=== PATIENT | female | born 1940 | race Caucasian/White ===

== ENCOUNTER → 2017-09-02 09:43 | Outpatient (CLI) | payer MEDICARE, OTHER, SELFPAY ==
[2017-09-02 10:16] LABS: Hematocrit 41.4 % (36-46); Mean Corpuscular HGB Conc 33.7 % (30-36); Mean Corpuscular Hemoglobin 30.2 PG (26-34); Mean Corpuscular Volume 89.5 fL (80-100); Platelet Count 233 X10^3/uL (150-400); Red Blood Cell Count 4.63 X10^6/uL (4.0-5.2); Red Cell Distribution Width 13.3 % (11.6-14.8); White Blood Cell Count 6.9 X10^3/uL (4.5-11.0)
[2017-09-02 10:17] LABS: Add Manual Diff / Slide Review YES
[2017-09-02 10:28] LABS: Alanine Aminotransferase 25 IU/L (9-52); Albumin 4.4 g/dL (3.5-5.0); Albumin Globulin Ratio 1.4 (1.0-2.8); Alkaline Phosphatase 60 U/L (38-126); Aspartate Aminotransferase 24 IU/L (14-36); BUN Creatinine Ratio 27.1 (6-22); Bilirubin Total 0.8 mg/dL (0.2-1.3); Blood Urea Nitrogen 19 mg/dL (7-17); Calcium 9.7 mg/dL (8.4-10.2); Carbon Dioxide 28 mmol/L (22-32); Chloride 103 mmol/L (98-107); Cholesterol 220 mg/dL (140-199); Estimated Glomerular Filt Rate > 60.0 mL/min (>60); Globulin 3.1 g/dL (1.7-4.1); Glucose 98 mg/dL (80-110); HDL Cholesterol 70 mg/dL (40-60); HEMOLYSIS < 15 (0-50); LDL Cholesterol Calculated 132 mg/dL (<100); Potassium 4.7 mmol/L (3.4-5.1); Sodium 142 mmol/L (137-145); Total Protein 7.5 g/dL (6.3-8.2); Triglycerides 92 mg/dL (35-150)
[2017-09-02 10:51] LABS: Neutrophils Absolute Manual 5106 /uL (3000-5900); Total Cells Counted 100
== END ==
PROVIDERS: Family Provider Family Medicine; PCP Family Medicine; Visit Provider Family Medicine
DX: I10 Essential (primary) hypertension (principal); E78.5 Hyperlipidemia, unspecified
CPT/HCPCS: 36415; 80053; 80061; 85025

== ENCOUNTER 2017-09-18 12:43 | Emergency (ER) | payer MEDICARE, OTHER, SELFPAY ==
[2017-09-18 12:55] VITALS: BP 137/77; PULSE 88; RESP 15; TEMP 36.6; O2SAT 98; BMI 27.4
--- NOTE | 2017-09-18 14:04 | ED.ABDPAIN ---
HPI - Abdominal Pain General Chief Complaint: Abdominal Pain Stated Complaint: POSSIBLE DIVERTICUTLITIS,PAIN FOR 4 DAYS Time Seen by Provider: 09/18/17 13:33 Source: patient Mode of arrival: ambulatory Limitations: no limitations History of Present Illness HPI narrative: Patient is a 77-year-old female who presents with lower abdominal pain and cramping for the last 4 days. He says he has had loose watery stools. No nausea or vomiting. She has had chills and sweats. No bloody diarrhea. This feels like her diverticulitis. She does have frequent painful urination but she says that is normal for her. Related Data Home Medications Medication Instructions Recorded Confirmed metoprolol tartrate [Lopressor] 25 mg PO BID 09/18/17 09/18/17 pravastatin 20 mg PO QPM 09/18/17 09/18/17 Previous Rx's Medication Instructions Recorded lisinopril 10 mg tablet 10 mg PO QDAY #90 tab 08/27/17 Allergies Allergy/AdvReac Type Severity Reaction Status Date / Time levofloxacin [LEVOFLOXACIN] Allergy Severe severe Verified 09/18/17 12:55 mouth and eye swelling indomethacin [INDOMETHACIN] Allergy Mild Verified 09/18/17 12:55 meloxicam [MELOXICAM] Allergy Mild Verified 09/18/17 12:55 metronidazole [METRONIDAZOLE] Allergy Mild Verified 09/18/17 12:55 rosuvastatin [ROSUVASTATIN] Allergy Mild Verified 09/18/17 12:55 trandolapril [TRANDOLAPRIL] Allergy Mild Verified 09/18/17 12:55 ciprofloxacin [From CIPRO] Allergy Unknown Verified 09/18/17 12:55 Review of Systems Review of Systems GENERAL: Denies chills, fatigue, malaise, fever, sweats, travel HEENT: Denies sinus pain, ear pain, sore throat, difficulty swallowing, neck pain RESPIRATORY: Denies dyspnea, cough, wheezing, hemoptysis, sputum. CARDIOVASCULAR: Denies chest pain, palpitations, orthopnea, edema GASTROINTESTINAL: See HPI : Denies dysuria, frequency, incontinence, hematuria, urinary retention, flank pain. MUSCULOSKELETAL: Denies weakness, joint pain, or bony pain SKIN: No rash, no erythema, no pruritus NEUROLOGIC: Denies weakness, dizziness, headache, numbness, change in speech, confusion PSYCHIATRIC: No concerning psychosocial issues. 12 point review of systems is negative except for those stated above and HPI PFSH Medical History Diverticular disease (Chronic) PVCs (premature ventricular contractions) (Chronic) Spinal stenosis (Chronic) Surgical History Hx of decompressive lumbar laminectomy (Resolved 08/01/15) Status post hysterectomy with oophorectomy (Resolved) Social History Smoking Status: Never smoker Exam Initial Vital Signs Initial Vital Signs: Vital Signs Temperature 97.9 F 09/18/17 12:55 Pulse Rate 88 09/18/17 12:55 Respiratory Rate 15 09/18/17 12:55 Blood Pressure 137/77 H 09/18/17 12:55 Pulse Oximetry 98 09/18/17 12:55 GENERAL: Well-appearing, well-nourished and in no acute distress. HEENT: Head atraumatic,EOMI, pupils reactive, face symmetric, moist mucous membranes CARDIOVASCULAR: Regular rate and rhythm without murmurs, rubs or gallops. RESPIRATORY: Breath sounds equal bilaterally, no wheezes rales or rhonchi. ABDOMEN: Soft, nontender. Normoactive bowel sounds all 4 quadrants. No guarding or rebound. : No CVA tenderness EXTREMITIES: Normal range of motion, no clubbing or edema. Neurovascularly intact NEUROLOGICAL: Alert and oriented x4.Normal gait and speech. SKIN: Warm, dry, no laceration, no petechiae, no rashes or lesions. Course Orders Ordered: ED Orders 09/18/17 13:44 Complete Blood Count AUTO DIFF Stat Comprehensive Metabolic Panel Stat Lipase Stat Discontinued Medications Sodium Chloride (Normal Saline 0.9%) 1,000 mls @ 1,000 mls/hr IV CONT CHRISTEN Last Infusion: 09/18/17 15:15 Dose: 0 mls/hr Admin: 09/18/17 14:17 Dose: 1,000 mls/hr Vital Signs - 8 hr 09/18/17 12:55 09/18/17 14:27 09/18/17 15:40 Temperature 97.9 F Pulse Rate 88 66 74 Respiratory Rate 15 16 16 Blood Pressure 137/77 H 165/75 H Blood Pressure [Right Arm] 139/52 H Pulse Oximetry 98 100 100 MDM - Abdominal Pain Lab Data Result diagrams: 09/18/17 13:44 09/18/17 13:44 Lab Results 09/18/17 09/18/17 Range/Units 13:44 13:44 WBC 9.7 (4.5-11.0) X10^3/uL RBC 4.40 (4.0-5.2) X10^6/uL Hgb 13.4 (12.0-16.0) g/dL Hct 39.1 (36-46) % MCV 89.1 (80-100) fL MCH 30.5 (26-34) PG MCHC 34.3 (30-36) % RDW 13.0 (11.6-14.8) % Plt Count 241 (150-400) X10^3/uL Neut % (Auto) 77.6 H (50-75) % Lymph % (Auto) 14.9 L (25-40) % [place] % (Auto) 6.7 (3-14) % Eos % (Auto) 0.2 L (2-4) % Baso % (Auto) 0.6 (0-2) % Neut # (Auto) 7500 H (9818-4634) /uL Sodium 140 (137-145) mmol/L Potassium 3.9 (3.4-5.1) mmol/L Chloride 103 (98-107) mmol/L Carbon Dioxide 28 (22-32) mmol/L BUN 23 H (7-17) mg/dL Creatinine 1.10 H (0.52-1.04) mg/dL Estimated GFR 48.4 L (>60) mL/min BUN/Creatinine Ratio 20.9 (6-22) Glucose 138 H (80-110) mg/dL Calcium 9.5 (8.4-10.2) mg/dL Total Bilirubin 1.0 (0.2-1.3) mg/dL AST 29 (14-36) IU/L ALT 23 (9-52) IU/L Alkaline Phosphatase 62 (38-126) U/L Total Protein 7.5 (6.3-8.2) g/dL Albumin 4.3 (3.5-5.0) g/dL Globulin 3.2 (1.7-4.1) g/dL Albumin/Globulin Ratio 1.3 (1.0-2.8) Lipase 121 (23-300) U/L Point of care testing: Urine Dip Bedside Urine Glucose Negative Bedside Urine Bilirubin - Negative Bedside Urine Ketone - Negative Urine Specific [place] 1.015 Bedside Urine Occult Blood - Negative Bedside Urine pH 6.0 Bedside Urine Protein - Negative Bedside Urine Urobilinogen - Negative Bedside Urine Nitrite - Negative Bedside Urine Leukocytes - Negative Esterase MDM Narrative Medical decision making narrative: 3:12 p.m. abdomen is examined and remains mildly tender and lower abdomen and soft. Blood work is reassuring. Discussed no need for CT at this time she has no localization of pain. I offered x-ray though I do not think he is obstructed. She does have a history of perforation. At this time she feels okay not having an x-ray and will return if needed I discussed all findings with the patient Education has been performed regarding treatment plan, diagnosis, warning signs and symptoms and all concerns have been addressed. Verbally agree with and understood all of the above. Discharge Plan Departure Patient Disposition: Home, Self-Care Clinical Impression: Abdominal pain Discharge Date/Time: 09/18/17 15:41 Interventions: ED Discharge Assessment Last Done: 09/18/17 15:40 Instructions: Diarrhea, Acute Abdominal Pain Activity Restrictions/Additional Instructions: *You have been diagnosed with abdominal pain and diarrhea *What to do: Increase fluid intake with Gatorade or Gatorade like substance *Continue to take medications as directed *Follow up with your primary care provider in 2-3 days *Return to ER if you should have increasing abdominal pain, bloody diarrhea, vomiting, inability to tolerate fluids or any new, worsening or concerning symptoms Prescriptions: No Action lisinopril 10 mg tablet 10 mg PO QDAY Qty: 90 RF: 3 metoprolol tartrate [Lopressor] 50 mg tablet 25 mg PO BID RF: 0 pravastatin 20 mg tablet 20 mg PO QPM RF: 0 Referrals: Kiana Laguna MD [Primary Care Provider] -
[2017-09-18 14:15] LABS: Add Manual Diff / Slide Review NO; Basophils Percent Auto 0.6 % (0-2); Eosinophils Percent Auto 0.2 % (2-4); Hematocrit 39.1 % (36-46); Hemoglobin 13.4 g/dL (12.0-16.0); Lymphocytes Percent Auto 14.9 % (25-40); Mean Corpuscular HGB Conc 34.3 % (30-36); Mean Corpuscular Hemoglobin 30.5 PG (26-34); Mean Corpuscular Volume 89.1 fL (80-100); Monocytes Percent Auto 6.7 % (3-14); Neutrophils Absolute Auto 7500 /uL (3000-5900); Neutrophils Percent Auto 77.6 % (50-75); Platelet Count 241 X10^3/uL (150-400); White Blood Cell Count 9.7 X10^3/uL (4.5-11.0)
[2017-09-18 14:16] LABS: Alanine Aminotransferase 23 IU/L (9-52); Albumin 4.3 g/dL (3.5-5.0); Albumin Globulin Ratio 1.3 (1.0-2.8); Alkaline Phosphatase 62 U/L (38-126); Aspartate Aminotransferase 29 IU/L (14-36); BUN Creatinine Ratio 20.9 (6-22); Blood Urea Nitrogen 23 mg/dL (7-17); Calcium 9.5 mg/dL (8.4-10.2); Carbon Dioxide 28 mmol/L (22-32); Chloride 103 mmol/L (98-107); Estimated Glomerular Filt Rate 48.4 mL/min (>60); Globulin 3.2 g/dL (1.7-4.1); Glucose 138 mg/dL (80-110); HEMOLYSIS < 15 (0-50); Lipase 121 U/L (23-300); Potassium 3.9 mmol/L (3.4-5.1); Sodium 140 mmol/L (137-145); Total Protein 7.5 g/dL (6.3-8.2)
[2017-09-18] MEDS: SODIUM CHLORIDE 0.9% 1,000 ML 1000 ML IV (14:17)
[2017-09-18 14:27] VITALS: BP 139/52; PULSE 66; RESP 16; O2SAT 100
[2017-09-18 15:40] VITALS: BP 165/75; PULSE 74; RESP 16; O2SAT 100
== END 2017-09-18 15:41 | disposition home or self-care (01) ==
PROVIDERS: Emergency Provider Emergency Medicine; Family Provider Family Medicine; PCP Family Medicine
DX: R10.9 Unspecified abdominal pain (principal)
CPT/HCPCS: 36591; 80053; 81003; 83690; 85025; 96360; 99283; 99284

== ENCOUNTER 2017-10-28 07:11 | Outpatient (CLI) | payer MEDICARE, OTHER, SELFPAY ==
[2017-10-28] VITALS (13 sets, daily range): BP systolic 100–145; BP diastolic 47–83; PULSE 56–68; RESP 11–20; TEMP 36.3; O2SAT 97–100
--- NOTE | 2017-10-28 07:12 | DI.RAD.S_ITS ---
PROCEDURE: PAIN L/SI FACET INJ/BLK 1STL INDICATIONS: lumbosacral spondylosis FINDINGS: Fluoroscopic spot filming was performed to verify placement of spinal needles at the right L4-5 and L5-S1 level(s), as labeled on the films. Appropriate location(s) of the needle tip(s) was confirmed by injection of iodinated contrast. IMPRESSION: Right L4-5 and L5-S1 needle tip localization. Dictated by: John Markham M.D. on 10/28/2017 at 13:04 Approved by: John Markham M.D. on 10/28/2017 at 13:04
--- NOTE | 2017-10-28 08:22 | P.PCN_ITS ---
Procedures Date/Time Date of procedure: 10/28/17 Time of procedure: 08:19 General Procedure description: PREOP DIAGNOSIS 1. FACET ARTHROPATHY 2. AXIAL LBP 3. MULTILEVEL DDD POST OP DIAGNOSIS 1. FACET ARTHROPATHY 2. AXIAL LBP 3. MULTILEVEL DDD PROCEDURES 1. FLUORSCOPICALLY GUIDED CONTRAST CONTROLLED FACET JOINT INJECTIONS BILATERAL L4/5, L5/S1 PHYSICIAN: Peterson Burgess, DO INDICATIONS Kaylee is referred by Dr.Newlon Sampson for treatment of Axial LBP FINDINGS Multilevel Facet Arthropathy with Clinically significant axial LBP DESCRIPTION OF PROCEDURE Fluoroscopically guided, contrast-controlled bilateral L4/5, L5/S1 facet joint injections. Following denial of allergy and review of potential side effects and complications, including, but not necessarily limited to, infection, allergic reaction, local tissue breakdown, stroke, temporary or permanent nerve injury, paralysis, and possible , the patient indicated that the patient understood and agreed to proceed. An informed consent document was signed by the patient, witnessed by a nurse, and placed in the patient's chart. Additionally, other treatment options including medications, modalities, and physical therapy were reviewed with the patient. After review of previous anaesthesic history and IV conscious sedation the patient was deemed safe to proceed with todays procedure with IV conscious sedation as ASA class II designation. Safety time-out was performed to confirm patient ID, procedure to be performed and site of procedure. IV sedation was accomplished with a combination of 3mg was administered by the RN after DO order , titrated to patient comfort during the course of the procedure while the patient remained responsive to all verbal commands In the prone position, following sterile prep and drape of the lumbar region, the posterior aspect of the L4/5, L5/S1 facet joints were identified fluoroscopically. The skin was anesthetized via a 25-gauge 1.5-inch needle with 1% lidocaine solution into the corresponding facet joints. At this point, a 22-gauge 3.5-inch spinal needle was atraumatically introduced and advanced under fluoroscopic guidance into the corresponding facet joints. Following negative aspiration, injections of approximately 0.2-cc of Isovue 200 confirmed interarticular placement without vascular uptake. The identical procedure was then performed at the L4/5, L5/S1 facet joints on the left. Radiological data, including multiple fluoroscopic views of the lumbosacral spine, reveal a spinal needle at the L3/4, L5/S1 facet joints bilaterally. Subsequent views show flow of contrast material both superiorly and inferiorly within the joint space without vascular or intrathecal uptake. At this point, a total of 0.5 cc including a mixture of 0.25 cc Marcaine and 0.25 cc betamethasone was injected without complication into each of the corresponding facet joints. The patient tolerated the procedure well without signs or symptoms of complications prior to transfer to the recovery area continued monitoring without incident. The patient was then transferred to the recovery area where they were observed for an appropriate period of time after the injection. The patient reported a VAS score of 7 prior to the procedure and a post- procedure VAS of 0. Total Fluoroscopy Time: 20.3 seconds Total Conscious Sedation Time: 24min POST OP INSTRUCTIONS The patient was provided a Pain Log to continue to record their response to the target-specific procedure prior to follow-up visit with their referring physician. Additionally, specific post-injection care instructions and a contact number to our office were provided if concerns arise regarding possible complications associated with the procedure are suspected. Peterson Burgess, Complications: none
[2017-10-28] MEDS: IOPAMIDOL 15 ML VIAL 3 ML INJ (08:41)
[2017-10-28] MEDS: BETAMETHASONE 30 MG/5 ML MDV 12 MG INJ (08:41)
[2017-10-28] MEDS: MIDAZOLAM 5 MG/5 ML VIAL IV (08:42)
[2017-10-28] MEDS: BUPIVACAINE 0.5% (PF) VIAL 2 ML INJ (08:42)
[2017-10-28] MEDS: LIDOCAINE 1% 20 ML INJ 10 ML INJ (08:42)
== END 2017-10-28 09:55 ==
LOC: RAD 07:12
PROVIDERS: Family Provider Family Medicine; PCP Family Medicine; Visit Provider Physical Medicine & Rehabilitation
DX: M47.816 Spondylosis without myelopathy or radiculopathy, lumbar region (principal); M47.817 Spondylosis without myelopathy or radiculopathy, lumbosacral region; M51.36 Other intervertebral disc degeneration, lumbar region; M51.37 Other intervertebral disc degeneration, lumbosacral region
CPT/HCPCS: 64491; 64493; 64494; 99152; J0702; J2250

== ENCOUNTER 2017-11-02 12:25 | Observation (INO) | payer MEDICARE, OTHER, SELFPAY ==
[2017-11-02 12:44] VITALS: BP 166/83; PULSE 68; RESP 20; TEMP 36.9; O2SAT 98; BMI 27.1
--- NOTE | 2017-11-02 12:50 | DI.RAD.S_ITS ---
PROCEDURE: XR CHEST 2V INDICATIONS: palpitations TECHNIQUE: 2 views of the chest were acquired. COMPARISON: [facility], , CHEST 1 VIEW, 03/19/2016, 11:19. FINDINGS: Surgical changes and devices: None. Lungs and pleura: No pleural effusions or pneumothorax. Lungs are clear. Mediastinum: Mediastinal contours are normal. Heart size is normal. Bones and chest wall: No suspicious bony abnormalities. Soft tissues appear unremarkable. IMPRESSION: No acute cardiopulmonary disease process. Dictated by: Paola Calderon MD, PhD on 11/02/2017 at 13:10 Approved by: Paola Calderon MD, PhD on 11/02/2017 at 13:11
[2017-11-02 13:03] LABS: Add Manual Diff / Slide Review NO; Eosinophils Percent Auto 0.4 % (2-4); Hematocrit 45.5 % (36-46); Hemoglobin 15.2 g/dL (12.0-16.0); Lymphocytes Percent Auto 22.1 % (25-40); Mean Corpuscular HGB Conc 33.5 % (30-36); Mean Corpuscular Hemoglobin 29.7 PG (26-34); Mean Corpuscular Volume 88.6 fL (80-100); Monocytes Percent Auto 7.9 % (3-14); Neutrophils Absolute Auto 7300 /uL (3000-5900); Neutrophils Percent Auto 68.6 % (50-75); Platelet Count 284 X10^3/uL (150-400); Red Blood Cell Count 5.13 X10^6/uL (4.0-5.2); White Blood Cell Count 10.6 X10^3/uL (4.5-11.0)
[2017-11-02 13:10] LABS: BUN Creatinine Ratio 26.3 (6-22); Blood Urea Nitrogen 21 mg/dL (7-17); Calcium 10.1 mg/dL (8.4-10.2); Carbon Dioxide 28 mmol/L (22-32); Chloride 103 mmol/L (98-107); Estimated Glomerular Filt Rate > 60.0 mL/min (>60); Glucose 100 mg/dL (80-110); HEMOLYSIS 24 (0-50); Magnesium 2.1 mg/dL (1.6-2.3); Potassium 4.5 mmol/L (3.4-5.1); Sodium 140 mmol/L (137-145)
[2017-11-02 13:23] LABS: Troponin I < 0.012 ng/mL (0.01-0.034)
--- NOTE | 2017-11-02 14:23 | ED.SOB ---
HPI - SOB/Dyspnea General Chief Complaint: Shortness of Breath/Dyspnea Stated Complaint: EKG IRREGULAR Time Seen by Provider: 11/02/17 12:34 History of Present Illness HPI 77-year-old female presents for further evaluation of palpitations that are sudden in onset, paroxysmal, and correlated with an abrupt change from sinus rhythm to a wide-complex tachycardia of approximately 101 bpm noted on cardiac monitoring immediately prior to arrival; patient feels lightheaded and experiences a sensation of anxiety with substernal palpitations during her episodes. Episodes have been occurring intermittently but with increasing frequency over months to last 1+ years. Patient denies history of DVT or PE. Patient transfer from her [facility] who obtained 3 ECGs prior to transfer, these were forwarded with the patient. ECG (11:23 AM) SR 61 bpm, HI 121 ms, QRS 89 ms, QTc 411 ms, no ST segment elevations or depressions, no T-wave inversions. EKG (11:26 AM): wide-complex QRS without preceding Q waves with transition to sinus rhythm. EKG (11:29 AM): broad and complex rhythm with the curious of 177 ms and left bundle branch type morphology, no identifiable preceding P waves. M/S/F/SocHx notable for: urinary dysfunction, constipation, HTN, lumbar stenosis, lumbar radiculopathy, palpitations, HTN, diverticulitis; remainder reviewed with patient and in chart. ROS: Negative constitutional, eye, cardiovascular, pulmonary, GI, , MSK, skin, neurologic, psychiatric, endocrine unless noted in the HPI. Exam Gen: Pleasant, non-toxic appearing, resting comfortably. HEENT: NC, AT, PEERL, EOMI. Resp: Clear to auscultation bilaterally, normal work of breathing, no accessory muscle usage. Card: Regular rate and rhythm with no murmurs, rubs, or gallops, extremities warm and well perfused. GI: Non-tender to palpation throughout all quadrants, no focal tenderness at McBurney's point, negative Rich's sign, non-distended, no rebound or guarding. : No suprapubic tenderness to palpation. MSK: No visible deformities, strength and tone without visually appreciable deficit. Skin: Normal color with no visible lesions. Neuro: AO x 3, no facial asymmetry, vision and hearing WNL. Psych: Mood and affect appropriate. Labs / Imaging: EKG (12:28 PM) SR with sinus arrhythmia and short HI segments. No ST segment elevations or depressions. WBC 10.6, hemoglobin 15.2 sodium 140, potassium 4.5, magnesium 2.1, troponin <0.012 CXR: no acute cardiopulmonary disease process. TSH pending MDM Previous chart, nursing note, labs, imaging, and vitals reviewed. A: 77-year-old female presents for further evaluation of palpitations that are sudden in onset, paroxysmal, and correlated with an abrupt change from sinus rhythm to a wide-complex tachycardia of approximately 101 bpm noted on cardiac monitoring immediately prior to arrival; patient feels lightheaded and experiences a sensation of anxiety with substernal palpitations during her episodes. Evaluation: Serial ECGs notable for what appears to be a junctional rhythm with retrograde P waves. Patient symptomatic during episodes with features concerning for hypoperfusion, electrolytes WNL, inciting event of unclear cause of the present time. Discuss case with cardiology, jointly reviewed ECG and presentation, suspect idioventricular rhythm versus slow VTach, stress test, echocardiogram, and initiation of beta-pranay recommended. Patient admitted for further care. Impression: idioventricular rhythm. (please reference below for remainder of encounter information) Related Data Home Medications Medication Instructions Recorded Confirmed metoprolol tartrate [Lopressor] 25 mg PO BID 09/18/17 11/02/17 pravastatin 20 mg PO QPM 09/18/17 11/02/17 polyethylene glycol 3350 [Miralax] 17 gram PO PRN PRN 11/02/17 11/02/17 Previous Rx's Medication Instructions Recorded lisinopril 10 mg tablet 10 mg PO QDAY #90 tab 08/27/17 Allergies Allergy/AdvReac Type Severity Reaction Status Date / Time levofloxacin [LEVOFLOXACIN] Allergy Severe severe Verified 11/02/17 11:37 mouth and eye swelling indomethacin [INDOMETHACIN] Allergy Mild Verified 11/02/17 11:37 meloxicam [MELOXICAM] Allergy Mild Verified 11/02/17 11:37 metronidazole [METRONIDAZOLE] Allergy Mild Verified 11/02/17 11:37 rosuvastatin [ROSUVASTATIN] Allergy Mild Verified 11/02/17 11:37 trandolapril [TRANDOLAPRIL] Allergy Mild Verified 11/02/17 11:37 ciprofloxacin [From CIPRO] Allergy Unknown Verified 11/02/17 11:37 [facility] Social History Smoking Status: Never smoker Exam Initial Vital Signs Initial Vital Signs: Vital Signs Temperature 98.5 F 11/02/17 12:44 Pulse Rate 68 11/02/17 12:44 Respiratory Rate 20 11/02/17 12:44 Blood Pressure 166/83 H 11/02/17 12:44 Pulse Oximetry 98 11/02/17 12:44 Course Orders Ordered: ED Orders 11/02/17 12:40 Basic Metabolic Panel Stat Complete Blood Count AUTO DIFF Stat Magnesium Stat Thyroid Stimulating Hormone Stat Troponin I Stat 11/02/17 12:50 XR chest 2V Stat Vital Signs - 8 hr 11/02/17 12:44 11/02/17 14:29 Temperature 98.5 F Pulse Rate 68 65 Respiratory Rate 20 14 Blood Pressure 166/83 H Blood Pressure [Right Arm] 151/62 H Pulse Oximetry 98 97 MDM - SOB/Dyspnea Lab Data Result diagrams: 11/02/17 12:40 11/02/17 12:40 Lab Results 11/02/17 11/02/17 Range/Units 12:40 12:40 WBC 10.6 (4.5-11.0) X10^3/uL RBC 5.13 (4.0-5.2) X10^6/uL Hgb 15.2 (12.0-16.0) g/dL Hct 45.5 (36-46) % MCV 88.6 (80-100) fL MCH 29.7 (26-34) PG MCHC 33.5 (30-36) % RDW 13.0 (11.6-14.8) % Plt Count 284 (150-400) X10^3/uL Neut % (Auto) 68.6 (50-75) % Lymph % (Auto) 22.1 L (25-40) % [place] % (Auto) 7.9 (3-14) % Eos % (Auto) 0.4 L (2-4) % Baso % (Auto) 1.0 (0-2) % Neut # (Auto) 7300 H (5820-8441) /uL Sodium 140 (137-145) mmol/L Potassium 4.5 (3.4-5.1) mmol/L Chloride 103 (98-107) mmol/L Carbon Dioxide 28 (22-32) mmol/L BUN 21 H (7-17) mg/dL Creatinine 0.80 (0.52-1.04) mg/dL Estimated GFR > 60.0 (>60) mL/min BUN/Creatinine Ratio 26.3 H (6-22) Glucose 100 (80-110) mg/dL Calcium 10.1 (8.4-10.2) mg/dL Magnesium 2.1 (1.6-2.3) mg/dL Troponin I < 0.012 (0.01-0.034) ng/mL Discharge Plan Departure Prescriptions: No Action lisinopril 10 mg tablet 10 mg PO QDAY Qty: 90 RF: 3 metoprolol tartrate [Lopressor] 50 mg tablet 25 mg PO BID RF: 0 pravastatin 20 mg tablet 20 mg PO QPM RF: 0 polyethylene glycol 3350 [Miralax] 17 gram/dose powder 17 gram PO PRN PRN (Reason: Constipation) RF: 0
[2017-11-02 14:29] VITALS: BP 151/62; PULSE 65; RESP 14; O2SAT 97
[2017-11-02 14:51] LABS: Thyroid Stimulating Hormone 3.37 uIU/mL (0.47-4.68)
[2017-11-02 15:45] VITALS: BP 155/82; PULSE 70; RESP 18; TEMP 36.4; O2SAT 97
--- NOTE | 2017-11-02 17:54 | P.HP_ITS ---
History of Present Illness Date Patient Seen: 11/02/17 Time Patient Seen: 16:45 Chief complaint: EKG IRREGULAR Narrative: Patient is a 77-year-old woman with a history of hypertension, hyperlipidemia, and chronic back pain who presented with palpitations. Patient reports that for the past year she has been having intermittent palpitations. It usually starts as a substernal pressure that rapidly changes to a ?empty ? feeling in her chest. She states that her chest feels ?hollow. ? She then has a feeling of lightheadedness. There is associated shortness of breath. The patient then usually starts to feel slightly dizzy. She can get associated low back pain. She denies distinct diaphoresis, radiation of the pressure type pain , nausea. It usually lasts for 1-2 minutes and then self resolves. She has not been able to identify any specific triggers. She did have a workup for palpitations last year include labs, echocardiogram, and Holter monitor. Labs did not show any abnormalities, echo showed moderate atrial enlargement, and Holter monitor showed PACs. The patient was started on metoprolol help control her symptoms at that time. The patient states that her palpitations never completely resolved. Over the past week they have increased in frequency from a few times a month to want to 1-2/day. Yesterday and today however they have been occurring much more frequently, sometimes multiple an hour. This became very concerned her and so she was evaluated in clinic today. In clinic EKG was completed that showed what appeared to be a widened QRS with ventricular rate. The patient was then transferred to the emergency room. In the ER, she remained asymptomatic. On telemetry there are no concerning findings. Cardiology was contacted and reviewed the EKGs as well. Discussed idioventricular rhythm versus slow V-tach. Recommended admission for echocardiogram and stress test, and increase of the patient's beta-pranay. Patient History Medical History Diverticular disease (Chronic) PVCs (premature ventricular contractions) (Chronic) Spinal stenosis (Chronic) Surgical History Hx of decompressive lumbar laminectomy (Resolved 08/01/15) Status post hysterectomy with oophorectomy (Resolved) Family & Social History Family History: Reviewed 11/02/17 by Meli Fraser MD Safety & Behavioral: Feels Safe in Current Yes Environment Been Physically Hurt or No Threatened By a Person Tobacco & Substance use: Smoking Status Never smoker alcohol intake frequency 0-2 drinks per day Substance Use Type does not use Meds Home Medications Medication Instructions Recorded Confirmed Type lisinopril 10 mg tablet 10 mg PO QDAY #90 tab 08/27/17 11/02/17 Rx metoprolol tartrate [Lopressor] 25 mg PO BID 09/18/17 11/02/17 History pravastatin 20 mg PO QPM 09/18/17 11/02/17 History estradiol 1 mg tablet 1 mg PO DAILY #30 tab 11/02/17 Rx polyethylene glycol 3350 [Miralax] 17 gram PO PRN PRN 11/02/17 11/02/17 History Allergies Allergy/AdvReac Type Severity Reaction Status Date / Time levofloxacin [LEVOFLOXACIN] Allergy Severe severe Verified 11/02/17 11:37 mouth and eye swelling indomethacin [INDOMETHACIN] Allergy Mild Verified 11/02/17 11:37 meloxicam [MELOXICAM] Allergy Mild Verified 11/02/17 11:37 metronidazole [METRONIDAZOLE] Allergy Mild Verified 11/02/17 11:37 rosuvastatin [ROSUVASTATIN] Allergy Mild Verified 11/02/17 11:37 trandolapril [TRANDOLAPRIL] Allergy Mild Verified 11/02/17 11:37 ciprofloxacin [From CIPRO] Allergy Unknown Verified 11/02/17 11:37 Review of Systems Constitutional Constitutional: Denies fever(s), Denies headache(s), Denies lack of energy and Denies snoring ENT Ears, Nose, Mouth, and Throat: No headache(s) Cardiovascular Cardiovascular: Reports chest pain, Denies fainting, Denies fast heart rate, Reports irregular heart rhythm, Denies leg swelling, Reports lightheadedness, Reports shortness of breath and Denies slow heart rate Respiratory Respiratory: Denies cough, Reports dyspnea and Denies snoring Gastrointestinal Gastrointestinal: Denies abdominal pain, Denies constipation and Denies nausea Neurologic Neurologic: Denies syncope and Denies headache(s) Exam Vital Signs (past 8 hours): - 11/02/17 12:44 11/02/17 14:29 11/02/17 15:45 Temperature 98.5 F 97.6 F Pulse Rate 68 65 70 Respiratory Rate 20 14 18 Blood Pressure 166/83 H 155/82 H Blood Pressure [Right Arm] 151/62 H Pulse Oximetry 98 97 97 Oxygen Delivery Method Room Air Narrative Exam Narrative: GEN - alert, cooperative and no distress HEENT - normocephalic and atraumatic, sclera white, moist mucus membranes, throat non-erythematous and tonsils not enlarged NECK - FROM, no adenopathy, Thyroid is not enlarged, symmetrical and smooth HEART - RRR, S1, S2 normal, no S3 or S4, no murmurs LUNGS - symmetric chest rise, no accessory muscles, clear to auscultation bilaterally ABD - flat, nondistended, normal bowel sounds, soft, nontender and no hepatomegaly, splenomegaly or masses EXT - no cyanosis, clubbing or edema SKIN - no rashes or suspicious lesions NEURO - no gross deficits Objective Labs Result Diagrams: 11/02/17 12:40 11/02/17 12:40 Labs: Laboratory Results - last 24 hr 11/02/17 11/02/17 11/02/17 12:40 12:40 12:40 WBC 10.6 RBC 5.13 Hgb 15.2 Hct 45.5 MCV 88.6 MCH 29.7 MCHC 33.5 RDW 13.0 Plt Count 284 Neut % (Auto) 68.6 Lymph % (Auto) 22.1 L Pratt % (Auto) 7.9 Eos % (Auto) 0.4 L Baso % (Auto) 1.0 Neut # (Auto) 7300 H Sodium 140 Potassium 4.5 Chloride 103 Carbon Dioxide 28 BUN 21 H Creatinine 0.80 Estimated GFR > 60.0 BUN/Creatinine Ratio 26.3 H Glucose 100 Calcium 10.1 Magnesium 2.1 Troponin I < 0.012 TSH 3.37 Assessment & Plan (1) Arrhythmia: Qualifiers: Arrhythmia type: unspecified cardiac arrhythmia Qualified Code(s): I49.9 - Cardiac arrhythmia, unspecified Current visit: Yes Status: Acute (2) Hypertension: Qualifiers: Hypertension type: essential hypertension Qualified Code(s): I10 - Essential (primary) hypertension Current visit: No Status: Chronic Plan: Assessment/Plan Narrative: 77-year-old woman with a history of hypertension, hyperlipidemia, chronic back pain who presents with palpitations. EKG consistent with idioventricular rhythm versus slow ventricular tachycardia. Rhythm was captured again on telemetry during brief hospitalization. Recommendation from Cardiology included echocardiogram and stress test be completed. After discussion with the patient, she declines workup in the hospital due to financial concerns with observation status with admission. Discussed with the employment evaluator/case manager as well, who states the patient would not qualify for inpatient status. Discussed our concerns with the patient, including the potentially dangerous nature of her arrhythmia. The patient expressed understanding. She continued to decline additional testing on the hospital. The patient will be leaving against medical advice this evening. We will insure appropriate follow-up as an outpatient. Plan to refer to Cardiology in addition to having outpatient echocardiogram and stress test completed promptly. Did increase metoprolol to 50 mg b.i.d. from 25 mg b.i.d. as well.
--- NOTE | 2017-11-02 18:00 | PC.NURSE ---
paloma ferguson Pt received from ER. Pt in sinus rhythm. Pt had episode of feeling empty in chest, SOB. Pt showing SR on tele. Just before Dr. Fraser arrived to see pt, pt had 37 beats of wide complex tachycardia at rate 103. Pt had the SOB, anxiety and the empty feeling in chest. Showed arrythmia to Dr. Fraser on arrival. pt does not wish to stat in hospital due to concerns of insurance nonpayment for observation status. IV removed and tele removed. Pt escorted to car with via wheelchair.
== END 2017-11-02 18:20 | disposition left against medical advice (07) ==
LOC: ED 14:52 → ICU 16:04
PROVIDERS: Admitting Provider Family Medicine; Emergency Provider Emergency Medicine; PCP Family Medicine; Visit Provider Family Medicine
DX: I49.9 Cardiac arrhythmia, unspecified (principal); I10 Essential (primary) hypertension; R06.02 Shortness of breath; I49.3 Ventricular premature depolarization; E78.5 Hyperlipidemia, unspecified; M54.9 Dorsalgia, unspecified; Z53.20 Procedure and treatment not carried out because of patient's decision for unspecified reasons
CPT/HCPCS: 71046; 80048; 83735; 84443; 84484; 85025; 93005; 93010; 93041; 99235; 99283; 99285; G0378

== ENCOUNTER → 2017-11-05 07:59 | Outpatient (CLI) | payer MEDICARE, OTHER, SELFPAY ==
--- NOTE | 2017-11-05 08:00 | DI.NM.S_ITS ---
PROCEDURE: NM ADDY PERF SPECT REST & STR Rest and exercise myocardial perfusion SPECT with gated imaging and ejection fraction RADIOPHARMACEUTICAL: 24.5 mCi Tc-99m sestamibi IV at rest and 26.6 mCi Tc-99m sestamibi IV at peak exercise. A two day-protocol was performed. INDICATIONS: arrhythmia TECHNIQUE: Radiopharmaceutical was injected at peak stress test, and also at rest. SPECT images were obtained. SPECT myocardial perfusion images were displayed in short axis, horizontal long axis, and vertical long axis views. Gated images were reviewed using Cymbet software. COMPARISON: None. CARDIAC STRESS: A standard Jose treadmill exercise tolerance test was performed by the patient under the supervision of an attending staff. The patient exercised for 5 minutes and 40 seconds reaching 7.0 METs; functional aerobic impairment (DANIEL) is +10%. Hemodynamic data: There is normal blood pressure and heart rate response to exercise stress. Patient achieved 95% of maximum predicted heart rate at peak exercise. Symptoms: Patient denied chest pain during exercise. EKG: Resting ECG showed sinus rhythm and non-specific ST depressions in the inferior and anterolateral leads. With exercise, there were mild ST depressions in the inferior and anterolateral leads that are probably related to baseline ST changes. Occasional PACs and occasional PVCs present. FINDINGS: Raw data: There is good myocardial labeling by radiotracer. No significant motion artifacts. Left ventricle function: Gated images demonstrate normal left ventricle wall thickening. No segmental wall motion abnormality. No transient ischemic dilation. The left ventricle resting end-diastolic volume is 78 mL. Left ventricle stress ejection fraction is 78%; normal values are above 45%. Myocardial perfusion: There is a small mildly severe fixed defect at the apex that improves significantly with prone imaging, suggesting apical thinning artifact. No ischemia present. IMPRESSION: Probably normal treadmill nuclear stress test 1) Probably normal perfusion images. There is a small mildly severe fixed defect at the apex that improves significantly with prone imaging, suggesting apical thinning artifact. 2) Normal left ventricular size, wall motion, and systolic function (post stress EF 78%). 3) No diagnostic ischemic changes on ECG with treadmill. Resting ECG showed sinus rhythm and non-specific ST depressions in the inferior and anterolateral leads. With exercise, there were mild ST depressions in the inferior and anterolateral leads that are probably related to baseline ST changes. 4) No angina with exercise. 5) Mildly reduced exercise capacity (7.0 METs, DANIEL +10%). Target heart rate achieved. Appropriate blood pressure response to exercise. 6) Compared to the nuclear stress test done 08/20/1508/29/2008, no significant change. Dictated by: Mariola Arnett MD on 11/06/2017 at 13:25 Approved by: Mariola Arnett MD on 11/06/2017 at 13:32
--- NOTE | 2017-11-05 09:29 | PM.TREADMILL ---
Cardiac Stress Test Report Referral & Results Date Patient Seen: 11/05/17 Requesting provider: Meli Fraser Indication: Abnormal ECG Rest ECG: Unremarkable Procedure Note: Today following both written and verbal informed consent the patient was exercised according to a standard Jose protocol patient went for a total of 6 min 31 sec achieving a maximum heart rate of 138 maximum systolic blood pressure of 190. This is approximately 7.0 METS. Exercise was terminated at this point because of inability the patient to go any further and targets having been met. Patient was also given Cardiolite through a previously started Hep-Lock IV by the nuclear operations specialist approximately 1 minute prior to the cessation of exercise. There are no ST-T segment changes identified Normal heart rate and blood pressure response to exercise Functional aerobic impairment rated 10% on the sedentary scale Patient did have some dysrhythmia look like PVCs or perhaps aberrantly conducted sinus beats than left bundle branch block pattern. These abnormally conducted beat seem to March out without change in intervals thus suggesting a supraventricular or source rather than ventricular Impression: No evidence of ischemia Average exercise capacity Perfusion imaging to be reported separately Please note: Actual ECG tracings can be found in the PACS system.
== END ==
PROVIDERS: PCP Family Medicine; Visit Provider Family Medicine
DX: I49.9 Cardiac arrhythmia, unspecified (principal); R94.31 Abnormal electrocardiogram [ECG] [EKG]
CPT/HCPCS: 78452; 93016; 93017; 93018; A9502

== ENCOUNTER → 2017-11-09 09:30 | Outpatient (CLI) | payer MEDICARE, OTHER, SELFPAY ==
--- NOTE | 2017-11-09 09:32 | DI.ECHO.S_ITS ---
[facility]---------+ [facility] +---------+ : : [address] : [place] : : : : [id number] : : : : Phone: [phone]---------+ Echocardiogram Report + + :Name: MOSES GONZALEZ I Study Date: 11/09/2017 Height: 64 in : :[facility] Exam Location: [facility] Weight: 160 lb : : Gender: Female BSA: 1.8 m2 : :: 1940 Age: 77 yrs BP: 160/80 mmHg: :Reason For Study: Arrhythmia : : Performed By: Patience Page : :Referring: HAILY LLANES : + + Interpretation Summary 1) Normal left ventricular thickness, size, wall motion, and systolic function (EF 60-65%). 2) Normal right ventricular size and function. 3) The left atrium is severely dilated. 4) The mitral valve leaflets appear mildly thickened, but open well. 5) There is mild mitral regurgitation. 6) The right ventricular systolic pressure is estimated at 36.3 mmHg assuming a right atrial pressure of 3 mm Hg. 7) Compared to the Echo done 04/02/2016, no significant change. Procedure: A two-dimensional transthoracic echocardiogram with color flow and Doppler was performed. The study quality was technically adequate. Comparison is made with the echocardiogram of 04/02/2016. The patient was in sinus bradycardia with heart rates between 46-56 bpm during the exam. The patient had occasional PACs during the exam. Left Ventricle: The left ventricle is normal in size, wall thickness, and systolic function without any focal wall motion abnormalities. The ejection fraction is estimated to be 65-70%. Assessment of diastolic parameters indicates a relaxation abnormality of the left ventricle, consistent with normal filling pressures. Right Ventricle: The right ventricle is normal in size and function. Atria: The left atrium is severely dilated. Right atrial size is normal. There is no Doppler evidence for an interatrial shunt. Mitral Valve: The mitral valve leaflets appear mildly thickened, but open well. There is mild mitral regurgitation. Aortic Valve: The aortic valve is trileaflet. The aortic valve opens well. There is no aortic valve stenosis. No aortic regurgitation is present. Tricuspid Valve: The tricuspid valve is normal in structure and function. There is mild tricuspid regurgitation. The right ventricular systolic pressure is estimated at 36.3 mmHg assuming a right atrial pressure of 3 mm Hg. Pulmonic Valve: The pulmonic valve is not well visualized. There is trace pulmonic regurgitation. Great Vessels: The aortic root is normal size. The ascending aorta is normal in size. The aortic arch could not be visualized. The pulmonary artery is not well visualized, but is probably normal size. The IVC does not appear dilated but does not appear to have respiratory collapse which suggests moderately high central venous pressure. The IVC has a measurement of 1.7 mm. Pericardium/ Pleura There is no pericardial effusion. There is no pleural effusion. MMode/2D Measurements & Calculations LVIDd: 5.1 cm Ao root diam: 2.9 cm LVIDs: 2.9 cm asc Aorta Diam: 2.6 cm FS: 43.6 % EPSS: 0.18 cm IVSd: 0.79 cm LVPWd: 0.46 cm LV moore. diameter/BSA (cm/m^2): 2.8 LV sys. diameter/BSA (cm/m^2): 1.6 LA A2 area: 26.3 cm2 RA long axis: 5.6 cm LA A4 area: 26.6 cm2 RA area: 18.2 cm2 LA length (vol): 6.1 cm RA vol: 50.2 ml LA vol: 97.3 ml RA : 28.2 ml/m2 LA vol index: 54.7 ml/m2 IVC diam: 1.7 cm RVD1 (basal): 3.7 cm TAPSE: 2.5 cm Doppler Measurements & Calculations Ao V2 max: 120.3 cm/sec LVOT Max Alphonso: 98.2 cm/sec Ao V2 mean: 85.9 cm/sec LV V1 max P.9 mmHg Ao max P.8 mmHg LV V1 VTI: 21.6 cm Ao mean P.3 mmHg sev ratio: 0.72 Ao V2 VTI: 30.0 cm MV E max alphonso: 98.0 cm/sec TR max alphonso: 288.4 cm/sec MV A max alphonso: 66.0 cm/sec TR max P.3 mmHg MV E/A: 1.5 PA V2 max: 71.0 cm/sec Med Peak E' Alphonso: 8.1 cm/sec PA V2 mean: 50.8 cm/sec E/E' med: 12.2 PA mean P.1 mmHg Lat Peak E' Alphonso: 7.8 cm/sec PA Accel Time: 0.12 sec E/E' lat: 12.5 E/e' average: 12.3 MV dec time: 0.31 sec MV P1/2t: 88.8 msec MV P1/2t max alphonso: 97.6 cm/sec MVA(P1/2t): 2.5 cm2 Reading Physician:12:31 PM
== END ==
PROVIDERS: PCP Family Medicine; Visit Provider Family Medicine
DX: I08.1 Rheumatic disorders of both mitral and tricuspid valves (principal); I49.9 Cardiac arrhythmia, unspecified
CPT/HCPCS: 93306

== ENCOUNTER → 2019-04-11 09:46 | Outpatient (CLI) | payer MEDICARE, OTHER, SELFPAY ==
--- NOTE | 2019-04-11 09:50 | DI.RAD.S_ITS ---
PROCEDURE: XR KNEE RT 3V INDICATIONS: right knee pain, crepitus on exam TECHNIQUE: 3 views of the knee were acquired. COMPARISON: [facility], MR, KNEE WITHOUT CONTRAST, 07/02/2015, 7:39. [facility], CR, KNEE 3V LEFT, 03/18/2015, 9:48. FINDINGS: Bones: No fractures or dislocations. No suspicious bony lesions. There is a mild degree of medial compartment joint space narrowing but at the patellofemoral joint there is [id number] articulation at the medial compartment and slightly less degenerative change at the lateral compartment. Soft tissues: No joint effusion. No suspicious soft tissue calcifications. 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 Dictated by: John Markham M.D. on 04/11/2019 at 10:26 Approved by: John Markham M.D. on 04/11/2019 at 10:28
[2019-04-11 10:56] LABS: Creatinine Urine Random 188.9 mg/dL
[2019-04-11 11:00] LABS: Microalbumi Creatinin Ratio Ur 6.3 ug/mg CR (<30); Microalbumin Urine Random 1.2 mg/dL (0-1.6)
[2019-04-11 11:20] LABS: Alanine Aminotransferase 17 IU/L (<35); Albumin 4.4 g/dL (3.5-5.0); Albumin Globulin Ratio 1.5 (1.0-2.8); Alkaline Phosphatase 66 U/L (38-126); Aspartate Aminotransferase 26 IU/L (14-36); BUN Creatinine Ratio 25.7 (6-22); Bilirubin Total 0.8 mg/dL (0.2-1.3); Blood Urea Nitrogen 18 mg/dL (7-17); Calcium 9.7 mg/dL (8.4-10.2); Carbon Dioxide 29 mmol/L (22-32); Chloride 104 mmol/L (98-107); Cholesterol 190 mg/dL (140-199); Estimated Glomerular Filt Rate > 60.0 mL/min (>60); Globulin 2.9 g/dL (1.7-4.1); Glucose 99 mg/dL (80-110); HDL Cholesterol 78 mg/dL (40-60); HEMOLYSIS < 15 (0-50); LDL Cholesterol Calculated 89 mg/dL (<100); Potassium 4.8 mmol/L (3.4-5.1); Sodium 140 mmol/L (137-145); Total Protein 7.3 g/dL (6.3-8.2); Triglycerides 116 mg/dL (35-150)
== END ==
PROVIDERS: PCP Family Medicine; Visit Provider Family Medicine
DX: M25.561 Pain in right knee (principal); M17.11 Unilateral primary osteoarthritis, right knee; I10 Essential (primary) hypertension
CPT/HCPCS: 36415; 73562; 80053; 80061; 82043; 82570

== ENCOUNTER → 2019-05-09 11:11 | Outpatient (CLI) | payer MEDICARE, OTHER, SELFPAY ==
--- NOTE | 2019-05-09 11:13 | DI.RAD.S_ITS ---
PROCEDURE: XR CERVICAL SPINE 4V OR 5V INDICATIONS: Neck pain upper extremity paresthesias TECHNIQUE: 5 views of the cervical spine acquired. COMPARISON: [facility], CR, XR CERVICAL SPINE WITH OBLIQUES, 02/11/2017, 9:21. FINDINGS: Bones: No fractures or dislocations to the C7 level. Multilevel degenerative endplate sclerosis and spurring. Diffuse facet arthropathy. Grade 1 anterolisthesis of C4 on C5 grade 1 retrolisthesis of C5 on C6. Severe narrowing of the C5-C6 disc space. Mild narrowing of the C4-C5 disc space. On the right, there is mild C4-C5 and C6-C7 bony foraminal stenosis. On the left, moderate at C3-C4 and C4-C5 bony foraminal stenoses Soft tissues: No prevertebral soft tissue swelling. IMPRESSION: Multilevel cervical spondylosis and spondylolistheses. Bilateral bony foraminal stenoses as detailed above No definite interval change. Dictated by: Shant Austin M.D. on 05/09/2019 at 13:24 Approved by: Shant Austin M.D. on 05/09/2019 at 13:27
== END ==
PROVIDERS: PCP Family Medicine; Referring Provider Physical Medicine & Rehabilitation; Visit Provider Physical Medicine & Rehabilitation
DX: M47.22 Other spondylosis with radiculopathy, cervical region (principal); M43.12 Spondylolisthesis, cervical region; M48.02 Spinal stenosis, cervical region; R20.2 Paresthesia of skin
CPT/HCPCS: 72050

== ENCOUNTER 2019-05-23 13:40 | Outpatient (CLI) | payer MEDICARE, OTHER, SELFPAY ==
[2019-05-23] VITALS (9 sets, daily range): BP systolic 119–170; BP diastolic 53–82; PULSE 72–104; RESP 16; TEMP 36.3; O2SAT 98–100
--- NOTE | 2019-05-23 13:44 | DI.RAD.S_ITS ---
PROCEDURE: PAIN L/S TRANSFORAMINAL INJECT INDICATIONS: RADICULOPATHTY FINDINGS: Fluoroscopic spot filming was performed to verify placement of spinal needles at the L4, L5, S1 level(s), as labeled on the films. Appropriate location(s) of the needle tip(s) was confirmed by injection of iodinated contrast. Dictated by: Shant Austin M.D. on 05/23/2019 at 16:01 Approved by: Shant Austin M.D. on 05/23/2019 at 16:02
[2019-05-23] MEDS: fentaNYL 100 MCG/2 ML INJ 50 MCG IV (15:11)
[2019-05-23] MEDS: MIDAZOLAM 5 MG/5 ML VIAL IV (15:11)
[2019-05-23] MEDS: IOPAMIDOL 15 ML VIAL 3 ML INJ (15:16)
[2019-05-23] MEDS: LIDOCAINE 1% 20 ML 5 ML INJ (15:16)
[2019-05-23] MEDS: BUPIVACAINE 0.5% (PF) VIAL 2 ML INJ (15:16)
--- NOTE | 2019-05-23 15:22 | PC.NURSE ---
ASSISTING PT OFF PROC TABLE AND TRANSPORTING TO POST PROC AREA IN STABLE CONDITION. PASSING RN CARE OF PT OFF TO CHANDRAKANT Dominguez RN.
--- NOTE | 2019-05-23 15:28 | P.PCN_ITS ---
Procedures Date/Time Date of procedure: 05/23/19 Time of procedure: 15:29 General Procedure description: Procedure description: 1. FACET ARTHROPATHY PROCEDURES: 1. BILATERAL- L4, L5 and S1 DIAGNOSTIC MB BLOCKS with LA Anesthetic PHYSICIAN: Peterson Burgess, DO INDICATIONS Kaylee is referred by for treatment of Bilateral Axial LBP. DESCRIPTION OF PROCEDURE Fluoroscopically guided, contrast-controlled bilateral L4, L5 and S1 medial branch blocks with 0.5cc of 0.5% Marcaine. Following review of allergy and review of potential side effects and complications, including, but not necessarily limited to, infection, allergic reaction, local tissue breakdown, nerve injury, paralysis, stroke and possible , the patient indicated that the patient understood and agreed to proceed. An informed consent document was signed by the patient, witnessed by a nurse, and placed in the patient's chart. After review of previous anaesthesic history and IV conscious sedation the patient was deemed safe to proceed with todays procedure with IV conscious sedation as ASA class II designation. Safety time-out was performed to confirm patient ID, procedure to be performed and site of procedure. IV sedation was accomplished with a combination of 2mg of Versed and 50mcg of Fentanyl was administered by the RN after DO order, titrated to patient comfort during the course of the procedure while the patient remained responsive to all verbal commands In the prone position, following sterile prep and drape of the lumbar region, the right L4, L5 and S1 anatomical location of the medial branch of the dorsal ramus was identified fluoroscopically. Subsequently an anesthetic skin wheal using 1% lidocaine solution was initiated at each of the anatomical spots. Subsequently then a 22-gauge 3.5-inch spinal needle was atraumatically introduced and advanced under fluoroscopic guidance at each of the corresponding sites at the right L4, L5 and S1 MB. After negative aspiration, 0.2cc of Isovue 200 was injected, confirming placement without vascular or intrathecal uptake. Subsequently then 0.5cc of 0.5% Marcaine solution was injected at each of the corresponding sites at the right L4, L5 and S1 medial branch locations. The id entical procedure was replicated on the left. The patient tolerated the procedure well without signs or symptoms of complications prior to transfer to the recovery area continued monitoring without incident. Post-procedure, the patient was monitored initiating provocative activities to measure the amount of relief from block of the facetogenic pain. The patient reported a VAS of 10 prior to the procedure and a post-procedure VAS of 8. It has been a pleasure to assist in the diagnostic and therapeutic care of your patient. Total Fluoroscopy Time: 11 seconds Total Conscious Sedation Time: 24min POST OP INSTRUCTIONS The patient was provided with a Pain Log to complete over the next several hours and subsequent days prior to the patient's follow up with the ordering physician. If the patient has receipt and report clerk relief to the solution applied, then they may be a candidate for medial branch rhizotomy. The patient is aware, was provided, once again, with a Pain Log and will follow up with the referring physician for review and clinical correlation Peterson Burgess DO Complications: none
--- NOTE | 2019-05-23 15:40 | DI.RAD.S_ITS ---
PROCEDURE: XR LUMBAR SPINE MIN 4V INDICATIONS: Acute on Chronic R>L LBP TECHNIQUE: 5 views of the lumbar spine were acquired. COMPARISON: [facility], SPINE LUMB MIN 4VW, 11/18/2016, 15:27. FINDINGS: Bones: 5 nonrib-bearing vertebrae are present. There is trace L4-L5 anterolisthesis. No vertebral body compression fractures. No suspicious bony lesions. Moderate L1-L2, L2-L3 and L3-L4 degenerative changes. Mild L4-L5 and L5-S1 degenerative disc changes. Moderate L4-L5 and L5-S1 facet arthropathy. Mild L3-L4 facet arthropathy. No pars interarticularis defects. Soft tissues: Overlying bowel gas pattern is normal. No suspicious soft tissue calcifications. Oblique images: No pars defects. IMPRESSION: 1. Multilevel degenerative disc disease. 2. Multilevel facet arthropathy. 3. No fracture. No acute osseous lesion. If symptoms and/or clinical suspicion for pathology persists, evaluation with MRI may be helpful for further assessment. Dictated by: Paola Calderon MD, PhD on 05/23/2019 at 15:31 Approved by: Paola Calderon MD, PhD on 05/23/2019 at 15:33
--- NOTE | 2019-05-23 15:50 | PC.NURSE ---
1530: Received patient from Katina BURTON, via , assistance to chair. VSS upon arrival.
--- NOTE | 2019-05-23 16:32 | PC.NURSE ---
PT DC'D TO XRAY FOR ORDRED XRAYS BY DR AUGUSTE. AFTER XRAY, PT BACK HERE FOR ME TO ASSIST PT INTO CAR. PT ABLE TO INDEPENDENTLY STAND. PT CONTINUES TO C/O 10/23 PAIN, DR AUGUSTE NOTIFIED. DR AUGUSTE HAS ADVISED THAT PT BE DC'D TO HOME AND STATED HE WILL CALL PT WITH RESULTS OF XRAY. I EXPLAINED DR AUGUSTE'S INSTRUCTIONS TO PT AND SHE AGREED TO GO HOME TO HEAR FROM HIM. TOOK PT TO POV BY WHEELCHAIR. PT ABLE TO INDEPENDENTLY GET UP FROM WHEELCHAIR AND INTO POV SAFELY. I ADVISED PT IF PAIN OR STABILITY BECOME WORSE AND PT HAD NOT HEARD FROM DR AUGUSTE, TO SEEK EMERGENCY CARE. PT VERBALIZED UNDERSTANDING OF MY INSTRUCTIONS. PT DC'D TO HOME AT THAT TIME WITH SPOUSE.
--- NOTE | 2019-05-24 12:00 | PC.NURSE ---
FOLLOW UP CALL MADE. PT STATES I FELL AWFUL, I CAN'T MOVE. STATES EVEN WITH CYCLOBENZAPRINE SHE CAN NOT STAND RT PAIN AND IS NOW EXPERIENCING URINARY INCONTINENCE. HAVE CALLED [facility] TO REQUEST HE CALL PT DOMINICK.
== END 2019-05-23 16:38 | disposition home or self-care (01) ==
PROVIDERS: PCP Family Medicine; Referring Provider Physical Medicine & Rehabilitation; Visit Provider Physical Medicine & Rehabilitation
DX: M47.816 Spondylosis without myelopathy or radiculopathy, lumbar region (principal); M47.817 Spondylosis without myelopathy or radiculopathy, lumbosacral region; M54.5 Low back pain
CPT/HCPCS: 64493; 64494; 72110; 99152; J2250; J3010

== ENCOUNTER → 2019-05-24 16:33 | Outpatient (CLI) | payer MEDICARE, OTHER, SELFPAY ==
--- NOTE | 2019-05-24 16:36 | DI.MRI.S_ITS ---
PROCEDURE: MR LUMBAR SPINE WO CON INDICATIONS: Continued right sided low back pain post injections TECHNIQUE: Noncontrast sagittal T1 spin echo and T2 fast echo, sagittal STIR, axial T1 and T2 fast spin echo through the lumbar spine. In cases with scoliosis, additional coronal T2 fast spin echo may be performed. COMPARISON: [facility], , L-SPINE WITHOUT CONTRAST, 11/10/2013, 16:35. FINDINGS: Image quality: Excellent. Alignment and Curvature: Straightening of the normal lordotic curvature. Trace anterolisthesis of L5 on S1. Trace retrolisthesis of L1 on L2 Bone Marrow: No fracture. Multilevel degenerative endplate sclerosis and spurring. Diffuse facet arthropathy. Schmorl's node involving the inferior -endplate of L3 appears new and there is mild adjacent marrow edema suggestive of acute age Spinal Cord: Conus medullaris terminates at the L1 level. Visualized cord demonstrates normal signal and size. Paraspinous Soft Tissues: No paravertebral masses. L1-L2: Mild canal narrowing. Lateral recesses appear grossly patent. Mild to moderate right foraminal narrowing. No left foraminal stenosis. No interval change. L2-L3: Mild canal narrowing. Partial effacement of both lateral recesses with bilaterally symmetric appearance. No right foraminal stenosis. No definite left foraminal stenosis. L3-L4: Mild canal narrowing. Severe left foraminal stenosis with nerve root compression. This appears progressed. Mild to moderate right foraminal narrowing, unchanged. L4-L5: Mild canal narrowing. Partial effacement of both lateral recesses with bilaterally symmetric appearance. Mild left foraminal narrowing, with no definite nerve root compression. Moderate right foraminal stenosis with slight nerve root compression no inte and rval change. L5-S1: Mild canal narrowing. Partial effacement of both lateral recesses with mild asymmetric appearance, right slightly greater than left. Severe bilateral foraminal stenoses with nerve root compression. IMPRESSION: Interval progression in severe left L3-L4 foraminal stenosis. Multilevel spondylolisthesis as above. Schmorl's node at the inferior endplate of L3, with adjacent marrow edema raising possibility of subacute or acute age Dictated by: Shant Austin M.D. on 05/25/2019 at 8:27 Approved by: Shant Austin M.D. on 05/25/2019 at 8:42
== END ==
PROVIDERS: PCP Family Medicine; Referring Provider Physical Medicine & Rehabilitation; Visit Provider Physical Medicine & Rehabilitation
DX: M54.5 Low back pain (principal); M47.816 Spondylosis without myelopathy or radiculopathy, lumbar region; M96.1 Postlaminectomy syndrome, not elsewhere classified; M48.061 Spinal stenosis, lumbar region without neurogenic claudication; M43.16 Spondylolisthesis, lumbar region; M51.46 Schmorl's nodes, lumbar region
CPT/HCPCS: 72148

== ENCOUNTER → 2019-07-26 09:55 | Outpatient (CLI) | payer MEDICARE, OTHER, SELFPAY ==
[2019-07-26 10:38] LABS: Add Manual Diff / Slide Review NO; Basophils Absolute Auto 100 /uL (0-100); Basophils Percent Auto 1.1 % (0-2); Eosinophils Absolute Auto 0 /uL (0-450); Eosinophils Percent Auto 0.2 % (2-4); Hematocrit 41.8 % (36-46); Hemoglobin 13.9 g/dL (12.0-16.0); Lymphocytes Absolute Auto 1100 /uL (1100-4500); Lymphocytes Percent Auto 15.5 % (25-40); Mean Corpuscular HGB Conc 33.1 % (30-36); Mean Corpuscular Hemoglobin 30.3 PG (26-34); Mean Corpuscular Volume 91.5 fL (80-100); Monocytes Absolute Auto 600 /uL (0-900); Monocytes Percent Auto 8.4 % (3-14); Neutrophils Absolute Auto 5300 /uL (1500-7000); Neutrophils Percent Auto 74.8 % (50-75); Platelet Count 224 X10^3/uL (150-400); Red Blood Cell Count 4.57 X10^6/uL (4.0-5.2); Red Cell Distribution Width 13.6 % (11.6-14.8); White Blood Cell Count 7.1 X10^3/uL (4.5-11.0)
[2019-07-26 11:02] LABS: Alanine Aminotransferase 18 IU/L (<35); Albumin 4.3 g/dL (3.5-5.0); Albumin Globulin Ratio 1.5 (1.0-2.8); Alkaline Phosphatase 44 U/L (38-126); Aspartate Aminotransferase 27 IU/L (14-36); BUN Creatinine Ratio 15.4 (6-22); Bilirubin Total 0.7 mg/dL (0.2-1.3); Blood Urea Nitrogen 10 mg/dL (7-17); Calcium 9.6 mg/dL (8.4-10.2); Carbon Dioxide 26 mmol/L (22-32); Chloride 106 mmol/L (98-107); Estimated Glomerular Filt Rate > 60.0 mL/min (>60); Globulin 2.8 g/dL (1.7-4.1); Glucose 107 mg/dL (80-110); HEMOLYSIS < 15 (0-50); Potassium 3.9 mmol/L (3.4-5.1); Sodium 139 mmol/L (137-145); Total Protein 7.1 g/dL (6.3-8.2)
== END ==
PROVIDERS: PCP Family Medicine; Referring Provider Family Medicine; Visit Provider Family Medicine
DX: R42 Dizziness and giddiness (principal); R53.83 Other fatigue
CPT/HCPCS: 36415; 80053; 85025

== ENCOUNTER → 2020-02-25 11:10 | Outpatient (CLI) | payer MEDICARE, OTHER, SELFPAY ==
--- NOTE | 2020-02-25 11:11 | DI.MRI.S_ITS ---
PROCEDURE: MR LUMBAR SPINE WO CON INDICATIONS: urinary and fecal incontinence with loss of sensation TECHNIQUE: Noncontrast sagittal T1 spin echo and T2 fast echo, sagittal STIR, axial T1 and T2 fast spin echo through the lumbar spine. In cases with scoliosis, additional coronal T2 fast spin echo may be performed. COMPARISON: [facility], MR, MR LUMBAR SPINE WO CON, 05/24/2019, 17:09. FINDINGS: Image quality: Excellent. Alignment and Curvature: Trace degenerative anterolisthesis of L5 on S1. Trace degenerative retrolisthesis of L3 on L4 and of L1 on L2. Bone Marrow: Marrow is of normal overall signal. No acute vertebral body compression fractures. Spinal Cord: Conus medullaris terminates at the L1 level. Visualized cord demonstrates normal signal and size. Paraspinous Soft Tissues: No paravertebral masses. T11-T12: No canal stenosis or foraminal stenosis. T12-L1: No canal stenosis or foraminal stenosis. L1-L2: Disc height loss. Moderate diffuse disc bulge. Facet and ligament hypertrophy. No significant canal stenosis. Zamy-td-yioiypky right foraminal stenosis with flattening deformity on the exiting right L1 nerve root. Findings not significantly changed. L2-L3: Disc bulge. Mild facet and ligament hypertrophy. Borderline canal stenosis, unchanged. No significant foraminal stenosis. L3-L4: Disc height loss. Mild posterior disc plus osteophyte. Facet and ligament hypertrophy. Borderline canal stenosis. No significant right foraminal stenosis. Continued severe left foraminal stenosis, in part secondary to a small foraminal disc protrusion. L4-L5: Findings are unchanged. Disc bulge. Facet and ligament hypertrophy. Mild canal stenosis. Moderate right foraminal narrowing with mild flattening deformity on the exiting right L4 nerve root. Mild left foraminal narrowing. L5-S1: Disc bulge. Facet and ligament hypertrophy. Borderline canal stenosis. Bilateral severe foraminal stenosis, left greater than right, with bilateral nerve root compression.. IMPRESSION: 1. Findings are stable. 2. Borderline to mild multilevel canal stenosis. 3. Again noted is severe left foraminal narrowing at L3-L4, in part secondary to a small foraminal disc protrusion. 4. Again noted is severe bilateral foraminal stenosis at L5-S1, left greater than right. Dictated by: Leon Menjivar M.D. on 02/27/2020 at 8:51 Approved by: Leon Menjivar M.D. on 02/27/2020 at 9:06
== END ==
PROVIDERS: PCP Family Medicine; Referring Provider Family Medicine; Visit Provider Family Medicine
DX: R15.9 Full incontinence of feces (principal); R32 Unspecified urinary incontinence; M48.061 Spinal stenosis, lumbar region without neurogenic claudication; M48.07 Spinal stenosis, lumbosacral region; M51.26 Other intervertebral disc displacement, lumbar region
CPT/HCPCS: 72148

== ENCOUNTER → 2020-04-02 10:15 | Outpatient (CLI) | payer MEDICARE, OTHER, SELFPAY ==
[2020-04-02 10:50] LABS: COVID19 -Nasal RAPID Negative (Negative)
== END ==
PROVIDERS: PCP Family Medicine; Visit Provider Physician Assistant
DX: Z20.822 Contact with and (suspected) exposure to COVID-19 (principal)
CPT/HCPCS: 87635; C9803

== ENCOUNTER → 2020-04-03 09:41 | Outpatient (CLI) | payer MEDICARE, OTHER, SELFPAY ==
--- NOTE | 2020-04-03 18:03 | DI.NM.S_ITS ---
DATE OF SERVICE: PROCEDURE: Exercise perfusion study. INDICATIONS: Chest pain with underlying hypertension, hyperlipidemia. RADIOPHARMACEUTICAL: 26.2 millicurie technetium-99m Myoview IV was injected at stress and 12.5 millicurie technetium-99m Myoview IV was injected at rest. CARDIAC STRESS: The patient underwent exercise perfusion study under the supervision of an attending staff. The patient walked on Jose protocol for 6 minutes, 12 seconds achieving 99% of target heart rate, normal blood pressure response, 7 METS of workload, functional aerobic impairment -21 percent. No ischemic symptoms. Bath fatigue. Baseline EKG revealed sinus rhythm with some repolarization changes. During stress there was some nonspecific upsloping ST depression in inferior lateral leads. Occasional PVCs were seen. No significant sustained arrhythmias seen. RAW DATA: There was breast shadow seen. GATED STUDY: Resting LV ejection fraction 84 and stress LV ejection fraction 92 percent without any obvious wall motion abnormalities. Resting end-diastolic volume 80 mL. TID ratio 0.90, which is within normal limits. Lung/heart ratio 0.39 which is within normal limits. MYOCARDIAL PERFUSION SCAN: Resting supine images reveal small size, mildly decreased perfusion of anterior apex, which got significantly improved during stress supine and stress prone images. I do not see any convincing ischemia or infarction pattern. CONCLUSION: I will call this study likely a normal myocardial perfusion study with evidence of breast tissue attenuation artifact which got resolved during the stress prone as well as stress supine images. Functional aerobic impairment -21 percent. No convincing arrhythmia seen. Normal hemodynamic response. Overall this is a low-risk myocardial perfusion study. The patient had similar perfusion scan in October 2017. At that time, there were no prone images. At that time patient was able to walk on treadmill for 5 minutes and 40 seconds. Kaylee Bunn DUSTY/gely/betina doc#: [id number]/job#: [id number] dd: 04/03/2020 17:37:00 dt: 04/03/2020 17:50:00 DICTATING MD/COPIES TO: Mateo Casillas MD COPIES MNE: CORRINE;
== END ==
PROVIDERS: PCP Family Medicine; Referring Provider Internal Medicine Cardiovascular Disease; Visit Provider Internal Medicine Cardiovascular Disease
DX: R07.9 Chest pain, unspecified (principal); I10 Essential (primary) hypertension; E78.5 Hyperlipidemia, unspecified
CPT/HCPCS: 78452; 93017; A9502

== ENCOUNTER → 2020-06-21 08:25 | Outpatient (CLI) | payer MEDICARE, OTHER, SELFPAY ==
[2020-06-21 09:23] LABS: Basophils Absolute Auto 100 /uL (0-100); Basophils Percent Auto 1.3 % (0-2); Eosinophils Absolute Auto 0 /uL (0-450); Eosinophils Percent Auto 0.8 % (2-4); Hematocrit 39.2 % (36-46); Lymphocytes Absolute Auto 1500 /uL (1100-4500); Lymphocytes Percent Auto 32.2 % (25-40); Mean Corpuscular HGB Conc 33.1 % (30-36); Mean Corpuscular Hemoglobin 30.8 PG (26-34); Mean Corpuscular Volume 92.8 fL (80-100); Monocytes Absolute Auto 400 /uL (0-900); Monocytes Percent Auto 7.9 % (3-14); Neutrophils Absolute Auto 2600 /uL (1500-7000); Neutrophils Percent Auto 57.8 % (50-75); Platelet Count 240 X10^3/uL (150-400); Red Blood Cell Count 4.22 X10^6/uL (4.0-5.2); Red Cell Distribution Width 13.7 % (11.6-14.8); White Blood Cell Count 4.5 X10^3/uL (4.5-11.0)
[2020-06-21 09:32] LABS: BUN Creatinine Ratio 26.6 (6-22); Blood Urea Nitrogen 17 mg/dL (7-17); Calcium 9.6 mg/dL (8.4-10.2); Carbon Dioxide 29 mmol/L (22-32); Chloride 106 mmol/L (98-107); Cholesterol 192 mg/dL (140-199); Estimated Glomerular Filt Rate > 60.0 mL/min (>60); Glucose 96 mg/dL (80-110); HDL Cholesterol 84 mg/dL (40-60); HEMOLYSIS < 15 (0-50); LDL Cholesterol Calculated 92 mg/dL (<100); Potassium 4.1 mmol/L (3.4-5.1); Sodium 138 mmol/L (137-145); Triglycerides 82 mg/dL (35-150)
[2020-06-21 09:43] LABS: Add Manual Diff / Slide Review SLIDE REVIEW
[2020-06-21 10:05] LABS: RBC Morphology Normal Morphology
== END ==
PROVIDERS: PCP Family Medicine; Referring Provider Internal Medicine Cardiovascular Disease; Visit Provider Internal Medicine Cardiovascular Disease
DX: E78.5 Hyperlipidemia, unspecified (principal); I10 Essential (primary) hypertension
CPT/HCPCS: 36415; 80048; 80061; 85025

== ENCOUNTER → 2020-08-07 08:27 | Outpatient (CLI) | payer MEDICARE, OTHER, SELFPAY ==
[2020-08-07 09:36] LABS: Appearance Urine UA SL CLOUDY; Bilirubin Urine UA NEGATIVE (NEGATIVE); Color Urine UA YELLOW; Glucose Urine UA NEGATIVE (Negative); Ketones Urine UA NEGATIVE (NEGATIVE); Leukocyte Esterase Urine UA 1+ (NEGATIVE); Nitrite Urine UA NEGATIVE (Negative); Occult Blood Urine UA 2+ (Negative); Protein Urine UA TRACE (Negative); Specific Gravity Urine UA 1.015 (1.000-1.035); Urobilinogen Urine UA 0.2 E.U./dL (0.2)
[2020-08-07 09:39] LABS: pH Urine UA 5.5 (4.5-8.0)
[2020-08-07 10:13] LABS: Bacteria Urine Many (>30); RBC Urine 1-5/HPF (0-5/HPF); Squamous Epithelial Cell Urine 0-1 /HPF (0-5/HPF); WBC Urine 10-30/HPF (0-5/HPF)
[2020-08-07 10:14] LABS: Culture Indicated Urine Specimen Cultured
== END ==
PROVIDERS: PCP Family Medicine; Referring Provider Family Medicine; Visit Provider Family Medicine
DX: R30.0 Dysuria (principal); R35.0 Frequency of micturition; R39.15 Urgency of urination
CPT/HCPCS: 81001; 87077; 87086; 87186

== ENCOUNTER 2020-09-09 18:51 | Emergency (ER) | payer MEDICARE, OTHER, SELFPAY ==
[2020-09-09 19:08] VITALS: BP 170/75; PULSE 90; RESP 22; TEMP 37.4; O2SAT 98
[2020-09-09 19:43] LABS: Add Manual Diff / Slide Review NO; Basophils Absolute Auto 100 /uL (0-100); Basophils Percent Auto 0.7 % (0-2); Eosinophils Absolute Auto 0 /uL (0-450); Eosinophils Percent Auto 0.4 % (2-4); Hematocrit 37.9 % (36-46); Hemoglobin 12.5 g/dL (12.0-16.0); Lymphocytes Absolute Auto 1500 /uL (1100-4500); Lymphocytes Percent Auto 11.1 % (25-40); Mean Corpuscular Hemoglobin 30.1 PG (26-34); Mean Corpuscular Volume 91.4 fL (80-100); Monocytes Absolute Auto 1100 /uL (0-900); Monocytes Percent Auto 8.6 % (3-14); Neutrophils Absolute Auto 10600 /uL (1500-7000); Neutrophils Percent Auto 79.2 % (50-75); Platelet Count 245 X10^3/uL (150-400); Red Blood Cell Count 4.15 X10^6/uL (4.0-5.2); White Blood Cell Count 13.3 X10^3/uL (4.5-11.0)
[2020-09-09 19:59] LABS: Alanine Aminotransferase 17 IU/L (<35); Albumin 4.4 g/dL (3.5-5.0); Albumin Globulin Ratio 1.4 (1.0-2.8); Alkaline Phosphatase 59 U/L (38-126); Aspartate Aminotransferase 27 IU/L (14-36); BUN Creatinine Ratio 32.5 (6-22); Bilirubin Total 0.4 mg/dL (0.2-1.3); Blood Urea Nitrogen 25 mg/dL (7-17); Calcium 9.5 mg/dL (8.4-10.2); Carbon Dioxide 25 mmol/L (22-32); Chloride 105 mmol/L (98-107); Estimated Glomerular Filt Rate > 60.0 mL/min (>60); Globulin 3.1 g/dL (1.7-4.1); Glucose 122 mg/dL (80-110); HEMOLYSIS < 15 (0-50); Lipase 148 U/L (23-300); Potassium 4.2 mmol/L (3.4-5.1); Sodium 136 mmol/L (137-145); Total Protein 7.5 g/dL (6.3-8.2)
--- NOTE | 2020-09-09 20:32 | ED.GENADULT ---
HPI - General Adult General Chief complaint: Abdominal Pain Stated complaint: really bad cramps thinks it is diverticulitis Time Seen by Provider: 09/09/20 19:24 Source: patient Mode of arrival: Ambulatory History of Present Illness HPI narrative: Patient is a 80-year-old female who has had a history of diverticulitis in the past who is here for evaluation of lower abdominal discomfort and cramps the feel similar to her prior history of diverticulitis. Is also having some lower back discomfort. No blood in her stool. Has had some alternating constipation and diarrhea. No urinary symptoms. No fevers. No vomiting. Related Data Home Medications Medication Instructions Recorded Confirmed polyethylene glycol 3350 17 17 gram PO PRN PRN 11/02/17 06/26/20 gram/dose oral powder (Miralax) diltiazem HCl 120 mg capsule,24 120 mg PO DAILY 07/26/19 06/26/20 hr,extended release rosuvastatin 5 mg tablet 2.5 mg PO .QOD tab 04/26/20 06/26/20 Previous Rx's Medication Instructions Recorded alprazolam 0.25 mg tablet 0.25 mg PO TID PRN #30 tab 07/26/19 food supplemt, lactose-reduced 1 each PO DAILY #1422 ml 09/28/19 (Nutritional Shake) lisinopril 10 mg tablet See Rx Instructions .ROUTE 04/27/20 .COMPLEX #90 tab amoxicillin 875 mg-potassium 1 tab PO Q12H 10 Days #20 tab 09/09/20 clavulanate 125 mg tablet (Augmentin) Allergies Allergy/AdvReac Type Severity Reaction Status Date / Time ciprofloxacin [From CIPRO] Allergy Severe swelling Verified 01/06/20 14:08 levofloxacin [LEVOFLOXACIN] Allergy Severe severe Verified 01/06/20 14:08 mouth and eye swelling indomethacin [INDOMETHACIN] Allergy Mild Verified 01/06/20 14:08 meloxicam [MELOXICAM] Allergy Mild Verified 01/06/20 14:08 metronidazole [METRONIDAZOLE] Allergy Mild Verified 01/06/20 14:08 trandolapril [TRANDOLAPRIL] Allergy Mild Verified 01/06/20 14:08 Review of Systems Constitutional Constitutional: Reports system reviewed and no additional complaints, except as documented Cardiovascular Cardiovascular: Reports system reviewed and no additional complaints, except as documented Respiratory Respiratory: Reports system reviewed and no additional complaints, except as documented Gastrointestinal Comments: See HPI Genitourinary Genitourinary: Denies dysuria Genitourinary: Denies dysuria Musculoskeletal Comments: Lower back pain Integumentary/Breasts Skin/Breast: Reports system reviewed and no additional complaints, except as documented Neurologic Neurologic: Reports system reviewed and no additional complaints, except as documented Hematologic/Lymphatic Hematologic/Lymphatic: Reports system reviewed and no additional complaints, except as documented Patient History Medical History Cervical facet joint syndrome Diverticular disease PVCs (premature ventricular contractions) Spinal stenosis 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 SVT (supraventricular tachycardia) Surgical History Hx of decompressive lumbar laminectomy (08/01/15) Status post hysterectomy with oophorectomy Family History Mother Pancreatic cancer Social History marital status: number of children: 0 household members: spouse lives independently: Yes caregiver/support person: No housing: house Smoking Status: Never smoker second hand exposure: No alcohol intake: current substance use type: does not use Smoking Status: Never smoker alcohol intake frequency: 0-2 drinks per day Substance Use Type: does not use Exam Initial Vital Signs Initial Vital Signs: Vital Signs Temperature 99.3 F 09/09/20 19:08 Pulse Rate 90 09/09/20 19:08 Respiratory Rate 22 09/09/20 19:08 Blood Pressure 170/75 H 09/09/20 19:08 Pulse Oximetry 98 09/09/20 19:08 Const General: cooperative and healthy appearing [facility] Head: normal to inspection and normocephalic Resp Effort & Inspection: normal respiratory effort Cardio Rate: regular rate GI Palpation: soft and tender Skin General: no rashes or lesions noted Neuro General: patient alert, patient awake and patient oriented x3 Extrem General: normal to inspection Course Orders Ordered: Discontinued Medications Amoxicillin/Clavulanate Potassium (Amoxicillin/Clav 875/125 Mg) 1 tab PO NOW ONE Stop: 09/09/20 20:33 Last Admin: 09/09/20 20:38 Dose: 1 tab Documented by: FHUDSON Vital Signs Vital signs: Vital Signs - 8 hr 09/09/20 19:08 Temperature 99.3 F Pulse Rate 90 Respiratory Rate 22 Blood Pressure 170/75 H Pulse Oximetry 98 Medical Decision Making Medical Records Medical records reviewed: Yes I reviewed the patient's medical records. Lab Data Lab results reviewed: Yes I reviewed the patient's lab results. Result diagrams: 09/09/20 19:10 09/09/20 19:30 Labs: Lab Results 09/09/20 09/09/20 Range/Units 19:10 19:30 WBC 13.3 H (4.5-11.0) X10^3/uL RBC 4.15 (4.0-5.2) X10^6/uL Hgb 12.5 (12.0-16.0) g/dL Hct 37.9 (36-46) % MCV 91.4 (80-100) fL MCH 30.1 (26-34) PG MCHC 33.0 (30-36) % RDW 13.0 (11.6-14.8) % Plt Count 245 (150-400) X10^3/uL Neut % (Auto) 79.2 H (50-75) % Lymph % (Auto) 11.1 L (25-40) % Moody % (Auto) 8.6 (3-14) % Eos % (Auto) 0.4 L (2-4) % Baso % (Auto) 0.7 (0-2) % Neut # (Auto) 21345 H (2370-6451) /uL Lymph # (Auto) 1500 (6634-3100) /uL Moody # (Auto) 1100 H (0-900) /uL Eos # (Auto) 0 (0-450) /uL Baso # (Auto) 100 (0-100) /uL Sodium 136 L (137-145) mmol/L Potassium 4.2 (3.4-5.1) mmol/L Chloride 105 (98-107) mmol/L Carbon Dioxide 25 (22-32) mmol/L BUN 25 H (7-17) mg/dL Creatinine 0.77 (0.52-1.04) mg/dL Estimated GFR > 60.0 (>60) mL/min BUN/Creatinine Ratio 32.5 H (6-22) Glucose 122 H (80-110) mg/dL Calcium 9.5 (8.4-10.2) mg/dL Total Bilirubin 0.4 (0.2-1.3) mg/dL AST 27 (14-36) IU/L ALT 17 (<35) IU/L Alkaline Phosphatase 59 (38-126) U/L Total Protein 7.5 (6.3-8.2) g/dL Albumin 4.4 (3.5-5.0) g/dL Globulin 3.1 (1.7-4.1) g/dL Albumin/Globulin Ratio 1.4 (1.0-2.8) Lipase 148 (23-300) U/L Urine Dip Bedside Urine Glucose Negative Bedside Urine Bilirubin - Negative Bedside Urine Ketone - Negative Urine Specific [place] 1.025 Bedside Urine Occult Blood - Negative Bedside Urine pH 6.0 Bedside Urine Protein - Negative Bedside Urine Urobilinogen - Negative Bedside Urine Nitrite - Negative Bedside Urine Leukocytes - Negative Esterase Point of care testing: Urine Dip Bedside Urine Glucose Negative Bedside Urine Bilirubin - Negative Bedside Urine Ketone - Negative Urine Specific [place] 1.025 Bedside Urine Occult Blood - Negative Bedside Urine pH 6.0 Bedside Urine Protein - Negative Bedside Urine Urobilinogen - Negative Bedside Urine Nitrite - Negative Bedside Urine Leukocytes - Negative Esterase MDM Narrative Medical decision making narrative: Patient does have a leukocytosis. She is here with a history in her symptoms and her consistent with prior history of diverticulitis. Had a discussion with her regarding options to include presumptively treating her for diverticulitis and holding on any CT scan for now. We discussed the risks and benefits of this to include potentially missing a another diagnosis verses a complication to include abscess or perforation. We also discussed the benefits to include holding on potential radiation exposure. I also discussed just treating her with antibiotics. At this discussion she would like to hold on any radiologic studies for now. Was given antibiotics here in the emergency department will send home with a prescription. She was given strict return precautions and follow-up instructions. She expressed understanding and agreement. Discharge Plan Departure Patient Disposition: Home Clinical Impression: Diverticulitis, Abdominal pain Instructions: DI for Diverticulitis Activity Restrictions/Additional Instructions: I suspect that your symptoms today are related to diverticulitis based on your history. You were given your 1st dose of antibiotics here in the emergency department. A prescription for the remainder of the course was sent to [facility]. Recommend you contact your primary provider for a follow-up. Return to the emergency department for any new or worsening symptoms Prescriptions: New amoxicillin-pot clavulanate [Augmentin] 875-125 mg tablet 1 tab PO Q12H 10 Days Qty: 20 RF: 0 No Action diltiazem HCl 120 mg capsule,extended release 24 hr 120 mg PO DAILY RF: 0 alprazolam 0.25 mg tablet 0.25 mg PO TID PRN (Reason: anxiety) Qty: 30 RF: 0 Nutritional Shake Liquid 1 each PO DAILY Qty: 1422 RF: 11 rosuvastatin 5 mg tablet 2.5 mg PO .QOD RF: 0 lisinopril 10 mg tablet See Rx Instructions .ROUTE .COMPLEX Qty: 90 RF: 3 polyethylene glycol 3350 [Miralax] 17 gram/dose powder 17 gram PO PRN PRN (Reason: Constipation) RF: 0 Referrals: Meli Fraser MD [Primary Care Provider] -
[2020-09-09] MEDS: AMOXICILLIN/CLAV 875/125 MG 1 TAB PO (20:38)
[2020-09-09 20:40] VITALS: BP 152/64; PULSE 77; RESP 12; O2SAT 99
== END 2020-09-09 20:45 | disposition home or self-care (01) ==
PROVIDERS: Emergency Provider Emergency Medicine; PCP Family Medicine
DX: K57.92 Diverticulitis of intestine, part unspecified, without perforation or abscess without bleeding (principal); R10.30 Lower abdominal pain, unspecified; M54.5 Low back pain
CPT/HCPCS: 36415; 80053; 81003; 83690; 85025; 99283

== ENCOUNTER → 2020-10-01 07:26 | Outpatient (CLI) | payer MEDICARE, OTHER, SELFPAY | PROVIDERS: PCP Family Medicine; Visit Provider Student in an Organized Health Care Education/Training Program | DX: R31.9 Hematuria, unspecified (principal) | CPT/HCPCS: 87086 ==

== ENCOUNTER 2020-10-08 16:01 | Emergency (ER) | payer MEDICARE, OTHER, SELFPAY ==
[2020-10-08 16:10] VITALS: BP 159/90; PULSE 84; RESP 12; TEMP 36.9; O2SAT 98; BMI 22.3
[2020-10-08 16:37] LABS: Add Manual Diff / Slide Review NO; Basophils Absolute Auto 100 /uL (0-100); Basophils Percent Auto 0.7 % (0-2); Eosinophils Absolute Auto 0 /uL (0-450); Eosinophils Percent Auto 0.1 % (2-4); Hematocrit 38.8 % (36-46); Hemoglobin 12.9 g/dL (12.0-16.0); Lymphocytes Absolute Auto 1200 /uL (1100-4500); Lymphocytes Percent Auto 9.8 % (25-40); Mean Corpuscular HGB Conc 33.2 % (30-36); Mean Corpuscular Hemoglobin 30.2 PG (26-34); Monocytes Absolute Auto 900 /uL (0-900); Monocytes Percent Auto 7.3 % (3-14); Neutrophils Absolute Auto 10000 /uL (1500-7000); Neutrophils Percent Auto 82.1 % (50-75); Platelet Count 246 X10^3/uL (150-400); Red Blood Cell Count 4.27 X10^6/uL (4.0-5.2); Red Cell Distribution Width 13.1 % (11.6-14.8); White Blood Cell Count 12.1 X10^3/uL (4.5-11.0)
[2020-10-08 16:45] LABS: Alanine Aminotransferase 17 IU/L (<35); Albumin 4.4 g/dL (3.5-5.0); Albumin Globulin Ratio 1.4 (1.0-2.8); Alkaline Phosphatase 71 U/L (38-126); Aspartate Aminotransferase 27 IU/L (14-36); BUN Creatinine Ratio 24.6 (6-22); Bilirubin Total 1.1 mg/dL (0.2-1.3); Blood Urea Nitrogen 15 mg/dL (7-17); Calcium 9.6 mg/dL (8.4-10.2); Carbon Dioxide 27 mmol/L (22-32); Chloride 102 mmol/L (98-107); Estimated Glomerular Filt Rate > 60.0 mL/min (>60); Globulin 3.1 g/dL (1.7-4.1); Glucose 108 mg/dL (80-110); HEMOLYSIS < 15 (0-50); Lipase 93 U/L (23-300); Sodium 135 mmol/L (137-145); Total Protein 7.5 g/dL (6.3-8.2)
--- NOTE | 2020-10-08 19:30 | ED.GENADULT ---
HPI - General Adult General Chief complaint: Abdominal Pain Stated complaint: Low Grade Temp. Cramping Lower Abd Time Seen by Provider: 10/08/20 19:23 Source: patient Mode of arrival: Ambulatory History of Present Illness HPI narrative: Patient is a 80-year-old female who has had GI issues in the past. These have included issues with constipation and diarrhea. Also has had frequent urinary tract infections is also had diverticulitis in the past. She recently had a study performed to further evaluate her issues with her constipation and diarrhea. She also recently has been on antibiotics for urinary tract infection that was prescribed at an outside facility. Over the past couple days she has developed lower abdominal discomfort and a low-grade temperature and some cramping. No urinary symptoms. No vaginal bleeding. Did have a bowel movement today that is unchanged from her baseline issues. No vomiting. She states that her symptoms are consistent with prior diverticulitis. Related Data Home Medications Medication Instructions Recorded Confirmed polyethylene glycol 3350 17 17 gram PO PRN PRN 11/02/17 10/01/20 gram/dose oral powder (Miralax) diltiazem HCl 120 mg capsule,24 120 mg PO DAILY 07/26/19 10/01/20 hr,extended release rosuvastatin 5 mg tablet 2.5 mg PO .QOD tab 04/26/20 10/01/20 Previous Rx's Medication Instructions Recorded alprazolam 0.25 mg tablet 0.25 mg PO TID PRN #30 tab 07/26/19 lisinopril 10 mg tablet See Rx Instructions .ROUTE 04/27/20 .COMPLEX #90 tab fluconazole 150 mg tablet 150 mg PO Q3D #2 tab 10/04/20 (Diflucan) food supplemt, lactose-reduced 1 ea PO DAILY #1422 ml 10/04/20 (Nutritional Shake) amoxicillin 875 mg-potassium 1 tab PO TID 7 Days #21 tab 10/08/20 clavulanate 125 mg tablet (Augmentin) fluconazole 100 mg tablet 100 mg PO DAILY #2 tab 10/08/20 (Diflucan) Allergies Allergy/AdvReac Type Severity Reaction Status Date / Time ciprofloxacin [From CIPRO] Allergy Severe swelling Verified 10/08/20 16:15 levofloxacin [LEVOFLOXACIN] Allergy Severe severe Verified 10/08/20 16:15 mouth and eye swelling indomethacin [INDOMETHACIN] Allergy Mild Verified 10/08/20 16:15 meloxicam [MELOXICAM] Allergy Mild Verified 10/08/20 16:15 metronidazole [METRONIDAZOLE] Allergy Mild Verified 10/08/20 16:15 trandolapril [TRANDOLAPRIL] Allergy Mild Verified 10/08/20 16:15 Review of Systems Constitutional Constitutional: Reports fever(s) Cardiovascular Cardiovascular: Reports system reviewed and no additional complaints, except as documented Respiratory Respiratory: Reports system reviewed and no additional complaints, except as documented Gastrointestinal Gastrointestinal: Reports as per HPI Genitourinary Genitourinary: Reports system reviewed and no additional complaints, except as documented Musculoskeletal Musculoskeletal: Reports system reviewed and no additional complaints, except as documented Integumentary/Breasts Skin/Breast: Reports system reviewed and no additional complaints, except as documented Neurologic Neurologic: Reports system reviewed and no additional complaints, except as documented Psychiatric Psychiatric: Reports system reviewed and no additional complaints, except as documented Endocrine Endocrine: Reports system reviewed and no additional complaints, except as documented Hematologic/Lymphatic On Anticoagulants: No Patient History Medical History Cervical facet joint syndrome Diverticular disease PVCs (premature ventricular contractions) Spinal stenosis 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 SVT (supraventricular tachycardia) Surgical History Hx of decompressive lumbar laminectomy (08/01/15) Status post hysterectomy with oophorectomy Family History Mother Pancreatic cancer Social History marital status: number of children: 0 household members: spouse lives independently: Yes caregiver/support person: No housing: house Smoking Status: Never smoker second hand exposure: No alcohol intake: current substance use type: does not use Smoking Status: Never smoker alcohol intake frequency: 0-2 drinks per day Substance Use Type: does not use Exam Initial Vital Signs Initial Vital Signs: Vital Signs Temperature 98.4 F 10/08/20 16:10 Pulse Rate 84 10/08/20 16:10 Respiratory Rate 12 10/08/20 16:10 Blood Pressure 159/90 H 10/08/20 16:10 Pulse Oximetry 98 10/08/20 16:10 Const General: cooperative and healthy appearing [facility] Head: normal to inspection and normocephalic Eyes General: appearance normal, both eyes and all related structures Chest Chest: normal inspection of the chest Resp Effort & Inspection: normal respiratory effort Auscultation: clear to auscultation bilaterally Cardio Rate: regular rate Rhythm: regular rhythm GI Inspection: normal to inspection Palpation: soft and tender (Lower abdomen) Back/Spine/Pelvis Back: No CVA tenderness Skin General: no rashes or lesions noted Neuro General: patient alert, patient awake and moves all extremities Extrem General: normal to inspection and capillary refill normal Psych Appearance: grossly normal and well kempt Course Orders Ordered: ED Orders 10/08/20 19:20 Urine Microscopic Stat 10/08/20 19:31 CT abdomen pelvis w con Stat Discontinued Medications Amoxicillin/Clavulanate Potassium (Amoxicillin/Clav 875/125 Mg) 1 tab PO NOW ONE Stop: 10/08/20 20:44 Last Admin: 10/08/20 20:49 Dose: 1 tab Documented by: ROSE Vital Signs Vital signs: Vital Signs - 8 hr 10/08/20 20:54 Pulse Rate 70 Respiratory Rate 16 Blood Pressure 177/74 H Pulse Oximetry 99 Medical Decision Making Medical Records Medical records reviewed: Yes I reviewed the patient's medical records. Lab Data Lab results reviewed: Yes I reviewed the patient's lab results. Result diagrams: 10/08/20 16:24 10/08/20 16:24 Labs: Lab Results 10/08/20 10/08/20 10/08/20 Range/Units 16:24 16:24 19:20 WBC 12.1 H (4.5-11.0) X10^3/uL RBC 4.27 (4.0-5.2) X10^6/uL Hgb 12.9 (12.0-16.0) g/dL Hct 38.8 (36-46) % MCV 91.0 (80-100) fL MCH 30.2 (26-34) PG MCHC 33.2 (30-36) % RDW 13.1 (11.6-14.8) % Plt Count 246 (150-400) X10^3/uL Neut % (Auto) 82.1 H (50-75) % Lymph % (Auto) 9.8 L (25-40) % [place] % (Auto) 7.3 (3-14) % Eos % (Auto) 0.1 L (2-4) % Baso % (Auto) 0.7 (0-2) % Neut # (Auto) 83135 H (2890-3321) /uL Lymph # (Auto) 1200 (5027-8211) /uL [place] # (Auto) 900 (0-900) /uL Eos # (Auto) 0 (0-450) /uL Baso # (Auto) 100 (0-100) /uL Sodium 135 L (137-145) mmol/L Potassium 4.0 (3.4-5.1) mmol/L Chloride 102 (98-107) mmol/L Carbon Dioxide 27 (22-32) mmol/L BUN 15 (7-17) mg/dL Creatinine 0.61 (0.52-1.04) mg/dL Estimated GFR > 60.0 (>60) mL/min BUN/Creatinine Ratio 24.6 H (6-22) Glucose 108 (80-110) mg/dL Calcium 9.6 (8.4-10.2) mg/dL Total Bilirubin 1.1 (0.2-1.3) mg/dL AST 27 (14-36) IU/L ALT 17 (<35) IU/L Alkaline Phosphatase 71 (38-126) U/L Total Protein 7.5 (6.3-8.2) g/dL Albumin 4.4 (3.5-5.0) g/dL Globulin 3.1 (1.7-4.1) g/dL Albumin/Globulin Ratio 1.4 (1.0-2.8) Lipase 93 (23-300) U/L Urine RBC 0-1/hpf (0-5/HPF) Urine WBC 0-1/hpf (0-5/HPF) Ur Squamous Epith Cells 0-1 /hpf (0-5/HPF) Urine Bacteria None seen (None) Ur Culture Indicated? Cult not indicated Urine Dip Bedside Urine Glucose Negative Bedside Urine Bilirubin - Negative Bedside Urine Ketone - Negative Bedside Urine Occult Blood +/- Bedside Urine Protein - Negative Bedside Urine Urobilinogen - Negative Bedside Urine Nitrite - Negative Bedside Urine Leukocytes - Negative Esterase Point of care testing: Urine Dip Bedside Urine Glucose Negative Bedside Urine Bilirubin - Negative Bedside Urine Ketone - Negative Bedside Urine Occult Blood +/- Bedside Urine Protein - Negative Bedside Urine Urobilinogen - Negative Bedside Urine Nitrite - Negative Bedside Urine Leukocytes - Negative Esterase Imaging Data CT scan - abdomen/pelvis: Radiologist's Impression: [facility] [place] [id number] Scan ReportSigned Patient: Kaylee Bunn IMR#: [id number]: 3Acct:[id number]/Sex: 80 / FDate of Service: 10/08/20Loc: EDAccession Number: [id number] Procedure: CT abdomen pelvis w con Ordering Provider: Zeb Pardo D.O. PROCEDURE: CT ABDOMEN PELVIS W CON INDICATIONS: Left-sided abdominal pain TECHNIQUE: After the administration of intravenous contrast, axial sections acquired from the lung bases to the pubic symphysis. Coronal and sagittal reformats were performed. For radiation dose reduction, the following was used: automated exposure control, adjustment of mA and/or kV according to patient size. COMPARISON: [facility], CT, ABDOMEN/PELVIS WITH CONTRAST, 06/27/2013, 8:00. [facility], CT, ABDOMEN/PELVIS WITH CONTRAST, 04/02/2010, 8:27. FINDINGS: Image quality: Excellent. Lung bases: Unremarkable. Heart: No significant findings. ABDOMEN: Liver: Unremarkable. Gallbladder: Unremarkable. Biliary ducts: Unremarkable. Pancreas: Unremarkable. Spleen: Unremarkable. Adrenal Glands: Unremarkable. Kidneys and Ureters: Unremarkable. Stomach and Bowel: Multiple diverticula are seen in the sigmoid colon with bowel wall thickening and pericolonic fat stranding at the distal sigmoid colon, consistent with acute diverticulitis. An additional focus of peridiverticular edema is seen at the mid to distal descending colon. No macroscopic free air or well-formed fluid collection is seen. No signs of bowel obstruction. Peritoneum: A trace amount of free fluid in the pelvis is likely reactive. No free air. Ventral Wall: No hernias. Abdominal Nodes: No retroperitoneal or mesenteric adenopathy by size criteria. Vessels: Aorta and inferior vena cava are normal in size. Moderate aortic atherosclerotic calcifications. PELVIS: Pelvic Organs: Status post hysterectomy. Bladder: Unremarkable. Pelvic Nodes: No enlarged lymph nodes. Miscellaneous: No hernias are seen. Bones: Multilevel degenerative changes in the spine. IMPRESSION: Colonic diverticulosis with 2 separate areas of bowel wall thickening and pericolonic fat stranding, in the mid descending colon and the distal sigmoid colon, which is suspicious for multifocal diverticulitis. No signs of perforation or bowel obstruction. Dictated by: Hugo Ivan M.D. on 10/08/2020 at 20:23 Approved by: Hugo Ivan M.D. on 10/08/2020 at 20:29 [facility] Narrative Medical decision making narrative: Patient does have a leukocytosis. Does have lower abdominal discomfort. CT scan concerning for multifocal diverticulitis without signs of abscess. This does fit her clinical presentation today. She has been on antibiotics recently and unfortunately her presentation today requires another round of antibiotics. She cannot take Cipro because of a prior allergy so we will give Augmentin. She has the had this in the past or diverticulitis. She was given return precautions and follow-up instructions. She expressed understanding and agreement. Discharge Plan Departure Patient Disposition: Home Clinical Impression: Diverticulitis Instructions: DI for Diverticulitis Activity Restrictions/Additional Instructions: The CT scan today does show diverticulitis. We will start you on some antibiotics for this. They were electronically to [facility]. Start taking them as directed. Contact your primary doctor for follow-up. Return to the emergency department for any new or worsening symptoms Prescriptions: New amoxicillin-pot clavulanate [Augmentin] 875-125 mg tablet 1 tab PO TID 7 Days Qty: 21 RF: 0 fluconazole [Diflucan] 100 mg tablet 100 mg PO DAILY Qty: 2 RF: 0 No Action diltiazem HCl 120 mg capsule,extended release 24 hr 120 mg PO DAILY RF: 0 alprazolam 0.25 mg tablet 0.25 mg PO TID PRN (Reason: anxiety) Qty: 30 RF: 0 rosuvastatin 5 mg tablet 2.5 mg PO .QOD RF: 0 lisinopril 10 mg tablet See Rx Instructions .ROUTE .COMPLEX Qty: 90 RF: 3 Nutritional Shake Liquid 1 ea PO DAILY Qty: 1422 RF: 11 fluconazole [Diflucan] 150 mg tablet 150 mg PO Q3D Qty: 2 RF: 0 polyethylene glycol 3350 [Miralax] 17 gram/dose powder 17 gram PO PRN PRN (Reason: Constipation) RF: 0 Referrals: Meli Fraser MD [Primary Care Provider] -
[2020-10-08 19:33] LABS: Bacteria Urine None Seen
[2020-10-08 19:42] LABS: Culture Indicated Urine Cult Not Indicated; RBC Urine 0-1/HPF (0-5/HPF); Squamous Epithelial Cell Urine 0-1 /HPF (0-5/HPF); WBC Urine 0-1/HPF (0-5/HPF)
[2020-10-08] MEDS: AMOXICILLIN/CLAV 875/125 MG 1 TAB PO (20:49)
[2020-10-08 20:54] VITALS: BP 177/74; PULSE 70; RESP 16; O2SAT 99
== END 2020-10-08 20:59 | disposition home or self-care (01) ==
PROVIDERS: Emergency Medicine; Emergency Provider Emergency Medicine; PCP Family Medicine
DX: K57.92 Diverticulitis of intestine, part unspecified, without perforation or abscess without bleeding (principal); R50.9 Fever, unspecified
CPT/HCPCS: 36415; 74177; 80053; 81003; 81015; 83690; 85025; 99284; Q9967

== ENCOUNTER → 2021-02-01 08:29 | Outpatient (CLI) | payer MEDICARE, OTHER, SELFPAY ==
[2021-02-01 11:06] LABS: Cholesterol 192 mg/dL (140-199); HDL Cholesterol 95 mg/dL (40-60); LDL Cholesterol Calculated 83 mg/dL (<100); Triglycerides 72 mg/dL (35-150)
== END ==
PROVIDERS: PCP Family Medicine; Referring Provider Internal Medicine Cardiovascular Disease; Visit Provider Internal Medicine Cardiovascular Disease
DX: E78.5 Hyperlipidemia, unspecified (principal)
CPT/HCPCS: 36415; 80061

== ENCOUNTER → 2022-01-08 09:33 | Outpatient (CLI) | payer MEDICARE, OTHER, SELFPAY ==
[2022-01-08 10:17] LABS: Add Manual Diff / Slide Review NO; Basophils Absolute Auto 0 /uL (0-100); Basophils Percent Auto 0.3 % (0-2); Eosinophils Absolute Auto 0 /uL (0-450); Eosinophils Percent Auto 0.6 % (2-4); Hematocrit 37.2 % (36-46); Hemoglobin 12.6 g/dL (12.0-16.0); Lymphocytes Absolute Auto 1500 /uL (1100-4500); Lymphocytes Percent Auto 30.3 % (25-40); Mean Corpuscular HGB Conc 33.9 % (30-36); Mean Corpuscular Hemoglobin 30.7 PG (26-34); Mean Corpuscular Volume 90.6 fL (80-100); Monocytes Absolute Auto 500 /uL (0-900); Monocytes Percent Auto 9.8 % (3-14); Neutrophils Absolute Auto 3000 /uL (1500-7000); Platelet Count 286 X10^3/uL (150-400); Red Blood Cell Count 4.11 X10^6/uL (4.0-5.2); Red Cell Distribution Width 13.4 % (11.6-14.8); White Blood Cell Count 5.1 X10^3/uL (4.5-11.0)
[2022-01-08 10:46] LABS: Alanine Aminotransferase 19 IU/L (<35); Albumin 4.3 g/dL (3.5-5.0); Albumin Globulin Ratio 1.5 (1.0-2.8); Alkaline Phosphatase 56 U/L (38-126); Aspartate Aminotransferase 23 IU/L (14-36); BUN Creatinine Ratio 32.9 (6-22); Bilirubin Total 0.7 mg/dL (0.2-1.3); Blood Urea Nitrogen 23 mg/dL (7-17); Calcium 9.3 mg/dL (8.4-10.2); Carbon Dioxide 27 mmol/L (22-32); Chloride 101 mmol/L (98-107); Estimated Glomerular Filt Rate > 60 mL/min (>60); Globulin 2.8 g/dL (1.7-4.1); Glucose 85 mg/dL (80-110); HEMOLYSIS < 15 (0-50); Potassium 4.2 mmol/L (3.4-5.1); Sodium 138 mmol/L (137-145); Total Protein 7.1 g/dL (6.3-8.2)
[2022-01-08 11:15] LABS: TSH w/ Reflex to FT4 1.87 uIU/mL (0.47-4.68)
== END ==
PROVIDERS: PCP Family Medicine; Referring Provider Family Medicine; Visit Provider Family Medicine
DX: R61 Generalized hyperhidrosis (principal)
CPT/HCPCS: 36415; 80053; 84443; 85025

== ENCOUNTER → 2022-01-20 10:18 | Outpatient (CLI) | payer MEDICARE, OTHER, SELFPAY ==
--- NOTE | 2022-01-20 10:20 | DI.RAD.S_ITS ---
PROCEDURE: XR LUMBAR SPINE MIN 4V INDICATIONS: BACK PAIN TECHNIQUE: 5 views of the lumbar spine were acquired, including bilateral oblique views. COMPARISON: [facility], , XR LUMBAR SPINE MIN 4V, 05/23/2019, 15:53. FINDINGS: Bones: 5 nonrib-bearing vertebrae are present. There is mild rightward curvature of lower lumbar spine centered at L4 level. Minimal 1-2 mm anterolisthesis of L4 on L5 is seen. No vertebral body compression fractures. Degenerative endplate changes, loss of disc height and bilateral facet arthrosis throughout lumbar spine is seen. No suspicious bony lesions. Soft tissues: Overlying bowel gas pattern is normal. No suspicious soft tissue calcifications. Oblique images: No pars defects. IMPRESSION: 2 mm anterolisthesis of L4 on L5. Very mild rightward curvature of lower lumbar spine centered at L4 level. No acute compression fracture. Degenerative disc disease throughout lumbar spine. Dictated by: Darshan Witt M.D. on 01/20/2022 at 10:58 Approved by: Darshan Witt M.D. on 01/20/2022 at 10:59
== END ==
PROVIDERS: PCP Family Medicine; Referring Provider Physical Medicine & Rehabilitation; Visit Provider Physical Medicine & Rehabilitation
DX: M51.16 Intervertebral disc disorders with radiculopathy, lumbar region (principal); M96.1 Postlaminectomy syndrome, not elsewhere classified; M99.83 Other biomechanical lesions of lumbar region
CPT/HCPCS: 72110

== ENCOUNTER → 2022-01-30 08:55 | Outpatient (CLI) | payer MEDICARE, OTHER, SELFPAY ==
[2022-01-30 10:21] LABS: Add Manual Diff / Slide Review NO; Basophils Absolute Auto 100 /uL (0-100); Basophils Percent Auto 1.3 % (0-2); Eosinophils Absolute Auto 0 /uL (0-450); Eosinophils Percent Auto 0.9 % (2-4); Hematocrit 36.2 % (36-46); Lymphocytes Absolute Auto 1500 /uL (1100-4500); Lymphocytes Percent Auto 35.6 % (25-40); Mean Corpuscular HGB Conc 33.1 % (30-36); Mean Corpuscular Hemoglobin 30.5 PG (26-34); Mean Corpuscular Volume 92.1 fL (80-100); Monocytes Absolute Auto 400 /uL (0-900); Monocytes Percent Auto 10.5 % (3-14); Neutrophils Absolute Auto 2200 /uL (1500-7000); Neutrophils Percent Auto 51.7 % (50-75); Platelet Count 241 X10^3/uL (150-400); Red Blood Cell Count 3.93 X10^6/uL (4.0-5.2); Red Cell Distribution Width 13.5 % (11.6-14.8); White Blood Cell Count 4.2 X10^3/uL (4.5-11.0)
[2022-01-30 11:10] LABS: BUN Creatinine Ratio 27.5 (6-22); Blood Urea Nitrogen 19 mg/dL (7-17); Calcium 9.1 mg/dL (8.4-10.2); Carbon Dioxide 29 mmol/L (22-32); Chloride 103 mmol/L (98-107); Cholesterol 185 mg/dL (140-199); Estimated Glomerular Filt Rate > 60 mL/min (>60); Glucose 85 mg/dL (80-110); HDL Cholesterol 104 mg/dL (40-60); HEMOLYSIS < 15 (0-50); LDL Cholesterol Calculated 71 mg/dL (<100); Potassium 4.1 mmol/L (3.4-5.1); Sodium 138 mmol/L (137-145); Triglycerides 52 mg/dL (35-150)
== END ==
PROVIDERS: PCP Family Medicine; Referring Provider Internal Medicine Cardiovascular Disease; Visit Provider Internal Medicine Cardiovascular Disease
DX: I10 Essential (primary) hypertension (principal); E78.5 Hyperlipidemia, unspecified
CPT/HCPCS: 36415; 80048; 80061; 85025

== ENCOUNTER → 2022-02-04 13:12 | Outpatient (CLI) | payer MEDICARE, OTHER, SELFPAY ==
--- NOTE | 2022-02-04 13:14 | DI.MRI.S_ITS ---
PROCEDURE: MR LUMBAR SPINE WO CON INDICATIONS: Scoliosis progressive axial low back pain TECHNIQUE: Noncontrast sagittal T1 spin echo and T2 fast echo, sagittal STIR, and T2 fast spin echo through the lumbar spine. In cases with scoliosis, additional coronal T2 fast spin echo may be performed. COMPARISON: [facility], MR, MR LUMBAR SPINE WO CON, 02/25/2020, 11:16. FINDINGS: Image quality: Excellent. Alignment and Curvature: 2 mm anterolisthesis of L5-S1 and 2 mm retrolisthesis of L1-2 and L3-4 are both unchanged. No scoliosis. Bone Marrow: Marrow is of normal overall signal. No acute vertebral body compression fractures. Spinal Cord: Conus medullaris terminates at the L1 level. Visualized cord demonstrates normal signal and size. Paraspinous Soft Tissues: No paravertebral masses. T12-L1: No significant disc bulge. The foramina and central canal are patent. L1-L2: Disc space narrowing and diffuse disc bulge with endplate degenerative changes cause moderate right and mild left foraminal stenosis. The central canal is patent. L2-L3: Diffuse disc bulge causes mild bilateral foraminal stenosis. No central canal stenosis. L3-L4: Narrowing of the disc space with Modic type 1 endplate degenerative changes and disc osteophytes as well as a left foraminal protrusion cause mild right and severe left foraminal stenosis. L4-L5: Diffuse disc bulge and facet hypertrophy bilaterally cause moderate right and mild left foraminal stenosis. The central canal has mild stenosis. Narrowing of the lateral recess on the right impinges upon the exiting nerve root. L5-S1: Diffuse disc bulge and facet hypertrophy bilaterally cause severe bilateral foraminal stenosis. The central canal is patent. IMPRESSION: 1. Multilevel lumbar spondylosis causing foraminal and central canal stenosis as detailed above. 2. Overall no significant interval change compared to 02/25/20. Dictated by: Behzad Olsen M.D. on 02/04/2022 at 14:40 Approved by: Behzad Olsen M.D. on 02/04/2022 at 14:51
== END ==
PROVIDERS: PCP Family Medicine; Referring Provider Physical Medicine & Rehabilitation; Visit Provider Physical Medicine & Rehabilitation
DX: M47.816 Spondylosis without myelopathy or radiculopathy, lumbar region (principal); M47.817 Spondylosis without myelopathy or radiculopathy, lumbosacral region; M48.061 Spinal stenosis, lumbar region without neurogenic claudication; M48.07 Spinal stenosis, lumbosacral region; M41.20 Other idiopathic scoliosis, site unspecified
CPT/HCPCS: 72148

== ENCOUNTER → 2022-08-14 11:04 | Outpatient (CLI) | payer MEDICARE, OTHER, SELFPAY | PROVIDERS: PCP Family Medicine; Visit Provider Nurse Practitioner Family | DX: R30.0 Dysuria (principal) | CPT/HCPCS: 87077; 87086; 87186 ==

== ENCOUNTER → 2022-10-17 08:38 | Outpatient (CLI) | payer MEDICARE, OTHER, SELFPAY ==
--- NOTE | 2022-10-17 08:40 | DI.RAD.S_ITS ---
PROCEDURE: XR SHOULDER RT MIN 2V INDICATIONS: Fall on right shoulder TECHNIQUE: 3 views of the shoulder were acquired. COMPARISON: [facility], CR, SHOULDER MIN 2VW (RT), 04/25/2014, 14:24. FINDINGS: Bones: No fractures or dislocations. Moderate right acromioclavicular joint osteoarthritic changes are seen with joint space narrowing, subchondral sclerosis and downward osteophyte formation. Mild to moderate glenohumeral joint osteoarthritic changes also noted. No suspicious bony lesions. Visualized ribs appear intact. Soft tissues: No suspicious soft tissue calcifications. 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 No gross acute shoulder fracture or dislocation. Dictated by: Darshan Witt M.D. on 10/17/2022 at 10:30 Approved by: Darshan Witt M.D. on 10/17/2022 at 10:30
== END ==
PROVIDERS: PCP Family Medicine; Referring Provider Physician Assistant; Visit Provider Physician Assistant
DX: M19.011 Primary osteoarthritis, right shoulder (principal); M25.511 Pain in right shoulder
CPT/HCPCS: 73030

== ENCOUNTER → 2022-11-20 16:23 | Outpatient (CLI) | payer MEDICARE, OTHER, SELFPAY ==
--- NOTE | 2022-11-20 16:24 | DI.MRI.S_ITS ---
PROCEDURE: MR SHOULDER RT WO CON INDICATIONS: RIGHT SHOULDER PAIN TECHNIQUE: Noncontrast oblique coronal T2 fast spin echo with fat saturation, oblique sagittal T1 spin echo and T2 fast spin echo with fat saturation, axial T1 spin echo and T2 fast spin echo with fat saturation through the shoulder. COMPARISON: None. FINDINGS: Image quality: Excellent. Rotator cuff: There is full-thickness tearing the with medial retraction and atrophy of the supraspinatus. There is low-grade articular surface tearing of the anterior, mid, and posterior infraspinatus tendon at the humeral insertion site extending the musculotendinous junction. Full-thickness tearing of the entire subscapularis tendon is present with medial retraction and atrophy of the subscapularis. Teres minor is intact. Bones and bursae: No bone marrow contusions or fractures. Mild glenohumeral and moderate acromioclavicular joint degeneration. The acromion demonstrates conventional anatomy, without an os acromiale. No pathologic subacromial-subdeltoid or subcoracoid bursal fluid is present. Capsule and soft tissues: Diffuse degenerative fraying of the glenoid labrum. Focal undercutting of the posterosuperior labrum. Medial dislocation of the biceps tendon which demonstrates partial thickness tearing. The rotator interval appears normal, without fibrosis. The coracohumeral ligament is normal in thickness. IMPRESSION: 1. Full-thickness tearing of the supraspinatus and subscapularis tendons with associated atrophy. 2. Partial-thickness tearing of the infraspinatus tendon. 3. Acromioclavicular and glenohumeral joint osteoarthritis. 4. Biceps tendon dislocation and partial-thickness tearing. 5. Glenoid labral tearing. Dictated by: Sloan Hurt M.D. on 11/21/2022 at 8:43 Approved by: Sloan Hurt M.D. on 11/21/2022 at 8:46
== END ==
PROVIDERS: PCP Family Medicine; Referring Provider Physician Assistant Medical; Visit Provider Physician Assistant Medical
DX: M75.121 Complete rotator cuff tear or rupture of right shoulder, not specified as traumatic (principal); M19.011 Primary osteoarthritis, right shoulder; S46.211A Strain of muscle, fascia and tendon of other parts of biceps, right arm, initial encounter; S43.491A Other sprain of right shoulder joint, initial encounter
CPT/HCPCS: 73221

== ENCOUNTER → 2022-12-25 13:37 | Outpatient (CLI) | payer MEDICARE, OTHER, SELFPAY ==
[2022-12-25 14:04] LABS: Add Manual Diff / Slide Review NO; Basophils Absolute Auto 100 /uL (0-100); Eosinophils Absolute Auto 100 /uL (0-450); Eosinophils Percent Auto 1.5 % (2-4); Hematocrit 36.6 % (36-46); Hemoglobin 12.5 g/dL (12.0-16.0); Lymphocytes Absolute Auto 2100 /uL (1100-4500); Lymphocytes Percent Auto 30.1 % (25-40); Mean Corpuscular HGB Conc 34.2 % (30-36); Mean Corpuscular Hemoglobin 30.5 PG (26-34); Mean Corpuscular Volume 89.3 fL (80-100); Monocytes Absolute Auto 600 /uL (0-900); Monocytes Percent Auto 8.6 % (3-14); Neutrophils Absolute Auto 4100 /uL (1500-7000); Neutrophils Percent Auto 58.8 % (50-75); Platelet Count 288 X10^3/uL (150-400); Red Cell Distribution Width 13.1 % (11.6-14.8); White Blood Cell Count 6.9 X10^3/uL (4.5-11.0)
[2022-12-25 14:25] LABS: Blood Urea Nitrogen 18 mg/dL (7-17); Calcium 9.4 mg/dL (8.4-10.2); Carbon Dioxide 28 mmol/L (22-32); Chloride 103 mmol/L (98-107); Estimated Glomerular Filt Rate > 60 mL/min (>60); Glucose 113 mg/dL (80-110); HEMOLYSIS < 15 (0-50); Sodium 138 mmol/L (137-145)
[2022-12-25 15:35] LABS: Appearance Urine UA CLEAR; Bilirubin Urine UA NEGATIVE (NEGATIVE); Color Urine UA YELLOW; Glucose Urine UA NEGATIVE (Negative); Ketones Urine UA NEGATIVE (NEGATIVE); Leukocyte Esterase Urine UA NEGATIVE (NEGATIVE); Nitrite Urine UA NEGATIVE (Negative); Occult Blood Urine UA NEGATIVE (Negative); Protein Urine UA NEGATIVE (Negative); Specific Gravity Urine UA 1.015 (1.000-1.035); Urobilinogen Urine UA 0.2 E.U./dL (0.2)
[2022-12-25 15:45] LABS: Bacteria Urine None Seen; Culture Indicated Urine Cult Not Indicated; RBC Urine 0-1/HPF (0-5/HPF); Squamous Epithelial Cell Urine 1-5 /HPF (0-5/HPF); WBC Urine None Seen (0-5/HPF); pH Urine UA 6.5 (4.5-8.0)
== END ==
PROVIDERS: PCP Family Medicine; Referring Provider Orthopaedic Surgery; Visit Provider Orthopaedic Surgery
DX: Z01.818 Encounter for other preprocedural examination (principal); Z01.812 Encounter for preprocedural laboratory examination; N39.0 Urinary tract infection, site not specified
CPT/HCPCS: 36415; 80048; 81001; 85025; 93005

== ENCOUNTER → 2023-01-01 15:24 | Outpatient (CLI) | payer MEDICARE, OTHER, SELFPAY ==
--- NOTE | 2023-01-01 | DI.CT.S_ITS ---
PROCEDURE: CT UE RT WO CON INDICATIONS: ROTATOR CUFF ARTHROPATHY, RIGHT TECHNIQUE: Noncontrast 1-1.5 mm thick sections acquired from the acromioclavicular joint to the inferior scapula, with coronal and sagittal reformatting. COMPARISON: [facility], MR, MR SHOULDER RT WO CON, 11/20/2022, 16:30. [facility] [place], CR, XR SHOULDER 2+ VIEWS RIGHT, 11/13/2022, 16:14. FINDINGS: Image quality: Excellent. Bones: Moderate acromioclavicular joint osteoarthritic changes are seen with joint space narrowing, subchondral sclerosis and downward osteophyte formation depressing on musculotendinous junction of supraspinatus. Mild to moderate glenohumeral joint osteoarthritic changes also seen with joint space narrowing and subchondral sclerosis. There is superior migration of humeral head in relation to glenoid. No acute fracture or dislocation is seen. No suspicious bony lesions. The visualized right upper ribs are intact. Soft tissues: There is near complete loss of subacromial space and superior migration of humeral head which is consistent with MR finding of full-thickness rotator cuff tendon rupture of the distal supraspinatus. Sagittal views shows moderate supraspinatus and subscapularis muscles better evaluated on previous MRI study. No abnormal soft tissue calcifications. Moderate joint effusion and subacromial subdeltoid bursal fluid is present. No calcified intra-articular loose bodies. No axillary lymphadenopathy. The visualized right lung field is clear. IMPRESSION: 1. Full-thickness rupture of distal supraspinatus and likely subscapularis tendons with associated muscle atrophy better evaluated on previous MR study. 2. Moderate acromioclavicular joint osteoarthritis and [id number] glenohumeral joint osteoarthritis. No fracture or dislocation. No suspicious bony lesions. 3. No abnormal soft tissue calcifications. No calcified intra-articular loose bodies. Moderate joint effusion and subacromial subdeltoid bursal fluid. Dictated by: Darshan Witt M.D. on 01/02/2023 at 8:11 Approved by: Darshan Witt M.D. on 01/02/2023 at 8:15
== END ==
PROVIDERS: PCP Family Medicine; Referring Provider Orthopaedic Surgery; Visit Provider Orthopaedic Surgery
DX: M75.121 Complete rotator cuff tear or rupture of right shoulder, not specified as traumatic (principal); M19.011 Primary osteoarthritis, right shoulder; M25.811 Other specified joint disorders, right shoulder; M25.411 Effusion, right shoulder
CPT/HCPCS: 73200

== ENCOUNTER 2023-02-11 06:37 | Inpatient (IN) | payer MEDICARE, OTHER, SELFPAY ==
[2023-02-02 08:51] VITALS: BMI 22.6
[2023-02-11] VITALS (14 sets, daily range): BP systolic 124–163; BP diastolic 49–97; PULSE 71–82; RESP 13–29; TEMP 35.8–36.5; O2SAT 95–100; BMI 22.6
--- NOTE | 2023-02-11 06:00 | DI.RAD.S_ITS ---
PROCEDURE: XR SHOULDER RT 1V INDICATIONS: right total shoulder TECHNIQUE: Single views of the shoulder were acquired. COMPARISON: [facility], , XR SHOULDER RT MIN 2V, 10/17/2022, 8:47. FINDINGS: Bones: Patient is status post right shoulder arthroplasty. Hardware is in expected anatomic alignment. Soft tissues: Postoperative changes are noted within the soft tissues. IMPRESSION: Expected appearances status post right total shoulder arthroplasty. Dictated by: Mari Caro M.D. on 02/11/2023 at 10:44 Approved by: Mari Caro M.D. on 02/11/2023 at 10:46
[2023-02-11] MEDS: ACETAMINOPHEN 325 MG TABLET 975 MG PO (07:28)
[2023-02-11] MEDS: LACTATED RINGERS 1,000 ML 42 ML IV (07:31)
--- NOTE | 2023-02-11 07:36 | PM.PREOP ---
Pre-operative Note Interval Note History & Physical reviewed/Exam performed by Physician: Yes Changes to H&P: No
--- NOTE | 2023-02-11 08:09 | SUR.PREOP ---
Block start time 0754. time out 0754 . Monitoring initiated and maintained throughout procedure. Oxygen and medications given by anesthesiologist . Patient remained stable throughout procedure, no adverse reactions noted. Block end time 0803 .
[2023-02-11] MEDS: CEFAZOLIN 2 GM/100 ML PREMIX 100 ML IV (08:22)
[2023-02-11] MEDS: TRANEXAMIC ACID 1,000 MG VIAL 1000 MG INJ (08:26)
--- NOTE | 2023-02-11 08:42 | SUR.OPER ---
Beach chair with [employer] shoulder positioner. Lower body on padded OR bed. Head in foam padded head cradle, secured with straps. Non-operative arm secured <90 degrees abduction with gel pad under elbow and lower arm. 2 Pillows under knees. Safety belt at thigh. Cloth tape over blanket over lower legs.
[2023-02-11] MEDS: BUPIVACAINE 0.25% (PF) 30 ML, EPINEPHrine 0.15 MG INJ (08:56)
--- NOTE | 2023-02-11 10:24 | PM.OP.1 ---
Operative Date/Time/Diagnoses Date of procedure: 02/11/23 Time of procedure: 10:24 Pre-op diagnosis: Right rotator cuff tear arthropathy Post-op diagnosis: same Procedure & Clinicians Procedure: Right reverse total shoulder arthroplasty Same procedure as scheduled: Yes Indications: Indications: This is a who has rotator cuff arthropathy. Symptoms have been present for years, insidious onset. Patient has failed conservative therapy including injections, physical therapy, anti-inflammatories and activity modification. After extensive discussion in clinic, they wished to go forward with surgery. Risks and benefits were described including the risk of infection, bleeding, damage to internal structures including nerves. We also discussed the risk of failure of surgery and the need for revision surgery as well as the risk of anesthesia. The patient expressed understanding with these risks and wished to go forward with surgery. Surgeon: Ryan Ayala Simulation Software Engineer: Delbert Pollack Click Yes if Unassisted: No Anesthesia Type: General Operative Notes Findings: Findings: Osteoarthritis of the glenoid and humeral head as well as a defient rotator cuff as noted on preoperative imaging and under direct visualization Closure Type: primary Specimen(s): none sent Prosthetic devices, grafts, tissues, transplants, or devices: Tornier implants Base plate: standard 25 mm, Glenosphere: 33 mm Stem: Perform 2+ Poly: +0 concentric Estimated Blood Loss (mL): 50 Blood products transfused: none Procedure in detail: Patient was seen in the preoperative holding unit. The correct right shoulder was identified and marked with my initials. Again we discussed the risks and benefits of surgery and they wished to go forward with surgery. The patient was brought back to the operating room and placed supine on the operating table. Smooth endotracheal intubation was performed by anesthesia. All prominences were padded and they were placed into the beach chair position. Intravenous antibiotics were given. The right shoulder was then prepped with the standard sterile preparation and draping. A time-out was then performed in my initials were again identified on the correct shoulder. 1 g of IV tranexamic acid was given. A standard deltopectoral incision was made. Skin flaps were made. The cephalic vein was identified and retracted laterally. This was protected throughout the remainder of the case. Sharp dissection was made along the deltoid, subacromial and subcoracoid space to release adhesions. The conjoined tendon was identified and the axillary nerve was palpated and continuous using the tug test. It was protected throughout the remainder of the case. A brown retractor was placed underneath the deltoid muscle and a darach retractor underneath the conjoint tendon. The anterior circumflex artery and associated veins on the lower border of the subscapularis were identified and tied off using 0-Vicryl. The biceps tendon was identified in the bicipital groove. This was released from its sheath, and taken from its origin on the glenoid and tied into the pectoralis tendon for a solid tenodesis. We then began a subscapularis peel. The subscapularis was tagged with an Ethibond suture. A 360 degree circumferential release of the subscapularis was performed with protection of the axillary nerve. The coracohumeral ligament was released at the base of the coracoid. The coracoacromial ligament was left intact. The shoulder was then dislocated. Osteophytes were removed using combination of rongeur and osteotome. The rotator cuff was noted to be insufficient. An intramedullary guide was used set at version of 30?. Using an oscillating saw a conservative humeral head cut was made. Impaction reamers were reamed up to a size 2 stem with a built-in angle 135?. A neck protector was placed. Attention was then turned to the glenoid. After retracting the humeral head posteriorly a circumferential release was performed of the capsule with protection of the axillary nerve. The labrum was then released starting at the biceps anchor and going around the rim a small amount of triceps was released from the inferior glenoid. A center guide pin was then placed using the guide, followed by Reamer. After adequate cartilage was removed the center drill hole was drilled and measured. The base plate was then implanted and screwed into place. The superior drill hole was drilled and filled in a nonlocking fashion, followed by the anterior hole holes in locking fashion, . A 33 +3 glenosphere was then selected and screwed into place onto the base plate. Turning back to the humerus, the humeral head was delivered and trialed with a 0 concentric. The arm was taken through range of motion and this was felt to be stable. The trial was then removed and a dilute Betadine wash was then performed with 1 L of sterile saline. Before placing the final implant, drill holes were made in the bicipital groove for the subscapularis repair, and sutures were passed through the drill holes. The final stem was then impacted into the humerus. The shoulder was then reduced and again brought through range of motion and was felt to be stable. The interval was then closed using #2 Ethibond. The subscapularis was then repaired using a modified racking hitch with nice loupes. The deltopectoral interval was then closed with #2 Ethibond. The skin was closed with 2-0 PDS and Monocryl followed by Aquacel dressing. Patient was awoken from anesthesia and brought back to the postoperative recovery unit without issue. They were placed into a sling. Assisting participation: This operation could not have been safely performed (without compromising the technical results or length of the procedure) without the assistance of a skilled surgical forceps fabricator. The surgical forceps fabricator was medically necessary for proper positioning, retraction and manipulation of instruments, proper exposure, graft prep, and manipulation of tissue. Complications: none Post-operative Condition: stable Disposition: PACU Plan for aftercare: Postoperative instructions: Sling to remain on for 6 weeks. No external rotation past neutral for 6 weeks. Okay for him to come off her shower. Okay to shower over the Aquacel dressing. If any water gets underneath the dressing, remove the dressing. First postoperative visit in 2 weeks.
--- NOTE | 2023-02-11 15:30 | PT.IIE ---
Current Diagnoses Other specific arthropathies, not elsewhere classified, right shoulder (02/11/23) Surgery Performed Operation Date: 02/11/23 07:45 Actual Procedures p Total Shoulder Arthroplasty - Reverse with biceps tenodesis(Right) - Ryan Ayala MD Surgical History (Last Updated 02/02/23 @ 09:51 by Judie Olivo, RN) Hx of bilateral cataract extraction Hx of decompressive lumbar laminectomy (08/01/15) Hx of hemorrhoidectomy Hx of tonsillectomy Status post hysterectomy with oophorectomy Medical History (Last Updated 02/02/23 @ 09:51 by Judie Olivo RN) Anesthesia complication Cervical facet joint syndrome Depression Diverticular disease History of COVID-19 (02/2022) HTN (hypertension) IBS (irritable bowel syndrome) Osteoarthritis Osteopenia PVCs (premature ventricular contractions) Rheumatic fever Scoliosis (and kyphoscoliosis), idiopathic Spinal stenosis 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 SVT (supraventricular tachycardia) Physical Therapy Inpatient Evaluation/Re-Eval M1 PT/OT-IP Prior Functional Status Start: 02/11/23 16:43 Freq: NEEDED Status: Active Protocol: Document 02/11/23 15:30 AB (Rec: 02/11/23 17:05 [email or web address]) Medical Review Prior Functional Status Medical History Reviewed Yes Communication able to make needs known Mobility and Gait pt stated that she was independent with all mobilities and ambulation without AD Social History Household Members none Living Arrangements House Number of Floors (Floors) Two Floors Number of Stairs To Enter/Railing? 2 steps to enter without rails 14 steps R rail ascending to get to bedroom level Home Environment High Toilet,Walk in Shower Home Equipment Straight Cane Additional Social History Comment pt stated that her friend will be staying with her until thursday pt lives at [facility] M2 PT-IP Current Condition Start: 02/11/23 16:43 Freq: NEEDED Status: Active Protocol: Document 02/11/23 15:30 AB (Rec: 02/11/23 17:05 AB [email or web address]) Physical Therapy Current Condition Current Condition Evaluation Date 02/11/23 Treatment Diagnosis s/p R reverse TSA; difficulty in walking Onset Date 02/11/23 M3 PT-IP Subjective Start: 02/11/23 16:43 Freq: NEEDED Status: Active Protocol: Document 02/11/23 15:30 AB (Rec: 02/11/23 17:05 [id number]) Subjective Physical Therapy Visit Type Type Initial Evaluation Visit Start Time 15:30 Visit Stop Time 16:30 Total Visit Minutes 60 Number of ACCOUNT SUPPORT REP Visits 0 Physical Therapy Visit Comments Patient Comments agreeable to do PT Therapy Pain Assessment Pain When Pain Assessed At Rest Pain Present Pain Present Pain Reported Location Right Shoulder Scale Used pain scale not stated Pain Behaviors Guarding Pain Management Techniques Apply Cold,Distraction, Modification of Treatment,Re- positioning,Timing of Activity with Medications M4 PT-IP Mobility and Gait Start: 02/11/23 16:43 Freq: NEEDED Status: Active Protocol: Document 02/11/23 15:30 AB (Rec: 02/11/23 17:05 [id number]) PT-Bed Mobility Assessment Supine to Sit Supine to Sit Standby Assistance PT-Transfer Assessment Sit to and From Stand Sit to and from Stand Standby Assistance,Contact Guard Assistance,1 Person Assistance,Use of Upper Extremities Equipment Transfer Assistive Device None,Gait Belt Orthotic/Prosthetic Devices or Brace: Yes Transfers Transfer Destination Chair Transfer Technique ambulated Transfer Ability Level of Assist Standby Assistance,Contact Guard Assistance,1 Person Assistance,Use of Upper Extremities Comments Mobility Comments pt supine in bed. R shoulder sling on. educated pt regarding R shoulder precautions and NWB. pt completed supine to sit SBA. able to sit on EOB SBA. educated pt on elbow/wrist/ hand exercises and use of sling. pt able to sit on EOB SBA. completed sit to stand SBA to CGA and ambulated in room ~ 35 ft without AD SBA increasing to CGA during turns . pt presents with an antalgic gait. pt sat on the chair. pt agreed tod stairs. completed up/down step stool without AD CGA to min A. pt educated on stair climbing technique by being steady/ stable on stance LE before stepping up/down. pt completed step up/down stool again CGA. pt sat on the chair. positioned on the chair. call light and table placed within reach. One of pt's friend arrived and pt stated that her friend will be the other person that can assist her but will not be staying with pt. educated friend on sling management. Gait Assessment Gait Gait Assistance Required: Standby Assistance,Contact Guard Assist Distance (Feet) 35 Able to Maintain Weight Bearing Status Yes During Gait Assistive Devices Assistive Device None,Gait Belt Orthotic/Prosthetic Devices or Brace: Yes Gait Deviations General Gait Pattern Antalgic,Decreased Stride Length,Decreased Feet Clearance Factors Limiting Gait Function Factors Limiting Gait Function Decreased Activity Tolerance, Decreased Sensation,Decreased Strength,Limited Range of Motion,Pain,Poor Balance,Poor Safety Awareness Stair Climbing Assessment Evaluation Level of Assist On Stairs Contact Guard Assistance, Minimal Assistance Devices Stair Climbing Assistive Devices None Technique/Endurance Stair Climbing Direction Ascend and Descend Stair Climbing Technique Step to Step Number of Steps Climbed 1 Query Text: Stair Climbing Set # Repetitions (reps) 4 PT-Balance Assessment Sitting Balance and Reactions Static Sitting Balance Ability Normal Dynamic Sitting Balance Ability Good Standing Balance and Reactions Static Standing Balance Ability Good Dynamic Standing Balance Ability Fair Device Used without AD M5 PT-IP Objective Assessments Start: 02/11/23 16:43 Freq: NEEDED Status: Active Protocol: Document 02/11/23 15:30 AB (Rec: 02/11/23 17:05 [email or web address]) Orientation Orientation/Cognition Level of Alertness Alert Orientation Name,Place,Situation Language Function Ability No Deficits Noted Safety Awareness Decreased Safety Awareness Memory Description No Deficits Noted Gross Range of Motion Lower Extremity ROM Assessment Within Functional Limits Strength Lower Extremity Strength Assessment Within Functional Limits Coordination Assessment Gross Coordination Gross Coordination WNL Sensation Assessment Sensation Gross Sensation Right UE Impaired Sensation Description Numbness Comments Sensation Comments pt still has RUE numbness and decrease motor control Muscle Tone Muscle Tone WNL No Other Assessments Other Other Assessments pt still has decrease motor control on R UE M6 PT-IP Treatment Start: 02/11/23 16:43 Freq: NEEDED Status: Active Protocol: Document 02/11/23 15:30 AB (Rec: 02/11/23 17:05 [email or web address]) Physical Therapy Treatment Exercises Exercises Elbow Flexion/Extension,Wrist ROM,Hand ROM Education Education Provided Precautions,Weight Bearing Status,Post-Op Packet,Safety M7 PT-IP Assessment and Plan Start: 02/11/23 16:43 Freq: NEEDED Status: Active Protocol: Document 02/11/23 15:30 AB (Rec: 02/11/23 17:05 [email or web address]) PT Summary Assessment and Plan Potential Rehabilitation Potential Fair Status of Condition at Evaluation Evolving Summary Impairments Pain,ROM,Strength,Balance, Coordination,Sensation,Tone, Cognition,Bed Mobility, Transfers,Gait,Activity Tolerance Assessment Summary pt is an 82 y/o F who underwent R reverse TSA POD. pt has R shoulder precautions and is NWB on RUE. pt also has a sling on. pt requiring SBA to CGA with bed mobility, transfers and ambulation without AD but will require assistance with ADLs and for sling management. pt plans to go home and will have her friends to assist her. Pt will benefit from HHPT. Goals Bed Mobility Goal Independent Transfer Goal Independent Gait Goal Independent Gait Distance 200 Other Goals up/down 1 steps without rails mod I up/down 14 steps R rail ascending mod I Days to Meet Goals 5 Frequency of Treatment Frequency Of Treatment Twice a Day Treatment Plan Physical Therapy Treatment Plan Bed Mobility Training,Transfer Training,Gait Training, Therapeutic Exercise,Balance Retraining,Post Op Education, Discharge Planning,Hot or Cold Pack,Neuromuscular Re-ed, Coordination Retraining,Manual Therapy Precautions Shoulder Precautions Sling,PROM,Internal Rotation to Body,No External Rotation, No Abduction,Forward Flexion to 90 degrees,Pendulums Weight Bearing Status Weight Bearing Status Non-Weight Bearing Allowed Weight Bearing Amount (enter % RUE NWB or #) (%) Recommendations To Nursing Amount of Assist Needed 1 Person Assist Discharge Recommendations PT Discharge Recommendations Home with Assistance,Home Health Transportation Needs at Discharge Private Vehicle
--- NOTE | 2023-02-11 16:09 | PC.NURSE ---
Pt arrived from PACU at 1130, A&Ox4, VSS on RA. aquacel dressing to R shoulder c/d/i w/sling to RUE. Lung sounds CTA, bowel sounds hypoactive. CMS+ except decreased sensation to R arm and hand, tingling present in middle, ring and pinkie finger on R hand, thumb and pointer finger completely numb. Pt oriented to room and call light, bed in low position, bed alarm activated, call light within reach.
[2023-02-11] MEDS: IBUPROFEN 600 MG TABLET PO ×2 (18:02→21:47)
[2023-02-11] MEDS: lisinopriL 10 MG TABLET PO (18:04)
[2023-02-11] MEDS: OXYCODONE IR 5 MG TABLET PO (20:01)
[2023-02-11] MEDS: DOCUSATE 100 MG CAPSULE PO (20:18)
[2023-02-11] MEDS: SENNOSIDES 8.6 MG TABLET 17.2 MG PO (20:18)
[2023-02-11] MEDS: ASPIRIN EC 81 MG TABLET PO (20:18)
[2023-02-11] MEDS: VIT C/E/ZN/COPPR/LUTEIN/ZEAXAN CAPSULE 1 CAP PO (20:18)
[2023-02-11] MEDS: HYDROMORPHONE 0.5 MG INJ IV (21:48)
[2023-02-12] MEDS: OXYCODONE IR 5 MG TABLET PO ×3 (00:07→09:30)
[2023-02-12 00:41] VITALS: BP 158/66; PULSE 84; RESP 16; TEMP 37.1; O2SAT 98
[2023-02-12 04:44] VITALS: BP 158/66; PULSE 84; RESP 16; TEMP 36.6; O2SAT 98
[2023-02-12 06:12] VITALS: BP 138/68; PULSE 78; RESP 20; TEMP 36.6; O2SAT 98
[2023-02-12 06:24] LABS: Hematocrit 30.6 % (36-46); Hemoglobin 10.3 g/dL (12.0-16.0); Mean Corpuscular HGB Conc 33.7 % (30-36); Mean Corpuscular Hemoglobin 30.4 PG (26-34); Mean Corpuscular Volume 90.1 fL (80-100); Platelet Count 225 X10^3/uL (150-400); Red Blood Cell Count 3.39 X10^6/uL (4.0-5.2); Red Cell Distribution Width 14.1 % (11.6-14.8); White Blood Cell Count 10.2 X10^3/uL (4.5-11.0)
--- NOTE | 2023-02-12 07:59 | PM.DS.1 ---
History of Present Illness History of Present Illness Date Patient Seen: 02/12/23 Time Patient Seen: 07:59 Chief complaint: Shoulder pain Narrative: Shoulder pain has been [id number]. Denies numbness tingling right upper extremity. No nausea or vomiting. Discharge Providers Provider Date of admission: 02/11/23 06:37 Discharge Date: 02/12/23 Primary care physician: Meli Fraser MD Consults: 02/11/23 06:00 Consult to Anesthesiology Routine Comment: Consulting Provider: Anesthesiologist Reason for consultation: Regional block for post operative pain control 02/11/23 10:17 Consult to Discharge Planning Routine Comment: Consult to Physical Therapy Evaluate & Treat Comment: Physician Instructions: Evaluate and Treat Discharge provider: Rafael Shine PA-C Summary Hospital Course Discharge Diagnosis: Right rotator cuff tear arthropathy Hospital Course: Right reverse total shoulder arthroplasty Same procedure as scheduled: Yes Indications: Indications: This is a who has rotator cuff arthropathy. Symptoms have been present for years, insidious onset. Patient has failed conservative therapy including injections, physical therapy, anti-inflammatories and activity modification. After extensive discussion in clinic, they wished to go forward with surgery. Risks and benefits were described including the risk of infection, bleeding, damage to internal structures including nerves. We also discussed the risk of failure of surgery and the need for revision surgery as well as the risk of anesthesia. The patient expressed understanding with these risks and wished to go forward with surgery. Surgeon: Ryan Ayala Supervisor In Charge: Delbert Pollack Click Yes if Unassisted: No Anesthesia Type: General Operative Notes Findings: Findings: Osteoarthritis of the glenoid and humeral head as well as a defient rotator cuff as noted on preoperative imaging and under direct visualization Closure Type: primary Specimen(s): none sent Prosthetic devices, grafts, tissues, transplants, or devices: Tornier implants Base plate: standard 25 mm, Glenosphere: 33 mm Stem: Perform 2+ Poly: +0 concentric Estimated Blood Loss (mL): 50 Blood products transfused: none Procedure in detail: Patient admitted for the above-mentioned procedure. Patient consented to the same. Patient underwent surgery February 11, 2023. Patient back in her room recovering well as in stable condition. Patient will discharge home this morning. Patient has an appointment with the orthopedic outpatient clinic to have her brace fitted. She will be discharged home today in stable condition. Exam Vital Signs (past 8 hours): - 02/12/23 00:41 02/12/23 04:44 02/12/23 06:12 Temperature 98.8 F 98 F 97.8 F Pulse Rate 84 84 78 Respiratory Rate 16 16 20 Blood Pressure 158/66 H 158/66 H 138/68 Pulse Oximetry 98 98 98 Oxygen Flow Rate 0 0 0 Oxygen Delivery Method Room Air Oxygen Flow Rate 0 Narrative Exam Narrative: 82-year-old female resting comfortably in bed in no apparent distress. Motor functions intact right upper extremity. Sensation grossly intact to light touch right upper extremity. Sling is in place. Const General: cooperative Nutritional Appearance: average body habitus Orientation: alert Resp Effort & Inspection: normal respiratory effort and able to speak in complete sentences Objective Labs 02/12/23 05:35 Labs: Laboratory Results - last 24 hr 02/12/23 05:35 WBC 10.2 RBC 3.39 L Hgb 10.3 L Hct 30.6 L MCV 90.1 MCH 30.4 MCHC 33.7 RDW 14.1 Plt Count 225 PFSH Medical History (Updated 02/02/23 @ 09:51 by Judie Olivo RN) Osteopenia Rheumatic fever IBS (irritable bowel syndrome) Osteoarthritis HTN (hypertension) Anesthesia complication Depression History of COVID-19 (02/2022) Scoliosis (and kyphoscoliosis), idiopathic SVT (supraventricular tachycardia) 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 Cervical facet joint syndrome Diverticular disease Spinal stenosis PVCs (premature ventricular contractions) Surgical History (Updated 02/02/23 @ 09:51 by Judie Olivo RN) Hx of tonsillectomy Hx of bilateral cataract extraction Hx of hemorrhoidectomy Hx of decompressive lumbar laminectomy (08/01/15) Status post hysterectomy with oophorectomy Family History Mother Pancreatic cancer Social History marital status: number of children: 0 household members: none lives independently: Yes caregiver/support person: No housing: house Smoking Status: Never smoker second hand exposure: No alcohol intake: current substance use type: does not use Discharge Assessment & Plan Assessment and Plan Assessment: Patient progressing as expected Plan of Treatment: Sling to remain on for 6 weeks. No external rotation past neutral for 6 weeks. Okay to shower over the Aquacel dressing. If any water gets underneath the dressing, remove the dressing. First postoperative visit in 2 weeks. Discharge Plan Discharge Plan Patient Disposition: Home Provider Discharge Comment: Patient will be discharge this morning, has outpatient appointment at 11:30 a.m. to have her brace adjusted Discharge orders & Medications Prescriptions: Continued (DME) Disabled Parking Permit See Rx Instructions .ROUTE .MEDSUPPLY Qty: 1 0RF Rx Instructions: Patient qualifies for disabled parking as per the attached form. polyethylene glycol 3350 [Miralax] 17 gram/dose powder 17 gram PO PRN PRN (Reason: Constipation) lisinopril 10 mg tablet 10 mg PO QPM PreserVision AREDS-2 250-90-40-1 mg capsule 1 tab PO BID diltiazem HCl 180 mg capsule,extended release 24hr 180 mg PO DAILY Follow up/Referrals: Ryan Ayala MD [Physician] - As previously scheduled (Follow up with Dr Ayala on 02/26/2023 @ 10:20 am at [facility] in [place].) Meli Fraser MD [Primary Care Provider] - Activity Restrictions/Additional Instructions: Sling to remain on for 6 weeks. No external rotation past neutral for 6 weeks. Okay for him to come off her shower. Okay to shower over the Aquacel dressing. If any water gets underneath the dressing, remove the dressing. First postoperative visit in 2 weeks. Diet/Activity/Treatments Diet: Diet as Tolerated Cold/Heat Therapy: Ice machine to shoulder as needed for pain; no more than 20 minutes at a time with at least 20 min between treatments. Other treatments: Sling to remain on for 6 weeks. No external rotation past neutral for 6 weeks. Okay for him to come off her shower. Okay to shower over the Aquacel dressing. If any water gets underneath the dressing, remove the dressing. First postoperative visit in 2 weeks. Skin/Wound/Dressing Care Report to your healthcare provider any signs of infection, such as:: chills, fever, night sweats, increased pain, unusual drainage and unusual redness Dressing: Keep dressing clean and dry Visit Report/Discharge Packet Instructions: DI for Prescription Opioid Use Stand Alone Forms: Patient Portal/API, Stroke Signs & Symptoms Discharge Data Primary Care Provider: Meli Fraser VTE Deep Vein Thrombosis/Pulmonary Embolism Present on Admission: No
[2023-02-12] MEDS: DOCUSATE 100 MG CAPSULE PO (09:29)
[2023-02-12] MEDS: dilTIAZem CD 180 MG CAP PO (09:29)
[2023-02-12] MEDS: ASPIRIN EC 81 MG TABLET PO (09:29)
[2023-02-12] MEDS: VIT C/E/ZN/COPPR/LUTEIN/ZEAXAN CAPSULE 1 CAP PO (09:30)
--- NOTE | 2023-02-12 09:48 | PT.IPTN ---
Current Diagnoses Other specific arthropathies, not elsewhere classified, right shoulder (02/11/23) Surgery Performed Operation Date: 02/11/23 07:45 Actual Procedures p Total Shoulder Arthroplasty - Reverse with biceps tenodesis(Right) - Rayn Ayala MD Physical Therapy Treatment Note M2 PT-IP Current Condition Start: 02/11/23 16:43 Freq: NEEDED Status: Active Protocol: Document 02/11/23 15:30 AB (Rec: 02/11/23 17:05 AB [id number]) Physical Therapy Current Condition Current Condition Evaluation Date 02/11/23 Treatment Diagnosis s/p R reverse TSA; difficulty in walking Onset Date 02/11/23 M3 PT-IP Subjective Start: 02/11/23 16:43 Freq: NEEDED Status: Active Protocol: Document 02/12/23 10:22 TS (Rec: 02/12/23 10:43 TS [id number]) Subjective Physical Therapy Visit Type Type Treatment Note Visit Start Time 09:48 Visit Stop Time 10:18 Total Visit Minutes 30 Number of ONCOLOGY CONSULTANT Visits 1 Physical Therapy Visit Comments Patient Comments Pt found resting in bed, reports pain is 5/10 at rest, is agreeable to PT. During gait pt reported seeing images of yellow dots in her vision, has been happening since the surgery. Therapy Pain Assessment Pain When Pain Assessed At Rest Pain Present Pain Present Pain Reported Location Right Shoulder Intensity 5 Scale Used Numeric (0 - 10) Description With Movement Pain Behaviors Facial Grimacing Pain Management Techniques Apply Cold,Distraction,Timing of Activity with Medications M4 PT-IP Mobility and Gait Start: 02/11/23 16:43 Freq: NEEDED Status: Active Protocol: Document 02/12/23 10:22 TS (Rec: 02/12/23 10:43 TS [id number]) PT-Bed Mobility Assessment Supine to Sit Supine to Sit Standby Assistance Scooting Scooting to Edge of Bed Standby Assistance PT-Transfer Assessment Sit to and From Stand Sit to and from Stand Standby Assistance,Use of Upper Extremities Equipment Transfer Assistive Device None,Gait Belt Orthotic/Prosthetic Devices or Brace: Yes Comments Mobility Comments Pt educated on R shoulder precautions prior to mobility. Supine to sit SBA with HOB elevated 30D and LUE support. She performed sit to stand with no AD and LUE pushing against bed to come into standing. She ambulated to toilet, performed own pericare . She ambulated in hallway ~ 300'SBA with no AD, is slightly unsteady with gait but has no LOB or buckling of knees. She performed stairs with LUE on R rail side stepping up steps x12 SBA, demonstrates good safety awareness and balance. pt ambulated back to room, reports seeing yellow dots or circles in her vision since surgery. Pt was left in chair, all needs met, RN notified. Gait Assessment Gait Gait Assistance Required: Standby Assistance Distance (Feet) 300 Able to Maintain Weight Bearing Status Yes During Gait Assistive Devices Assistive Device None,Gait Belt Orthotic/Prosthetic Devices or Brace: Yes Gait Deviations General Gait Pattern Antalgic,Decreased Stride Length,Decreased Feet Clearance Factors Limiting Gait Function Factors Limiting Gait Function Decreased Activity Tolerance, Decreased Sensation,Decreased Strength,Limited Range of Motion,Pain,Poor Balance,Poor Safety Awareness Comments Gait Comments See mobility comments Stair Climbing Assessment Evaluation Level of Assist On Stairs Standby Assistance Devices Stair Climbing Assistive Devices None,Right Railing Technique/Endurance Stair Climbing Direction Ascend and Descend Stair Climbing Technique Step to Step Number of Steps Climbed 13 Comments Stair Climbing Comments x12 with R rail, x1 with no rail. PT-Balance Assessment Sitting Balance and Reactions Static Sitting Balance Ability Normal Dynamic Sitting Balance Ability Good Standing Balance and Reactions Static Standing Balance Ability Good Dynamic Standing Balance Ability Fair Device Used without AD M5 PT-IP Objective Assessments Start: 02/11/23 16:43 Freq: NEEDED Status: Active Protocol: Document 02/11/23 15:30 AB (Rec: 02/11/23 17:05 AB [id number]) Orientation Orientation/Cognition Level of Alertness Alert Orientation Name,Place,Situation Language Function Ability No Deficits Noted Safety Awareness Decreased Safety Awareness Memory Description No Deficits Noted Gross Range of Motion Lower Extremity ROM Assessment Within Functional Limits Strength Lower Extremity Strength Assessment Within Functional Limits Coordination Assessment Gross Coordination Gross Coordination WNL Sensation Assessment Sensation Gross Sensation Right UE Impaired Sensation Description Numbness Comments Sensation Comments pt still has RUE numbness and decrease motor control Muscle Tone Muscle Tone WNL No Other Assessments Other Other Assessments pt still has decrease motor control on R UE M6 PT-IP Treatment Start: 02/11/23 16:43 Freq: NEEDED Status: Active Protocol: Document 02/12/23 10:22 TS (Rec: 02/12/23 10:43 TS [id number]) Physical Therapy Treatment Exercises Exercises Wrist ROM,Hand ROM Education Education Provided Precautions,Weight Bearing Status,Post-Op Packet,Safety M7 PT-IP Assessment and Plan Start: 02/11/23 16:43 Freq: NEEDED Status: Active Protocol: Document 02/12/23 10:22 TS (Rec: 02/12/23 10:43 TS [id number]) PT Summary Assessment and Plan Potential Rehabilitation Potential Fair Summary Impairments Pain,ROM,Strength,Balance, Coordination,Sensation,Tone, Cognition,Bed Mobility, Transfers,Gait,Activity Tolerance Progress Towards Goals Progressing Toward Goals Assessment Summary Kaylee is making good progress with her mobility this session . She is SBA for all bed mobility with use of LUE. She performed sit to stand with LUE support and no AD, She ambulated ~300'SBA with no AD, is slightly unsteady but has no buckling or LOB. She progressed stairs to x12 SBA with use of R rail sidestepping up steps and x1 with no rail support. She was educated again on post-op ex and precaution, handout is provided. PT is recommending pt return home with assist. Goals Bed Mobility Goal Independent Transfer Goal Independent Gait Goal Independent Gait Distance 200 Other Goals up/down 1 steps without rails mod I up/down 14 steps R rail ascending mod I Days to Meet Goals 5 Frequency of Treatment Frequency Of Treatment Twice a Day Treatment Plan Physical Therapy Treatment Plan Bed Mobility Training,Transfer Training,Gait Training, Therapeutic Exercise,Balance Retraining,Post Op Education, Discharge Planning,Hot or Cold Pack,Neuromuscular Re-ed, Coordination Retraining,Manual Therapy Precautions Shoulder Precautions Sling,PROM,Internal Rotation to Body,No External Rotation, No Abduction,Forward Flexion to 90 degrees,Pendulums Weight Bearing Status Weight Bearing Status Non-Weight Bearing Allowed Weight Bearing Amount (enter % RUE NWB or #) (%) Recommendations To Nursing Amount of Assist Needed Standby Assistance Discharge Recommendations PT Discharge Recommendations Home with Assistance,Home Health Transportation Needs at Discharge Private Vehicle
[2023-02-12] MEDS: IBUPROFEN 600 MG TABLET PO (11:10)
--- NOTE | 2023-02-12 11:46 | P.PCN_ITS ---
Peripheral Nerve Block Note Pre-Procedure Reason for block: Attending surgeon request/order for post-op pain management Pre-procedure checklist: Patient examined and chart reviewed, Risks, benefits, alternatives of block discussed, questions answered, Verification of anti- coagulation status, Site confirmed, Timeout performed and Standard ASA monitors applied Consent obtained from: Patient Procedure Date of procedure: 02/11/23 Performed by: Merlyn Cortes Sedation - enter dose in comment field: IV Fentanyl (mcg) Location: Pre-Op Position: Sitting Laterality: Right Sterile Technique: Sterile barrier maintained, Sterile gloves, Mask, Sterile drapes, U/S probe cover and Chloraprep Skin Wheal: Lidocaine 1% mL: 2 Gauge: 25 Equipment Single injection - Needle brand, gauge, length: Pajunk 50 mm Medications Medications - enter concentration (%) & mL in comment field: Ropivacaine Additives - include dilution, mg/mc.5% ropivacaine plain, 15 ml total. Please see paper chart for additional block documentation including start and end times. Incremental aspiration prior to injection: Yes Ultrasound Reason for Ultrasound: U/S guidance used for needle placement and U/S used to visualize spread of anesthetic Image printed/saved/archived: Yes Limited exam reveals no abnormal findings: Yes Vital signs VS: - 02/12/23 04:44 02/12/23 06:12 Temperature 98 F 97.8 F Pulse Rate 84 78 Respiratory Rate 16 20 Blood Pressure 158/66 H 138/68 Pulse Oximetry 98 98 Oxygen Flow Rate 0 0 Oxygen Delivery Method Room Air Oxygen Flow Rate 0 Events Nerve Block Events: Procedure uneventful
--- NOTE | 2023-02-12 12:10 | CM.DANOTE ---
DCP: Case received, EMR reviewed and met with patient. Introduced self and role. Was able to obtain information regarding patient's baseline activiry level at home prior to her surgery, as well as he current living situation. DCP assessment completed with information currently available. Patient is an 82 year old female who admitted yesterday morning to the care of the orthopedic team. PCP: Dr. Fraser. Payer: confirmed: Medicare/[employer]HA. Patient came to the hospital via private vehicle for surgical procedure. Patient had a right reverse total shoulder arthroplasty. Patient has history of right rotator cuff tear. Met with patient in her room. She was sitting up in bed, pleasant and conversive, alert and oriented. Confirmed that she resides alone on [address] [facility], she is a . At her baseline, she is independent. She lives in a large home on [facility] [address] [facility], and has been taking care of her home and yard at her baseline. She has been active at the [employer] [place]. Patient plans to have her friend, Chelsie Johnson, assist her for a few days. Asked her about meals, since she is on the [facility], stated, she should be ok, and have some help for a few days. Asked her about home health services, patient would like this. Explained what their services entail, stated would like P.T, O.T. Did add bath aide as well. Went with [email or web address], since they serve [facility]. Faxed referral over to [facility]. Did not have updated face to face forms from Dr. Mancera, but have for Dr. Fraser. Did attempt to call Dr. Fraser to update her, but she is off today. Checked in with Dina at [facility] and confirmed that they can use her primary physician for orders. Gave her Senior Resource Book, in case she wants to consider any type of home attendants or housekeeping. Gave her the [facility] pamphlet. Confirmed with Woo at [facility] that they can accept patient. Completed face to face and orders, CARLOS ENRIQUE Kelsey community relations assistant, kindly sending to [facility]. P: Patient is discharging home with [facility], her neighbor will be picking her up, will work further with therapy prior to discharge. Janet Lagos RN/Bench Worker Discharge Planning/Care Management CM Discharge Assessment Start: 02/12/23 12:07 Freq: Status: Active Protocol: Document 02/12/23 12:07 (Rec: 02/12/23 12:10 [id number]) Discharge Planning Assessment Assigned Receiver Janet Lagos RN/Bench Worker Advance Directives? Yes: POLST Advance Directives on File Yes History Provided By Patient,Medical Record Prior Living Arrangements House Household Members none Type of transporation used prior to Drives own vehicle admit Independent with ADL's Yes Is patient alert and oriented? Yes Caregiver for Another No Patient/Family Preference Home with Home Health Comment Set patient up with [facility]. Barriers to Discharge No Discharge Plan Home with Home Health Transportation Arrangement Friend Referrals Initiated Home Health If patient plan is home with home health Yes : Has signed face to face form been completed? Medicare Choice List Provided Yes Medicare choice list reviewed on patient electronic tablet with Whiteboard Updated in Patient Room with Yes name and ext. # of Receiver Review Status In Process Next Review Type Continued Stay Review Pre-Anesthesia Assessment Start: 02/02/23 08:51 Freq: Status: Active Protocol: Document 02/02/23 08:51 CAB (Rec: 02/02/23 09:51 CAB [id number]) Pre-Anesthesia Assessment Preferred Name Kaylee Patient Information Reviewed Via Phone Assessment Assessment Completed With Patient Diagnostic Results BMP/CMP,CBC,EKG Comment Labs/EKG @ [facility] 12/25/22 Primary Care Provider Meli Fraser Seen Specialist in Last 12 Months Yes Specialist Seen Weekend Receptionist,Orthopedist Primary Language Welsh Immigration Judge Required No Height 5 ft 4 in Weight 132 lb Body Mass Index (BMI) 22.6 Hearing Ability Normal Visual Impairment Partially Limited Dentition Type Teeth, Natural Present,Teeth, Missing Barriers to Learning None Hx Anesthesia Reactions Yes: They had a really time waking me up after the hysterectomy Hx Family Anesthesia Reaction No Hx Malignant Hyperthermia No Hx Blood Transfusions No Anesthesia Review Requested No Bulb Packer No alcohol intake current alcohol intake frequency holidays/special occasions only Smoking Status Never smoker Substance Use Type does not use Pain Present Pain Reported Musculoskeletal Symptoms Abnormal Gait,Arthralgias,Back Pain,Difficulty Walking,Joint Pain,Limited Range of Motion, Myalgias History of Falling (Recent or History of No ) Patient is completely paralyzed or No completely immobile Mental Status Oriented to own ability Is patient on oxygen? No Does patient have MOROCHO/SOB No Hx Sleep Apnea No Currently Taking a Beta Armando No Hx Chest Pain No Hx SOB No Hx Syncope or Dizziness No Anti-Coagulant Therapy No Has a Weekend Receptionist Yes: Last visit 03/20/[address] Thornton Cardiac Testing No: ZIO patch 02/11/22 Hx Pacemaker/ICD No Pacemaker Rep Required? 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 Received a COVID vaccine? Yes Received all doses? Yes Marital Status / Lives With none Current Living Arrangements House Number of Floors (Floors) Two Floors Support System Friend(s) Does the Patient Have Assistance After No: Very minimal assist- Surgery friends will stay w/pt for only 3 days at DC Patient Discharge Plan Description Return Home Comment Pt advised overnight length of stay per PA w/surgeon office Feels Safe in Current Environment Yes Been Physically Hurt or Threatened By a No Person in Current Environment Do you have thoughts of harming yourself None or others? Are you currently considering suicide? No Do you have a plan to hurt yourself or No Plan others? Do You Have Any Spiritual Beliefs That No May Affect Your HC Choices? Do You Have Any Cultural Practices That No May Affect Your HC Choices? Comment Presbyterian Who Can We Speak to About Patient's Care Family, friends Identifying Code for Release of Patient Declines to issue Information Health Care Proxy/Next of Kin Chelsie Johnson (Good friend) Health Care Proxy or [phone] Emergency Contact Name Chelsie Johnson (Good friend) Emergency Contact or [phone] Advance Directives? Yes: POLST Advance Directives on File Yes Power of Fish Trapper Yes Power of Fish Trapper Name Rafi Voss (friend) Power of Fish Trapper PAC Instructions Do not shave/clip surgical site,Durable medical equipment ,Medications to take/avoid, Nasal antibiotic,No ETOH/ petroleum product on skin DOS, NPO,Pre-surgical wash,Sturdy shoes/comfortable clothes,Do not bring valuables and remove jewelry
--- NOTE | 2023-02-12 12:35 | PC.NURSE ---
Day shift: Large dark red/purple hematoma noted near patient's R armpit below lower part of incision. Patient stated this has happened with a previous surgery. Not warm or swollen. Marked with ai. Made MD Dobbins aware, who stated he was not concerned at this time. Pt OOB walking with PT. Then got dressed and brushed teeth. Afterward she stated she got dizzy and nauseous. BP 115/51, HR 80. Allowed patient to rest and sleep for an hour. Pt stated she felt better. Went over discharge paperwork. Patient stated understanding, all questions answered. PIV removed. Pt has all belongings. Patient's friend arrived to pick her up and take her home. PCT Jean escorted patient via wheelchair to exit.
== END 2023-02-12 12:30 | disposition home or self-care (01) | DRG 483 ==
PROVIDERS: Admitting Provider Orthopaedic Surgery; PCP Family Medicine; Referring Provider Orthopaedic Surgery; Visit Provider Orthopaedic Surgery
PROC: 0RRJ00Z Replacement of Right Shoulder Joint with Reverse Ball and Socket Synthetic Substitute, Open Approach (ICD-10-PCS; CPT 23472; principal; 2023-02-11 07:45)
DX: M19.011 Primary osteoarthritis, right shoulder (principal); I10 Essential (primary) hypertension; K59.00 Constipation, unspecified
CPT/HCPCS: 36415; 64415; 73020; 85027; 97116; 97162; 97530; C1776; J0171; J0330; J0690; J1100; J1170; J2405; J2704; J3010

== ENCOUNTER → 2023-03-23 08:29 | Outpatient (CLI) | payer MEDICARE, OTHER, SELFPAY ==
[2023-02-11 11:20] VITALS: BMI 22.6
[2023-03-23 09:40] LABS: Add Manual Diff / Slide Review NO; Basophils Absolute Auto 0 /uL (0-100); Basophils Percent Auto 0.8 % (0-2); Eosinophils Absolute Auto 100 /uL (0-450); Eosinophils Percent Auto 1.4 % (2-4); Hematocrit 37.1 % (36-46); Hemoglobin 12.2 g/dL (12.0-16.0); Lymphocytes Absolute Auto 1700 /uL (1100-4500); Lymphocytes Percent Auto 33.6 % (25-40); Mean Corpuscular Hemoglobin 29.9 PG (26-34); Mean Corpuscular Volume 90.8 fL (80-100); Monocytes Absolute Auto 500 /uL (0-900); Monocytes Percent Auto 10.1 % (3-14); Neutrophils Absolute Auto 2800 /uL (1500-7000); Neutrophils Percent Auto 54.1 % (50-75); Platelet Count 284 X10^3/uL (150-400); Red Blood Cell Count 4.09 X10^6/uL (4.0-5.2); Red Cell Distribution Width 14.3 % (11.6-14.8); White Blood Cell Count 5.2 X10^3/uL (4.5-11.0)
[2023-03-23 09:58] LABS: BUN Creatinine Ratio 37.5 (6-22); Blood Urea Nitrogen 24 mg/dL (7-17); Calcium 9.9 mg/dL (8.4-10.2); Carbon Dioxide 27 mmol/L (22-32); Chloride 103 mmol/L (98-107); Cholesterol 262 mg/dL (140-199); Estimated Glomerular Filt Rate > 60 mL/min (>60); Glucose 86 mg/dL (80-110); HDL Cholesterol 105 mg/dL (40-60); HEMOLYSIS < 15 (0-50); LDL Cholesterol Calculated 137 mg/dL (<100); Potassium 4.3 mmol/L (3.4-5.1); Sodium 137 mmol/L (137-145); Triglycerides 98 mg/dL (35-150)
== END ==
LOC: LAB 08:31
PROVIDERS: PCP Family Medicine; Referring Provider Internal Medicine Cardiovascular Disease; Visit Provider Internal Medicine Cardiovascular Disease
DX: I10 Essential (primary) hypertension (principal); E78.5 Hyperlipidemia, unspecified
CPT/HCPCS: 36415; 80048; 80061; 85025

== ENCOUNTER 2023-04-20 06:24 | Inpatient (IN) | payer MEDICARE, OTHER, SELFPAY ==
[2023-02-11 11:20] VITALS: BMI 22.6
[2023-04-20] VITALS (22 sets, daily range): BP systolic 97–190; BP diastolic 38–86; PULSE 57–95; RESP 12–23; TEMP 36.4–38; O2SAT 92–100; BMI 22.3
--- NOTE | 2023-04-20 07:07 | ED.ANIMALBIT ---
HPI - Animal Bite General Chief Complaint: Animal Bite Stated Complaint: wrist infection from a cat bite Time Seen by Provider: 04/20/23 07:06 Source: patient and EMS Mode of arrival: EMS History of Present Illness HPI narrative: 82-year-old female with history of hypertension who presents with complaint of cat bite to the dorsum of her right hand 2 days ago on Thursday. Patient states she felt like it tendon or snapped when it occurred. She was prescribed Augmentin yesterday and had 2 doses. She has had increasing redness and swelling of the fingers hands unable to flex or extend them fully significant pain. Redness and swelling is tracking up her arm. Patient does note she had a right shoulder replacement approximately 10 weeks ago. Patient states no numbness or tingling but quite a bit of pain. No fevers reported. Denies other systemic symptoms currently. States only medications are for blood pressure and for her eyes. States multiple allergies including Levaquin and ciprofloxacin. No tobacco, alcohol or illicit. Dr. Fraser is her primary care. Related Data Home Medications Medication Instructions Recorded Confirmed polyethylene glycol 3350 17 17 gram PO PRN PRN Constipation 11/02/17 04/19/23 gram/dose oral powder (Miralax) diltiazem HCl 180 mg 180 mg PO DAILY 01/22/22 04/19/23 capsule,extended release 24 hr vit C 250 mg-vit E 90 mg-zinc 40 1 tab PO BID Macular degeneration 01/22/22 04/19/23 mg-copper 1 [id number] (Dry) capsule (PreserVision AREDS-2) lisinopril 10 mg tablet 10 mg PO QPM 02/02/23 04/19/23 Previous Rx's Medication Instructions Recorded Disabled Parking Permit #1 ea 01/07/22 amoxicillin 875 mg-potassium 1 tab PO BID #20 tabs 04/19/23 clavulanate 125 mg tablet Allergies Allergy/AdvReac Type Severity Reaction Status Date / Time ciprofloxacin [From CIPRO] Allergy Severe swelling Verified 04/19/23 15:45 levofloxacin [LEVOFLOXACIN] Allergy Severe severe Verified 04/19/23 15:45 mouth and eye swelling indomethacin [INDOMETHACIN] AdvReac Severe Headaches Verified 04/19/23 15:45 meloxicam [MELOXICAM] AdvReac Severe Headaches Verified 04/19/23 15:45 trandolapril [TRANDOLAPRIL] AdvReac Severe Headaches Verified 04/19/23 15:45 [id number] Reductase AdvReac Muscle Pain Verified 04/19/23 15:45 Inhibitor Review of Systems Review of Systems ROS Unobtainable: All systems reviewed & are unremarkable except as noted in HPI and below Patient History Medical History Osteopenia Rheumatic fever IBS (irritable bowel syndrome) Osteoarthritis HTN (hypertension) Anesthesia complication Depression History of COVID-19 (02/2022) Scoliosis (and kyphoscoliosis), idiopathic SVT (supraventricular tachycardia) 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 Cervical facet joint syndrome Diverticular disease Spinal stenosis PVCs (premature ventricular contractions) Surgical History Hx of tonsillectomy Hx of bilateral cataract extraction Hx of hemorrhoidectomy Hx of decompressive lumbar laminectomy (08/01/15) Status post hysterectomy with oophorectomy Family History Mother Pancreatic cancer Social History marital status: number of children: 0 household members: none lives independently: Yes caregiver/support person: No housing: house Smoking Status: Never smoker second hand exposure: No alcohol intake: current substance use type: does not use Smoking Status: Never smoker alcohol intake frequency: holidays/special occasions only Substance Use Type: does not use Exam Narrative Exam Narrative: GENERAL: Alert and oriented x three, well-appearing elderly female in mild distress. HEENT: Head normocephalic, atraumatic, EOMI, pupils reactive, face symmetric, moist mucous membranes NECK: Supple, full range of motion CARDIOVASCULAR: Regular rate and rhythm without murmurs, rubs or gallops. RESPIRATORY: Breath sounds equal bilaterally, no wheezes rales or rhonchi. ABDOMEN: Soft, nontender. Normoactive bowel sounds all 4 quadrants. No guarding or rebound, rigidity, no mass : No CVA tenderness EXTREMITIES: Normal range of motion except for right hand, patient has significant edema circumferential fingers particularly at the bases, dorsum of the hand and tracking over the wrist dorsum and the volar side. Patient can flex somewhat but has quite a bit of pain and difficulty with any sort of extension. Cap refills less than 2 seconds in all 5 fingers she is sensation to light touch. Patient has some erythema tracking to the inner edge of her elbow. Normal range of motion at the elbow and shoulder. 2+ radial pulse. No clubbing or edema. Neurovascularly intact NEUROLOGICAL: Cranial nerves II through XII grossly intact. Moving all extremities SKIN: Warm, dry, no petechiae, no rashes or lesions otherwise noted. Initial Vital Signs Initial Vital Signs: Vital Signs Temperature 97.6 F 04/20/23 06:30 Pulse Rate 85 04/20/23 06:30 Respiratory Rate 18 04/20/23 06:30 Blood Pressure 190/77 H 04/20/23 06:30 Pulse Oximetry 99 04/20/23 06:30 Oxygen Delivery Method Room Air 04/20/23 06:30 Course Orders Ordered: ED Orders 04/20/23 07:16 XR hand RT min 3V Stat 04/20/23 07:30 Complete Blood Count AUTO DIFF Stat Comprehensive Metabolic Panel Stat Lactate (Lactic Acid) Stat Procalcitonin Stat 04/20/23 07:35 Blood Culture Stat 04/20/23 08:23 Consult to Orthopedic Surgery Stat Sodium Chloride (Normal Saline 0.9%) 1,000 mls @ 100 mls/hr IV CONT CHRISTEN Last Admin: 04/20/23 09:57 Dose: 100 mls/hr Documented By: MELISSA Discontinued Medications Hydrocodone Bitart/Acetaminophen (Hydrocodone/Acet 5/325 Tablet) 2 tab PO NOW ONE Stop: 04/20/23 08:55 Last Admin: 04/20/23 09:10 Dose: 2 tab Documented By: MELISSA Ampicillin Sodium/Sulbactam (Sodium 3 gm/ Sodium Chloride) 100 mls @ 200 mls/hr IV NOW ONE Stop: 04/20/23 07:17 Last Infusion: 04/20/23 08:31 Dose: Infused Documented By: Admin: 04/20/23 07:52 Dose: 200 mls/hr Documented By: MELISSA Vital Signs Vital signs: Vital Signs - 8 hr 04/20/23 06:30 04/20/23 07:00 04/20/23 07:00 Temperature 97.6 F Pulse Rate 85 72 Respiratory Rate 18 Blood Pressure 190/77 H 167/70 H Pulse Oximetry 99 95 Oxygen Delivery Method Room Air Room Air 04/20/23 07:33 04/20/23 08:00 04/20/23 08:00 Temperature Pulse Rate 77 77 Respiratory Rate Blood Pressure 186/80 H Pulse Oximetry 92 99 Oxygen Delivery Method MDM - Animal Bite Lab Data 04/20/23 07:30 04/20/23 07:30 Labs: Lab Results 04/20/23 Range/Units 07:30 WBC 10.2 (4.5-11.0) X10^3/uL RBC 4.21 (4.0-5.2) X10^6/uL Hgb 12.3 (12.0-16.0) g/dL Hct 36.7 (36-46) % MCV 87.2 (80-100) fL MCH 29.3 (26-34) PG MCHC 33.6 (30-36) % RDW 13.4 (11.6-14.8) % Plt Count 266 (150-400) X10^3/uL Neut % (Auto) 82.5 H (50-75) % Lymph % (Auto) 9.1 L (25-40) % Villalba % (Auto) 7.7 (3-14) % Eos % (Auto) 0.0 L (2-4) % Baso % (Auto) 0.7 (0-2) % Neut # (Auto) 8400 H (3550-7009) /uL Lymph # (Auto) 900 L (2153-8108) /uL Villalba # (Auto) 800 (0-900) /uL Eos # (Auto) 0 (0-450) /uL Baso # (Auto) 100 (0-100) /uL Sodium 137 (137-145) mmol/L Potassium 3.8 (3.4-5.1) mmol/L Chloride 104 (98-107) mmol/L Carbon Dioxide 24 (22-32) mmol/L BUN 14 (7-17) mg/dL Creatinine 0.59 (0.52-1.04) mg/dL Estimated GFR > 60 (>60) mL/min BUN/Creatinine Ratio 23.7 H (6-22) Glucose 101 (80-110) mg/dL Lactate 0.9 (0.7-2.1) mmol/L Calcium 9.5 (8.4-10.2) mg/dL Total Bilirubin 1.4 H (0.2-1.3) mg/dL AST 22 (14-36) IU/L ALT 16 (<35) IU/L Alkaline Phosphatase 80 (38-126) U/L Total Protein 7.3 (6.3-8.2) g/dL Albumin 4.3 (3.5-5.0) g/dL Globulin 3.0 (1.7-4.1) g/dL Albumin/Globulin Ratio 1.4 (1.0-2.8) Procalcitonin 0.05 (<0.5) ng/mL Imaging Data Extremity x-ray #1: Radiologist's Impression: no foreign body noted, swelling, no acute fx noted. MDM Narrative Medical decision making narrative: This is an 82-year-old female with cat bite to the dorsum of her right hand with 3 or 4 Knavel's signs. Patient does not appear to be toxic or septic, slightly hypertensive. Has had 2 doses of oral antibiotic. Patient was very reluctant for any narcotic pain medications although quite painful. Ultimately stated she had had some [place] or Vicodin recently after her shoulder surgery and is agreeable to have a dose here. Orthopedic surgery Dr. Perez, great plan for antibiotics, NPO for potential I and D versus OR we will evaluate patient and make final decision. Spoke with Dr. Fraser who accepts for admission. Will see patient today. Discharge Plan Departure Patient Disposition: Admitted As Inpatient Clinical Impression: Cat bite of right hand Admit Date/Time: 04/20/23 08:24 Admit Provider: Meli Fraser
--- NOTE | 2023-04-20 07:16 | DI.RAD.S_ITS ---
PROCEDURE: XR HAND RT MIN 3V INDICATIONS: cat bite, dorsum hand, swelling redness TECHNIQUE: 3 views of the hand(s) acquired. COMPARISON: [facility], , HAND 3V LEFT, 06/18/2012, 12:32. FINDINGS: Bones: No fractures or dislocations. Diffuse interphalangeal joint degeneration. Moderate 2nd MCP and 1st CMC and triscaphe joint osteoarthritis. Carpal bones are normally aligned. No suspicious bony lesions. Soft tissues: No suspicious soft tissue calcifications. Soft tissue swelling over the dorsal aspect of the hand. IMPRESSION: No acute bony abnormality. Soft tissue swelling of the dorsal aspect of the hand. No radiopaque foreign bodies are seen. Dictated by: Mic Edward M.D. on 04/20/2023 at 8:17 Approved by: Mic Edward M.D. on 04/20/2023 at 8:22
[2023-04-20 07:46] LABS: Add Manual Diff / Slide Review NO; Basophils Absolute Auto 100 /uL (0-100); Basophils Percent Auto 0.7 % (0-2); Eosinophils Absolute Auto 0 /uL (0-450); Hematocrit 36.7 % (36-46); Hemoglobin 12.3 g/dL (12.0-16.0); Lymphocytes Absolute Auto 900 /uL (1100-4500); Lymphocytes Percent Auto 9.1 % (25-40); Mean Corpuscular HGB Conc 33.6 % (30-36); Mean Corpuscular Hemoglobin 29.3 PG (26-34); Mean Corpuscular Volume 87.2 fL (80-100); Monocytes Absolute Auto 800 /uL (0-900); Monocytes Percent Auto 7.7 % (3-14); Neutrophils Absolute Auto 8400 /uL (1500-7000); Neutrophils Percent Auto 82.5 % (50-75); Platelet Count 266 X10^3/uL (150-400); Red Blood Cell Count 4.21 X10^6/uL (4.0-5.2); Red Cell Distribution Width 13.4 % (11.6-14.8); White Blood Cell Count 10.2 X10^3/uL (4.5-11.0)
[2023-04-20] MEDS: AMPICILLIN/SULBACTAM 3 GM 3 GM in SODIUM CHLORIDE 0.9% 100 ML IV ×3 (07:52→20:18)
[2023-04-20 07:59] LABS: Alanine Aminotransferase 16 IU/L (<35); Albumin 4.3 g/dL (3.5-5.0); Albumin Globulin Ratio 1.4 (1.0-2.8); Alkaline Phosphatase 80 U/L (38-126); Aspartate Aminotransferase 22 IU/L (14-36); BUN Creatinine Ratio 23.7 (6-22); Bilirubin Total 1.4 mg/dL (0.2-1.3); Blood Urea Nitrogen 14 mg/dL (7-17); Calcium 9.5 mg/dL (8.4-10.2); Carbon Dioxide 24 mmol/L (22-32); Chloride 104 mmol/L (98-107); Estimated Glomerular Filt Rate > 60 mL/min (>60); Glucose 101 mg/dL (80-110); HEMOLYSIS < 15 (0-50); Lactate (Lactic Acid) 0.9 mmol/L (0.7-2.1); Potassium 3.8 mmol/L (3.4-5.1); Sodium 137 mmol/L (137-145); Total Protein 7.3 g/dL (6.3-8.2)
--- NOTE | 2023-04-20 08:01 | PC.NURSE ---
Pt is tearful and reports her year has been horrible. My 4 years ago, then she fell last year and recently had right shoulder surgery, and things are getting worse. Pt reports no living family and that her cat is her salvation.
[2023-04-20 08:16] LABS: Procalcitonin 0.05 ng/mL (<0.5)
[2023-04-20] MEDS: HYDROCODONE/ACET 5/325 TABLET 2 TAB PO (09:10)
--- NOTE | 2023-04-20 09:10 | PC.NURSE ---
@ 0910 pt had 200cc water for medication intake (see MAR).
[2023-04-20] MEDS: SODIUM CHLORIDE 0.9% 1,000 ML 100 ML IV ×2 (09:57→20:18)
--- NOTE | 2023-04-20 13:18 | PM.HP.1 ---
History of Present Illness <MOMENTFACE SRO - Last Filed: 04/20/23 14:02> History of Present Illness Chief complaint: wrist infection from a cat bite Narrative: Pt was in her usual state of health until 04/18/23. She was sitting at her house with her cat on her lap doing their normal routine before he gets fed. Pt placed cat from her lap onto the floor as she does every night before he gets fed. This time when she set the cat on the floor she thinks it may have hurt him since he is frail 17 y/o cat and the cat bit her once one the back of her right hand. She yelled out loud and the cat ran away. She cleaned the wound immediately and later was seen at the walk in clinic when she noticed the right hand starting to swell and turn red. She was started on augmentin. The pained worsened and when the patient realized the redness and swelling had started to migrate up her right forearm she decided that she better been seen in the emergency department. In the ED imaging showed only tissue swelling. WBC were 10.2. She previously had two doses of oral augmentin. Now on IV ampicillin/sulbactam. Pt's swelling and erythema continuing to spread up forearm with 10/10 pain when she tries to move her right hand. 2/10 pain at rest currently taking noro for pain. Orthopedic surgery will be following up this afternoon. Denies SOB, fever, LOC, changes in sensation or motor function of extremities. PFSH <MOMENTFACE SRO - Last Filed: 04/20/23 14:02> Medical History Osteopenia Rheumatic fever IBS (irritable bowel syndrome) Osteoarthritis HTN (hypertension) Anesthesia complication Depression History of COVID-19 (02/2022) Scoliosis (and kyphoscoliosis), idiopathic SVT (supraventricular tachycardia) 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 Cervical facet joint syndrome Diverticular disease Spinal stenosis PVCs (premature ventricular contractions) Surgical History Hx of tonsillectomy Hx of bilateral cataract extraction Hx of hemorrhoidectomy Hx of decompressive lumbar laminectomy (08/01/15) Status post hysterectomy with oophorectomy Family History Mother Pancreatic cancer Social History marital status: number of children: 0 household members: none lives independently: Yes caregiver/support person: No housing: house Smoking Status: Never smoker second hand exposure: No alcohol intake: current substance use type: does not use Meds <Rodger Cure - Last Filed: 04/20/23 14:02> Home Medications and Allergies Home Medications Medication Instructions Recorded Confirmed Type polyethylene glycol 3350 17 17 gram PO PRN PRN Constipation 11/02/17 04/20/23 History gram/dose oral powder (Miralax) Disabled Parking Permit #1 ea 01/07/22 04/20/23 Rx diltiazem HCl 180 mg 180 mg PO DAILY 01/22/22 04/20/23 History capsule,extended release 24 hr vit C 250 mg-vit E 90 mg-zinc 40 1 tab PO BID Macular degeneration 01/22/22 04/20/23 History mg-copper 1 [id number] (Dry) capsule (PreserVision AREDS-2) lisinopril 10 mg tablet 10 mg PO QPM 02/02/23 04/20/23 History amoxicillin 875 mg-potassium 1 tab PO BID #20 tabs 04/19/23 04/20/23 Rx clavulanate 125 mg tablet hydrocodone 5 mg-acetaminophen 325 1 tab PO Q4-6H PRN severe pain 04/20/23 04/20/23 History mg tablet ibuprofen 400 mg tablet 400 mg PO Q4-6H PRN Pain (Scale 04/20/23 04/20/23 History Score 1-3) Allergies Allergy/AdvReac Type Severity Reaction Status Date / Time ciprofloxacin [From CIPRO] Allergy Severe swelling Verified 04/19/23 15:45 levofloxacin [LEVOFLOXACIN] Allergy Severe severe Verified 04/19/23 15:45 mouth and eye swelling indomethacin [INDOMETHACIN] AdvReac Severe Headaches Verified 04/19/23 15:45 meloxicam [MELOXICAM] AdvReac Severe Headaches Verified 04/19/23 15:45 trandolapril [TRANDOLAPRIL] AdvReac Severe Headaches Verified 04/19/23 15:45 Poronve-[id number] Reductase AdvReac Muscle Pain Verified 04/19/23 15:45 Inhibitor Review of Systems <Rodger Fernandez - Last Filed: 04/20/23 14:02> Review of Systems Narrative: negative unless mentioned in HPI Exam <Rodger Fernandez - Last Filed: 04/20/23 14:02> Vital Signs (past 8 hours): - 04/20/23 06:30 04/20/23 07:00 04/20/23 07:00 Temperature 97.6 F Pulse Rate 85 72 Respiratory Rate 18 Blood Pressure 190/77 H 167/70 H Pulse Oximetry 99 95 Oxygen Delivery Method Room Air Room Air 04/20/23 07:33 04/20/23 08:00 04/20/23 08:00 Temperature Pulse Rate 77 77 Respiratory Rate Blood Pressure 186/80 H Pulse Oximetry 92 99 Oxygen Delivery Method 04/20/23 08:30 04/20/23 08:31 04/20/23 08:31 Temperature Pulse Rate 77 77 Respiratory Rate 23 20 Blood Pressure 181/76 H Pulse Oximetry 98 98 Oxygen Delivery Method 04/20/23 09:00 04/20/23 09:00 04/20/23 09:30 Temperature Pulse Rate 69 78 Respiratory Rate 15 21 Blood Pressure 144/68 H Pulse Oximetry 94 97 Oxygen Delivery Method Room Air 04/20/23 09:30 04/20/23 10:00 04/20/23 10:00 Temperature Pulse Rate 75 Respiratory Rate 22 Blood Pressure 170/76 H 164/77 H Pulse Oximetry 96 Oxygen Delivery Method Room Air 04/20/23 10:30 04/20/23 10:50 Temperature 98.1 F Pulse Rate 69 Respiratory Rate 16 Blood Pressure 130/52 L Pulse Oximetry 96 Oxygen Delivery Method Room Air Oxygen Delivery Method Room Air Narrative Exam Narrative: General: elderly female sitting calmly upright in chair. Able to give a complete and coherent history. HEENT: Moist mucous membranes, normal sclera Neck: No JVD, supple Respiratory: Lungs are clear to auscultation, no wheezing no rales no rhonchi. Full and symmetrical air movement Chest: No significant point tenderness Cardiac: Regular rate and rhythm no murmurs no bruits Abdomen: Soft, nontender, non-distended no flank pain Skin: Warm and dry, no rashes Neurologic: CN II-XII intact.Grossly neurologically intact with no obvious asymmetries or abnormalities Psych: Cooperative, appropriate insight and affect Extremities: right wrist limited ROM due to pain and significant swelling. edema present throughout digits 2-5. Edema and inflammation sparing of first digit. Edema present on palmar aspect of wrist. Tense and most prominent on dorsal hand. Erythma and edema tracking linearly up dosal aspect of forearm. Does not cross joint to upper arm. <Meli Fraser MD - Last Filed: 04/20/23 16:47> Narrative Exam Narrative: General: elderly female sitting calmly upright in chair. Able to give a complete and coherent history. HEENT: Moist mucous membranes, normal sclera Neck: No JVD, supple Respiratory: Lungs are clear to auscultation, no wheezing no rales no rhonchi. Full and symmetrical air movement Chest: No significant point tenderness Cardiac: Regular rate and rhythm no murmurs no bruits Abdomen: Soft, nontender, non-distended no flank pain Skin: Warm and dry, no rashes Neurologic: CN II-XII intact.Grossly neurologically intact with no obvious asymmetries or abnormalities Psych: Cooperative, appropriate insight and affect Extremities: Right wrist limited ROM due to pain and significant swelling. Edema present throughout digits 2-5. Edema and inflammation sparing of first digit. Edema present on palmar aspect of wrist. Tense and most prominent on dorsal hand. Erythema and edema tracking linearly up dorsal aspect of forearm. Does not cross elbow to upper arm. Objective <Rodger Cure - Last Filed: 04/20/23 14:02> Labs 04/20/23 07:30 04/20/23 07:30 Labs: Laboratory Results - last 24 hr 04/20/23 07:30 WBC 10.2 RBC 4.21 Hgb 12.3 Hct 36.7 MCV 87.2 MCH 29.3 MCHC 33.6 RDW 13.4 Plt Count 266 Neut % (Auto) 82.5 H Lymph % (Auto) 9.1 L Sherman % (Auto) 7.7 Eos % (Auto) 0.0 L Baso % (Auto) 0.7 Neut # (Auto) 8400 H Lymph # (Auto) 900 L Sherman # (Auto) 800 Eos # (Auto) 0 Baso # (Auto) 100 Sodium 137 Potassium 3.8 Chloride 104 Carbon Dioxide 24 BUN 14 Creatinine 0.59 Estimated GFR > 60 BUN/Creatinine Ratio 23.7 H Glucose 101 Lactate 0.9 Calcium 9.5 Total Bilirubin 1.4 H AST 22 ALT 16 Alkaline Phosphatase 80 Total Protein 7.3 Albumin 4.3 Globulin 3.0 Albumin/Globulin Ratio 1.4 Procalcitonin 0.05 Assessment & Plan <Rodger Cure - Last Filed: 04/20/23 14:02> Assessment and plan (1) Cat bite of right hand: Status: Acute (2) Pain: Status: Acute Plan #cat bite of right hand Erythema and edema of right hand, wrist, and forearm consistent with infection secondary to cat bite. Cat scratch fever due to bartonella henselae lese likely at this time in setting of absent fever and chronicity of symptoms. Unclear the extend of the spread of the infection into soft tissue. Reviewed with patient that it will depend on what orthopedic surgery decides to do as farm as wound debridement vs alternative surgical approach. -cont. ampicillin/sulbactam 3gm IV Q6H -trend CBC Q12. Repeat sooner with onset of fever. #pain Well controlled. Pt reports 2/10 pain rating at rest. 10/10 pain with movement. Pt wishes to stay on current pain medication regiment at this time. Discussed that it is reasonable to continue to norco. -cont. hydrocodone/acetaminophen 5/325 prn Q6 for pain (max dose of 3g of acetaminophen / 24 hrs) <Meli Fraser MD - Last Filed: 04/20/23 16:47> Assessment and plan (1) Cat bite of right hand: (2) Pain: Plan #cat bite of right hand Erythema and edema of right hand, wrist, and forearm consistent with infection secondary to cat bite. Cat scratch fever due to bartonella henselae lese likely at this time in setting of absent fever and chronicity of symptoms. Unclear the extent of the spread of the infection into soft tissue. Reviewed with patient that it will depend on what orthopedic surgery decides to do as far as wound debridement vs alternative surgical approach. -cont. ampicillin/sulbactam 3gm IV Q6H -trend CBC. Repeat sooner with onset of fever. - Ortho consulted, appreciate care - NPO for now #pain Well controlled. Pt reports 2/10 pain rating at rest. 10/10 pain with movement. Pt wishes to stay on current pain medication regiment at this time. Discussed that it is reasonable to continue to norco. -cont. hydrocodone/acetaminophen 5/325 prn Q6 for pain (max dose of 3g of acetaminophen / 24 hrs) #HTN BP in acceptable range - Continue home Diltiazem, Lisinopril FEN: NPO pending likely surgery DVT ppx: Will start Lovenox after surgery, SCDs Code: Full I verified the medical student?s documentation in the medical record. I personally performed a physical exam and medical decision making. I made appropriate changes to the documentation and the assessment and plan based on my verification, exam and medical decision making.
--- NOTE | 2023-04-20 13:32 | PM.HP.1 ---
History of Present Illness History of Present Illness Date Patient Seen: 04/26/23 Time Patient Seen: 11:30 Date of Onset of Symptoms: 04/18/23 Chief complaint: wrist infection from a cat bite Narrative: 82-year-old female that was at home on Satur night April 18, 2023. The patient has cat bit her on the dorsum of the right hand. Patient noted pain and swelling dorsum of the wrist and hand and was seen and treated yesterday with Augmentin. Patient has taken 2 doses so far. Patient last had something to eat yesterday morning. She had water yesterday evening and some sips of water this morning in the emergency. Patient denies any fever chills. She has had no nausea or vomiting. She is right-hand dominant. No numbness tingling in the right hand. She had right reverse total shoulder arthroplasty by Dr. Ayala on February 11, 2023. Patient states her recovery after the total shoulder arthroplasty it has been going well. [facility] Medical History Osteopenia Rheumatic fever IBS (irritable bowel syndrome) Osteoarthritis HTN (hypertension) Anesthesia complication Depression History of COVID-19 (02/2022) Scoliosis (and kyphoscoliosis), idiopathic SVT (supraventricular tachycardia) 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 Cervical facet joint syndrome Diverticular disease Spinal stenosis PVCs (premature ventricular contractions) Surgical History Hx of tonsillectomy Hx of bilateral cataract extraction Hx of hemorrhoidectomy Hx of decompressive lumbar laminectomy (08/01/15) Status post hysterectomy with oophorectomy Family History Mother Pancreatic cancer Social History marital status: number of children: 0 household members: none lives independently: Yes caregiver/support person: No housing: house Smoking Status: Never smoker second hand exposure: No alcohol intake: current substance use type: does not use Meds Home Medications and Allergies Home Medications Medication Instructions Recorded Confirmed Type polyethylene glycol 3350 17 17 gram PO PRN PRN Constipation 11/02/17 04/20/23 History gram/dose oral powder (Miralax) Disabled Parking Permit #1 ea 01/07/22 04/19/23 Rx diltiazem HCl 180 mg 180 mg PO DAILY 01/22/22 04/20/23 History capsule,extended release 24 hr vit C 250 mg-vit E 90 mg-zinc 40 1 tab PO BID Macular degeneration 01/22/22 04/20/23 History mg-copper 1 [id number] (Dry) capsule (PreserVision AREDS-2) lisinopril 10 mg tablet 10 mg PO QPM 02/02/23 04/20/23 History amoxicillin 875 mg-potassium 1 tab PO BID #20 tabs 04/19/23 04/20/23 Rx clavulanate 125 mg tablet hydrocodone 5 mg-acetaminophen 325 1 tab PO Q4-6H PRN severe pain 04/20/23 04/20/23 History mg tablet ibuprofen 400 mg tablet 400 mg PO Q4-6H PRN Pain (Scale 04/20/23 04/20/23 History Score 1-3) Allergies Allergy/AdvReac Type Severity Reaction Status Date / Time ciprofloxacin [From CIPRO] Allergy Severe swelling Verified 04/19/23 15:45 levofloxacin [LEVOFLOXACIN] Allergy Severe severe Verified 04/19/23 15:45 mouth and eye swelling indomethacin [INDOMETHACIN] AdvReac Severe Headaches Verified 04/19/23 15:45 meloxicam [MELOXICAM] AdvReac Severe Headaches Verified 04/19/23 15:45 trandolapril [TRANDOLAPRIL] AdvReac Severe Headaches Verified 04/19/23 15:45 [id number] Reductase AdvReac Muscle Pain Verified 04/19/23 15:45 Inhibitor Review of Systems Review of Systems ROS: Yes All systems reviewed with the patient and are negative except as otherwise documented Exam Vital Signs (past 8 hours): - 04/20/23 06:30 04/20/23 07:00 04/20/23 07:00 Temperature 97.6 F Pulse Rate 85 72 Respiratory Rate 18 Blood Pressure 190/77 H 167/70 H Pulse Oximetry 99 95 Oxygen Delivery Method Room Air Room Air 04/20/23 07:33 04/20/23 08:00 04/20/23 08:00 Temperature Pulse Rate 77 77 Respiratory Rate Blood Pressure 186/80 H Pulse Oximetry 92 99 Oxygen Delivery Method 04/20/23 08:30 04/20/23 08:31 04/20/23 08:31 Temperature Pulse Rate 77 77 Respiratory Rate 23 20 Blood Pressure 181/76 H Pulse Oximetry 98 98 Oxygen Delivery Method 04/20/23 09:00 04/20/23 09:00 04/20/23 09:30 Temperature Pulse Rate 69 78 Respiratory Rate 15 21 Blood Pressure 144/68 H Pulse Oximetry 94 97 Oxygen Delivery Method Room Air 04/20/23 09:30 04/20/23 10:00 04/20/23 10:00 Temperature Pulse Rate 75 Respiratory Rate 22 Blood Pressure 170/76 H 164/77 H Pulse Oximetry 96 Oxygen Delivery Method Room Air 04/20/23 10:30 04/20/23 10:50 Temperature 98.1 F Pulse Rate 69 Respiratory Rate 16 Blood Pressure 130/52 L Pulse Oximetry 96 Oxygen Delivery Method Room Air Oxygen Delivery Method Room Air Narrative Exam Narrative: Pleasant 82-year-old female sitting edge of bed in no apparent distress. She has [id number] swelling of the dorsum of the right hand. There is no puncture wound noted on the dorsum of the hand but there is a puncture wound over the dorsum of the right wrist. Patient has significant pain with any range of motion passively of the wrist. Able to actively and passively move all fingers without pain. She has good capillary refill. Sensation grossly intact to light touch distal right upper extremity. There is no red streaking proximally. Const General: cooperative and comfortable Nutritional Appearance: average body habitus Orientation: oriented x3 HENMT Head: normal to inspection Chest Chest: normal inspection of the chest Resp Effort & Inspection: normal respiratory effort Auscultation: clear to auscultation bilaterally Cardio Rate: regular rate Rhythm: regular rhythm Objective Labs 04/20/23 07:30 04/20/23 07:30 Labs: Laboratory Results - last 24 hr 04/20/23 07:30 WBC 10.2 RBC 4.21 Hgb 12.3 Hct 36.7 MCV 87.2 MCH 29.3 MCHC 33.6 RDW 13.4 Plt Count 266 Neut % (Auto) 82.5 H Lymph % (Auto) 9.1 L [place] % (Auto) 7.7 Eos % (Auto) 0.0 L Baso % (Auto) 0.7 Neut # (Auto) 8400 H Lymph # (Auto) 900 L [place] # (Auto) 800 Eos # (Auto) 0 Baso # (Auto) 100 Sodium 137 Potassium 3.8 Chloride 104 Carbon Dioxide 24 BUN 14 Creatinine 0.59 Estimated GFR > 60 BUN/Creatinine Ratio 23.7 H Glucose 101 Lactate 0.9 Calcium 9.5 Total Bilirubin 1.4 H AST 22 ALT 16 Alkaline Phosphatase 80 Total Protein 7.3 Albumin 4.3 Globulin 3.0 Albumin/Globulin Ratio 1.4 Procalcitonin 0.05 Assessment & Plan Assessment & Plan narrative: Cat bite and likely the infection right wrist Patient will remain NPO. Per Dr. Lancaster this requires I&D right wrist wich will be scheduled for later this afternoon 04/20/23 The procedure, alternatives, risks reviewed and all questions answered.
[2023-04-20] MEDS: MORPHINE 4 MG/ML INJ 3 MG IV (14:29)
--- NOTE | 2023-04-20 15:33 | PC.NURSE ---
Patient picked up by preop for surgery.
[2023-04-20] MEDS: LACTATED RINGERS 1,000 ML 100 ML IV (16:03)
[2023-04-20] MEDS: OXYCODONE IR 5 MG TABLET PO (17:25)
--- NOTE | 2023-04-20 17:26 | P.OP_ITS ---
Operative Date/Time/Diagnoses Date of procedure: 04/20/23 Pre-op diagnosis: Dorsal right hand abscess secondary to cat bite Post-op diagnosis: same Procedure & Clinicians Procedure: Incision and debridement of dorsum of right hand Right wrist arthrotomy Same procedure as scheduled: Yes Surgeon: Cheo Lancaster Click Yes if Unassisted: Yes Anesthesia Type: MAC +/- Operative Notes Specimen(s): other (Right dorsal hand fluid, and two soft tissue swabs of right hand abscess site) Estimated Blood Loss (mL): 15 Tourniquet time (min): 13 Procedure in detail: This 82-year-old female patient had a cat bite and developed a dorsal hand abscess. She had pain with wrist range of motion although she was able to flex and extend somewhat through the wrist. She had a puncture wound located directly over the wrist joint dorsally as well as a more proximal wound near her index finger. She was seen in the emergency department. Based on her physical exam and laboratory evaluation she was determined to have a hand abscess. She had recently undergone a reverse total shoulder arthroplasty with 1 of my partners and therefore due to concerns for potential seeding of her shoulder prosthesis I felt that it would be most appropriate to do her debridement in the operating room and maximize the utility of our cultures. I discussed risks and benefits of surgery with her. All questions were answered. The operative site was marked. Informed consent was signed. The patient was brought back to the operating room and anesthesia was induced. She was transferred to the operating table. She was prepped and draped in the usual sterile fashion. A time-out procedure was performed. Antibiotics were administered prior to incision. Tourniquet was inflated I made a incision in the dorsum of the hand between the index and long fingers extending proximally. I encountered clear colored fluid upon entering into a cavity underneath the subcutaneous tissues. I aspirated a few cc of this into a syringe. I additionally obtain soft tissue swabs throughout the abscess cavity. Used dissecting scissors to dissect more deeply and evacuated some additional fluid. She also had a incision directly over her wrist joint. I reopened that area. It was a approximately 1 cm transverse wound. I dissected through this down into the wrist joint. I performed an arthrotomy in the wrist joint and did not note any additional fluid which was obtained at that time. I irrigated the entire wound including the wrist arthrotomy with dilute Betadine. I allowed this to soak. I then copiously irrigated the wound with irrigation tubing with 3 L of normal saline. I infiltrated this throughout the abscess cavity. It did not appear that the abscess cavity communicated with the wrist joint itself. Following irrigation I placed iodoform packing in the abscess cavity. I placed 2 interrupted nylon sutures around the area where the iodoform packing exited the skin. I closed the wrist arthrotomy with 2 interrupted sutures. I placed a soft dressing over the entire hand. Post-operative Plan for aftercare: 1. Patient has already been admitted. She will remain in the hospital overnight. She should continue receiving IV antibiotics while she is in the hospital. Ensure appropriate Gram-negative coverage given the etiology of this wound 2. We will begin warm soapy soaks. 3 times per day the patient should submerge her hand saline with a bottle of chlorhexidine emptied into it. She should keep her hand in this for 20 minutes. She should do this for the next week. 3. Packing can be removed in 2 days. It does not need to be replaced 4. Follow up with [facility] in a week for a wound check
[2023-04-20] MEDS: HYDROMORPHONE 1 MG INJ IV ×2 (17:29→17:40)
--- NOTE | 2023-04-20 17:31 | SUR.OPER ---
Supine on padded OR bed, head on pillow, arms secured on padded arm boards at <90 degrees abduction, legs uncrossed, safety belt at thigh, tape over blanket over lower legs.
[2023-04-20] MEDS: ACETAMINOPHEN IV 1,000 MG/100 ML VIAL 400 MG IV (17:48)
[2023-04-20] MEDS: IBUPROFEN 600 MG TABLET PO ×2 (18:34→23:59)
[2023-04-20] MEDS: CEFAZOLIN VIAL 1 GM in SODIUM CHLORIDE 0.9% 100 ML IV (20:18)
[2023-04-21 01:18] VITALS: BP 112/41; PULSE 61; RESP 17; TEMP 36.4; O2SAT 94
[2023-04-21] MEDS: AMPICILLIN/SULBACTAM 3 GM 3 GM in SODIUM CHLORIDE 0.9% 100 ML IV ×4 (02:48→19:58)
[2023-04-21] MEDS: CEFAZOLIN VIAL 1 GM in SODIUM CHLORIDE 0.9% 100 ML IV (04:11)
[2023-04-21 04:52] VITALS: BP 124/48; PULSE 78; RESP 16; TEMP 36.6; O2SAT 98
[2023-04-21 05:27] LABS: Add Manual Diff / Slide Review NO; Basophils Absolute Auto 100 /uL (0-100); Basophils Percent Auto 1.2 % (0-2); Eosinophils Absolute Auto 0 /uL (0-450); Eosinophils Percent Auto 0.5 % (2-4); Hemoglobin 10.5 g/dL (12.0-16.0); Lymphocytes Absolute Auto 2000 /uL (1100-4500); Lymphocytes Percent Auto 25.7 % (25-40); Mean Corpuscular HGB Conc 33.7 % (30-36); Mean Corpuscular Hemoglobin 30.4 PG (26-34); Monocytes Absolute Auto 800 /uL (0-900); Monocytes Percent Auto 10.3 % (3-14); Neutrophils Absolute Auto 4900 /uL (1500-7000); Neutrophils Percent Auto 62.3 % (50-75); Platelet Count 185 X10^3/uL (150-400); Red Blood Cell Count 3.45 X10^6/uL (4.0-5.2); Red Cell Distribution Width 13.3 % (11.6-14.8); White Blood Cell Count 7.9 X10^3/uL (4.5-11.0)
[2023-04-21] MEDS: IBUPROFEN 600 MG TABLET PO ×3 (06:07→18:01)
[2023-04-21] MEDS: SODIUM CHLORIDE 0.9% 1,000 ML 100 ML IV (06:08)
[2023-04-21 08:00] VITALS: BP 138/54; PULSE 74; RESP 16; TEMP 36.6; O2SAT 99
[2023-04-21] MEDS: polyethylene glycoL 3350 17 GM POWD.PACK PO (08:19)
[2023-04-21] MEDS: VIT C/E/ZN/COPPR/LUTEIN/ZEAXAN CAPSULE 1 CAP PO (08:19)
[2023-04-21] MEDS: DOCUSATE 100 MG CAPSULE PO (08:19)
[2023-04-21] MEDS: dilTIAZem CD 180 MG CAP PO (08:24)
--- NOTE | 2023-04-21 08:34 | P.PN_ITS ---
Subjective <Meli Fraser MD - Last Filed: 04/21/23 16:03> Subjective Interval history: The pt this morning remains concerned about her hand. She is worried about regaining function. Her pain remains well controlled. She feels the swelling hasn't improved very much. She denies any fevers/chills. <Rodger Fernandez - Last Filed: 04/21/23 13:09> Subjective Date Patient Seen: 04/21/23 Time Patient Seen: 08:00 Exam <Meli Fraser MD - Last Filed: 04/21/23 16:03> Vital Signs (past 8 hours): - 04/21/23 01:18 04/21/23 04:52 04/21/23 08:00 Temperature 97.5 F L 97.9 F 97.8 F Pulse Rate 61 78 74 Respiratory Rate 17 16 16 Blood Pressure 112/41 L 124/48 L 138/54 L Pulse Oximetry 94 98 99 Oxygen Flow Rate 0 0 0 Oxygen Delivery Method Room Air Oxygen Flow Rate 0 <Rodger Fernandez - Last Filed: 04/21/23 13:09> Narrative Exam Narrative: General: elderly female sitting calmly upright in chair. Able to give a complete and coherent history. HEENT: Moist mucous membranes, normal sclera Neck: No JVD, supple Respiratory: Lungs are clear to auscultation, no wheezing no rales no rhonchi. Full and symmetrical air movement Chest: No significant point tenderness Cardiac: Regular rate and rhythm no murmurs no bruits Abdomen: Soft, nontender, non-distended no flank pain Skin: Warm and dry, no rashes Neurologic: CN II-XII intact. Grossly neurologically intact with no obvious asymmetries or abnormalities Psych: Cooperative, appropriate insight and affect Extremities: right wrist immobilized and covered with julieth bandage up to elbow. Objective <Meli Fraser MD - Last Filed: 04/21/23 16:03> Labs 04/21/23 04:25 04/20/23 07:30 Labs: Laboratory Results - last 24 hr 04/21/23 04:25 WBC 7.9 RBC 3.45 L Hgb 10.5 L Hct 31.0 L MCV 90.0 MCH 30.4 MCHC 33.7 RDW 13.3 Plt Count 185 Neut % (Auto) 62.3 D Lymph % (Auto) 25.7 [place] % (Auto) 10.3 Eos % (Auto) 0.5 L Baso % (Auto) 1.2 Neut # (Auto) 4900 Lymph # (Auto) 2000 [place] # (Auto) 800 Eos # (Auto) 0 Baso # (Auto) 100 PFSH <Meli Fraser MD - Last Filed: 04/21/23 16:03> Medical History Osteopenia Rheumatic fever IBS (irritable bowel syndrome) Osteoarthritis HTN (hypertension) Anesthesia complication Depression History of COVID-19 (02/2022) Scoliosis (and kyphoscoliosis), idiopathic SVT (supraventricular tachycardia) 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 Cervical facet joint syndrome Diverticular disease Spinal stenosis PVCs (premature ventricular contractions) Surgical History Hx of tonsillectomy Hx of bilateral cataract extraction Hx of hemorrhoidectomy Hx of decompressive lumbar laminectomy (08/01/15) Status post hysterectomy with oophorectomy Family History Mother Pancreatic cancer Social History marital status: number of children: 0 household members: none lives independently: Yes caregiver/support person: No housing: house Smoking Status: Never smoker second hand exposure: No alcohol intake: current substance use type: does not use Assessment & Plan <Meli Fraser MD - Last Filed: 04/21/23 16:03> Assessment and plan (1) Pain: Status: Acute (2) Cat bite of right hand: Qualifiers: Encounter type: initial encounter Qualified Code(s): S61.451A - Open bite of right hand, initial encounter; W55.01XA - Bitten by cat, initial encounter Status: Acute Plan #cat bite of right hand Pt recovering from incision and debridment with orthopedic surgery. Appreciate full note (04/20/23). -cont. ampicillin/sulbactam 3gm IV Q6H -trend CBC. Repeat sooner with onset of fever. -Ortho consulted, appreciate care #pain Well controlled. Pt reports 2/10 pain rating at rest. 10/10 pain with movement. Pt wishes to stay on current pain medication regiment at this time. Discussed that it is reasonable to continue to norco. -cont. hydrocodone/acetaminophen 5/325 prn Q6 for pain (max dose of 3g of acetaminophen / 24 hrs) #HTN BP in acceptable range consider pain surgery and infection. - Continue home Diltiazem, Lisinopril FEN: regular diet DVT ppx: Lovenox Code: Full Dispo: Potential d/c tomorrow assuming continued improvement and return of cultures. I verified the medical student?s documentation in the medical record. I personally performed a physical exam and medical decision making. I made appropriate changes to the documentation and the assessment and plan based on my verification, exam and medical decision making. <Rodger Fernandez - Last Filed: 04/21/23 13:09> Assessment and plan (1) Pain: (2) Cat bite of right hand: Plan #cat bite of right hand Pt recovering from incision and debridment with orthopedic surgery. Appreciate full note (04/20/23). -cont. ampicillin/sulbactam 3gm IV Q6H -trend CBC. Repeat sooner with onset of fever. -Ortho consulted, appreciate care #pain Well controlled. Pt reports 2/10 pain rating at rest. 10/10 pain with movement. Pt wishes to stay on current pain medication regiment at this time. Discussed that it is reasonable to continue to norco. -cont. hydrocodone/acetaminophen 5/325 prn Q6 for pain (max dose of 3g of acetaminophen / 24 hrs) #HTN BP in acceptable range consider pain surgery and infection. - Continue home Diltiazem, Lisinopril FEN: regular diet DVT ppx: Lovenox start after surgery, SCDs Code: Full
--- NOTE | 2023-04-21 09:32 | PT.IIE ---
Current Diagnoses Pain, unspecified (04/20/23) Open bite of right hand, initial encounter (04/20/23) Open bite of right wrist, initial encounter (04/20/23) Bitten by cat, initial encounter (04/20/23) Surgery Performed Operation Date: 04/20/23 16:30 Actual Procedures p I&D hand cat bite(Right) - Faustina Perez MD Surgical History (Last Reviewed 04/20/23 @ 13:37 by Rafael Shine PA-C) Hx of bilateral cataract extraction Hx of decompressive lumbar laminectomy (08/01/15) Hx of hemorrhoidectomy Hx of tonsillectomy Status post hysterectomy with oophorectomy Medical History (Last Reviewed 04/20/23 @ 13:37 by Rafael Shine PA-C) Anesthesia complication Cervical facet joint syndrome Depression Diverticular disease History of COVID-19 (02/2022) HTN (hypertension) IBS (irritable bowel syndrome) Osteoarthritis Osteopenia PVCs (premature ventricular contractions) Rheumatic fever Scoliosis (and kyphoscoliosis), idiopathic Spinal stenosis 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 SVT (supraventricular tachycardia) Physical Therapy Inpatient Evaluation/Re-Eval M1 PT/OT-IP Prior Functional Status Start: 04/21/23 14:23 Freq: NEEDED Status: Active Protocol: Document 04/21/23 09:32 AB (Rec: 04/21/23 14:43 AB [id number]) Medical Review Prior Functional Status Medical History Reviewed Yes Communication able to make needs known Mobility and Gait pt stated that she was modified independent with all mobilities and ambulation without AD Prior Functional Level (Other details) pt with h/o R reverse TSA: Social History Household Members none Living Arrangements House Number of Floors (Floors) Two Floors Number of Stairs To Enter/Railing? 2 steps without rails but has canas on the sides 14 steps R rail ascending + wall Home Environment High Toilet,Walk in Shower M2 PT-IP Current Condition Start: 04/21/23 14:23 Freq: NEEDED Status: Active Protocol: Document 04/21/23 09:32 AB (Rec: 04/21/23 14:43 AB [id number]) Physical Therapy Current Condition Current Condition Evaluation Date 04/21/23 Treatment Diagnosis R hand dorsum I&D; difficulty in walking Onset Date 04/20/23 M3 PT-IP Subjective Start: 04/21/23 14:23 Freq: NEEDED Status: Active Protocol: Document 04/21/23 09:32 AB (Rec: 04/21/23 14:43 AB [id number]) Subjective Physical Therapy Visit Type Type Initial Evaluation Visit Start Time 09:32 Visit Stop Time 10:20 Notes pt seen for split visits: [phone] [phone] and [id number] Number of DELIVERY AIDE Visits 0 Physical Therapy Visit Comments Patient Comments agreeable to do PT Therapy Pain Assessment Pain When Pain Assessed At Rest Pain Present Pain Present Pain Reported Location Right Hand Intensity 5 Scale Used Numeric (0 - 10) Pain Behaviors Guarding,Holding Area Pain Management Techniques Apply Cold,Distraction, Elevation,Modification of Treatment,Re-positioning, Timing of Activity with Medications M4 PT-IP Mobility and Gait Start: 04/21/23 14:23 Freq: NEEDED Status: Active Protocol: Document 04/21/23 09:32 AB (Rec: 04/21/23 14:43 AB [id number]) PT-Bed Mobility Assessment Supine to Sit Supine to Sit Independent Sit to Supine Sit to Supine Independent PT-Transfer Assessment Sit to and From Stand Sit to and from Stand Standby Assistance Equipment Transfer Assistive Device None,Gait Belt Orthotic/Prosthetic Devices or Brace: No Transfers Transfer Destination Bed,Chair Transfer Technique ambulated Transfer Ability Level of Assist Standby Assistance Comments Mobility Comments pt sitting on the chair and agreeable to do PT. completed sit to stand SBA and ambulated to EOB SBA without AD. pt with increase RUE guarding and tends to hold it up. stated that pain is more when she has it down and blood pooling on it. pt demonstrated bed mobility mod I. pt agreed to do stairs. completed sit to stand SBA and ambulated in the hallway without AD SBA. presents wtih antalgic gait but without LOB . completed up/down steps without AD SBA ascending, pt touching wall/rail with descent and stated that she usually holds on the the wall when she does her stairs at home. completed stairs x 2 sets. pt ambulated back to her room without AD sBA. positioned back on the chair. call light and table within reach. ice pack provided. pt with h/o R reverse TSA and is worried about shoulder getting frozen. reviewed some HEP that pt will be able to do at home (pendulum, table and wall slides) pt understood . pt will continue with her outpt PT. informed case management and pt regarding OT needs. pt stated that she did not use her RUE before when she had her shoulder done before and will be ok with ADLs. informed pt that it was different wherein she needs to be immobilized and on a sling right after surgery before but this time, she should try to still use her RUE for ADLs for mobility as much as possible and that OT will be able to give and provide her strategies to do so. pt agreed. Gait Assessment Gait Gait Assistance Required: Standby Assistance Distance (Feet) 150 Able to Maintain Weight Bearing Status Yes During Gait Assistive Devices Assistive Device None,Gait Belt Orthotic/Prosthetic Devices or Brace: No Gait Deviations General Gait Pattern Antalgic,Decreased Stride Length,Decreased Feet Clearance Factors Limiting Gait Function Factors Limiting Gait Function Decreased Activity Tolerance, Decreased Strength,Pain Stair Climbing Assessment Evaluation Level of Assist On Stairs Standby Assistance Devices Stair Climbing Assistive Devices None,Right Railing Technique/Endurance Stair Climbing Direction Ascend and Descend Stair Climbing Technique Step to Step Number of Steps Climbed 3 Query Text: Stair Climbing Set # Repetitions (reps) 2 PT-Balance Assessment Sitting Balance and Reactions Static Sitting Balance Ability Normal Dynamic Sitting Balance Ability Normal Standing Balance and Reactions Static Standing Balance Ability Good Dynamic Standing Balance Ability Good Device Used without AD M5 PT-IP Objective Assessments Start: 04/21/23 14:23 Freq: NEEDED Status: Active Protocol: Document 04/21/23 09:32 AB (Rec: 04/21/23 14:43 AB [id number]) Orientation Orientation/Cognition Level of Alertness Alert Orientation Name,Place,Situation Language Function Ability No Deficits Noted Safety Awareness Understands Safety Issues Memory Description No Deficits Noted Gross Range of Motion Lower Extremity ROM Assessment Within Functional Limits Strength Lower Extremity Strength Assessment Within Functional Limits Muscle Tone Muscle Tone WNL Yes M6 PT-IP Treatment Start: 04/21/23 14:23 Freq: NEEDED Status: Active Protocol: Document 04/21/23 09:32 AB (Rec: 04/21/23 14:43 AB [id number]) Physical Therapy Treatment Education Education Provided Safety M7 PT-IP Assessment and Plan Start: 04/21/23 14:23 Freq: NEEDED Status: Active Protocol: Document 04/21/23 09:32 AB (Rec: 04/21/23 14:43 AB [id number]) PT Summary Assessment and Plan Potential Rehabilitation Potential Good Status of Condition at Evaluation Stable Summary Impairments Pain,ROM,Strength,Balance, Coordination,Sensation,Tone, Cognition,Bed Mobility, Transfers,Gait,Activity Tolerance Assessment Summary pt is an 82 y/o F who presented to the ED with increase hand swelling after a cat bite. pt underwent I&D of R hand dorsum 04/20/23. pt is moving well and only needing SBA for transfers and ambulation without AD for safety but can be independent in room while in the hospital. No further PT needs. pt with h/o R reverse TSA and has been receiving outpt PT for her R shoulder. educated pt on HEP and pt understood. pt will continue with outpt PT upon d/c. Frequency of Treatment Frequency Of Treatment Discharge Recommendations To Nursing Amount of Assist Needed Standby Assistance Discharge Recommendations PT Discharge Recommendations Home,Outpatient PT Transportation Needs at Discharge Private Vehicle
[2023-04-21] MEDS: ACETAMINOPHEN 325 MG TABLET 650 MG PO ×2 (12:00→18:01)
--- NOTE | 2023-04-21 13:50 | OT.IP.EVAL ---
Current Diagnoses Pain, unspecified (04/20/23) Open bite of right hand, initial encounter (04/20/23) Open bite of right wrist, initial encounter (04/20/23) Bitten by cat, initial encounter (04/20/23) Surgery Performed Operation Date: 04/20/23 16:30 Actual Procedures p I&D hand cat bite(Right) - Faustina Perez MD Past Medical History (Last Reviewed 04/20/23 @ 13:37 by Rafael Shine PA-C) Anesthesia complication Cervical facet joint syndrome Depression Diverticular disease History of COVID-19 (02/2022) HTN (hypertension) IBS (irritable bowel syndrome) Osteoarthritis Osteopenia PVCs (premature ventricular contractions) Rheumatic fever Scoliosis (and kyphoscoliosis), idiopathic Spinal stenosis 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 SVT (supraventricular tachycardia) Surgical History (Last Reviewed 04/20/23 @ 13:37 by Rafael Shine PA-C) Hx of bilateral cataract extraction Hx of decompressive lumbar laminectomy (08/01/15) Hx of hemorrhoidectomy Hx of tonsillectomy Status post hysterectomy with oophorectomy Occupational Therapy Inpatient Evaluation/Re-Eval M1 PT/OT-IP Prior Functional Status Start: 04/21/23 15:00 Freq: NEEDED Status: Active Protocol: Document 04/21/23 15:01 [facility] (Rec: 04/21/23 15:23 [facility] [id number]) Medical Review Prior Functional Status Medical History Reviewed Yes Communication able to make needs known Mobility and Gait pt stated that she was modified independent with all mobilities and ambulation without AD Activities of Daily Living and IADL's Pt states able to do with increased time and just now starting to be able to kristopher her bra. Prior Functional Level (Other details) pt with h/o R reverse TSA: Social History Household Members none Living Arrangements House Number of Floors (Floors) Two Floors Number of Stairs To Enter/Railing? 2 steps without rails but has canas on the sides 14 steps R rail ascending + wall Home Environment High Toilet,Walk in Shower Home Equipment Straight Cane M2 OT-IP Current Condition Start: 04/21/23 15:00 Freq: Status: Active Protocol: Document 04/21/23 15:01 [facility] (Rec: 04/21/23 15:23 [facility] [id number]) Occupational Therapy Current Condition Current Condition Evaluation Date 04/21/23 Treatment Diagnosis I and D Right hand dorsum Diagnosis Onset Date 04/20/23 M3 OT- IP Subjective and Pain Start: 04/21/23 15:00 Freq: Status: Active Protocol: Document 04/21/23 15:01 [facility] (Rec: 04/21/23 15:23 [facility] [id number]) OT- Subjective Occupational Therapy Visit Type Type Initial Evaluation Visit Start Time 13:50 Visit Stop Time 14:40 Occupational Therapy Visit Comments Patient Comments Pt sitting in the recliner and her friends in the room when OT came to see the pt. Patient/Caregiver Goals TO go home. OT Pain Assessment Pain When Pain Assessed At Rest Pain Present Pain Present Pain Reported Location Right Hand Intensity 8 Scale Used Numeric (0 - 10) M4 OT- IP ADL's Start: 04/21/23 15:00 Freq: Status: Active Protocol: Document 04/21/23 15:01 [facility] (Rec: 04/21/23 15:23 [facility] [id number]) OT [id number] Comments OT Self-Feeding Comments Pt will need assist for set-up as her right hand is heavily bandaged. OT ADL-Grooming General Evaluation Grooming Ability Standby Assistance Comments OT Grooming Comments Pt having to use her left hand for needs, and prior to right shoulder placement was able to do with her right hand. OT ADL-Oral Care Comments Oral Care Comments Not performed. OT ADL-Dressing Comments OT Dressing Comments At this time pt states able to do things with her left hand for needs. OT ADL-Toileting Comments OT Toileting Comments Not performed. OT ADL-Bathing Comments OT Bathing Comments NOt performed. M5 OT- IP IADL's Start: 04/21/23 15:00 Freq: Status: Active Protocol: Document 04/21/23 15:01 [facility] (Rec: 04/21/23 15:23 [facility] [id number]) OT-Instrumental Activities of Daily Living Deficits IADL Deficits Identified Deficits Home Safety Awareness Awareness of Need for Assistance at Home Good Awareness Ability to Problem Solve Emergency Able to Problem Solve Situations Medication Management Medication Management No Deficits Identified Money Management Money Management No Deficits Identified Meal Preparation Meal Preparation Comments Pt would benefit from assist at this time. M6 OT- IP Functional Cognition Start: 04/21/23 15:00 Freq: Status: Active Protocol: Document 04/21/23 15:01 [facility] (Rec: 04/21/23 15:23 [facility] [id number]) Cognitive Factors Limiting Selfcare Function Cognitive Ability Level of Alertness Alert Patient Orientation Name,Age,Birthday,Month,Date, Year,Day of Week,Place, Situation Attention Span Ability Capable of Focused Attention, Capable of Sustained Attention Ability to Follow Commands Able to Follow Multi-Step Commands Cognitive Comments Cognitive Assessment Comments Pt able to follow multiple commands. Able to talk to pt about stress management needs and suggested to let her friends be able to assist her more. OT- Vision and Hearing OT- Hearing Assessment OT- Hearing Assessment WFL M7 OT- IP Mobility and Balance Start: 04/21/23 15:00 Freq: Status: Active Protocol: Document 04/21/23 15:01 [facility] (Rec: 04/21/23 15:23 [facility] [id number]) OT-Transfer Assessment Comments Mobility Comments Per nursign aid and PT, pt able to get up and walk with out a device. OT- Balance Assessment Sitting Balance and Reactions Static Sitting Balance Ability Normal M8 OT- IP Objective Assessments Start: 04/21/23 15:00 Freq: Status: Active Protocol: Document 04/21/23 15:01 [facility] (Rec: 04/21/23 15:23 [facility] [id number]) OT Gross Range of Motion Upper Extremity Range of Motion Assessment Right Impaired ROM Impairments Right AROM decreased at shoulder, wrist and fingers. OT Strength Hand Filtration Supervisor Strength Hand Dominance Right OT- Coordination Assessment Comments Coordination Comments Pt has swelling in her right hand and encouraged pt to move her finger and use of her left hand to help increased the ROM. Also to keep her right hand elevated on pillow. M9 OT- IP Assessment and Plan Start: 04/21/23 15:00 Freq: Status: Active Protocol: Document 04/21/23 15:01 [facility] (Rec: 04/21/23 15:23 [facility] [id number]) OT Summary Assessment and Plan Potential Rehabilitation Potential Good Analytic Complexity at Evaluation Low Summary OT Impairments Pain,Range of Motion,Strength, Balance,Functional Mobility, Self-Feeding,Grooming,Dressing ,Toileting,Bathing,Toilet Transfers,Shower Transfers Progress Towards Goals Progressing Toward Goals Assessment Summary Pt low complexity and main barriers are decreased use of right hand due to recent I and D and decreased AROM of right shoulder from surgery in . Pt will also benefit from OT to go over stress management, positioning needs for her shoulder during needs as pt tends to keep her right shoulder elevated even at rest . To continue for pt to do her exercises for her right shoulder independently and to be able to independently care for herself for all ADL and mobility needs. Pt to go home when medically stable and continue her outpt PT. Goals Self-Feeding Goal Independent Grooming Goal Independent Dressing Goal Independent Toileting Goal Independent Bathing Goal Independent Toilet Transfer Goal Independent Shower Transfer Goal Independent OT-Other Goals All goals above are with incorporation of her right hand for needs. Days to Meet Goals 7 Frequency of Treatment Frequency Of Treatment Once a Day Treatment Plan OT Treatment Plan ADL Training,Functional Mobility,Patient/Family Education,Discharge Planning Other Treatment Recommendations and Next Pt to be able to do LB Treatment Focus dressing needs with SBA. Discharge Recommendations OT Discharge Recommendations Home with Assistance, Outpatient PT Home Equipment Needs shower chair Transportation Needs at Discharge Private Vehicle
[2023-04-21 16:00] VITALS: BP 133/60; PULSE 72; RESP 16; TEMP 36.3; O2SAT 97
--- NOTE | 2023-04-21 16:01 | PM.PNPO.1 ---
Subjective Subjective Date Patient Seen: 04/21/23 Time Patient Seen: 13:05 Interval history: Patient having [id number] pain in the hand and forearm. No fever chills. No nausea or vomiting. Exam Vital Signs (past 8 hours): Oxygen Delivery Method Room Air Oxygen Flow Rate 0 Narrative Exam Narrative: 82-year-old female resting comfortably in bedside chair in no apparent distress. Due to the pain in the hand and wrist I did unwrap the dressing. She has minimal swelling about the dorsum of the hand. The wounds are without drainage. She is able to move all fingers with minimal discomfort. The packing is still in place. She has good capillary refill. Sensation grossly intact to light touch distally. There was moderate amount of drainage which mostly had tried about the dressing that I removed today. New dressing was applied. Const General: cooperative and comfortable Objective Labs 04/21/23 04:25 04/20/23 07:30 Labs: Laboratory Results - last 24 hr 04/21/23 04:25 WBC 7.9 RBC 3.45 L Hgb 10.5 L Hct 31.0 L MCV 90.0 MCH 30.4 MCHC 33.7 RDW 13.3 Plt Count 185 Neut % (Auto) 62.3 D Lymph % (Auto) 25.7 [place] % (Auto) 10.3 Eos % (Auto) 0.5 L Baso % (Auto) 1.2 Neut # (Auto) 4900 Lymph # (Auto) 2000 [place] # (Auto) 800 Eos # (Auto) 0 Baso # (Auto) 100 PFSH Medical History Osteopenia Rheumatic fever IBS (irritable bowel syndrome) Osteoarthritis HTN (hypertension) Anesthesia complication Depression History of COVID-19 (02/2022) Scoliosis (and kyphoscoliosis), idiopathic SVT (supraventricular tachycardia) 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 Cervical facet joint syndrome Diverticular disease Spinal stenosis PVCs (premature ventricular contractions) Surgical History Hx of tonsillectomy Hx of bilateral cataract extraction Hx of hemorrhoidectomy Hx of decompressive lumbar laminectomy (08/01/15) Status post hysterectomy with oophorectomy Family History Mother Pancreatic cancer Social History marital status: number of children: 0 household members: none lives independently: Yes caregiver/support person: No housing: house Smoking Status: Never smoker second hand exposure: No alcohol intake: current substance use type: does not use Assessment & Plan Post-op Postoperative Procedures: Procedures Operation Date: 04/20/23 16:30 Actual Procedure Side Surgeon p I&D hand cat bite Right Faustina Rupinder Perez MD Postoperative day: 1 Postoperative status: doing well Postoperative status narrative: Progressing as expected status post incision and debridement of dorsum of right hand, right wrist arthrotomy Postoperative plan narrative: She should continue receiving IV antibiotics while she is in the hospital. Ensure appropriate Gram-negative coverage given the etiology of this wound Begin warm soapy soaks. 3 times per day the patient should submerge her hand saline with a bottle of chlorhexidine emptied into it. She should keep her hand in this for 20 minutes. She should do this for the next week. Packing can be removed in 2 days. It does not need to be replaced Follow up with [facility] in a week for a wound check
--- NOTE | 2023-04-21 16:18 | CM.DANOTE ---
DCP Assessment Note Pt is an 82yo F here under care of Dr. Fraser/ortho team following a cat bite on her right hand. I&D with Dr. Lancaster on 04.20.23. PCP [employer] Payer Medicare and [facility]. PROCESSING SPEC reviewed EMR. Per PT/OT eval, rec OP therapy services and friends at home to assist. Pt has a PMH of right shoulder surg here Feb 05. PROCESSING SPEC entered room and introduced self and role. Pt resting in bed. Pt reports living alone (except with cat). Pt has lots of friend support. Pt [address] on [facility]. Pt denies need for HH. Pt reports from Dr. Fraser, plan is for her cultures to come back in two days to indicate abx plan. Per pt, provider says the plan is for pt to be here for those two days until the cultures come back getting IV abx. Pt reports friends can transport her home at dc. Pt denies other CM needs at this time. Per provider note, potential dc tomorrow pending continued improvement and culture returns. Plan: dc home after abx plan finalized/medically stable. Home with friends to transport/support. No other CM needs identified at this time. CM team will follow as needed. LETY Metcalf Discharge Planning/Care Management CM Discharge Assessment Start: 04/21/23 16:16 Freq: Status: Active Protocol: Document 04/21/23 16:17 (Rec: 04/21/23 16:17 [id number]) Discharge Planning Assessment Assigned Dye Box Operator LETY Lim DPOA/Assigned Designee Name Rafi Llowell Advance Directives? Yes: POLST Advance Directives on File Yes History Provided By Patient,Medical Record Prior Living Arrangements House Household Members none Type of transporation used prior to Drives own vehicle admit Independent with ADL's Yes Is patient alert and oriented? Yes Community Services used prior to Physical Therapy admission: Barriers to Discharge Yes Comment pending cultures/abx need Transportation Arrangement Friend Whiteboard Updated in Patient Room with Yes name and ext. # of Dye Box Operator Review Status In Process Next Review Type Continued Stay Review
[2023-04-21 19:59] VITALS: BP 133/60; PULSE 72
[2023-04-21] MEDS: lisinopriL 10 MG TABLET PO (19:59)
[2023-04-21 20:00] VITALS: BP 122/47; PULSE 72; RESP 19; TEMP 36.6; O2SAT 98
[2023-04-22] MEDS: MORPHINE 2 MG/ML INJ 3 MG IV (03:08)
[2023-04-22] MEDS: AMPICILLIN/SULBACTAM 3 GM 3 GM in SODIUM CHLORIDE 0.9% 100 ML IV ×4 (03:12→20:22)
[2023-04-22] MEDS: ACETAMINOPHEN 325 MG TABLET 650 MG PO ×3 (06:32→17:54)
[2023-04-22] MEDS: IBUPROFEN 600 MG TABLET PO ×3 (06:33→17:54)
[2023-04-22 08:00] VITALS: BP 157/74; PULSE 65; RESP 18; TEMP 36.6; O2SAT 99
[2023-04-22 08:40] LABS: Add Manual Diff / Slide Review NO; Basophils Absolute Auto 100 /uL (0-100); Basophils Percent Auto 0.9 % (0-2); Eosinophils Absolute Auto 0 /uL (0-450); Eosinophils Percent Auto 0.2 % (2-4); Hematocrit 34.7 % (36-46); Hemoglobin 11.6 g/dL (12.0-16.0); Lymphocytes Absolute Auto 1500 /uL (1100-4500); Lymphocytes Percent Auto 15.9 % (25-40); Mean Corpuscular HGB Conc 33.4 % (30-36); Mean Corpuscular Hemoglobin 29.8 PG (26-34); Mean Corpuscular Volume 89.3 fL (80-100); Monocytes Absolute Auto 800 /uL (0-900); Monocytes Percent Auto 8.8 % (3-14); Neutrophils Absolute Auto 7100 /uL (1500-7000); Neutrophils Percent Auto 74.2 % (50-75); Platelet Count 224 X10^3/uL (150-400); Red Blood Cell Count 3.89 X10^6/uL (4.0-5.2); Red Cell Distribution Width 13.5 % (11.6-14.8); White Blood Cell Count 9.6 X10^3/uL (4.5-11.0)
[2023-04-22] MEDS: dilTIAZem CD 180 MG CAP PO (08:42)
[2023-04-22] MEDS: VIT C/E/ZN/COPPR/LUTEIN/ZEAXAN CAPSULE 1 CAP PO (08:42)
--- NOTE | 2023-04-22 09:15 | P.PN_ITS ---
Subjective <Rodger Fernandez - Last Filed: 04/22/23 11:33> Subjective Date Patient Seen: 04/22/23 Time Patient Seen: 08:00 Interval history: Pt states that she had a rough night. Thinks that her fingers are more swollen and more painful. Is unsure if the morphine helped relieve her pain overnight. Is wondering what would happen if the IV antibiotics do not work. Pt states that she is also happy that her swelling looks better in her upper forearm. She is looking forward to having the bandage removed today to have it soaked and so she can see how it is looking. Denies SOB, headache, chest pain, leg pain, or dizziness. 24 hr events: -morphine given overnight for pain -norco q6 prn for pain -unacyn IV -morning labs: WBC 9.6 Exam <Meli Fraser MD - Last Filed: 04/22/23 12:31> Vital Signs (past 8 hours): - 04/22/23 08:00 Temperature 97.8 F Pulse Rate 65 Respiratory Rate 18 Blood Pressure 157/74 H Pulse Oximetry 99 Oxygen Flow Rate 0 Oxygen Delivery Method Room Air Oxygen Flow Rate 0 <Rodger Fernandez - Last Filed: 04/22/23 11:33> Narrative Exam Narrative: General: elderly female sitting calmly upright in chair eating breakfast. Able to give a complete and coherent history. HEENT: Moist mucous membranes, normal sclera Neck: No JVD, supple Respiratory: Lungs are clear to auscultation, no wheezing no rales no rhonchi. Full and symmetrical air movement Chest: No significant point tenderness Cardiac: Regular rate and rhythm no murmurs no bruits Abdomen: Soft, nontender, non-distended no flank pain Skin: Warm and dry, no rashes Neurologic: CN II-XII intact. Grossly neurologically intact with no obvious asymmetries or abnormalities Psych: Cooperative, appropriate insight and affect Extremities: right wrist immobilized and covered with julieth bandage up to elbow. Tense swelling presnt in digits 2-5 distal to julieth badage wrap. No swelling, tenderness, or erythema present on proximal forearm on visible skin. Objective <Meli Fraser MD - Last Filed: 04/22/23 12:31> Labs 04/22/23 08:17 04/20/23 07:30 Labs: Laboratory Results - last 24 hr 04/22/23 08:17 WBC 9.6 RBC 3.89 L Hgb 11.6 L Hct 34.7 L MCV 89.3 MCH 29.8 MCHC 33.4 RDW 13.5 Plt Count 224 Neut % (Auto) 74.2 Lymph % (Auto) 15.9 L [place] % (Auto) 8.8 Eos % (Auto) 0.2 L Baso % (Auto) 0.9 Neut # (Auto) 7100 H Lymph # (Auto) 1500 [place] # (Auto) 800 Eos # (Auto) 0 Baso # (Auto) 100 PFSH <Meli Fraser MD - Last Filed: 04/22/23 12:31> Medical History (Updated 04/22/23 @ 12:30 by Meli Fraser MD) Osteopenia Rheumatic fever IBS (irritable bowel syndrome) Osteoarthritis HTN (hypertension) Anesthesia complication Depression History of COVID-19 (02/2022) Scoliosis (and kyphoscoliosis), idiopathic SVT (supraventricular tachycardia) 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 Cervical facet joint syndrome Diverticular disease Spinal stenosis PVCs (premature ventricular contractions) Surgical History Hx of tonsillectomy Hx of bilateral cataract extraction Hx of hemorrhoidectomy Hx of decompressive lumbar laminectomy (08/01/15) Status post hysterectomy with oophorectomy Family History Mother Pancreatic cancer Social History marital status: number of children: 0 household members: none lives independently: Yes caregiver/support person: No housing: house Smoking Status: Never smoker second hand exposure: No alcohol intake: current substance use type: does not use Assessment & Plan <Meli Fraser MD - Last Filed: 04/22/23 12:31> Assessment and plan (1) Pain: Status: Acute (2) Cat bite of right hand: Qualifiers: Encounter type: initial encounter Qualified Code(s): S61.451A - Open bite of right hand, initial encounter; W55.01XA - Bitten by cat, initial encounter Status: Acute (3) HTN (hypertension): Qualifiers: Hypertension type: primary hypertension Qualified Code(s): I10 - Essential (primary) hypertension Status: Acute Plan Pt is an 82 y/o F s/p incision and drainage for infected cat bite to R hand here for IV antibiotics and monitoring for ongoing localized infection to R arm/forearm. R forearm swelling and erythema has improved from yesterday proximal to julieth bandage wrap. However, increase in pain in distal forearm and increase swelling present in digits 2-5. #cat bite of right hand Pt recovering from incision and debridment with orthopedic surgery. Appreciate full note (04/20/23). Ongoing infection with little change from yesterday. Decrease in swelling/erythema proximal to julieth bandage and increased pain and increased tense edema present in digits 2-5 of R hand. Appreciate recs below. -cont. ampicillin/sulbactam 3gm IV Q6H -trend CBC. Repeat sooner with onset of fever. -Ortho consulted, appreciate care -Awaiting final culture results #pain Moderately well controlled. Modest increase in pain from yesterday in setting of pt endorsing mild/moderate pain at rest and 10/10 pain with movement. Discussed that it is reasonable to continue to norco and morphine for breakthrough pain. Also discussed alternative options if current pain medication regimen is not working. -cont. hydrocodone/acetaminophen 5/325 prn Q6 for pain (max dose of 3g of acetaminophen / 24 hrs) -for poorly controlled pain: stop norco and start oxycodone 5 mg q6 prn for pain management -cont. morphine for breakthrough pain #HTN BP likely elevated in setting of increased pain surgery and infection. - Continue at home Diltiazem, Lisinopril - Continue to monitor vitals signs FEN: regular diet DVT ppx: Lovenox Code: Full I verified the medical student?s documentation in the medical record. I personally performed a physical exam and medical decision making. I made appropriate changes to the documentation and the assessment and plan based on my verification, exam and medical decision making. <Rodger Fernandez - Last Filed: 04/22/23 11:33> Assessment and plan (1) Pain: (2) Cat bite of right hand: (3) HTN (hypertension): Plan Pt is an 82 y/o F s/p incision and drainage for infected cat bite to R hand here for IV antibiotics and monitoring for ongoing localized infection to R arm/forearm. R forearm swelling and erythema has improved from yesterday proximal to julieth bandage wrap. However, increase in pain in distal forearm and increase swelling present in digits 2-5. #cat bite of right hand Pt recovering from incision and debridment with orthopedic surgery. Appreciate full note (04/20/23). Ongoing infection with little change from yesterday. Decrease in swelling/erythema proximal to julieth bandage and increased pain and increased tense edema present in digits 2-5 of R hand. Appreciate recs below. -cont. ampicillin/sulbactam 3gm IV Q6H -trend CBC. Repeat sooner with onset of fever. -Ortho consulted, appreciate care #pain Moderately well controlled. Modest increase in pain from yesterday in setting of pt endorsing mild/moderate pain at rest and 10/10 pain with movement. Discussed that it is reasonable to continue to norco and morphine for breakthrough pain. Also discussed alternative options if current pain medication regimen is not working. -cont. hydrocodone/acetaminophen 5/325 prn Q6 for pain (max dose of 3g of acetaminophen / 24 hrs) -for poorly controlled pain: stop norco and start oxycodone 5 mg q6 prn for pain management -cont. morphine for breakthrough pain #HTN BP likely elevated in setting of increased pain surgery and infection. - Continue at home Diltiazem, Lisinopril - Continue to monitor vitals signs FEN: regular diet DVT ppx: Lovenox start after surgery, SCDs Code: Full
--- NOTE | 2023-04-22 11:50 | OT.IP.TRT ---
Current Diagnoses Essential (primary) hypertension (04/20/23) Pain, unspecified (04/20/23) Open bite of right hand, initial encounter (04/20/23) Open bite of right wrist, initial encounter (04/20/23) Bitten by cat, initial encounter (04/20/23) Surgery Performed Operation Date: 04/20/23 16:30 Actual Procedures p I&D hand cat bite(Right) - Faustina Perez MD Occupational Therapy Treatment Note M2 OT-IP Current Condition Start: 04/21/23 15:00 Freq: Status: Active Protocol: Document 04/21/23 15:01 [facility]3] (Rec: 04/21/23 15:23 [facility]3] [id number]) Occupational Therapy Current Condition Current Condition Evaluation Date 04/21/23 Treatment Diagnosis I and D Right hand dorsum Diagnosis Onset Date 04/20/23 M3 OT- IP Subjective and Pain Start: 04/21/23 15:00 Freq: Status: Active Protocol: Document 04/22/23 12:25 [facility]3] (Rec: 04/22/23 12:35 [facility]3] [id number]) OT- Subjective Occupational Therapy Visit Type Type Treatment Note Visit Start Time 11:10 Visit Stop Time 11:50 Occupational Therapy Visit Comments Patient Comments Pt a bit emotional and stressed as worried about her hand as pt states it is more painful today per pt. Patient/Caregiver Goals To get better. OT Pain Assessment Pain When Pain Assessed At Rest Pain Present Pain Present Pain Reported m assist at this time. M6 OT- IP Functional Cognition Start: 04/21/23 15:00 Freq: Status: Active Protocol: Document 04/22/23 12:25 [facility]3] (Rec: 04/22/23 12:35 [facility]3] [id number]) Cognitive Factors Limiting Selfcare Function Cognitive Comments Cognitive Assessment Comments Pt is intact. Pt a bit emotional today and able to talk to pt about stress management is more detail today. Spoke on remembering to do breathing exercises as pt tend to breath from her chest, be mindful of her shoulder positioning and proper use of pillow for support. Pt also talking about has been considering selling her house for awhile to downsize but feel overwhelmed by everything. Encouraged pt to have her family assist with her needed and to just focus on one thing at a time so not to get too overwhelmed. Pt was appreciative of being able to talk and go over stress management needs with her. M7 OT- IP Mobility and Balance Start: 04/21/23 15:00 Freq: Status: Active Protocol: Document 04/21/23 15:01 [facility]3] (Rec: 04/21/23 15:23 [facility]3] [id number]) OT-Transfer Assessment Comments Mobility Comments Per nursing aid and PT, pt able to get up and walk with out a device. OT- Balance Assessment Sitting Balance and Reactions Static Sitting Balance Ability Normal M9 OT- IP Assessment and Plan Start: 04/21/23 15:00 Freq: Status: Active Protocol: Document 04/22/23 12:25 [facility]3] (Rec: 04/22/23 12:35 [facility]3] [id number]) OT Summary Assessment and Plan Potential Rehabilitation Potential Good Analytic Complexity at Evaluation Low Summary OT Impairments Pain,Range of Motion,Strength, Balance,Functional Mobility, Self-Feeding,Grooming,Dressing ,Toileting,Bathing,Toilet Transfers,Shower Transfers Progress Towards Goals Progressing Toward Goals Assessment Summary Pt able to move her DIPs better today however fingers appear more swollen today and pt complaining of more pain. Noted right arm seems a little warmer to the touch as compared to the left. Able to do trigger point massage on her neck and shoulders due to tightness to help improve her positioning, stress, and breathing. Pt requesting pain medications, nursing notified. Goals Self-Feeding Goal Independent Grooming Goal Independent Dressing Goal Independent Toileting Goal Independent Toilet Transfer Goal Independent Shower Transfer Goal Independent OT-Other Goals Pt to be able to incorporate stress management techniques daily. Days to Meet Goals 6 Frequency of Treatment Frequency Of Treatment Once a Day Treatment Plan OT Treatment Plan ADL Training,Functional Mobility,Patient/Family Education,Discharge Planning Other Treatment Recommendations and Next Pt to be able to do LB Treatment Focus dressing needs with SBA. Discharge Recommendations OT Discharge Recommendations Home with Assistance, Outpatient PT Home Equipment Needs shower chair Transportation Needs at Discharge Private Vehicle
--- NOTE | 2023-04-22 11:56 | CM.DPC ---
DCP Cont. Reviewed EMR and team rounds for status updates. Plan is to continue IV ABO's and monitoring, swelling is improving in her forearm, pain continues to be an issue. Cultures remain pending for final ABO recommendation. Continue to monitor.
--- NOTE | 2023-04-22 13:22 | P.PN_ITS ---
Subjective Subjective Date Patient Seen: 04/21/23 Time Patient Seen: 08:00 Interval history: Kaylee is a pleasant 82 year old female who is POD#2 s/p incision and debridement of dorsum of right hand and right wrist arthrotomy by Dr. Lancaster. Patient is sitting in a beside chair during our interview, she is tearful and expresses significant anxiety regarding her wound and possible outcomes. She states she is in more pain today than yesterday but has not wanted to take any medication other than Tylenol and Ibuprofen because the morphine made her head feel fuzzy. Patient lives alone at home with cat still and plans to d/c to home once cleared by medicine. Denies chest pain, SOB, fever, chills, nausea, vomiting. Exam Vital Signs (past 8 hours): - 04/22/23 08:00 Temperature 97.8 F Pulse Rate 65 Respiratory Rate 18 Blood Pressure 157/74 H Pulse Oximetry 99 Oxygen Flow Rate 0 Oxygen Delivery Method Room Air Oxygen Flow Rate 0 Const General: cooperative, healthy appearing and anxious Resp Effort & Inspection: normal respiratory effort and able to speak in complete sentences Cardio Rate: regular rate Skin Other: Grossly normal alignment, significant swelling to the dorsum of the right hand and fingers. Kurlex dressing in place over patients right hand, curlex is moderatley saturated with serosanguineous discharge. Two nylon sutures in place over the dorsal wirst. Large incision over the dorsum of the right hand, one nylon suture in place on each end of the open incision with the center open and filled with gauze packing. Once packing removed the tendon visible below, no gross purulent drainaige. Sensation intact to all finger, wiggles all fingers, mildly reduced ROM of 4th and 5th fingers d/t pain and swelling. Reduced canal structure operator strength on the right due to pain. Psych Appearance: grossly normal Mental Status: mental status grossly normal Mood: anxious mood Affect: anxious affect Objective Labs 04/22/23 08:17 04/20/23 07:30 Labs: Laboratory Results - last 24 hr 04/22/23 08:17 WBC 9.6 RBC 3.89 L Hgb 11.6 L Hct 34.7 L MCV 89.3 MCH 29.8 MCHC 33.4 RDW 13.5 Plt Count 224 Neut % (Auto) 74.2 Lymph % (Auto) 15.9 L Josephine % (Auto) 8.8 Eos % (Auto) 0.2 L Baso % (Auto) 0.9 Neut # (Auto) 7100 H Lymph # (Auto) 1500 Josephine # (Auto) 800 Eos # (Auto) 0 Baso # (Auto) 100 PFSH Medical History (Updated 04/22/23 @ 12:30 by Meli Fraser MD) Osteopenia Rheumatic fever IBS (irritable bowel syndrome) Osteoarthritis HTN (hypertension) Anesthesia complication Depression History of COVID-19 (02/2022) Scoliosis (and kyphoscoliosis), idiopathic SVT (supraventricular tachycardia) 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 Cervical facet joint syndrome Diverticular disease Spinal stenosis PVCs (premature ventricular contractions) Surgical History Hx of tonsillectomy Hx of bilateral cataract extraction Hx of hemorrhoidectomy Hx of decompressive lumbar laminectomy (08/01/15) Status post hysterectomy with oophorectomy Family History Mother Pancreatic cancer Social History marital status: number of children: 0 household members: none lives independently: Yes caregiver/support person: No housing: house Smoking Status: Never smoker second hand exposure: No alcohol intake: current substance use type: does not use Assessment & Plan Post-op Assessment and plan (1) Cat bite of right hand: Postoperative Procedures: Procedures Operation Date: 04/20/23 16:30 Actual Procedure Side Surgeon p I&D hand cat bite Right Faustina Perez MD Right hand dressing was unwrapped today and packing was removed. A saline and chlorhexidine wash/soak was performed for 20 minutes. The wound was then dried with sterile gauze and re-dressed with new sterile gauze wrapped in kurlex. Patient expressed significant pain with packing removal but felt mildly better after the soak. Postoperative day: 2 Postoperative status narrative: poor pain control and anxious affect Postoperative plan narrative: 1. Patient has already been admitted. She should continue receiving IV antibiotics while she is in the hospital. Ensure appropriate Gram-negative coverage given the etiology of this wound. Still waiting for final wound cultures. 2. Start warm soapy soaks 3 times per day the patient should submerge her hand saline with a bottle of chlorhexidine emptied into it. She should keep her hand in this for 20 minutes. She should do this for 1 week postoperatively. 3. Packing does not need to be replaced 4. Rx for Oxycodone (severe pain) and Tramadol (moderate pain) ordered for patient to be used PRN as she is poor pain control and now having an increase in pain s/p packing removal but does not like the morphine. 5. Follow up with [facility] in a week for a wound check and suture removal.
[2023-04-22] MEDS: OXYCODONE IR 5 MG TABLET PO ×2 (14:07→21:56)
[2023-04-22 20:00] VITALS: BP 127/48; PULSE 63; RESP 18; TEMP 36.3; O2SAT 97
[2023-04-22 20:21] VITALS: BP 157/74
[2023-04-22] MEDS: lisinopriL 10 MG TABLET PO (20:21)
--- NOTE | 2023-04-22 23:03 | PC.NURSE ---
2200--soaked right hand in hibiclens and saline for 20 minutes, patted dry and redressed w/ 4x4s and gauze wrap; edema seems slightly decreased and fingers less pink that at 1900; pt premedicated w/percalone 1 tab; tolerated procedure well
[2023-04-23] VITALS: BP 139/62; PULSE 66; RESP 16; TEMP 36.4; O2SAT 98
[2023-04-23] MEDS: ACETAMINOPHEN 325 MG TABLET 650 MG PO ×3 (00:39→12:45)
[2023-04-23] MEDS: IBUPROFEN 600 MG TABLET PO ×3 (00:39→12:45)
[2023-04-23] MEDS: AMPICILLIN/SULBACTAM 3 GM 3 GM in SODIUM CHLORIDE 0.9% 100 ML IV ×2 (02:21→08:18)
--- NOTE | 2023-04-23 06:57 | PC.NURSE ---
edema and erythema decreased this morning; pt with a slight increase in finger movement, but fingers still stiff; she c/o more pain when she first wakes up, from being in one position; once she starts moving, the pain lessens; she has been taking her scheduled tylenol and ibuprofen and was medicated once w/ percolone and this has kept her pain at a tolerable level
[2023-04-23 08:00] VITALS: BP 151/64; PULSE 68; RESP 16; TEMP 36.5; O2SAT 99
[2023-04-23] MEDS: VIT C/E/ZN/COPPR/LUTEIN/ZEAXAN CAPSULE 1 CAP PO (08:20)
[2023-04-23] MEDS: dilTIAZem CD 180 MG CAP PO (08:20)
--- NOTE | 2023-04-23 08:43 | P.DS_ITS ---
History of Present Illness History of Present Illness Date Patient Seen: 04/23/23 Time Patient Seen: 07:50 Chief complaint: wrist infection from a cat bite Discharge Providers Provider Date of admission: 04/20/23 08:24 Discharge Date: 04/23/23 Primary care physician: Meli Fraser MD Consults: 04/20/23 08:23 Consult to Orthopedic Surgery Stat Comment: Consulting Provider: Faustina Perez Reason for consultation: cat bite hand, flexor tenosynovitis Has provider been notified: Yes 04/20/23 18:16 Consult to Discharge Planning Routine Comment: Consult to Physical Therapy Evaluate & Treat Comment: Physician Instructions: Evaluate and Treat 04/21/23 10:15 Consult to Occupational Therapy Evaluate & Treat Comment: Physician Instructions: Evaluate and treat 04/22/23 18:58 Consult to [facility] - Hvac Engineering Technician Routine Comment: alone,vision issues,limited driving,HH or wound? Discharge provider: Katlyn Enriquez MD Summary Hospital Course Hospital Course: Ms Bunn is a pleasant 82-year-old female with history of rheumatic fever, osteopenia, hypertension SVTs who was seen in the ER after a cat bite on her right hand. Following the bite she washed the wound and immediately but then the next day noticed swelling and redness of the area so was evaluated in the walk-in clinic. She was started on Augmentin but the next day noticed that redness and swelling continued so was evaluated in the ER. In the ER was determined that she required incision and drainage of the area. She was started on ampicillin/sulbactam q.6 hours as well as hydrocodone acetaminophen for pain. Incision and drainage was performed without complication by Orthopedic surgery. Wound culture was collected intraoperatively. Postoperatively she is continued on Unasyn and started with warm soapy water soaks 3 times daily with normal saline and chlorhexidine, each episode lasting 20 minutes. The recommendation was to continue this for 1 week. On postop day 2 packing was removed. By day of discharge, she noted that she was getting more movement back in her fingers and swelling had improved significantly. Blood and wound cultures have resulted with no growth at 72 hours. She has been improving with Unasyn so will discharge home with Augmentin for similar coverage. Plan follow-up with [facility] in 1 week for a wound check and suture removal. HTN: Continued home Diltiazem and Lisinopril with no changes Status at Discharge Cognitive/behavioral status at discharge: oriented Functional status at discharge: independent ambulation Overall status at discharge: patient is back to baseline Time Spent with Patient Time spent: Greater than 30 minutes Exam Vital Signs (past 8 hours): - 04/23/23 08:00 Temperature 97.7 F Pulse Rate 68 Respiratory Rate 16 Blood Pressure 151/64 H Pulse Oximetry 99 Oxygen Delivery Method Room Air Oxygen Flow Rate 0 Narrative Exam Narrative: GEN: Healthy appearing, well-developed, NAD. PSYCH: Good Judgment. AOx3. Normal memory, mood, and affect HEENT: -Head: NC/AT -Eyes: No discharge or redness CV: warm and well perfused LUNGS: breathing comfortably on RA SKIN: Warm, well perfused. No skin rashes or abnormal lesions MSK: No deformities. Wrist wrapped. Able to move fingers. no erythema visible outside of bandage NEURO: Ambulating with no limitations. No focal deficits Objective Labs 04/22/23 08:17 04/20/23 07:30 [facility] Medical History (Updated 04/22/23 @ 12:30 by Meli Fraser MD) Osteopenia Rheumatic fever IBS (irritable bowel syndrome) Osteoarthritis HTN (hypertension) Anesthesia complication Depression History of COVID-19 (02/2022) Scoliosis (and kyphoscoliosis), idiopathic SVT (supraventricular tachycardia) 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 Cervical facet joint syndrome Diverticular disease Spinal stenosis PVCs (premature ventricular contractions) Surgical History Hx of tonsillectomy Hx of bilateral cataract extraction Hx of hemorrhoidectomy Hx of decompressive lumbar laminectomy (08/01/15) Status post hysterectomy with oophorectomy Family History Mother Pancreatic cancer Social History marital status: number of children: 0 household members: none lives independently: Yes caregiver/support person: No housing: house Smoking Status: Never smoker second hand exposure: No alcohol intake: current substance use type: does not use Discharge Plan Discharge Plan Patient Disposition: Home Provider Discharge Comment: Antibiotics: Continue Augmentin for total course of 14 days (pt does have some Augmentin at home, ok to use this but she will run out of pills so Rx sent in ) Follow up: F/up with ortho in 1 week, f/up with PCP in 1 week Pain control: Ibuprofen 400mg every 6 hours, Tylenol 325-625mg every 8 hours, Vicodin (pt has at home) as needed for breakthrough pain. Vicodin does have Tylenol in it, take no more than 4000mg of Acetaminophen per 24 hours Would care: Start warm soapy soaks 3 times per day- the patient should submerge her hand in warm water with a bottle of chlorhexidine emptied into it. She should keep her hand in this for 20 minutes. She should do this for 1 week postoperatively. Discharge orders & Medications Prescriptions: New amoxicillin-pot clavulanate 875-125 mg tablet 1 tab PO Q12H 10 Days Qty: 20 0RF chlorhexidine gluconate [Hibiclens] 4 % liquid 1 applic topical TID 10 Days Qty: 946 0RF Rx Instructions: soak TID for 10 days, each soak for 20 min Continued amoxicillin-pot clavulanate 875-125 mg tablet 1 tab PO BID Qty: 20 0RF (DME) Disabled Parking Permit See Rx Instructions .ROUTE .MEDSUPPLY Qty: 1 0RF Rx Instructions: Patient qualifies for disabled parking as per the attached form. hydrocodone-acetaminophen 5-325 mg tablet 1 tab PO Q4-6H PRN (Reason: severe pain) ibuprofen 400 mg tablet 400 mg PO Q4-6H PRN (Reason: Pain (Scale Score 1-3)) polyethylene glycol 3350 [Miralax] 17 gram/dose powder 17 gram PO PRN PRN (Reason: Constipation) lisinopril 10 mg tablet 10 mg PO QPM PreserVision AREDS-2 250-90-40-1 mg capsule 1 tab PO BID diltiazem HCl 180 mg capsule,extended release 24hr 180 mg PO DAILY Follow up/Referrals: Meli Fraser MD [Primary Care Provider] - Visit Report/Discharge Packet Instructions: DI for Incision and Drainage Stand Alone Forms: Patient Portal/API, Stroke Signs & Symptoms Discharge Data Primary Care Provider: Meli Fraser Discharges patient from system. Discharge Date/Time: 04/23/23 15:46
[2023-04-23] MEDS: OXYCODONE IR 5 MG TABLET PO ×2 (09:41→13:53)
--- NOTE | 2023-04-23 11:00 | OT.IP.TRT ---
Current Diagnoses Essential (primary) hypertension (04/20/23) Pain, unspecified (04/20/23) Open bite of right hand, initial encounter (04/20/23) Open bite of right wrist, initial encounter (04/20/23) Bitten by cat, initial encounter (04/20/23) Surgery Performed Operation Date: 04/20/23 16:30 Actual Procedures p I&D hand cat bite(Right) - Faustina Perez MD Occupational Therapy Treatment Note M2 OT-IP Current Condition Start: 04/21/23 15:00 Freq: Status: Active Protocol: Document 04/21/23 15:01 [facility] (Rec: 04/21/23 15:23 [facility] [id number]) Occupational Therapy Current Condition Current Condition Evaluation Date 04/21/23 Treatment Diagnosis I and D Right hand dorsum Diagnosis Onset Date 04/20/23 M3 OT- IP Subjective and Pain Start: 04/21/23 15:00 Freq: Status: Active Protocol: Document 04/23/23 11:46 [facility] (Rec: 04/23/23 11:55 [facility] [id number]) OT- Subjective Occupational Therapy Visit Type Type Treatment Note Visit Start Time 10:45 Visit Stop Time 11:27 Occupational Therapy Visit Comments Patient Comments Pt agreed to get dressed. Patient/Caregiver Goals TO go home. OT Pain Assessment Pain When Pain Assessed At Rest Pain Present Pain Present Pain Reported M4 OT- IP ADL's Start: 04/21/23 15:00 Freq: Status: Active Protocol: Document 04/23/23 11:46 [facility] (Rec: 04/23/23 11:55 [facility] [id number]) OT [id number] General Evaluation Self-Feeding Ability Standby Assistance OT ADL-Grooming Comments OT Grooming Comments Not performed. OT ADL-Dressing General Eval Upper Body Dressing Ability Independent Lower Body Dressing Ability Standby Assistance Comments OT Dressing Comments Pt initially needing cues to dress her right LE first and take out last as pt states has bad right knee. Pt aware best to get dressed while seated at this time. Spoke of use of brand marketing manager , but pt states feels not needed. Able to issue pt long handled shoe horn. OT ADL-Toileting Comments OT Toileting Comments Not performed. M5 OT- IP IADL's Start: 04/21/23 15:00 Freq: Status: Active Protocol: Document 04/21/23 15:01 [facility] (Rec: 04/21/23 15:23 [facility] [id number]) OT-Instrumental Activities of Daily Living Deficits IADL Deficits Identified Deficits Home Safety Awareness Awareness of Need for Assistance at Home Good Awareness Ability to Problem Solve Emergency Able to Problem Solve Situations Medication Management Medication Management No Deficits Identified Money Management Money Management No Deficits Identified Meal Preparation Meal Preparation Comments Pt would benefit from assist at this time. M6 OT- IP Functional Cognition Start: 04/21/23 15:00 Freq: Status: Active Protocol: Document 04/23/23 11:46 [facility] (Rec: 04/23/23 11:55 [facility] [id number]) Cognitive Factors Limiting Selfcare Function Cognitive Comments Cognitive Assessment Comments Intact. Spoke of ways to increase ease for taking care of her cat, place to be able to soak her hand and to be aware of the height and how if may affect her posture. M7 OT- IP Mobility and Balance Start: 04/21/23 15:00 Freq: Status: Active Protocol: Document 04/23/23 11:46 [facility] (Rec: 04/23/23 11:55 [facility] [id number]) OT-Transfer Assessment Sit to and From Stand Sit to and from Stand Independent Transfers Transfer Ability Independent Comments Mobility Comments Pt is independent of her feet. OT- Balance Assessment Sitting Balance and Reactions Static Sitting Balance Ability Normal Dynamic Sitting Balance Ability Normal Standing Balance and Reactions Static Standing Balance Ability Normal Dynamic Standing Balance Ability Good M8 OT- IP Objective Assessments Start: 04/21/23 15:00 Freq: Status: Active Protocol: Document 04/21/23 15:01 [facility] (Rec: 04/21/23 15:23 [facility] [id number]) OT Gross Range of Motion Upper Extremity Range of Motion Assessment Right Impaired ROM Impairments Right AROM decreased at shoulder, wrist and fingers. OT Strength Hand Junior Legal Secretary Strength Hand Dominance Right OT- Coordination Assessment Comments Coordination Comments Pt has swelling in her right hand and encouraged pt to move her finger and use of her left hand to help increase the ROM. Also to keep her right hand elevated on pillow. M9 OT- IP Assessment and Plan Start: 04/21/23 15:00 Freq: Status: Active Protocol: Document 04/23/23 11:46 [facility] (Rec: 04/23/23 11:55 [facility] [id number]) OT Summary Assessment and Plan Potential Rehabilitation Potential Good Analytic Complexity at Evaluation Low Summary OT Impairments Pain,Range of Motion,Strength, Coordination,Bathing Progress Towards Goals Progressing Toward Goals Assessment Summary Pt able to use her right hand for all needs as not having the bulky bandage her hand at this time. Pt still unable to make a fist with her right hand and encouraged to use and move her right hand for all needs. At this time would be best for pt to have home health to look at her set-up at home for IADL needs and nursing to assist with wound care needs. Pt to go home with assist from friends and home health. Goals Days to Meet Goals 2 Frequency of Treatment Frequency Of Treatment Once a Day Discharge Recommendations OT Discharge Recommendations Home with Assistance,Home Health Home Equipment Needs shower chair Transportation Needs at Discharge Private Vehicle
--- NOTE | 2023-04-23 11:11 | CM.DPC ---
DCP Cont. Reviewed EMR and team rounds for pt's medical status and updates. Met with pt at bedside to discuss her concerns re: going home with very limited help available. Discussed Home Health, since she is currently homebound until she can drive again. She stated wanting us to start the referral. Called [facility] and discussed the referral, faxed clinicals. They can start on 05/01. Discussed with pt. She also has identified friends that can assist her intermittently during the first few days of returning home. No further DCP needs identified at this time.
--- NOTE | 2023-04-23 15:44 | PC.NURSE ---
Day shift: R hand soak and wound care x 2 this shift. Taught patient how to perform wound care and able to return demonstrate. Sent patient home with a few days of wound care supplies - patient will package pick up more at pharmacy. Discharge information gone over, all questions answered, patient stated understanding. Pt's friend to drive patient home. MICHEAL Epperson escorted patient via wheelchair to exit. All belongings with patient. PIV d/c'ed prior to discharge.
== END 2023-04-23 15:46 | disposition home health service (06) | DRG 603 ==
LOC: ED 07:33 → AC 08:25
PROVIDERS: Orthopaedic Surgery; Admitting Provider Family Medicine; Emergency Provider Emergency Medicine; PCP Family Medicine; Referring Provider Emergency Medicine; Visit Provider Family Medicine
DX: L02.511 Cutaneous abscess of right hand (principal); S61.551A Open bite of right wrist, initial encounter; I10 Essential (primary) hypertension; W55.01XA Bitten by cat, initial encounter
CPT/HCPCS: 36415; 73130; 80053; 83605; 84145; 85025; 87040; 87070; 87075; 87205; 96365; 96375; 97161; 97165; 97530; 97535; 99222; 99232; 99238; 99284; 99285; J0136; J0295; J0690; J1170; J2250; J2270; J2405; J2704; J3010

== ENCOUNTER 2023-04-24 12:19 | Emergency (ER) | payer MEDICARE, OTHER, SELFPAY ==
[2023-04-20 10:39] VITALS: BMI 22.3
[2023-04-24 12:20] VITALS: BP 177/79; PULSE 70; RESP 16; TEMP 36.6; O2SAT 98; BMI 22.3
--- NOTE | 2023-04-24 12:47 | ED.WOUNDLAC ---
HPI - Wound/Laceration <Ashutosh Wick PA-C - Last Filed: 04/24/23 15:04> General Chief Complaint: Wound/Laceration Stated Complaint: hand pain Source: patient Mode of arrival: Family Vehicle History of Present Illness HPI narrative: This is a 82-year-old female presents emergency department due to a reported worsening hand infection. She was seen 4 days ago for a cat bite and was taken to the OR with Orthopedics for a washout 4 days ago as well. Given a prescription for Augmentin. Discharged from the hospital yesterday. She took a dose of Augmentin last night and this morning but states that the redness spread past the black line that was drawn on her wrist. She also states that she was noticed some strange discharge from the wound as well as a tightening of her hands. She states that she also ?felt hot? causing her to come in. She states she soaked with the primary care provider who spoke with Dr. Dawkins who recommended returning to the emergency department for IV antibiotics and a possible repeat washout. Related Data Home Medications Medication Instructions Recorded Confirmed polyethylene glycol 3350 17 17 gram PO PRN PRN Constipation 11/02/17 04/24/23 gram/dose oral powder (Miralax) diltiazem HCl 180 mg 180 mg PO DAILY 01/22/22 04/24/23 capsule,extended release 24 hr vit C 250 mg-vit E 90 mg-zinc 40 1 tab PO BID Macular degeneration 01/22/22 04/24/23 mg-copper 1 [id number] (Dry) capsule (PreserVision AREDS-2) lisinopril 10 mg tablet 10 mg PO QPM 02/02/23 04/24/23 hydrocodone 5 mg-acetaminophen 325 1 tab PO Q4-6H PRN severe pain 04/20/23 04/24/23 mg tablet ibuprofen 400 mg tablet 400 mg PO Q4-6H PRN Pain (Scale 04/20/23 04/24/23 Score 1-3) Previous Rx's Medication Instructions Recorded Disabled Parking Permit #1 ea 01/07/22 amoxicillin 875 mg-potassium 1 tab PO BID #20 tabs 04/19/23 clavulanate 125 mg tablet amoxicillin 875 mg-potassium 1 tab PO Q12H 10 days #20 tabs 04/23/23 clavulanate 125 mg tablet chlorhexidine gluconate 4 % 1 applic topical TID 10 days #946 04/23/23 topical liquid (Hibiclens) mL Allergies Allergy/AdvReac Type Severity Reaction Status Date / Time ciprofloxacin [From CIPRO] Allergy Severe swelling Verified 04/24/23 11:22 levofloxacin [LEVOFLOXACIN] Allergy Severe severe Verified 04/24/23 11:22 mouth and eye swelling indomethacin [INDOMETHACIN] AdvReac Severe Headaches Verified 04/24/23 11:22 meloxicam [MELOXICAM] AdvReac Severe Headaches Verified 04/24/23 11:22 trandolapril [TRANDOLAPRIL] AdvReac Severe Headaches Verified 04/24/23 11:22 [id number]-RKA-RnG Reductase AdvReac Muscle Pain Verified 04/24/23 11:22 Inhibitor Review of Systems <Ashutosh Wick PA-C - Last Filed: 04/24/23 15:04> Review of Systems Narrative: GENERAL: Denies chills, fatigue, malaise, fever, sweats. HEENT: Denies sinus pain, ear pain, sore throat, difficulty swallowing, dizziness. RESPIRATORY: Denies dyspnea, cough, wheezing, hemoptysis, sputum. CARDIOVASCULAR: Denies chest pain, palpitations, orthopnea, edema, GASTROINTESTINAL: Denies nausea, vomiting, abdominal pain, diarrhea, constipation, melena. : Denies dysuria, frequency, incontinence, hematuria, urinary retention. MUSCULOSKELETAL: denies weakness, joint pain, or bony pain SKIN: Dorsum of right hand incision infection NEUROLOGIC: Denies weakness, headache, numbness, change in speech, confusion, seizures, incoordination. PSYCHIATRIC: No concerning psychosocial issues. 12 point review of systems is negative except for those stated above Patient History <Ashutosh Wick PA-C - Last Filed: 04/24/23 15:04> Medical History (Updated 04/24/23 @ 15:03 by Ashutosh Wick PA-C) Osteopenia Rheumatic fever IBS (irritable bowel syndrome) Osteoarthritis HTN (hypertension) Anesthesia complication Depression History of COVID-19 (02/2022) Scoliosis (and kyphoscoliosis), idiopathic SVT (supraventricular tachycardia) 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 Cervical facet joint syndrome Diverticular disease Spinal stenosis PVCs (premature ventricular contractions) Surgical History Hx of tonsillectomy Hx of bilateral cataract extraction Hx of hemorrhoidectomy Hx of decompressive lumbar laminectomy (08/01/15) Status post hysterectomy with oophorectomy Family History Mother Pancreatic cancer Social History marital status: number of children: 0 household members: none lives independently: Yes caregiver/support person: No housing: house Smoking Status: Never smoker second hand exposure: No alcohol intake: current substance use type: does not use Smoking Status: Never smoker alcohol intake frequency: holidays/special occasions only Substance Use Type: does not use Exam <Ashutosh Wick PA-C - Last Filed: 04/24/23 15:04> Narrative Exam Narrative: GENERAL: Well-developed patient, in mild distress. HEAD: Atraumatic. Normocephalic. EYES: Pupils equal round and reactive. Extraocular motions intact. No scleral icterus. No injection or drainage. ENT: Nose without bleeding, purulent drainage. Throat without erythema, tonsillar hypertrophy or exudate. Airway patent. NECK: Trachea midline. Non tender EXTREMITIES: No edema or joint tenderness. NEURO: AOx3. SKIN: The dorsum of the right hand has an open surgical incision with a kind of purulent discharge apparent in the wound. Mild erythema surrounding the wound. No significant erythema streaking up the right upper extremity. Initial Vital Signs Initial Vital Signs: Vital Signs Temperature 97.9 F 04/24/23 12:20 Pulse Rate 70 04/24/23 12:20 Respiratory Rate 16 04/24/23 12:20 Blood Pressure 177/79 H 04/24/23 12:20 Pulse Oximetry 98 04/24/23 12:20 Oxygen Delivery Method Room Air 04/24/23 12:20 <Subha Sanders MD - Last Filed: 04/24/23 15:13> Initial Vital Signs Initial Vital Signs: Vital Signs Temperature 97.9 F 04/24/23 12:20 Pulse Rate 70 04/24/23 12:20 Respiratory Rate 16 04/24/23 12:20 Blood Pressure 177/79 H 04/24/23 12:20 Pulse Oximetry 98 04/24/23 12:20 Oxygen Delivery Method Room Air 04/24/23 12:20 Course <Ashutosh Wick PA-C - Last Filed: 04/24/23 15:04> Orders Ordered: ED Orders 04/24/23 12:58 Complete Blood Count AUTO DIFF Stat Comprehensive Metabolic Panel Stat Lactate (Lactic Acid) Stat Procalcitonin Stat 04/24/23 13:16 Wound Culture and Gram Stain Stat 04/24/23 13:24 Blood Culture Stat Discontinued Medications Ampicillin Sodium/Sulbactam (Sodium 1.5 gm/ Sodium Chloride) 100 mls @ 200 mls/hr IV NOW ONE Stop: 04/24/23 13:10 Last Infusion: 04/24/23 14:15 Dose: Infused Documented By: Admin: 04/24/23 13:32 Dose: 200 mls/hr Documented By: BS Lidocaine/Epinephrine (Lidocaine 1% W/Epi) 4 ml INJ INTRA-OP ONE Stop: 04/24/23 14:37 Last Admin: 04/24/23 14:43 Dose: 4 ml Documented By: BS Consultations Consultation #1: [id number]: Inform Dr. Lancaster, orthopedist of the patient who stated that he would could by to see her. Vital Signs Vital signs: Vital Signs - 8 hr 04/24/23 12:20 Temperature 97.9 F Pulse Rate 70 Respiratory Rate 16 Blood Pressure 177/79 H Pulse Oximetry 98 Oxygen Delivery Method Room Air <Subha Sanders MD - Last Filed: 04/24/23 15:13> Orders Ordered: ED Orders 04/24/23 12:58 Complete Blood Count AUTO DIFF Stat Comprehensive Metabolic Panel Stat Lactate (Lactic Acid) Stat Procalcitonin Stat 04/24/23 13:16 Wound Culture and Gram Stain Stat 04/24/23 13:24 Blood Culture Stat Discontinued Medications Ampicillin Sodium/Sulbactam (Sodium 1.5 gm/ Sodium Chloride) 100 mls @ 200 mls/hr IV NOW ONE Stop: 04/24/23 13:10 Last Infusion: 04/24/23 14:15 Dose: Infused Documented By: Admin: 04/24/23 13:32 Dose: 200 mls/hr Documented By: BS Lidocaine/Epinephrine (Lidocaine 1% W/Epi) 4 ml INJ INTRA-OP ONE Stop: 04/24/23 14:37 Last Admin: 04/24/23 14:43 Dose: 4 ml Documented By: BS Vital Signs Vital signs: Vital Signs - 8 hr 04/24/23 12:20 Temperature 97.9 F Pulse Rate 70 Respiratory Rate 16 Blood Pressure 177/79 H Pulse Oximetry 98 Oxygen Delivery Method Room Air MDM - Wound/Laceration <Ashutosh Wick PA-C - Last Filed: 04/24/23 15:04> Lab Data 04/24/23 12:58 04/24/23 12:58 Labs: Lab Results 04/24/23 Range/Units 12:58 WBC 6.5 (4.5-11.0) X10^3/uL RBC 3.67 L (4.0-5.2) X10^6/uL Hgb 10.9 L (12.0-16.0) g/dL Hct 32.5 L (36-46) % MCV 88.5 (80-100) fL MCH 29.6 (26-34) PG MCHC 33.5 (30-36) % RDW 13.3 (11.6-14.8) % Plt Count 270 (150-400) X10^3/uL Neut % (Auto) 76.1 H (50-75) % Lymph % (Auto) 14.1 L (25-40) % Griggs % (Auto) 9.0 (3-14) % Eos % (Auto) 0.2 L (2-4) % Baso % (Auto) 0.6 (0-2) % Neut # (Auto) 4900 (0395-7126) /uL Lymph # (Auto) 900 L (6349-4075) /uL Griggs # (Auto) 600 (0-900) /uL Eos # (Auto) 0 (0-450) /uL Baso # (Auto) 0 (0-100) /uL Sodium 139 (137-145) mmol/L Potassium 3.5 (3.4-5.1) mmol/L Chloride 106 (98-107) mmol/L Carbon Dioxide 25 (22-32) mmol/L BUN 16 (7-17) mg/dL Creatinine 0.50 L (0.52-1.04) mg/dL Estimated GFR > 60 (>60) mL/min BUN/Creatinine Ratio 32.0 H (6-22) Glucose 128 H (80-110) mg/dL Lactate 1.0 (0.7-2.1) mmol/L Calcium 8.8 (8.4-10.2) mg/dL Total Bilirubin 0.5 (0.2-1.3) mg/dL AST 26 (14-36) IU/L ALT 16 (<35) IU/L Alkaline Phosphatase 64 (38-126) U/L Total Protein 6.8 (6.3-8.2) g/dL Albumin 3.7 (3.5-5.0) g/dL Globulin 3.1 (1.7-4.1) g/dL Albumin/Globulin Ratio 1.2 (1.0-2.8) Procalcitonin 0.04 (<0.5) ng/mL MDM Narrative Medical decision making narrative: ED course: This is a 82-year-old female presents to the emergency department due to concerns for continued right hand infection after having an I and D with Dr. Lancaster 4 days ago. On exam there was some mild erythema but all lab work unremarkable and no significant streaking up the arm. An initial dose of Unasyn was given here in the emergency department. Informed Dr. Lancaster of the patient and he came by to evaluate the wound. Completed final closure with 3-0 nylon and recommended continuing the course of oral Augmentin she was prescribed on discharge and to follow up in his clinic. CC: Right hand infection Complicating co-morbidities: None Data collected from: Previous notes Medical records reviewed: Patient was seen 4 days ago due to a cat bite of the right hand. History of hypertension. Initial CAT bite initially happened 6 days ago. Was prescribed Augmentin and had 2 doses before coming in. History of right shoulder replacement approximately 11 weeks ago. Ciprofloxacin and levofloxacin and Zosyn allergy. Admitted for evaluation by Orthopedics for possible surgery. Unasyn given. Patient was eventually taken to the OR with Orthopedics by Dr. Lancaster 4 days ago. Blood and wound cultures had no growth at the 72 hour kayode. Discharged home with Augmentin. Final results from hand abscess taken intraoperatively show no growth. Differential considered, but not limited to: Right hand infection, abscess, sepsis Exam documented above, pertinent findings include: Some erythema surrounding the right hand wound Lab Test results independently reviewed as above. Pertinent findings: Lab work reassuring and within normal limits Imaging studies independently reviewed: None obtained Scores Used: None MIPS Elements: None Consultations: None Treatments: Unasyn Re-evaluations: None Discussion: Discussed plan with the patient was comfortable with the plan Diagnosis: Right hand surgical incision wound check Disposition: see below, along with detailed discharge instructions that have been reviewed with patient as well as indications for ED re-evaluation and additional outpatient follow up <Subha Sanders MD - Last Filed: 04/24/23 15:13> Lab Data Labs: Lab Results 04/24/23 Range/Units 12:58 WBC 6.5 (4.5-11.0) X10^3/uL RBC 3.67 L (4.0-5.2) X10^6/uL Hgb 10.9 L (12.0-16.0) g/dL Hct 32.5 L (36-46) % MCV 88.5 (80-100) fL MCH 29.6 (26-34) PG MCHC 33.5 (30-36) % RDW 13.3 (11.6-14.8) % Plt Count 270 (150-400) X10^3/uL Neut % (Auto) 76.1 H (50-75) % Lymph % (Auto) 14.1 L (25-40) % Griggs % (Auto) 9.0 (3-14) % Eos % (Auto) 0.2 L (2-4) % Baso % (Auto) 0.6 (0-2) % Neut # (Auto) 4900 (3390-7107) /uL Lymph # (Auto) 900 L (5509-3745) /uL Griggs # (Auto) 600 (0-900) /uL Eos # (Auto) 0 (0-450) /uL Baso # (Auto) 0 (0-100) /uL Sodium 139 (137-145) mmol/L Potassium 3.5 (3.4-5.1) mmol/L Chloride 106 (98-107) mmol/L Carbon Dioxide 25 (22-32) mmol/L BUN 16 (7-17) mg/dL Creatinine 0.50 L (0.52-1.04) mg/dL Estimated GFR > 60 (>60) mL/min BUN/Creatinine Ratio 32.0 H (6-22) Glucose 128 H (80-110) mg/dL Lactate 1.0 (0.7-2.1) mmol/L Calcium 8.8 (8.4-10.2) mg/dL Total Bilirubin 0.5 (0.2-1.3) mg/dL AST 26 (14-36) IU/L ALT 16 (<35) IU/L Alkaline Phosphatase 64 (38-126) U/L Total Protein 6.8 (6.3-8.2) g/dL Albumin 3.7 (3.5-5.0) g/dL Globulin 3.1 (1.7-4.1) g/dL Albumin/Globulin Ratio 1.2 (1.0-2.8) Procalcitonin 0.04 (<0.5) ng/mL Discharge Plan Departure Patient Disposition: Home Clinical Impression: Visit for wound check Activity Restrictions/Additional Instructions: Thank you for coming to the [facility] Emergency Department today. I am glad that Dr. Tonny wilks was able to come by and evaluate the wound. Please continue with your oral antibiotics and follow up in his clinic as scheduled. Please return to the emergency department if you develop any high fevers, redness going up the arm, or any other concerning signs or symptoms. I hope you feel better soon. Please follow up with your primary care provider within a week if your symptoms continue. If you do not have a primary care provider please contact the [facility] Resource line at [phone]. They will ask some questions about your medical history and help you get set up with a provider in the community. Prescriptions: No Action amoxicillin-pot clavulanate 875-125 mg tablet 1 tab PO BID Qty: 20 0RF (DME) Disabled Parking Permit See Rx Instructions .ROUTE .MEDSUPPLY Qty: 1 0RF Rx Instructions: Patient qualifies for disabled parking as per the attached form. hydrocodone-acetaminophen 5-325 mg tablet 1 tab PO Q4-6H PRN (Reason: severe pain) ibuprofen 400 mg tablet 400 mg PO Q4-6H PRN (Reason: Pain (Scale Score 1-3)) amoxicillin-pot clavulanate 875-125 mg tablet 1 tab PO Q12H 10 Days Qty: 20 0RF chlorhexidine gluconate [Hibiclens] 4 % liquid 1 applic topical TID 10 Days Qty: 946 0RF Rx Instructions: soak TID for 10 days, each soak for 20 min polyethylene glycol 3350 [Miralax] 17 gram/dose powder 17 gram PO PRN PRN (Reason: Constipation) lisinopril 10 mg tablet 10 mg PO QPM PreserVision AREDS-2 250-90-40-1 mg capsule 1 tab PO BID diltiazem HCl 180 mg capsule,extended release 24hr 180 mg PO DAILY Referrals: Meli Fraser MD [Primary Care Provider] - Stand Alone Forms: Patient Portal/API ED Sign-out <Subha Sanders MD - Last Filed: 04/24/23 15:13> Cosign ED Attending Cosignature Attestation: I did not see this patient. I was available all times for consultation.
[2023-04-24 13:09] LABS: Add Manual Diff / Slide Review NO; Basophils Absolute Auto 0 /uL (0-100); Basophils Percent Auto 0.6 % (0-2); Eosinophils Absolute Auto 0 /uL (0-450); Eosinophils Percent Auto 0.2 % (2-4); Hematocrit 32.5 % (36-46); Hemoglobin 10.9 g/dL (12.0-16.0); Lymphocytes Absolute Auto 900 /uL (1100-4500); Lymphocytes Percent Auto 14.1 % (25-40); Mean Corpuscular HGB Conc 33.5 % (30-36); Mean Corpuscular Hemoglobin 29.6 PG (26-34); Mean Corpuscular Volume 88.5 fL (80-100); Monocytes Absolute Auto 600 /uL (0-900); Neutrophils Absolute Auto 4900 /uL (1500-7000); Neutrophils Percent Auto 76.1 % (50-75); Platelet Count 270 X10^3/uL (150-400); Red Blood Cell Count 3.67 X10^6/uL (4.0-5.2); Red Cell Distribution Width 13.3 % (11.6-14.8); White Blood Cell Count 6.5 X10^3/uL (4.5-11.0)
[2023-04-24 13:20] LABS: Alanine Aminotransferase 16 IU/L (<35); Albumin 3.7 g/dL (3.5-5.0); Albumin Globulin Ratio 1.2 (1.0-2.8); Alkaline Phosphatase 64 U/L (38-126); Aspartate Aminotransferase 26 IU/L (14-36); Bilirubin Total 0.5 mg/dL (0.2-1.3); Blood Urea Nitrogen 16 mg/dL (7-17); Calcium 8.8 mg/dL (8.4-10.2); Carbon Dioxide 25 mmol/L (22-32); Chloride 106 mmol/L (98-107); Estimated Glomerular Filt Rate > 60 mL/min (>60); Globulin 3.1 g/dL (1.7-4.1); Glucose 128 mg/dL (80-110); HEMOLYSIS < 15 (0-50); Potassium 3.5 mmol/L (3.4-5.1); Sodium 139 mmol/L (137-145); Total Protein 6.8 g/dL (6.3-8.2)
[2023-04-24] MEDS: AMPICILLIN/SULBACTAM 1.5 GM 1.5 GM in SODIUM CHLORIDE 0.9% 100 ML IV (13:32)
[2023-04-24 13:37] LABS: Procalcitonin 0.04 ng/mL (<0.5)
[2023-04-24] MEDS: LIDOCAINE 1% W/EPI 4 ML INJ (14:43)
[2023-04-24 15:05] VITALS: BP 173/77; PULSE 78; RESP 16; TEMP 36.5; O2SAT 96
== END 2023-04-24 15:10 | disposition home or self-care (01) ==
PROVIDERS: Emergency Provider Physician Assistant Medical; PCP Family Medicine
DX: Z48.01 Encounter for change or removal of surgical wound dressing (principal); S61.451A Open bite of right hand, initial encounter; W55.01XA Bitten by cat, initial encounter
CPT/HCPCS: 36415; 80053; 83605; 84145; 85025; 87040; 87070; 87205; 96365; 99284; J0295

== ENCOUNTER 2023-04-30 10:12 | Emergency (ER) | payer MEDICARE, OTHER, SELFPAY ==
[2023-04-20 10:39] VITALS: BMI 22.3
[2023-04-30 10:23] VITALS: BP 175/77; PULSE 74; RESP 15; TEMP 37.2; O2SAT 98; BMI 22.3
--- NOTE | 2023-04-30 10:27 | DI.US.S_ITS ---
PROCEDURE: US PERIPH VENOUS LOW EXTREM LT INDICATIONS: leg swelling TECHNIQUE: Real-time imaging, as well as color and pulse Doppler interrogation, were performed of the lower extremity deep veins from the inguinal ligament to the popliteal fossa, with documentation of the visualized calf veins. COMPARISON: None. FINDINGS: The common femoral, femoral, popliteal, and the visualized calf veins are normally compressible, and free of intraluminal thrombus. Color and pulse Doppler demonstrate normal phasic intraluminal flow. There is normal augmentation response to distal compression maneuver. IMPRESSION: No findings of lower extremity deep venous thrombosis. Dictated by: Mari Caro M.D. on 04/30/2023 at 11:31 Approved by: Mari Caro M.D. on 04/30/2023 at 11:31
--- NOTE | 2023-04-30 11:32 | ED_ITS ---
HPI - Extremity Problem <Seema Haynes PA-C - Last Filed: 04/30/23 19:46> General Chief complaint: Extremity Problem,Nontraumatic Stated complaint: sent by pcp L leg swelling Time Seen by Provider: 04/30/23 11:19 Source: patient Mode of arrival: Ambulatory History of Present Illness HPI Narrative: This is an 82-year-old female with history of recent cat bite infection with admission, hypertension, SVT, diverticulitis who presents to the emergency department today with concern for bilateral lower extremity swelling most prominent on the left in her ankles and feet. Patient states that on Thursday she started to notice swelling in her left foot and ankle and a mild tingling discomfort sensation in this foot. Then as of today she noticed that both of her ankles and feet were swollen despite elevating them yesterday to try to decrease swelling. She also notices this tingling discomfort in both feet. She states that the cat bite for which she was treated and admitted recently has been doing okay, although this morning when she soaked it which she has been doing 3 times a day per directions she says was a lot more painful than usual and she is noticed that there seems to be a little bit more swelling around the hand then there has been. She has been taking her antibiotics as prescribed. She states that the orthopedic surgeon performed the incision and drainage for her cat bite recently checked in with her this morning and discussed possibly changing her antibiotic. She denies chest pain, shortness of breath any history of swelling in her lower extremities or any other symptoms Related Data Home Medications Medication Instructions Recorded Confirmed polyethylene glycol 3350 17 17 gram PO PRN PRN Constipation 11/02/17 04/24/23 gram/dose oral powder (Miralax) diltiazem HCl 180 mg 180 mg PO DAILY 01/22/22 04/24/23 capsule,extended release 24 hr vit C 250 mg-vit E 90 mg-zinc 40 1 tab PO BID Macular degeneration 01/22/22 04/24/23 mg-copper 1 [id number] (Dry) capsule (PreserVision AREDS-2) lisinopril 10 mg tablet 10 mg PO QPM 02/02/23 04/24/23 hydrocodone 5 mg-acetaminophen 325 1 tab PO Q4-6H PRN severe pain 02/05/24 02/09/24 mg tablet ibuprofen 400 mg tablet 400 mg PO Q4-6H PRN Pain (Scale 04/20/23 04/24/23 Score 1-3) Previous Rx's Medication Instructions Recorded Disabled Parking Permit #1 ea 01/07/22 amoxicillin 875 mg-potassium 1 tab PO BID #20 tabs 04/19/23 clavulanate 125 mg tablet amoxicillin 875 mg-potassium 1 tab PO Q12H 10 days #20 tabs 04/23/23 clavulanate 125 mg tablet chlorhexidine gluconate 4 % 1 applic topical TID 10 days #946 04/23/23 topical liquid (Hibiclens) mL fluconazole 150 mg tablet 150 mg PO Q3D 2 doses #2 tabs 04/28/23 clindamycin HCl 300 mg capsule 300 mg PO Q8H infected cat bite 10 04/30/23 days #30 caps doxycycline hyclate 100 mg capsule 100 mg PO BID infected cat bite 10 04/30/23 days #20 caps gabapentin 300 mg capsule 300 mg PO TID neuropathy 10 days 04/30/23 #30 caps Allergies Allergy/AdvReac Type Severity Reaction Status Date / Time ciprofloxacin [From CIPRO] Allergy Severe swelling Verified 04/30/23 10:23 levofloxacin [LEVOFLOXACIN] Allergy Severe severe Verified 04/30/23 10:23 mouth and eye swelling indomethacin [INDOMETHACIN] AdvReac Severe Headaches Verified 04/30/23 10:23 meloxicam [MELOXICAM] AdvReac Severe Headaches Verified 04/30/23 10:23 trandolapril [TRANDOLAPRIL] AdvReac Severe Headaches Verified 04/30/23 10:23 [id number] Reductase AdvReac Muscle Pain Verified 04/30/23 10:23 Inhibitor Review of Systems <Seema Haynes PA-C - Last Filed: 04/30/23 19:46> Review of Systems Narrative: See HPI Patient History <Seema Haynes PA-C - Last Filed: 04/30/23 19:46> Medical History Osteopenia Rheumatic fever IBS (irritable bowel syndrome) Osteoarthritis HTN (hypertension) Anesthesia complication Depression History of COVID-19 (02/2022) Scoliosis (and kyphoscoliosis), idiopathic SVT (supraventricular tachycardia) 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 Cervical facet joint syndrome Diverticular disease Spinal stenosis PVCs (premature ventricular contractions) Surgical History Hx of tonsillectomy Hx of bilateral cataract extraction Hx of hemorrhoidectomy Hx of decompressive lumbar laminectomy (08/01/15) Status post hysterectomy with oophorectomy Family History Mother Pancreatic cancer Social History marital status: number of children: 0 household members: none lives independently: Yes caregiver/support person: No housing: house Smoking Status: Never smoker second hand exposure: No alcohol intake: current substance use type: does not use Smoking Status: Never smoker alcohol intake frequency: holidays/special occasions only Substance Use Type: does not use Exam <Seema Haynes PA-C - Last Filed: 04/30/23 19:46> Narrative Exam Narrative: GENERAL: [82] year old patient appears stated age. Well-developed patient, in mild distress. HEAD: Atraumatic. Normocephalic. EYES: Pupils equal round and reactive. Extraocular motions intact. No scleral icterus. No injection or drainage. ENT: Nose without bleeding, purulent drainage. Airway patent. NECK: Trachea midline. Non tender CARDIOVASCULAR: Regular rate and rhythm without murmurs, gallops, or rubs. RESPIRATORY: Clear to auscultation. Breath sounds equal bilaterally. No wheezes, rales, or rhonchi. GASTROINTESTINAL: Abdomen soft, non-tender, nondistended. EXTREMITIES: On the right dorsum of the hand approximately middle there is a open surgical wound that has some associated heat and mild erythema surrounding it as well as some mild generalized swelling. The bilateral feet and ankles have mild swelling more prominent on the left and there is 2+ pitting edema bilaterally. Pulses are intact bilaterally. No other edema or joint tenderness. NEURO: AOx3. SKIN: Patient's cheeks are slightly flushed appearing/possible mild rosacea No rash or erythema of visible areas Initial Vital Signs Initial Vital Signs: Vital Signs Temperature 99.0 F 04/30/23 10:23 Pulse Rate 74 04/30/23 10:23 Respiratory Rate 15 04/30/23 10:23 Blood Pressure 175/77 H 04/30/23 10:23 Pulse Oximetry 98 04/30/23 10:23 Oxygen Delivery Method Room Air 04/30/23 10:23 <Supa Tse MD - Last Filed: 05/01/23 08:10> Initial Vital Signs Initial Vital Signs: Vital Signs Temperature 99.0 F 04/30/23 10:23 Pulse Rate 74 04/30/23 10:23 Respiratory Rate 15 04/30/23 10:23 Blood Pressure 175/77 H 04/30/23 10:23 Pulse Oximetry 98 04/30/23 10:23 Oxygen Delivery Method Room Air 04/30/23 10:23 Course <Seema Haynes PA-C - Last Filed: 04/30/23 19:46> Course Course Narrative: Patient told me that she saw Dr. Ayala who checked on her in the lobby of the ER today regarding her cat bite and heard him mention possibly IV antibiotics. But that he talked to the attending physician. Called attending physician Dr. Tse who advises that Dr. Betts did not feel that the patient needs IV antibiotics but would like her antibiotics changed as he does not believe the Augmentin is very effective and he is concerned that she needs to be switched. We discussed options and plan to do clindamycin and doxycycline both. Did call Dr. Ramesh ETIENNE and he is currently in surgery but will call back and we will confirm with him. Per Dr. Jack he also requested patient be placed on gabapentin 300 mg TID. [address] Ayala and advised of negative DVT ultrasound, he agrees with plan for switching to clinda and doxy and does request she be placed on gabapentin 300 mg TID. 1253 Orders Ordered: Discontinued Medications Clindamycin HCl (Clindamycin 150 Mg Capsule) 300 mg PO NOW ONE Stop: 04/30/23 12:53 Last Admin: 04/30/23 13:13 Dose: 300 mg Documented By: AMBROSIO Doxycycline Hyclate (Doxycycline Hyclate 100 Mg Tablet) 100 mg PO NOW ONE Stop: 04/30/23 12:54 Last Admin: 04/30/23 13:13 Dose: 100 mg Documented By: AMBROSIO Vital Signs Vital signs: Vital Signs - 8 hr 04/30/23 13:14 Temperature 97.7 F Pulse Rate 74 Respiratory Rate 17 Blood Pressure 190/83 H Pulse Oximetry 97 Oxygen Delivery Method Room Air <Supa Tse MD - Last Filed: 05/01/23 08:10> Orders Ordered: Discontinued Medications Clindamycin HCl (Clindamycin 150 Mg Capsule) 300 mg PO NOW ONE Stop: 04/30/23 12:53 Last Admin: 04/30/23 13:13 Dose: 300 mg Documented By: RL Doxycycline Hyclate (Doxycycline Hyclate 100 Mg Tablet) 100 mg PO NOW ONE Stop: 04/30/23 12:54 Last Admin: 04/30/23 13:13 Dose: 100 mg Documented By: RL Vital Signs Vital signs: Vital Signs - 8 hr 04/30/23 13:14 Temperature 97.7 F Pulse Rate 74 Respiratory Rate 17 Blood Pressure 190/83 H Pulse Oximetry 97 Oxygen Delivery Method Room Air MDM - Extremity (Nontraumatic) <Seema Haynes PA-C - Last Filed: 04/30/23 19:46> Differential Diagnosis Differential diagnosis: Likely gout, cellulitis, deep venous thrombosis of upper extremity, lower extremity edema and other (CHF) Medical Records Attestation: I reviewed the patient's medical records. Lab Data Attestation: I reviewed the patient's lab results. 04/30/23 11:53 04/30/23 11:53 Labs: Lab Results 04/30/23 Range/Units 11:53 WBC 9.9 (4.5-11.0) X10^3/uL RBC 3.93 L (4.0-5.2) X10^6/uL Hgb 11.5 L (12.0-16.0) g/dL Hct 34.4 L (36-46) % MCV 87.7 (80-100) fL MCH 29.2 (26-34) PG MCHC 33.3 (30-36) % RDW 13.5 (11.6-14.8) % Plt Count 326 (150-400) X10^3/uL Neut % (Auto) 81.9 H (50-75) % Lymph % (Auto) 11.6 L (25-40) % Alfalfa % (Auto) 5.4 (3-14) % Eos % (Auto) 0.3 L (2-4) % Baso % (Auto) 0.8 (0-2) % Neut # (Auto) 8100 H (1985-6182) /uL Lymph # (Auto) 1100 (1441-5568) /uL Alfalfa # (Auto) 500 (0-900) /uL Eos # (Auto) 0 (0-450) /uL Baso # (Auto) 100 (0-100) /uL Sodium 140 (137-145) mmol/L Potassium 3.8 (3.4-5.1) mmol/L Chloride 106 (98-107) mmol/L Carbon Dioxide 26 (22-32) mmol/L BUN 16 (7-17) mg/dL Creatinine 0.61 (0.52-1.04) mg/dL Estimated GFR > 60 (>60) mL/min BUN/Creatinine Ratio 26.2 H (6-22) Glucose 109 (80-110) mg/dL Calcium 9.2 (8.4-10.2) mg/dL Total Bilirubin 0.4 (0.2-1.3) mg/dL AST 28 (14-36) IU/L ALT 20 (<35) IU/L Alkaline Phosphatase 67 (38-126) U/L Total Creatine Kinase 63 (30-135) U/L Troponin I < 0.012 (0.01-0.034) ng/mL NT-Pro-B Natriuret Pep 306 (<450) pg/mL Total Protein 7.3 (6.3-8.2) g/dL Albumin 4.0 (3.5-5.0) g/dL Globulin 3.3 (1.7-4.1) g/dL Albumin/Globulin Ratio 1.2 (1.0-2.8) Urine Dip Bedside Urine Glucose Negative Bedside Urine Bilirubin - Negative Bedside Urine Ketone - Negative Urine Specific [place] 1.015 Bedside Urine Occult Blood - Negative Bedside Urine pH 7.0 Bedside Urine Protein - Negative Bedside Urine Urobilinogen - Negative Bedside Urine Nitrite - Negative Bedside Urine Leukocytes - Negative Esterase Imaging Data US - DVT: My Impression: Agree with Radiology interpretation Radiologist's Impression: [address] [address] Ultrasound Report Signed Patient: Kaylee Bunn I MR#: [id number] : 1940 Acct:[id number] Age/Sex: 82 / F Date of Service: 04/30/23 Loc: ED Accession Number: [id number] Procedure: US perip venous low extrem lt Ordering Provider: Supa Tse MD PROCEDURE: PERIP VENOUS LOW EXTREM LT INDICATIONS: leg swelling TECHNIQUE: Real-time imaging, as well as color and pulse Doppler interrogation, were performed of the lower extremity deep veins from the inguinal ligament to the popliteal fossa, with documentation of the visualized calf veins. COMPARISON: None. FINDINGS: The common femoral, femoral, popliteal, and the visualized calf veins are normally compressible, and free of intraluminal thrombus. Color and pulse Doppler demonstrate normal phasic intraluminal flow. There is normal augmentation response to distal compression maneuver. IMPRESSION: No findings of lower extremity deep venous thrombosis. Dictated by: Mari Caro M.D. on 04/30/2023 at 11:31 Approved by: Mari Caro M.D. on 04/30/2023 at 11:31 Chest x-ray: My Impression: Agree with Radiology interpretation Radiologist's Impression: [address] [address] XRay Report Signed Patient: Kaylee Bunn I MR#: [id number] : 1940 Acct:[id number] Age/Sex: 82 / F Date of Service: 04/30/23 Loc: ED Accession Number: [id number] Procedure: XR chest 1V Ordering Provider: Seema Haynes P.A-C PROCEDURE: XR CHEST 1V INDICATIONS: chest pain TECHNIQUE: One view of the chest was acquired. COMPARISON: [facility], , XR CHEST 2V, 11/02/2017, 12:34. FINDINGS: Surgical changes and devices: Patient has undergone interval right shoulder arthroplasty when compared with the plain film dated November 02, 2017. Lungs and pleura: Lungs are clear. No pleural effusions or pneumothorax. Mediastinum: Mediastinal contours appear normal. Heart size is normal. Bones and chest wall: No suspicious bony lesions. Overlying soft tissues appear unremarkable. IMPRESSION: No acute cardiopulmonary abnormality is seen. Dictated by: Mair Caro M.D. on 04/30/2023 at 12:47 Approved by: Mari Caro M.D. on 04/30/2023 at 12:47 ECG Data Attestation EKG: I personally reviewed and interpreted this ECG as follows: Interpretation: Heart rate 71, normal sinus rhythm with sinus arrhythmia no ST changes or ectopy noted QTC 445 milliseconds MDM Narrative Medical decision making narrative: 82-year-old female with history of hypertension, infected cat bite of the hand, presents with concern for left lower extremity swelling ultimately both lower extremity swelling recently. Given that patient has pitting edema pursue cardiac workup with evaluation including chest x-ray labs to include BNP. These returned unremarkable. Ultrasound to evaluate for DVTs negative. Patient does have clear lung sounds denies chest pain or shortness of breath with exertion. Cause of her lower extremity edema is unclear, she also came in today with concern for worsening of her cat bite infection site that she was previously admitted for where she had an I and D performed by Orthopedics. Orthopedics actually saw this patient today in the lobby before she came into the ER and spoke with the attending physician regarding her situation recommended change of oral antibiotics but does not feel she needs IV antibiotics based on her exam. Patient is switched to doxycycline and clindamycin and Augmentin is stopped. Return precautions provided, follow-up plan discussed, all questions answered. <Supa Tse MD - Last Filed: 05/01/23 08:10> Lab Data Labs: Lab Results 04/30/23 Range/Units 11:53 WBC 9.9 (4.5-11.0) X10^3/uL RBC 3.93 L (4.0-5.2) X10^6/uL Hgb 11.5 L (12.0-16.0) g/dL Hct 34.4 L (36-46) % MCV 87.7 (80-100) fL MCH 29.2 (26-34) PG MCHC 33.3 (30-36) % RDW 13.5 (11.6-14.8) % Plt Count 326 (150-400) X10^3/uL Neut % (Auto) 81.9 H (50-75) % Lymph % (Auto) 11.6 L (25-40) % Alfalfa % (Auto) 5.4 (3-14) % Eos % (Auto) 0.3 L (2-4) % Baso % (Auto) 0.8 (0-2) % Neut # (Auto) 8100 H (0527-4399) /uL Lymph # (Auto) 1100 (8538-3636) /uL Alfalfa # (Auto) 500 (0-900) /uL Eos # (Auto) 0 (0-450) /uL Baso # (Auto) 100 (0-100) /uL Sodium 140 (137-145) mmol/L Potassium 3.8 (3.4-5.1) mmol/L Chloride 106 (98-107) mmol/L Carbon Dioxide 26 (22-32) mmol/L BUN 16 (7-17) mg/dL Creatinine 0.61 (0.52-1.04) mg/dL Estimated GFR > 60 (>60) mL/min BUN/Creatinine Ratio 26.2 H (6-22) Glucose 109 (80-110) mg/dL Calcium 9.2 (8.4-10.2) mg/dL Total Bilirubin 0.4 (0.2-1.3) mg/dL AST 28 (14-36) IU/L ALT 20 (<35) IU/L Alkaline Phosphatase 67 (38-126) U/L Total Creatine Kinase 63 (30-135) U/L Troponin I < 0.012 (0.01-0.034) ng/mL NT-Pro-B Natriuret Pep 306 (<450) pg/mL Total Protein 7.3 (6.3-8.2) g/dL Albumin 4.0 (3.5-5.0) g/dL Globulin 3.3 (1.7-4.1) g/dL Albumin/Globulin Ratio 1.2 (1.0-2.8) Urine Dip Bedside Urine Glucose Negative Bedside Urine Bilirubin - Negative Bedside Urine Ketone - Negative Urine Specific [place] 1.015 Bedside Urine Occult Blood - Negative Bedside Urine pH 7.0 Bedside Urine Protein - Negative Bedside Urine Urobilinogen - Negative Bedside Urine Nitrite - Negative Bedside Urine Leukocytes - Negative Esterase Discharge Plan Departure Patient Disposition: Home Clinical Impression: Bilateral lower extremity edema Infected cat bite of hand Qualifiers: Encounter type: subsequent encounter Laterality: right Qualified Code(s): S 61.451D - Open bite of right hand, subsequent encounter Activity Restrictions/Additional Instructions: *You have been diagnosed with [lower extremity edema, mild, cat bite infection] *What to do: *Please continue to take your regular medications as directed. [2 ] New medication prescriptions sent to your pharmacy: [Clindamycin, doxycycline, gabapentin] [ ] New medication written as a paper prescription [ ] No new medications given *Please follow up with your primary care provider in 2-3 days, call for an appointment. Let them know you were seen in the Emergency Department and that we ask that you be seen in follow up. We will electronically transmit a record of today's note if your PCP is in our system. Spoke with your orthopedic surgeon who performed her incision and drainage of your CAT bite site and based on his exam today he thinks it is reasonable to switch you to a different oral antibiotic, I would like you to stop taking the Augmentin medication and instead start taking clindamycin and doxycycline which I have prescribed. He also recommended placing you on a medication called gabapentin which will hopefully help with your tingling sensation in your feet. You do need to take both of the antibiotics as prescribed for the full course and continue with her home treatments for the wound as requested by your orthopedic provider. Do continue to monitor for increasing pain redness swelling or any drainage from the wound and make sure that you discuss this with him or seek re-evaluation in the emergency department if needed. Regarding your lower extremity swelling we performed an ultrasound of your left leg which has more swelling than the right and this was negative for any evidence of blood clot. Your exam was notable for some pitting edema in her ankles and feet and I did go ahead and do some cardiac evaluation and labs as well as checks x-ray and EKG as sometimes this type of swelling can be related to the heart not working well. All of this looked good and I do not find evidence of this today. If your swelling worsens please seek re-evaluation, otherwise I would encourage you to consider wearing compression stockings and do continue with elevation of both legs whenever you are sitting and at rest. *If you do not have a primary care provider please contact the [facility] Resource line at [phone]. They will ask some questions about your medical history and help get you set up with a doctor in the community. *Return to Emergency Department if you should have any new, worsening or concerning symptoms, such as [fever greater than 101 F, shaking chills, worsening pain, persistent vomiting or other bothersome symptoms] Prescriptions: New clindamycin HCl 300 mg capsule 300 mg PO Q8H 10 Days Qty: 30 0RF doxycycline hyclate 100 mg capsule 100 mg PO BID 10 Days Qty: 20 0RF gabapentin 300 mg capsule 300 mg PO TID 10 Days Qty: 30 1RF No Action amoxicillin-pot clavulanate 875-125 mg tablet 1 tab PO BID Qty: 20 0RF fluconazole 150 mg tablet 150 mg PO Q3D Qty: 2 0RF (DME) Disabled Parking Permit See Rx Instructions .ROUTE .MEDSUPPLY Qty: 1 0RF Rx Instructions: Patient qualifies for disabled parking as per the attached form. hydrocodone-acetaminophen 5-325 mg tablet 1 tab PO Q4-6H PRN (Reason: severe pain) ibuprofen 400 mg tablet 400 mg PO Q4-6H PRN (Reason: Pain (Scale Score 1-3)) amoxicillin-pot clavulanate 875-125 mg tablet 1 tab PO Q12H 10 Days Qty: 20 0RF chlorhexidine gluconate [Hibiclens] 4 % liquid 1 applic topical TID 10 Days Qty: 946 0RF Rx Instructions: soak TID for 10 days, each soak for 20 min polyethylene glycol 3350 [Miralax] 17 gram/dose powder 17 gram PO PRN PRN (Reason: Constipation) lisinopril 10 mg tablet 10 mg PO QPM PreserVision AREDS-2 250-90-40-1 mg capsule 1 tab PO BID diltiazem HCl 180 mg capsule,extended release 24hr 180 mg PO DAILY Referrals: Meli Fraser MD [Primary Care Provider] - Stand Alone Forms: Patient Portal/API ED Sign-out <Supa Tse MD - Last Filed: 05/01/23 08:10> Cosign ED Attending Cosignature Attestation: was immediately available in the department for consultation. ?This documentation has been reviewed and I agree with assessment and plan. Supervised by Supa Tse MD
--- NOTE | 2023-04-30 11:44 | DI.RAD.S_ITS ---
PROCEDURE: XR CHEST 1V INDICATIONS: chest pain TECHNIQUE: One view of the chest was acquired. COMPARISON: [facility], , XR CHEST 2V, 11/02/2017, 12:34. FINDINGS: Surgical changes and devices: Patient has undergone interval right shoulder arthroplasty when compared with the plain film dated November 02, 2017. Lungs and pleura: Lungs are clear. No pleural effusions or pneumothorax. Mediastinum: Mediastinal contours appear normal. Heart size is normal. Bones and chest wall: No suspicious bony lesions. Overlying soft tissues appear unremarkable. IMPRESSION: No acute cardiopulmonary abnormality is seen. Dictated by: Mari Caro M.D. on 04/30/2023 at 12:47 Approved by: Mari Caro M.D. on 04/30/2023 at 12:47
[2023-04-30 12:04] LABS: Add Manual Diff / Slide Review NO; Basophils Absolute Auto 100 /uL (0-100); Basophils Percent Auto 0.8 % (0-2); Eosinophils Absolute Auto 0 /uL (0-450); Eosinophils Percent Auto 0.3 % (2-4); Hematocrit 34.4 % (36-46); Hemoglobin 11.5 g/dL (12.0-16.0); Lymphocytes Absolute Auto 1100 /uL (1100-4500); Lymphocytes Percent Auto 11.6 % (25-40); Mean Corpuscular HGB Conc 33.3 % (30-36); Mean Corpuscular Hemoglobin 29.2 PG (26-34); Mean Corpuscular Volume 87.7 fL (80-100); Monocytes Absolute Auto 500 /uL (0-900); Monocytes Percent Auto 5.4 % (3-14); Neutrophils Absolute Auto 8100 /uL (1500-7000); Neutrophils Percent Auto 81.9 % (50-75); Platelet Count 326 X10^3/uL (150-400); Red Blood Cell Count 3.93 X10^6/uL (4.0-5.2); Red Cell Distribution Width 13.5 % (11.6-14.8); White Blood Cell Count 9.9 X10^3/uL (4.5-11.0)
[2023-04-30 12:20] LABS: Alanine Aminotransferase 20 IU/L (<35); Albumin Globulin Ratio 1.2 (1.0-2.8); Alkaline Phosphatase 67 U/L (38-126); Aspartate Aminotransferase 28 IU/L (14-36); BUN Creatinine Ratio 26.2 (6-22); Bilirubin Total 0.4 mg/dL (0.2-1.3); Blood Urea Nitrogen 16 mg/dL (7-17); Calcium 9.2 mg/dL (8.4-10.2); Carbon Dioxide 26 mmol/L (22-32); Chloride 106 mmol/L (98-107); Creatine Kinase 63 U/L (30-135); Estimated Glomerular Filt Rate > 60 mL/min (>60); Globulin 3.3 g/dL (1.7-4.1); Glucose 109 mg/dL (80-110); HEMOLYSIS < 15 (0-50); Potassium 3.8 mmol/L (3.4-5.1); Sodium 140 mmol/L (137-145); Total Protein 7.3 g/dL (6.3-8.2)
[2023-04-30 12:27] LABS: NT-proBNP (BNP-Adult 18+) 306 pg/mL (<450)
[2023-04-30 12:30] LABS: Troponin I < 0.012 ng/mL (0.01-0.034)
[2023-04-30] MEDS: CLINDAMYCIN 150 MG CAPSULE 300 MG PO (13:13)
[2023-04-30] MEDS: DOXYCYCLINE HYCLATE 100 MG TABLET PO (13:13)
[2023-04-30 13:14] VITALS: BP 190/83; PULSE 74; RESP 17; TEMP 36.5; O2SAT 97
== END 2023-04-30 13:30 | disposition home or self-care (01) ==
PROVIDERS: Emergency Provider Student in an Organized Health Care Education/Training Program; PCP Family Medicine
DX: R60.0 Localized edema (principal); R07.9 Chest pain, unspecified; S61.451D Open bite of right hand, subsequent encounter; W55.01XD Bitten by cat, subsequent encounter
CPT/HCPCS: 36415; 71045; 80053; 81003; 82550; 83880; 84484; 85025; 93005; 93010; 93971; 99284

== ENCOUNTER → 2023-05-07 08:22 | Outpatient (CLI) | payer MEDICARE, OTHER, SELFPAY ==
[2023-04-20 10:39] VITALS: BMI 22.3
== END ==
LOC: WC 08:49
PROVIDERS: PCP Family Medicine; Referring Provider Orthopaedic Surgery; Visit Provider Surgery
DX: T81.89XA Other complications of procedures, not elsewhere classified, initial encounter (principal); S61.401A Unspecified open wound of right hand, initial encounter; L08.89 Other specified local infections of the skin and subcutaneous tissue; I10 Essential (primary) hypertension; R60.0 Localized edema; L53.9 Erythematous condition, unspecified
CPT/HCPCS: 11042; 99203; 99213

== ENCOUNTER → 2023-05-14 09:51 | Outpatient (CLI) | payer MEDICARE, OTHER, SELFPAY ==
[2023-04-20 10:39] VITALS: BMI 22.3
== END ==
LOC: WC 09:52
PROVIDERS: PCP Family Medicine; Referring Provider Orthopaedic Surgery; Visit Provider Surgery
DX: T81.89XA Other complications of procedures, not elsewhere classified, initial encounter (principal); S61.401A Unspecified open wound of right hand, initial encounter; L98.8 Other specified disorders of the skin and subcutaneous tissue; R60.0 Localized edema; L53.9 Erythematous condition, unspecified
CPT/HCPCS: 11042; 99213

== ENCOUNTER → 2023-05-21 10:11 | Outpatient (CLI) | payer MEDICARE, OTHER, SELFPAY ==
[2023-04-20 10:39] VITALS: BMI 22.3
== END ==
LOC: WC 10:12
PROVIDERS: PCP Family Medicine; Referring Provider Orthopaedic Surgery; Visit Provider Nurse Practitioner Family
DX: T81.89XA Other complications of procedures, not elsewhere classified, initial encounter (principal); S61.401A Unspecified open wound of right hand, initial encounter; L98.8 Other specified disorders of the skin and subcutaneous tissue; R60.0 Localized edema; L53.9 Erythematous condition, unspecified; I10 Essential (primary) hypertension
CPT/HCPCS: 97597; 99214

== ENCOUNTER → 2023-05-28 09:06 | Outpatient (CLI) | payer MEDICARE, OTHER, SELFPAY ==
[2023-04-20 10:39] VITALS: BMI 22.3
== END ==
LOC: WC 09:07
PROVIDERS: PCP Family Medicine; Referring Provider Orthopaedic Surgery; Visit Provider Surgery
DX: T81.89XA Other complications of procedures, not elsewhere classified, initial encounter (principal); S61.401A Unspecified open wound of right hand, initial encounter; L98.8 Other specified disorders of the skin and subcutaneous tissue; R60.0 Localized edema; L53.9 Erythematous condition, unspecified; M25.641 Stiffness of right hand, not elsewhere classified; I10 Essential (primary) hypertension
CPT/HCPCS: 11042

== ENCOUNTER → 2023-06-04 14:57 | Outpatient (CLI) | payer MEDICARE, OTHER, SELFPAY ==
[2023-04-20 10:39] VITALS: BMI 22.3
== END ==
PROVIDERS: PCP Family Medicine; Referring Provider Orthopaedic Surgery; Visit Provider Surgery
DX: T81.89XA Other complications of procedures, not elsewhere classified, initial encounter (principal); S61.401A Unspecified open wound of right hand, initial encounter; L98.8 Other specified disorders of the skin and subcutaneous tissue; R60.0 Localized edema; M25.641 Stiffness of right hand, not elsewhere classified; I10 Essential (primary) hypertension
CPT/HCPCS: 11042; 99212; 99213

== ENCOUNTER → 2023-06-11 09:14 | Outpatient (CLI) | payer MEDICARE, OTHER, SELFPAY ==
[2023-04-20 10:39] VITALS: BMI 22.3
== END ==
LOC: WC 06-12 09:15
PROVIDERS: PCP Family Medicine; Referring Provider Orthopaedic Surgery; Visit Provider Surgery
DX: T81.89XA Other complications of procedures, not elsewhere classified, initial encounter (principal); S61.401A Unspecified open wound of right hand, initial encounter; L98.8 Other specified disorders of the skin and subcutaneous tissue; R60.0 Localized edema; I10 Essential (primary) hypertension
CPT/HCPCS: 11042

== ENCOUNTER → 2023-06-18 12:47 | Outpatient (CLI) | payer MEDICARE, OTHER, SELFPAY ==
[2023-04-20 10:39] VITALS: BMI 22.3
== END ==
PROVIDERS: PCP Family Medicine; Referring Provider Orthopaedic Surgery; Visit Provider Surgery
DX: T81.89XA Other complications of procedures, not elsewhere classified, initial encounter (principal); S61.401A Unspecified open wound of right hand, initial encounter; L98.8 Other specified disorders of the skin and subcutaneous tissue; R60.0 Localized edema
CPT/HCPCS: 15275; Q4159

== ENCOUNTER → 2023-06-25 09:47 | Outpatient (CLI) | payer MEDICARE, OTHER, SELFPAY ==
[2023-04-20 10:39] VITALS: BMI 22.3
== END ==
LOC: WC 09:49
PROVIDERS: PCP Family Medicine; Referring Provider Orthopaedic Surgery; Visit Provider Surgery
DX: T81.89XA Other complications of procedures, not elsewhere classified, initial encounter (principal); S61.401A Unspecified open wound of right hand, initial encounter; L98.8 Other specified disorders of the skin and subcutaneous tissue; R60.0 Localized edema; I10 Essential (primary) hypertension
CPT/HCPCS: 15275; 99213; Q4159

== ENCOUNTER → 2023-07-02 10:18 | Outpatient (CLI) | payer MEDICARE, OTHER, SELFPAY ==
[2023-04-20 10:39] VITALS: BMI 22.3
== END ==
LOC: WC 10:32
PROVIDERS: PCP Family Medicine; Referring Provider Orthopaedic Surgery; Visit Provider Surgery
DX: T81.89XA Other complications of procedures, not elsewhere classified, initial encounter (principal); S61.401A Unspecified open wound of right hand, initial encounter; L98.8 Other specified disorders of the skin and subcutaneous tissue; R60.0 Localized edema; W55.01XA Bitten by cat, initial encounter; M79.641 Pain in right hand
CPT/HCPCS: 99213

== ENCOUNTER → 2023-07-09 08:35 | Outpatient (CLI) | payer MEDICARE, OTHER, SELFPAY ==
[2023-04-20 10:39] VITALS: BMI 22.3
== END ==
PROVIDERS: PCP Family Medicine; Referring Provider Orthopaedic Surgery; Visit Provider Surgery
DX: T81.89XD Other complications of procedures, not elsewhere classified, subsequent encounter (principal); S61.401D Unspecified open wound of right hand, subsequent encounter; W55.01XD Bitten by cat, subsequent encounter; R60.0 Localized edema
CPT/HCPCS: 99213

== ENCOUNTER → 2023-07-16 09:25 | Outpatient (CLI) | payer MEDICARE, OTHER, SELFPAY ==
[2023-04-20 10:39] VITALS: BMI 22.3
== END ==
LOC: WC 09:26
PROVIDERS: PCP Family Medicine; Referring Provider Orthopaedic Surgery; Visit Provider Surgery
DX: T81.89XD Other complications of procedures, not elsewhere classified, subsequent encounter (principal); S61.401D Unspecified open wound of right hand, subsequent encounter
CPT/HCPCS: 99212; 99213

== ENCOUNTER 2024-01-12 12:54 | Emergency (ER) | payer MEDICARE, OTHER, SELFPAY ==
[2023-04-20 10:39] VITALS: BMI 22.3
[2024-01-12] VITALS (11 sets, daily range): BP systolic 118–179; BP diastolic 56–77; PULSE 65–76; RESP 19–29; TEMP 36.6; O2SAT 98–99; BMI 21.4
[2024-01-12 13:43] LABS: Add Manual Diff / Slide Review NO; Basophils Absolute Auto 100 /uL (0-100); Basophils Percent Auto 0.9 % (0-2); Eosinophils Absolute Auto 0 /uL (0-450); Eosinophils Percent Auto 0.4 % (2-4); Hematocrit 31.9 % (36-46); Hemoglobin 10.7 g/dL (12.0-16.0); Lymphocytes Absolute Auto 1700 /uL (1100-4500); Lymphocytes Percent Auto 24.7 % (25-40); Mean Corpuscular HGB Conc 33.7 % (30-36); Mean Corpuscular Hemoglobin 30.8 PG (26-34); Mean Corpuscular Volume 91.5 fL (80-100); Monocytes Absolute Auto 600 /uL (0-900); Monocytes Percent Auto 8.8 % (3-14); Neutrophils Absolute Auto 4400 /uL (1500-7000); Neutrophils Percent Auto 65.2 % (50-75); Platelet Count 270 X10^3/uL (150-400); Prothrombin Time 11.3 SECONDS (9.4-12.5); Red Blood Cell Count 3.49 X10^6/uL (4.0-5.2); Red Cell Distribution Width 13.4 % (11.6-14.8); White Blood Cell Count 6.7 X10^3/uL (4.5-11.0)
[2024-01-12 13:46] LABS: PTT Partial Thromboplastin Tim 26 SECONDS (25.1-36.5)
[2024-01-12 13:53] LABS: Alanine Aminotransferase 16 IU/L (<35); Albumin 4.2 g/dL (3.5-5.0); Albumin Globulin Ratio 1.5 (1.0-2.8); Alkaline Phosphatase 60 U/L (38-126); Aspartate Aminotransferase 28 IU/L (14-36); BUN Creatinine Ratio 23.2 (6-22); Bilirubin Total 0.7 mg/dL (0.2-1.3); Blood Urea Nitrogen 22 mg/dL (7-17); Calcium 9.2 mg/dL (8.4-10.2); Carbon Dioxide 27 mmol/L (22-32); Chloride 105 mmol/L (98-107); Estimated Glomerular Filt Rate > 60 mL/min (>60); Globulin 2.8 g/dL (1.7-4.1); Glucose 130 mg/dL (80-110); HEMOLYSIS < 15 (0-50); Potassium 4.2 mmol/L (3.4-5.1); Sodium 138 mmol/L (137-145)
--- NOTE | 2024-01-12 13:59 | ED_ITS ---
HPI - Recheck/Abnormal Lab/Rx General Chief Complaint: Recheck/Abnormal Lab/Rx Stated Complaint: had hematoma r wrist to armpit Time Seen by Provider: 01/12/24 13:59 Source: patient Mode of arrival: Family Vehicle History of Present Illness HPI narrative: 83-year-old female with known coronary artery disease who had drug-eluting stent placed in the proximal/mid LAD and dilation of the distal segment on 01/08/2024. Patient had axis via her right radial artery and then right common femoral artery. Patient states she has had issues with bruising and actually developed some issues with clot and a back surgery in the past. States that she developed bruising immediately during or after the procedure has had persistent bruising in the hand and wrist traveling up her arm. She also has bruising in the groin and some at where her IV site was on the left arm. Patient states she has not had any other atypical bleeding. She states she does not normally bruise up inappropriately. She states she did receive anticoagulants she believes during the procedure. She was also started on Plavix and aspirin daily which she has been taking. Presents today as it is still little bit swollen and she noticed a little bit more of a lump by the wrist. States it is painful but able to move normally. No warmth or erythema, no drainage. No fevers. No numbness tingling or weakness. No cold or pallor or blue discoloration. Patient states she has bruising of the right femoral region but has not really been bothersome. Denies any other symptoms. Related Data Home Medications Medication Instructions Recorded Confirmed polyethylene glycol 3350 17 17 gram PO PRN PRN Constipation 11/02/17 04/24/23 gram/dose oral powder (Miralax) diltiazem HCl 180 mg 180 mg PO DAILY 01/22/22 04/24/23 capsule,extended release 24 hr vit C 250 mg-vit E 90 mg-zinc 40 1 tab PO BID Macular degeneration 01/22/22 04/24/23 mg-copper 1 [id number]-cmwour-ewavtr (Dry) capsule (PreserVision AREDS-2) hydrocodone 5 mg-acetaminophen 325 1 tab PO Q4-6H PRN severe pain 04/20/23 04/24/23 mg tablet ibuprofen 400 mg tablet 400 mg PO Q4-6H PRN Pain (Scale 04/20/23 04/24/23 Score 1-3) Previous Rx's Medication Instructions Recorded Disabled Parking Permit #1 ea 01/07/22 amoxicillin 875 mg-potassium 1 tab PO BID #20 tabs 04/19/23 clavulanate 125 mg tablet fluconazole 150 mg tablet 150 mg PO Q3D 2 doses #2 tabs 04/28/23 gabapentin 300 mg capsule 300 mg PO TID neuropathy 10 days 04/30/23 #30 caps Ensure dietary supplement #48 ea 05/11/23 lisinopril 10 mg tablet 10 mg PO QPM #90 tabs 07/08/23 Allergies Allergy/AdvReac Type Severity Reaction Status Date / Time ciprofloxacin [From CIPRO] Allergy Severe swelling Verified 04/30/23 10:23 levofloxacin [LEVOFLOXACIN] Allergy Severe severe Verified 04/30/23 10:23 mouth and eye swelling indomethacin [INDOMETHACIN] AdvReac Severe Headaches Verified 04/30/23 10:23 meloxicam [MELOXICAM] AdvReac Severe Headaches Verified 04/30/23 10:23 trandolapril [TRANDOLAPRIL] AdvReac Severe Headaches Verified 04/30/23 10:23 Ucrggrv-[id number]-AfU Reductase AdvReac Muscle Pain Verified 04/30/23 10:23 Inhibitor Review of Systems Review of Systems ROS Unobtainable: All systems reviewed & are unremarkable except as noted in HPI and below Patient History Medical History Osteopenia Rheumatic fever IBS (irritable bowel syndrome) Osteoarthritis HTN (hypertension) Anesthesia complication Depression History of COVID-19 (02/2022) Scoliosis (and kyphoscoliosis), idiopathic SVT (supraventricular tachycardia) 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 Cervical facet joint syndrome Diverticular disease Spinal stenosis PVCs (premature ventricular contractions) Surgical History Hx of tonsillectomy Hx of bilateral cataract extraction Hx of hemorrhoidectomy Hx of decompressive lumbar laminectomy (08/01/15) Status post hysterectomy with oophorectomy Family History Mother Pancreatic cancer Social History marital status: number of children: 0 household members: none lives independently: Yes caregiver/support person: No housing: house Smoking Status: Never smoker second hand exposure: No alcohol intake: current substance use type: does not use Smoking Status: Never smoker alcohol intake frequency: holidays/special occasions only Substance Use Type: does not use Exam Narrative Exam Narrative: GENERAL: Alert and oriented x three, well-appearing elderly female in mild distress HEENT: Head normocephalic, atraumatic, EOMI, pupils reactive, face symmetric, moist mucous membranes NECK: Supple, full range of motion CARDIOVASCULAR: Regular rate and rhythm without murmurs, rubs or gallops. RESPIRATORY: Breath sounds equal bilaterally, no wheezes rales or rhonchi. ABDOMEN: Soft, nontender. Normoactive bowel sounds all 4 quadrants. No guarding or rebound, rigidity, no mass : No CVA tenderness EXTREMITIES: Normal range of motion, no clubbing. Patient ecchymosis of the left AC, patient also has ecchymosis of the right wrist extending over the dorsum and palmar side of the hand and extending up the arm just beyond her elbow. Patient does have some marking on the area from when she was in the hospital on 1025. Keppra fell is less than 2 seconds in all 5 fingers. Patient has full range of motion. No bony tenderness. No pallor or cyanosis. 2+ radial pulse bilaterally. 5/5 muscle strength upper and lower extremities with normal sensation throughout. Patient also has ecchymosis of the right groin extends a little bit into the pudendal area. NEUROLOGICAL: Cranial nerves II through XII grossly intact. Moving all extremities SKIN: Warm, dry, no petechiae, no rashes or lesions otherwise noted. Initial Vital Signs Initial Vital Signs: Vital Signs Blood Pressure 179/77 H 01/12/24 13:12 Course Orders Ordered: ED Orders 01/12/24 13:28 Complete Blood Count AUTO DIFF Stat Comprehensive Metabolic Panel Stat PTT Partial Thromboplastin Paulie Stat Prothrombin Time INR Stat 01/12/24 14:20 US periph venous up extrem rt Stat Vital Signs Vital signs: Vital Signs - 8 hr 01/12/24 13:12 01/12/24 13:13 01/12/24 13:16 Temperature 97.9 F Pulse Rate 76 68 Respiratory Rate 25 H 28 H Blood Pressure 179/77 H 179/77 H Pulse Oximetry 99 98 Oxygen Delivery Method Room Air 01/12/24 13:30 01/12/24 13:31 01/12/24 13:31 Temperature Pulse Rate 74 73 Respiratory Rate 24 25 H Blood Pressure 143/65 H Pulse Oximetry 99 98 Oxygen Delivery Method Room Air 01/12/24 14:00 01/12/24 14:00 01/12/24 14:30 Temperature Pulse Rate 65 66 Respiratory Rate 29 H Blood Pressure 118/56 L Pulse Oximetry 99 99 Oxygen Delivery Method 01/12/24 14:30 01/12/24 15:00 01/12/24 15:00 Temperature Pulse Rate 68 Respiratory Rate Blood Pressure 126/60 124/59 L Pulse Oximetry 99 Oxygen Delivery Method 01/12/24 15:22 01/12/24 15:22 01/12/24 15:30 Temperature Pulse Rate 72 Respiratory Rate Blood Pressure 138/62 134/61 Pulse Oximetry 98 Oxygen Delivery Method 01/12/24 15:30 01/12/24 16:00 01/12/24 16:00 Temperature Pulse Rate 66 66 Respiratory Rate 19 25 H Blood Pressure 133/61 Pulse Oximetry 99 99 Oxygen Delivery Method MDM - Recheck/Abnormal Lab/Rx Lab Data 01/12/24 13:28 01/12/24 13:28 Labs: Lab Results 01/12/24 Range/Units 13:28 WBC 6.7 (4.5-11.0) X10^3/uL RBC 3.49 L (4.0-5.2) X10^6/uL Hgb 10.7 L (12.0-16.0) g/dL Hct 31.9 L (36-46) % MCV 91.5 (80-100) fL MCH 30.8 (26-34) PG MCHC 33.7 (30-36) % RDW 13.4 (11.6-14.8) % Plt Count 270 (150-400) X10^3/uL Neut % (Auto) 65.2 (50-75) % Lymph % (Auto) 24.7 L (25-40) % Yates % (Auto) 8.8 (3-14) % Eos % (Auto) 0.4 L (2-4) % Baso % (Auto) 0.9 (0-2) % Neut # (Auto) 4400 (5156-3911) /uL Lymph # (Auto) 1700 (4055-7636) /uL Yates # (Auto) 600 (0-900) /uL Eos # (Auto) 0 (0-450) /uL Baso # (Auto) 100 (0-100) /uL PT 11.3 (9.4-12.5) SECONDS INR 1.0 (0.9-1.3) APTT 26 (25.1-36.5) SECONDS Sodium 138 (137-145) mmol/L Potassium 4.2 (3.4-5.1) mmol/L Chloride 105 (98-107) mmol/L Carbon Dioxide 27 (22-32) mmol/L BUN 22 H (7-17) mg/dL Creatinine 0.95 (0.52-1.04) mg/dL Estimated GFR > 60 (>60) mL/min BUN/Creatinine Ratio 23.2 H (6-22) Glucose 130 H (80-110) mg/dL Calcium 9.2 (8.4-10.2) mg/dL Total Bilirubin 0.7 (0.2-1.3) mg/dL AST 28 (14-36) IU/L ALT 16 (<35) IU/L Alkaline Phosphatase 60 (38-126) U/L Total Protein 7.0 (6.3-8.2) g/dL Albumin 4.2 (3.5-5.0) g/dL Globulin 2.8 (1.7-4.1) g/dL Albumin/Globulin Ratio 1.5 (1.0-2.8) Imaging Data US - DVT: Radiologist's Impression: tor (More??) Close Peripheral Vascular Ultrasound (Signed) Mario Smith - 01/12/24 Chest X-Ray (Signed) Mari Caro - 04/30/23 Vascular Ultrasound (Signed) Mari Caro - 04/30/23 Hand X-Ray (Signed) Mic Edward - 04/20/23 Telemetry Strips 02/11/23 Shoulder X-Ray (Signed) Mari Caro - 02/11/23 Shoulder X-Ray (Cancelled) 02/11/[address] (Signed) Darshan Witt - 01/01/23 Mammogram Result 12/10/22 Shoulder MRI (Signed) Sloan Hurt - 11/20/22 Shoulder X-Ray (Signed) Darshan Witt - 10/17/22 Lumbar Spine MRI (Signed) Behzad Olsen - 02/04/22 Lumbar Spine X-Ray (Signed) EduarDarshan - 01/20/22 Mammogram Result 12/09/21 DI Result 12/06/20 Abdomen/Pelvis CT (Signed) Hugo Ivan - 10/08/20 Radiology Report (Cancelled) RobertaltheadanoElhamgilda - 04/03/20 Myocardial Perfusion Scan Nuc Med (Signed) RobertashleyElhamfloru - 04/03/20 Lumbar Spine MRI (Signed) Leon Menjivar - 02/25/20 Mammogram Result 11/14/19 Lumbar Spine MRI (Signed) Shant Austin - 05/24/19 Lumbar Spine X-Ray (Signed) Paola Calderon - 05/23/19 Facet Joint Injection X-Ray (Signed) Shant Austin - 05/23/19 Cervical Spine X-Ray (Signed) Shant Austin - 05/09/19 Knee X-Ray (Signed) John Markham - 04/11/19 DI Result 06/16/18 Echocardiogram Ultrasound (Signed) Mariola Arnett - 11/09/17 Myocardial Perfusion Scan Nuc Med (Signed) Naila Arnettu - 11/05/17 Telemetry Strips 11/02/17 Chest X-Ray (Signed) Paola Calderon - 11/02/17 Radiology Report (Cancelled) John Markham - 10/28/17 Facet Joint Injection X-Ray (Signed) John Markham - 10/28/17 Facet Joint Injection X-Ray (Cancelled) 10/28/17 [place] [address] Ultrasound Report Signed Patient: Kaylee Bunn I MR#: [id number] : 1940 Acct:[id number] Age/Sex: 83 / F Date of Service: 01/12/24 Loc: ED Accession Number: [id number] Procedure: US periph venous up extrem rt Ordering Provider: Subha Ferris D.O. PROCEDURE: US PERIPH VENOUS UP EXTREM RT INDICATIONS: swelling, bruising s/p cath, good pulses TECHNIQUE: Real-time imaging, as well as color and pulse Doppler interrogation, was performed of the upper extremity deep veins from the inferior neck to the antecubital fossa. COMPARISON: None. FINDINGS: The internal jugular vein, visualized portions of the subclavian vein, axillary, and brachial veins are free of intraluminal thrombus. Where physically possible, the veins are normally compressible. Color and pulse Doppler demonstrate normal intraluminal flow, with expected phasicity and pulsatility. Additional scanning of the cephalic and basilic veins of the superficial system demonstrates normal compressibility, without thrombus. IMPRESSION: No findings of upper extremity deep venous thrombosis can be seen. Dictated by: Mario Smith M.D. on 01/12/2024 at 14:04 Approved by: Mario Smith M.D. on 01/12/2024 at 14:05 [facility] Narrative Medical decision making narrative: 83-year-old female who has hematoma of her right wrist tracking up her arm status post cardiac catheterization into her right arm and then followed by her right femoral region. She was pursuing a both sides but more so on the right. Compartments are soft, patient does ecchymosis but no specific hematoma. Has 2+ radial pulse has good range of motion cap refill is normal with no concerns for arterial compromise. DVT seems less likely but ultrasound was ordered. Patient does note that she was someone who has bruised easily in the past and had a back surgery and did develop a hematoma and complications postsurgically in the past. She has also been taking aspirin and Plavix since her cardiac catheterization as prescribed. CBC shows a white count of 6.7 hemoglobin of 10.7 consistent with priors from April 2023 platelets are 270. INR is 1 PTT is 26. Sodium is 138 potassium 4.2 chloride 105 with a CO2 of 27 BUN 22 creatinine 0.95 glucose of 130. Upper extremity DVT ultrasound is negative. Discharge Plan Departure Patient Disposition: Home Clinical Impression: Arm bruise Activity Restrictions/Additional Instructions: Your labs today do not show any major changes, ultrasound does not show DVT prior to have good arterial flow to your hand. Suspect her bruising is secondary to your precatheterization and current anticoagulation including aspirin and Plavix. Keep a close eye if it continues to expand or change you should be re-evaluated. Please return if you have new pain, numbness tingling or weakness, rapidly worsening swelling, if you are arm is hard or increasingly swollen, any paleness or blue discoloration, redness or warmth or other new or concerning changes. Prescriptions: No Action amoxicillin-pot clavulanate 875-125 mg tablet 1 tab PO BID Qty: 20 0RF fluconazole 150 mg tablet 150 mg PO Q3D Qty: 2 0RF (DME) Disabled Parking Permit See Rx Instructions .ROUTE .MEDSUPPLY Qty: 1 0RF Rx Instructions: Patient qualifies for disabled parking as per the attached form. (DME) Ensure dietary supplement See Rx Instructions .Route .MEDSUPPLY Qty: 48 0RF Rx Instructions: 2 cases per month, 2 8 oz cans daily. lisinopril 10 mg tablet 10 mg PO QPM Qty: 90 1RF Rx Instructions: sorry about the previous script with a quantity of only 1 tablet hydrocodone-acetaminophen 5-325 mg tablet 1 tab PO Q4-6H PRN (Reason: severe pain) ibuprofen 400 mg tablet 400 mg PO Q4-6H PRN (Reason: Pain (Scale Score 1-3)) polyethylene glycol 3350 [Miralax] 17 gram/dose powder 17 gram PO PRN PRN (Reason: Constipation) gabapentin 300 mg capsule 300 mg PO TID 10 Days Qty: 30 1RF PreserVision AREDS-2 250-90-40-1 mg capsule 1 tab PO BID diltiazem HCl 180 mg capsule,extended release 24hr 180 mg PO DAILY Referrals: Meli Fraser MD [Primary Care Provider] - Stand Alone Forms: Patient Portal/API/Survey
--- NOTE | 2024-01-12 14:20 | DI.US.S_ITS ---
PROCEDURE: US PERIPH VENOUS UP EXTREM RT INDICATIONS: swelling, bruising s/p cath, good pulses TECHNIQUE: Real-time imaging, as well as color and pulse Doppler interrogation, was performed of the upper extremity deep veins from the inferior neck to the antecubital fossa. COMPARISON: None. FINDINGS: The internal jugular vein, visualized portions of the subclavian vein, axillary, and brachial veins are free of intraluminal thrombus. Where physically possible, the veins are normally compressible. Color and pulse Doppler demonstrate normal intraluminal flow, with expected phasicity and pulsatility. Additional scanning of the cephalic and basilic veins of the superficial system demonstrates normal compressibility, without thrombus. IMPRESSION: No findings of upper extremity deep venous thrombosis can be seen. Dictated by: Mario Smith M.D. on 01/12/2024 at 14:04 Approved by: Mario Smith M.D. on 01/12/2024 at 14:05
== END 2024-01-12 16:36 | disposition home or self-care (01) ==
PROVIDERS: Emergency Provider Emergency Medicine; PCP Family Medicine
DX: S40.021A Contusion of right upper arm, initial encounter (principal)
CPT/HCPCS: 36415; 80053; 85025; 85610; 85730; 93971; 99284

== ENCOUNTER → 2024-02-04 12:47 | Outpatient (CLI) | payer MEDICARE, OTHER, SELFPAY ==
[2023-04-20 10:39] VITALS: BMI 22.3
[2024-02-04 13:21] LABS: Add Manual Diff / Slide Review NO; Basophils Absolute Auto 100 /uL (0-100); Eosinophils Absolute Auto 0 /uL (0-450); Eosinophils Percent Auto 0.8 % (2-4); Hematocrit 36.4 % (36-46); Hemoglobin 11.9 g/dL (12.0-16.0); Lymphocytes Absolute Auto 1500 /uL (1100-4500); Lymphocytes Percent Auto 24.9 % (25-40); Mean Corpuscular HGB Conc 32.7 % (30-36); Mean Corpuscular Hemoglobin 30.4 PG (26-34); Mean Corpuscular Volume 92.8 fL (80-100); Monocytes Absolute Auto 400 /uL (0-900); Monocytes Percent Auto 7.2 % (3-14); Neutrophils Absolute Auto 3900 /uL (1500-7000); Neutrophils Percent Auto 66.1 % (50-75); Platelet Count 265 X10^3/uL (150-400); Red Blood Cell Count 3.92 X10^6/uL (4.0-5.2); Red Cell Distribution Width 13.9 % (11.6-14.8); White Blood Cell Count 5.9 X10^3/uL (4.5-11.0)
== END ==
PROVIDERS: PCP Family Medicine; Referring Provider Internal Medicine Cardiovascular Disease; Visit Provider Internal Medicine Cardiovascular Disease
DX: R07.9 Chest pain, unspecified (principal)
CPT/HCPCS: 36415; 85025

== ENCOUNTER → 2024-03-11 11:20 | Outpatient (CLI) | payer MEDICARE, OTHER, SELFPAY ==
[2023-04-20 10:39] VITALS: BMI 22.3
--- NOTE | 2024-03-11 11:22 | DI.RAD.S_ITS ---
PROCEDURE: XR LUMBAR SPINE 2-3V INDICATIONS: Right back and hip pain TECHNIQUE: 3 views of the lumbar spine were acquired. COMPARISON: [facility], , XR LUMBAR SPINE MIN 4V, 01/20/2022, 10:25. FINDINGS: Bones: 5 [id number] vertebrae are present. There is normal bony alignment. No vertebral body compression fractures. No suspicious bony lesions. Disc space narrowing in the mid to upper lumbar spine. Hypertrophic project facet joints noted particularly in the lower lumbar spine. No malalignment. Soft tissues: Overlying bowel gas pattern is normal. No suspicious soft tissue calcifications. IMPRESSION: Degenerative disc disease and arthropathy Approved by: Cheo Woods M.D. on 03/11/2024 at 19:03
--- NOTE | 2024-03-11 11:22 | DI.RAD.S_ITS ---
PROCEDURE: XR HIP W PEL IF DONE RT 2V INDICATIONS: Right back and hip pain TECHNIQUE: 2 views of the hip were acquired. COMPARISON: [facility], , HIP 2V LEFT, 03/18/2015, 9:48. FINDINGS: Bones: No fractures or dislocations. No suspicious bony lesions. The visualized pelvic ring appears intact. Soft tissues: No suspicious soft tissue calcifications or masses. IMPRESSION: No acute bony abnormality. Approved by: Cheo Woods M.D. on 03/11/2024 at 19:04
== END ==
PROVIDERS: PCP Family Medicine; Referring Provider Nurse Practitioner Family; Visit Provider Nurse Practitioner Family
DX: M47.816 Spondylosis without myelopathy or radiculopathy, lumbar region (principal); M51.369 Other intervertebral disc degeneration, lumbar region without mention of lumbar back pain or lower extremity pain; M54.9 Dorsalgia, unspecified; M25.559 Pain in unspecified hip
CPT/HCPCS: 72100; 73502

== ENCOUNTER 2024-03-14 10:01 | Emergency (ER) | payer MEDICARE, OTHER, SELFPAY ==
[2024-03-14 08:52] VITALS: BMI 22.3
[2024-03-14 10:06] VITALS: BP 194/76; PULSE 73; RESP 16; TEMP 36.6; O2SAT 98; BMI 22.3
--- NOTE | 2024-03-14 12:01 | ED_ITS ---
HPI - Back Pain/Injury General Chief Complaint: Back Pain/Injury Stated Complaint: back and r hip pain Time Seen by Provider: 03/14/24 11:57 History of Present Illness HPI Narrative: Patient is a 83-year-old female history of coronary artery disease on Plavix presenting today with ongoing right hip and leg pain. She says that she woke up about 4 5 days ago with some numbness tingling down her right leg she denies any sort of injury. She has no loss of bowel or urine. She has been trying to get up and move around. She went to the walk-in clinic she was given cyclobenzaprine and prednisone which she says has not helped. She was gabapentin home which she isn't taking regularly because it makes her go to sleep she also has narcotic pain medication which she has not tried she did take Tylenol 500 mg 1 time without relief Related Data Home Medications Medication Instructions Recorded Confirmed polyethylene glycol 3350 17 17 gram PO PRN PRN Constipation 11/02/17 04/24/23 gram/dose oral powder (Miralax) diltiazem HCl 180 mg 180 mg PO DAILY 01/22/22 04/24/23 capsule,extended release 24 hr vit C 250 mg-vit E 90 mg-zinc 40 1 tab PO BID Macular degeneration 01/22/22 04/24/23 mg-copper 1 [id number] (Dry) capsule (PreserVision AREDS-2) ibuprofen 400 mg tablet 400 mg PO Q4-6H PRN Pain (Scale 04/20/23 04/24/23 Score 1-3) aspirin 81 mg chewable tablet 1 tab PO DAILY 03/11/24 03/11/24 clopidogrel 75 mg tablet 75 mg PO DAILY 03/11/24 03/11/24 ezetimibe 10 mg tablet 10 mg PO DAILY 03/11/24 03/11/24 lisinopril 20 mg tablet 20 mg PO DAILY 03/11/24 03/11/24 nitroglycerin 0.4 mg sublingual mg sublingual 03/11/24 03/11/24 tablet rosuvastatin 5 mg tablet mg PO 03/11/24 03/11/24 Previous Rx's Medication Instructions Recorded Disabled Parking Permit #1 ea 01/07/22 gabapentin 300 mg capsule 300 mg PO TID neuropathy 10 days 04/30/23 #30 caps Ensure dietary supplement #48 ea 05/11/23 cyclobenzaprine 5 mg tablet 5 mg PO TID PRN muscle spasm #10 03/11/24 tabs prednisone 20 mg tablet 40 mg (2 x 20 mg) PO DAILY 5 days 03/11/24 #10 tabs Allergies Allergy/AdvReac Type Severity Reaction Status Date / Time ciprofloxacin [From CIPRO] Allergy Severe swelling Verified 03/11/24 10:43 levofloxacin [LEVOFLOXACIN] Allergy Severe severe Verified 03/11/24 10:43 mouth and eye swelling indomethacin [INDOMETHACIN] AdvReac Severe Headaches Verified 03/11/24 10:43 meloxicam [MELOXICAM] AdvReac Severe Headaches Verified 03/11/24 10:43 trandolapril [TRANDOLAPRIL] AdvReac Severe Headaches Verified 03/11/24 10:43 Dkdqyet-BWF-KoP Reductase AdvReac Muscle Pain Verified 03/11/24 10:43 Inhibitor Patient History Medical History Osteopenia Rheumatic fever IBS (irritable bowel syndrome) Osteoarthritis HTN (hypertension) Anesthesia complication Depression History of COVID-19 (02/2022) Scoliosis (and kyphoscoliosis), idiopathic SVT (supraventricular tachycardia) 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 Cervical facet joint syndrome Diverticular disease Spinal stenosis PVCs (premature ventricular contractions) Surgical History Hx of tonsillectomy Hx of bilateral cataract extraction Hx of hemorrhoidectomy Hx of decompressive lumbar laminectomy (08/01/15) Status post hysterectomy with oophorectomy Family History Mother Pancreatic cancer Social History marital status: number of children: 0 household members: none lives independently: Yes caregiver/support person: No housing: house Smoking Status: Never smoker second hand exposure: No alcohol intake: current substance use type: does not use Smoking Status: Never smoker alcohol intake frequency: holidays/special occasions only Exam Initial Vital Signs Initial Vital Signs: Vital Signs Temperature 97.8 F 03/14/24 10:06 Pulse Rate 73 03/14/24 10:06 Respiratory Rate 16 03/14/24 10:06 Blood Pressure 194/76 H 03/14/24 10:06 Pulse Oximetry 98 03/14/24 10:06 Oxygen Delivery Method Room Air 03/14/24 10:06 GENERAL: Well-appearing 83-year-old female HEAD: Atraumatic. Normocephalic. CARDIOVASCULAR: Regular rate and rhythm without murmurs, gallops, or rubs. RESPIRATORY: Clear to auscultation. Breath sounds equal bilaterally. No wheezes, rales, or rhonchi. EXTREMITIES: No edema or joint tenderness. BACK: No vertebral tenderness no step-offs tenderness right paraspinal lumbar area NEURO: AOx3. Sensation in lower extremities intact it is decreased on the right side but no saddle anesthesia SKIN: No rash or erythema of visible areas Course Orders Ordered: Discontinued Medications Hydrocodone Bitart/Acetaminophen (Hydrocodone/Acet 5/325 Tablet) 1 tab PO NOW ONE Stop: 03/14/24 12:44 Last Admin: 03/14/24 13:01 Dose: 1 tab Documented By: Vital Signs Vital signs: Vital Signs - 8 hr 03/14/24 10:06 03/14/24 13:11 Temperature 97.8 F 98.4 F Pulse Rate 73 66 Respiratory Rate 16 19 Blood Pressure 194/76 H 144/78 H Pulse Oximetry 98 98 Oxygen Delivery Method Room Air Room Air MDM - Back Pain/Injury Lab Data Labs: Urine Dip Bedside Urine Glucose Negative Bedside Urine Bilirubin - Negative Bedside Urine Ketone - Negative Urine Specific [place] 1.010 Bedside Urine Occult Blood - Negative Bedside Urine pH 6.0 Bedside Urine Protein - Negative Bedside Urine Urobilinogen - Negative Bedside Urine Nitrite - Negative Bedside Urine Leukocytes - Negative Esterase MDM Narrative Medical decision making narrative: 83-year-old female presenting today with back pain with sciatic like symptoms. Has been on going I did walk her ambulate in the emergency department to the restroom. She has NSAID allergy Toradol not appropriate She did not have any relief with cyclobenzaprine or prednisone She has gabapentin at home but has not been taking it regularly She is [place] at home but has not tried it Urinalysis has been reviewed and negative At this time recommend conservative management increase movement may require outpatient MRI. Discussed warning signs of when to return to ED Discharge Plan Departure Patient Disposition: Home Clinical Impression: Acute back pain with sciatica Instructions: DI for Back Pain With Sciatica Activity Restrictions/Additional Instructions: *You have been diagnosed with sciatica *What to do: Increase movement as tolerated. May try walking in the pool, acupuncture, massage May require outpatient MRI and possible physical therapy *Continue to take medications as directed Tylenol 1000 mg every 6 hours for gxgh-yo-sbdeyyde pain Gabapentin 300 mg at nighttime for sleep [place] 1 tablet every 6 hours only if needed for severe pain (do not combine with Tylenol, this has Tylenol in it) *Follow up with your primary care provider in 2-3 days or call [phone] *Return to ER if you should have increasing leg weakness loss of urine increasing or any new, worsening or concerning symptoms CONTROLLED SUBSTANCE DISCHARGE (Narcotoic/benzodiazepine/) 1. You have been prescribed narcotic medications, it does have acetaminophen/Tylenol/paracetamol in it, DO NOT TAKE MORE THAN 4,00mg in 24 hours of Tylenol. TRAMADOL DOES NOT CONTAIN TYLENOL 2. Please understand that we cannot provide further refills of narcotics, benzodiazepines or controlled substances through the ED and her pain management will need to be through your provider. 3. While on these medications you cannot drive or operate heavy machinery. 4. You cannot sign legal documents or perform any duties such as this. 5. As long as you're taking opiate pain medications he should also be taking a stool softener such as Colace, Dulcolax, MiraLAX or prune juice, to help avoid constipation. Prescriptions: No Action rosuvastatin 5 mg tablet PO ezetimibe 10 mg tablet 10 mg PO DAILY lisinopril 20 mg tablet 20 mg PO DAILY clopidogrel 75 mg tablet 75 mg PO DAILY nitroglycerin 0.4 mg tablet, sublingual sublingual aspirin 81 mg tablet,chewable 1 tab PO DAILY cyclobenzaprine 5 mg tablet 5 mg PO TID PRN (Reason: muscle spasm) Qty: 10 0RF prednisone 20 mg tablet 40 mg PO DAILY 5 Days Qty: 10 0RF (DME) Disabled Parking Permit See Rx Instructions .ROUTE .MEDSUPPLY Qty: 1 0RF Rx Instructions: Patient qualifies for disabled parking as per the attached form. (DME) Ensure dietary supplement See Rx Instructions .Route .MEDSUPPLY Qty: 48 0RF Rx Instructions: 2 cases per month, 2 8 oz cans daily. ibuprofen 400 mg tablet 400 mg PO Q4-6H PRN (Reason: Pain (Scale Score 1-3)) polyethylene glycol 3350 [Miralax] 17 gram/dose powder 17 gram PO PRN PRN (Reason: Constipation) gabapentin 300 mg capsule 300 mg PO TID 10 Days Qty: 30 1RF PreserVision AREDS-2 250-90-40-1 mg capsule 1 tab PO BID diltiazem HCl 180 mg capsule,extended release 24hr 180 mg PO DAILY Referrals: Meli Fraser MD [Primary Care Provider] - Stand Alone Forms: Patient Portal/API/Survey
[2024-03-14] MEDS: HYDROCODONE/ACET 5/325 TABLET 1 TAB PO (13:01)
[2024-03-14 13:11] VITALS: BP 144/78; PULSE 66; RESP 19; TEMP 36.9; O2SAT 98
== END 2024-03-14 13:00 | disposition home or self-care (01) ==
PROVIDERS: Emergency Provider Emergency Medicine; PCP Family Medicine
DX: M54.41 Lumbago with sciatica, right side (principal)
CPT/HCPCS: 81003; 99283

== ENCOUNTER → 2024-04-06 08:45 | Outpatient (CLI) | payer MEDICARE, OTHER, SELFPAY ==
[2024-03-14 08:52] VITALS: BMI 22.3
--- NOTE | 2024-04-06 08:46 | DI.MRI.S_ITS ---
PROCEDURE: MR LUMBAR SPINE WO CON INDICATIONS: Radiculopathy, lumbosacral region TECHNIQUE: Noncontrast sagittal T1 spin echo and T2 fast echo, sagittal STIR, and T2 fast spin echo through the lumbar spine. In cases with scoliosis, additional coronal T2 fast spin echo may be performed. COMPARISON: [facility], MR, MR LUMBAR SPINE WO CON, 02/25/2020, 11:16. [facility], MR, MR LUMBAR SPINE WO CON, 05/24/2019, 17:09. [facility], MR, MR LUMBAR SPINE WO CON, 02/04/2022, 13:28. [facility], CR, XR LUMBAR SPINE 2-3V, 03/11/2024, 11:20. FINDINGS: Image quality: [facility] row diagnosed Alignment and Curvature: Mild dextroconvex scoliotic curvature is seen. There is minimal retrolisthesis at L1-L2 and at L3-L4. Mild grade 1 anterolisthesis is seen at L5-S1. No associated pars defects are seen. Bone Marrow: Marrow is of normal overall signal. No acute vertebral body compression fractures. Spinal Cord: Conus medullaris terminates at the L1 level. Visualized cord demonstrates normal signal and size. Paraspinous Soft Tissues: No paravertebral masses. T12-L1: Normal appearance. L1-L2: At least moderate loss of disc height is seen. Loss of disc signal is seen. Mild to moderate disc bulge is seen, with a central disc protrusion. There is moderate left-sided and at least moderate right-sided neural foraminal narrowing. Mild central canal narrowing is seen. No significant change from the prior. L2-L3: Moderate loss of disc height is seen. Loss of disc signal is seen. Moderate generalized disc bulge is seen. There is a superimposed central disc protrusion. Mild facet joint hypertrophy is seen. There is [id number]-rw-ntytlmxv right-sided and mild left-sided neural foraminal narrowing. Moderate central canal narrowing is seen. There is slight progression compared to the prior. L3-L4: At least moderate loss of disc height and disc signal can be seen. There is a remote Schmorl's node at the inferior endplate of L3. Moderate disc bulge is seen. Mild bilateral neural foraminal narrowing can be seen, left worse than right. There is moderate right-sided neural foraminal narrowing. Moderate to severe left-sided neural foraminal narrowing is seen, with a degree of compression upon the exiting right L3 nerve root. Mild central canal narrowing is seen. There is mild progression compared to the prior MRI. L4-L5: Mild loss of disc height is seen. Loss of disc signal is seen. Moderate disc bulge is seen, which is eccentric to the right. There is a disc extrusion seen within the right lateral recess, with a sequestered disc fragment noted, as on series 4, image 7, measuring 8-9 mm. There is moderate to prominent right-sided and moderate left-sided facet hypertrophy. There is a degree of compression seen upon the exiting nerve roots. At least moderate central canal narrowing is seen. The degenerative changes at this level are more prominent than on the prior examination. The right-sided disc extrusion is new compared to the prior. L5-S1: Vcjl-mu-jmsuexul loss of disc height and disc signal can be seen. Mild to moderate disc bulge is seen. There is a superimposed central disc protrusion. Moderate facet joint hypertrophy is seen. There is moderate to severe bilateral neural foraminal narrowing seen, with an associated degree of compression seen upon the exiting nerve roots. Mild central canal narrowing is seen. When comparison is made with the prior images, these findings are similar. IMPRESSION: Multiple levels of lumbar spine degenerative change can be seen, including a new disc extrusion (with a sequestered disc fragment) on the right at the L4-L5 level. The degenerative changes overall have progressed compared to 2021. Dictated by: Mario Smith M.D. on 04/06/2024 at 12:49 Approved by: Mario Smith M.D. on 04/06/2024 at 12:56
== END ==
PROVIDERS: PCP Family Medicine; Referring Provider Family Medicine; Visit Provider Family Medicine
DX: M51.16 Intervertebral disc disorders with radiculopathy, lumbar region (principal); M51.17 Intervertebral disc disorders with radiculopathy, lumbosacral region; M48.061 Spinal stenosis, lumbar region without neurogenic claudication; M48.07 Spinal stenosis, lumbosacral region; M47.26 Other spondylosis with radiculopathy, lumbar region; M47.27 Other spondylosis with radiculopathy, lumbosacral region; M96.1 Postlaminectomy syndrome, not elsewhere classified
CPT/HCPCS: 72148

== ENCOUNTER → 2024-04-13 14:37 | Outpatient (CLI) | payer MEDICARE, OTHER, SELFPAY ==
[2024-03-14 08:52] VITALS: BMI 22.3
[2024-04-13 15:27] LABS: Influenza A - CEPHEID Flu A POSITIVE (NEGATIVE); Influenza B - CEPHEID Flu B NEGATIVE (NEGATIVE); Respiratory Syncytial Virus Negative (Negative)
[2024-04-13 15:50] LABS: COVID-19 CEPHEID 4-PLEX PCR Negative (Negative)
== END ==
PROVIDERS: PCP Family Medicine; Visit Provider Nurse Practitioner Family
DX: R50.9 Fever, unspecified (principal)
CPT/HCPCS: 0241U

== ENCOUNTER → 2024-04-13 15:03 | Outpatient (CLI) | payer MEDICARE, OTHER, SELFPAY ==
[2024-03-14 08:52] VITALS: BMI 22.3
--- NOTE | 2024-04-13 15:04 | DI.RAD.S_ITS ---
PROCEDURE: XR CHEST 2V INDICATIONS: Cough TECHNIQUE: 2 views of the chest were acquired. COMPARISON: [facility], CR, XR CHEST 1V, 04/30/2023, 11:48. FINDINGS: Surgical changes and devices: There is prior right shoulder reverse arthroplasty. Lungs and pleura: Lungs are clear. No pleural effusions or pneumothorax. Mediastinum: Mediastinal contours are normal. Heart size is normal. Bones and chest wall: No suspicious bony abnormalities. Soft tissues appear unremarkable. IMPRESSION: No acute cardiopulmonary pathology. Dictated by: Darshan Witt M.D. on 04/13/2024 at 15:39 Approved by: Darshan Witt M.D. on 04/13/2024 at 15:39
== END ==
PROVIDERS: PCP Family Medicine; Referring Provider Nurse Practitioner Family; Visit Provider Nurse Practitioner Family
DX: R05.9 Cough, unspecified (principal); R50.9 Fever, unspecified
CPT/HCPCS: 0241U; 71046

== ENCOUNTER 2024-06-10 09:45 | Outpatient (RCR) | payer MEDICARE, OTHER, SELFPAY ==
--- NOTE | 2024-05-05 15:29 | PT.OIE ---
Current Diagnoses Stiffness of right hip, not elsewhere classified (05/05/24) Low back pain, unspecified (05/05/24) Unsteadiness on feet (05/05/24) Other abnormalities of gait and mobility (05/05/24) Weakness (05/05/24) Past Medical History (Last Reviewed 03/14/24 @ 12:45 by Nuvia Elizabeth DO) Anesthesia complication Cervical facet joint syndrome Depression Diverticular disease History of COVID-19 (02/2022) HTN (hypertension) IBS (irritable bowel syndrome) Osteoarthritis Osteopenia PVCs (premature ventricular contractions) Rheumatic fever Scoliosis (and kyphoscoliosis), idiopathic Spinal stenosis 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 SVT (supraventricular tachycardia) Past Surgical History (Last Reviewed 03/14/24 @ 12:45 by Nuvia Elizabeth DO) Hx of bilateral cataract extraction Hx of decompressive lumbar laminectomy (08/01/15) Hx of hemorrhoidectomy Hx of tonsillectomy Status post hysterectomy with oophorectomy Visit Care Team Role Provider Type Meli Fraser MD Attending Provider Physician Family Provider Primary Care Provider Referring Provider Specialty: Family Practice Address: [address] [place] [address], [facility] Email: [email or web address] Initial Evaluation PT-OP-A Visit Information Start: 05/04/24 10:29 Freq: Status: Active Protocol: Document 05/05/24 10:45 NM (Rec: 05/05/24 12:28 NM [id number]) Out-Patient Physical Therapy Visit Information Visit Information Visit Type Initial Evaluation Visit Note KX after 19 visits Visit Start Time 10:46 Visit Stop Time 11:32 Visit Number 1 Evaluation Information Evaluation Date 05/05/24 Precautions Precautions heart stents, blood thinner, hx of discectomy, bowel/ bladder incontinence, retrolisthesis L1-2 and L3-4, anterolisthesis L5-S1 PT-OP-B Current Condition Start: 05/04/24 10:29 Freq: Status: Active Protocol: Document 05/05/24 10:45 NM (Rec: 05/05/24 12:28 NM [id number]) Current Condition History of Current Condition Onset Date chronic, ongoing; exacerbation 1 month ago History of Current Condition Pt presents with chronic back and hip pain, R sided. Pt reports that pain began at least 1 month ago; unable to stand at that time, had to bend over and ambulate (hold thighs) for about 3 days. Ambulates with lateral lean. Worse with extension, sitting in car, car transfers, ambulation, sleeping. No known EJ but states likely occurred over night as was fine going to bed but reports that woke up with pain. Pt states that unable to sleep on either side due to pain, unable to get up in morning if that happens. Sleeps on back with 2 pillows under trunk. Pt reports that she had a discectomy in 2016, states that she had a hematoma following surgery that had to be surgically drained. Increased pain with ambulation . Hx of stent placement 3-4 months ago, influenza A last month, high blood pressure, R reverse TSA in Jan 2023, osteopenia. Hx of falls previously. Pt reports weakness in her RLE compared to before pain onset, with lifting her leg. Symptoms do not travel down RLE, no numbness/tingling. Remain in same spot. Pt has received injections before in her lumbar spine for pain. Feels in quad area, front of thigh. Pt reports changes to balance since onset of pain. Has been referred to neurosurgeon but wants to try PT first. No saddle anesthesia. Reports bladder incontinence (urgency, beginning 3 years ago) and bowel incontinence (unable to feel urge or control, beginning several years ago). 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 The degenerative changes overall have progressed compared to 2021. 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 PT-OP-C Subjective Start: 05/04/24 10:29 Freq: Status: Active Protocol: Document 05/05/24 10:45 NM (Rec: 05/05/24 12:28 NM [id number]) OP-PT Subjective Patient Comments Patient Comments Pt consents to participate in PT evaluation Patient Questionnaires Oswestry Low Back Index Oswestry Score 28/100 OP-PT Pain Assessment Location lumbar spine Intensity 4 Scale Used Numeric (0 - 10) Description Aching,Dull Pain Aggravating Factors Position,ADL's,Activity, Exercise,Standing,Sitting, Walking,Bending Pain Alleviating Factors Heat,Sitting,Rest Other Pain Alleviating Factors icy hot, CBD, bengay PT-OP-E Functional Tests Start: 05/04/24 10:29 Freq: Status: Active Protocol: Document 05/05/24 10:45 NM (Rec: 05/05/24 12:28 NM [id number]) Functional Tests Five Times Sit to Stand Test Score 13.7 Comments no back pain PT-OP-F Manual Assessment Start: 05/04/24 10:29 Freq: Status: Active Protocol: Document 05/05/24 10:45 NM (Rec: 05/05/24 12:28 NM [id number]) Manual Assessments Soft Tissue Assessment Soft Tissue Mobility Assessment Tightness of B hamstrings, glutes, hip flexors. Tenderness at R and L glutes and paraspinals. Joint Mobility Assessment Joint Mobility Assessment Hypomobility of B SIJ, lumbopelvic motion during standing assessment and gait. Hypermobility of lumbar spine with PA springing R hip mobility limited into IR PT-OP-G Mobility & Gait Start: 05/04/24 10:29 Freq: Status: Active Protocol: Document 05/05/24 10:45 NM (Rec: 05/05/24 14:49 NM [id number]) OP Mobility Evaluation Bed Mobility Rolling painful in low back Supine to and from Sit able to lift RLE onto bed with increased effort and pain OP Gait Assessment Gait Gait Assistance Required: Standby Assistance Distance (Feet) 150 Assistive Devices Assistive Device None Gait Deviations General Gait Pattern Antalgic,Lateral Trunk Lean, Step-to Gait Factors Limiting Gait Function Factors Limiting Gait Function Decreased Activity Tolerance, Decreased Strength,Limited Range of Motion,Pain,Poor Balance PT-OP-H Neuro Start: 05/04/24 10:29 Freq: Status: Active Protocol: Document 05/05/24 10:45 NM (Rec: 05/05/24 12:28 NM [id number]) Sensation Evaluation Comments Summary Comments assess next session d/t time Deep Tendon Reflex & Clonus Assessment Deep Tendon Reflex Left Achilles Deep Tendon Reflex 1+ Diminished Left Patellar Deep Tendon Reflex 1+ Diminished Right Achilles Deep Tendon Reflex 1+ Diminished Right Patellar Deep Tendon Reflex 0 Absent PT-OP-J Posture/Palpation/Skin Start: 05/04/24 10:29 Freq: Status: Active Protocol: Document 05/05/24 10:45 NM (Rec: 05/05/24 12:28 NM [id number]) Posture Evaluation Position Standing Head/C-Spine Posture Forward Head T-Spine Posture Increased Kyphosis Comments Posture Comments scoliosis Palpation Assessment Location lumbar spine Palpation Details tenderness glutes PT-OP-K Range of Motion Start: 05/04/24 10:29 Freq: Status: Active Protocol: Document 05/05/24 10:45 NM (Rec: 05/05/24 12:28 NM [id number]) Lumbar Spine Range of Motion Lumbar Spine Active Percentage Flexion 75 Extension 50 Rotation Left 75 Rotation Right 75 Lateral Flexion Left 50 Lateral Flexion Right 25 Comments pain with ext from flexion, R> L LF PT-OP-L Special Tests Start: 05/04/24 10:29 Freq: Status: Active Protocol: Document 05/05/24 10:45 NM (Rec: 05/05/24 12:28 NM [id number]) Special Tests Lumbar Spine Special Tests traction Test Results + Straight Leg Raise Test Results + machuca/quadrant Test Results + Comments R PT-OP-M Strength Start: 05/04/24 10:29 Freq: Status: Active Protocol: Document 05/05/24 10:45 NM (Rec: 05/05/24 12:28 NM [id number]) Trunk Strength Trunk Manual Muscle Testing Flexion 4- Good- Extension 4- Good- Rotation Left 4- Good- Rotation Right 4- Good- Lateral Flexion Left 4- Good- Lateral Flexion Right 4- Good- Comments pain with resisted lateral flexion Hip Strength Hip Manual Muscle Testing Right Flexion (L2) 3+ Fair+ Extension (S1) 4- Good- Abduction 3+ Fair+ Adduction 4- Good- External Rotation 4- Good- Internal Rotation 4- Good- Left Flexion (L2) 4- Good- Extension (S1) 3+ Fair+ Abduction 3+ Fair+ Adduction 4- Good- External Rotation 4- Good- Internal Rotation 4- Good- Knee Strength Knee Manual Muscle Testing Right Flexion (S2) 4 Good Extension (L3) 4- Good- Left Flexion (S2) 4 Good Extension (L3) 4 Good Ankle/Foot Strength Ankle and Foot Manual Muscle Testing Right Dorsiflexion (L4) 4 Good Plantarflexion (S1) 4 Good Comments tested in sitting Left Dorsiflexion (L4) 4 Good Plantarflexion (S1) 4 Good Comments tested in sitting PT-OP-Q Treatments Start: 05/04/24 10:29 Freq: Status: Active Protocol: Document 05/05/24 10:45 NM (Rec: 05/05/24 12:28 NM [id number]) Therapeutic Exercises Supine Exercises bridge Reps/Minutes 10 Comments inc pain with reps LTR Reps/Minutes 5 ea Comments inc pain in glutes Sitting Exercises hip abduction Sitting Exercise Name 1. isometric, 2. isometric hold with band Side bilateral Equipment Used 1. pt resistance, 2. band at thighs Reps/Minutes 1. 10x5 hold, 2. 2x30 Self-Care/Home Management Treatment Education Patient Education Joint Protection,Pain Management Other Education Educated pt on use of walker for ambulation at home and community if symptoms recur in order to offload low back with flexion preference PT-OP-T Assessment and Plan Start: 05/04/24 10:29 Freq: Status: Active Protocol: Document 05/05/24 10:45 NM (Rec: 05/05/24 12:28 NM [id number]) Physical Therapy Assessment Rehab Potential Rehabilitation Potential Fair Evaluation Complexity Number of Personal Factors/Comorbidities 3 or More Number of Body Systems Impaired 1-2 Clinical Presentation at Evaluation Stable Impairments Impairments Activity Tolerance,Balance, Functional Activities, Functional Mobility,Gait, Integument,Pain,Posture,ROM, Sensation,Soft Tissue Mobility ,Strength,Transfers Other Concerns Age Related Concerns PMH: back pain, blood pressure (high), 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, must take [employer]. Hx of previous discectomy, decreased activity tolerance following heart stent and balance abnormalities. Goals Three Impairment pain with ADLs, housework Short Term Goal (STG) Pt will be educated on body mechanics during various ADLs (e.g. vacuuming) and activity modification in order to improve symptom management STG Duration 06/03/24 Longterm Goal (LTG) Pt will report <3/10 back and hip pain with most household ADLs (e.g. vacuuming) in order to demonstrate improved symptom management, activity tolerance, and body mechanics LTG Duration 07/01/24 Two Impairment pain with car transfers, sitting tolerance, bed mobility Short Term Goal (STG) Pt will report <3/10 pain with car transfers and bed mobility in order to demonstrate improved pain management and functional mobility STG Duration 06/10/24 Sales Development Coordinator Goal (LTG) Pt will be able to sit in car or chair other than favorite chair >30 minutes in order to demonstrate improved sitting tolerance for driving/[place] ferry LTG Duration 07/01/24 One Impairment impairments in standing tolerance, sitting tolerance, DANI 28% Short Term Goal (STG) Pt will report increased standing tolerance >15 minutes in order to perform standing ADLs and volunteer work with less pain STG Duration 06/10/24 Longterm Goal (LTG) Pt will report increased standing tolerance >30 minutes in order to perform standing ADLs and volunteer work with less pain LTG Duration 07/01/24 Assessment Summary Assessment Pt is an 83 y.o. presenting with lumbar spine pain with radiating symptoms into R hip. Pt demos decreased global trunk ROM and strength. Demos weakness in B hips and knees, particularly R hip flex, hip abduction, knee extension, and IR/ER. Pain is reproduced with extension, lateral flexion, standing, and ambulation, in addition to hip IR and ER. Reproduced with vertebral compression and straight leg raise. Pt has decreased activity tolerance in general following heart stent in February 2024. Currently unable to be in sidelying position due to back and B hip pain. Pt has tenderness to palpation along lumbar spine, glutes, and R hip. Recent MRI reveals degenerative changes and disc extrusion that are consistent with symptoms. No numbness/ tingling; bowel and bladder incontinence are reported but have been ongoing for several years. Decreased reflexes on RLE. Will continue to assess R hip weakness and sensation. PT educated pt on exam findings and plan of care. PT recommended that pt keep appt with neurosurgeon. Pt would benefit from skilled PT for progressive strengthening, functional mobility training, flexibility, and body mechanics and activity modification education/ training in order to improve symptom management, transfers, gait, and activity tolerance for ADLs. Physical Therapy Plan Frequency and Duration Frequency of Treatment 2x/Week Duration of treatment (weeks) 8 Plan of Care Start Date 05/05/24 Plan of Care End Date 07/01/24 Therapeutic Interventions Therapeutic Interventions Balance Training,Gait Training ,Home Exercise Program,Joint Mobilizations,Manual Therapy, Neuromuscular Re-education, Orthotic/Prosthetic Management ,Patient/Caregiver Education, Self-Care/Home Management, Sensory Integration,Soft Tissue Mobilization,Taping, Therapeutic Activities, Therapeutic Exercises, Vestibular Rehabilitation Modalities Cold Pack/Ice Massage,Electric Stimulation,Hot Packs Other Therapeutic Interventions MET Next Visit Focus/Plan Next Note Type Treatment Note Next Visit Plan heart stent, blood thinners, osteopenia, poor tolerance for sidelying, previous discectomy assess sensation, review HEP, hip ROM trial stretching, knee to chest, traction Manual tx: soft tissue mobilization in sitting with flexion over support vs prone over pillows, hip mobilizations
--- NOTE | 2024-05-10 15:59 | PT.OTN ---
Current Diagnoses Stiffness of right hip, not elsewhere classified (05/10/24) Low back pain, unspecified (05/10/24) Unsteadiness on feet (05/10/24) Other abnormalities of gait and mobility (05/10/24) Weakness (05/10/24) Physical Therapy Treatment Note PT-OP-A Visit Information Start: 05/04/24 10:29 Freq: Status: Active Protocol: Document 05/10/24 10:43 NM (Rec: 05/10/24 11:34 NM [id number]) Out-Patient Physical Therapy Visit Information Visit Information Visit Type Treatment Note Visit Note KX after 19 visits Visit Start Time 10:48 Visit Stop Time 11:30 Visit Number 2 Evaluation Information Evaluation Date 05/05/24 Precautions Precautions heart stents, blood thinner, hx of discectomy, bowel/ bladder incontinence, retrolisthesis L1-2 and L3-4, anterolisthesis L5-S1 PT-OP-B Current Condition Start: 05/04/24 10:29 Freq: Status: Active Protocol: Document 05/05/24 10:45 NM (Rec: 05/05/24 12:28 NM [id number]) Current Condition History of Current Condition Onset Date chronic, ongoing; exacerbation 1 month ago History of Current Condition Pt presents with chronic back and hip pain, R sided. Pt reports that pain began at least 1 month ago; unable to stand at that time, had to bend over and ambulate (hold thighs) for about 3 days. Ambulates with lateral lean. Worse with extension, sitting in car, car transfers, ambulation, sleeping. No known EJ but states likely occurred over night as was fine going to bed but reports that woke up with pain. Pt states that unable to sleep on either side due to pain, unable to get up in morning if that happens. Sleeps on back with 2 pillows under trunk. Pt reports that she had a discectomy in 2016, states that she had a hematoma following surgery that had to be surgically drained. Increased pain with ambulation . Hx of stent placement 3-4 months ago, influenza A last month, high blood pressure, R reverse TSA in Jan 2023, osteopenia. Hx of falls previously. Pt reports weakness in her RLE compared to before pain onset, with lifting her leg. Symptoms do not travel down RLE, no numbness/tingling. Remain in same spot. Pt has received injections before in her lumbar spine for pain. Feels in quad area, front of thigh. Pt reports changes to balance since onset of pain. Has been referred to neurosurgeon but wants to try PT first. No saddle anesthesia. Reports bladder incontinence (urgency, beginning 3 years ago) and bowel incontinence (unable to feel urge or control, beginning several years ago). 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 The degenerative changes overall have progressed compared to 2021. 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 However , reports that makes her feel tired, but then says denies pain when asked to clarify what type of pain. She does them 2-4 sets, several times a day. Reports 5/10 pain start of session. Just came from [employer], doing lots of bending and lifting; reports back is bother her. PT-OP-E Functional Tests Start: 05/04/24 10:29 Freq: Status: Active Protocol: Document 05/05/24 10:45 NM (Rec: 05/05/24 12:28 NM [id number]) Functional Tests Five Times Sit to Stand Test Score 13.7 Comments no back pain PT-OP-F Manual Assessment Start: 05/04/24 10:29 Freq: Status: Active Protocol: Document 05/05/24 10:45 NM (Rec: 05/05/24 12:28 NM [id number]) Manual Assessments Soft Tissue Assessment Soft Tissue Mobility Assessment Tightness of B hamstrings, glutes, hip flexors. Tenderness at R and L glutes and paraspinals. Joint Mobility Assessment Joint Mobility Assessment Hypomobility of B SIJ, lumbopelvic motion during standing assessment and gait. Hypermobility of lumbar spine with PA springing R hip mobility limited into IR PT-OP-G Mobility & Gait Start: 05/04/24 10:29 Freq: Status: Active Protocol: Document 05/05/24 10:45 NM (Rec: 05/05/24 14:49 NM [id number]) OP Mobility Evaluation Bed Mobility Rolling painful in low back Supine to and from Sit able to lift RLE onto bed with increased effort and pain OP Gait Assessment Gait Gait Assistance Required: Standby Assistance Distance (Feet) 150 Assistive Devices Assistive Device None Gait Deviations General Gait Pattern Antalgic,Lateral Trunk Lean, Step-to Gait Factors Limiting Gait Function Factors Limiting Gait Function Decreased Activity Tolerance, Decreased Strength,Limited Range of Motion,Pain,Poor Balance PT-OP-H Neuro Start: 05/04/24 10:29 Freq: Status: Active Protocol: Document 05/10/24 10:43 NM (Rec: 05/10/24 11:34 NM [id number]) Sensation Evaluation Comments Summary Comments Less intense sensation on RLE to light touch, L1-3 PT-OP-J Posture/Palpation/Skin Start: 05/04/24 10:29 Freq: Status: Active Protocol: Document 05/05/24 10:45 NM (Rec: 05/05/24 12:28 NM [id number]) Posture Evaluation Position Standing Head/C-Spine Posture Forward Head T-Spine Posture Increased Kyphosis Comments Posture Comments scoliosis Palpation Assessment Location lumbar spine Palpation Details tenderness glutes PT-OP-K Range of Motion Start: 05/04/24 10:29 Freq: Status: Active Protocol: Document 05/10/24 10:43 NM (Rec: 05/10/24 11:34 NM [id number]) Hip Goniometric Range of Motion Hip Right Internal Rotation 20 External Rotation 20 Comments pain in posterior hip Left Internal Rotation 25 External Rotation 25 PT-OP-L Special Tests Start: 05/04/24 10:29 Freq: Status: Active Protocol: Document 05/05/24 10:45 NM (Rec: 05/05/24 12:28 NM [id number]) Special Tests Lumbar Spine Special Tests traction Test Results + Straight Leg Raise Test Results + machuca/quadrant Test Results + Comments R PT-OP-M Strength Start: 05/04/24 10:29 Freq: Status: Active Protocol: Document 05/05/24 10:45 NM (Rec: 05/05/24 12:28 NM [id number]) Trunk Strength Trunk Manual Muscle Testing Flexion 4- Good- Extension 4- Good- Rotation Left 4- Good- Rotation Right 4- Good- Lateral Flexion Left 4- Good- Lateral Flexion Right 4- Good- Comments pain with resisted lateral flexion Hip Strength Hip Manual Muscle Testing Right Flexion (L2) 3+ Fair+ Extension (S1) 4- Good- Abduction 3+ Fair+ Adduction 4- Good- External Rotation 4- Good- Internal Rotation 4- Good- Left Flexion (L2) 4- Good- Extension (S1) 3+ Fair+ Abduction 3+ Fair+ Adduction 4- Good- External Rotation 4- Good- Internal Rotation 4- Good- Knee Strength Knee Manual Muscle Testing Right Flexion (S2) 4 Good Extension (L3) 4- Good- Left Flexion (S2) 4 Good Extension (L3) 4 Good Ankle/Foot Strength Ankle and Foot Manual Muscle Testing Right Dorsiflexion (L4) 4 Good Plantarflexion (S1) 4 Good Comments tested in sitting Left Dorsiflexion (L4) 4 Good Plantarflexion (S1) 4 Good Comments tested in sitting PT-OP-Q Treatments Start: 05/04/24 10:29 Freq: Status: Active Protocol: Document 05/10/24 10:43 NM (Rec: 05/10/24 11:34 NM [id number]) Therapeutic Exercises Supine Exercises pelvic tilts Supine Exercise Name neutral <> post tilt Reps/Minutes 15 Comments mod cues for form; no inc in pain hip adduction Side bilateral Resistance isometric Equipment Used kickball btwn knees Reps/Minutes 15 Comments no increase in pain hamstring stretch Side bilateral Equipment Used strap assist behind knee Reps/Minutes 2x30 ea Comments less tolerance on L side than R nerve glide Supine Exercise Name knee flex/ext (from hooklying on bolster)- HEP Side bilateral Equipment Used strap assist Reps/Minutes 20 ea Comments cued not to pull to chest, just strap for gentle assist; edu to do supine LTR Supine Exercise Name retrialed- for stretch- HEP Side bilateral Reps/Minutes [id number] Comments less ROM to R side; educated to remain w/i pain free ROM Sitting Exercises hip abduction Sitting Exercise Name HEP review- isometric hold with band Side bilateral Resistance level 1 band at thighs Reps/Minutes 2x20 Comments reports in in pain following exercise but not during Other Exercises self soft tissue mobilization Other Exercise Name TFL Side bilateral Equipment Used use of fingers for superficial STM Reps/Minutes 1 min Comments pt demos for PT Manual Therapy Treatment Consent Patient gave verbal consent for manual Yes treatment Soft Tissue Mobilization hips Body Location TFL, glutes, prox ITB, hip flexors Mobilization Type Rolling,Strumming,Sustained Pressure Intensity/Depth Superficial Body Position sitting, hooklying Comments Sitting with trunk flexion over romanian ball for support on glutes. Tenderness over TFL L >R, educated on performing gentle self STM at home lumbar spine Body Location paraspinals, QL Mobilization Type Rolling,Strumming Intensity/Depth Superficial Body Position Sitting Comments Sitting with trunk flexion over romanian ball for support. Tenderness at QL R>L, very superficial. Educated on rationale for pain management PT-OP-T Assessment and Plan Start: 05/04/24 10:29 Freq: Status: Active Protocol: Document 05/10/24 10:43 NM (Rec: 05/10/24 11:34 NM [id number]) Physical Therapy Assessment Goals Three Impairment pain with ADLs, housework Short Term Goal (STG) Pt will be educated on body mechanics during various ADLs (e.g. vacuuming) and activity modification in order to improve symptom management STG Duration 06/03/24 Computer Systems Security Administrator Goal (LTG) Pt will report <3/10 back and hip pain with most household ADLs (e.g. vacuuming) in order to demonstrate improved symptom management, activity tolerance, and body mechanics LTG Duration 07/01/24 Two Impairment pain with car transfers, sitting tolerance, bed mobility Short Term Goal (STG) Pt will report <3/10 pain with car transfers and bed mobility in order to demonstrate improved pain management and functional mobility STG Duration 06/10/24 Senior Care Goal (LTG) Pt will be able to sit in car or chair other than favorite chair >30 minutes in order to demonstrate improved sitting tolerance for driving/[place] ferry LTG Duration 07/01/24 One Impairment impairments in standing tolerance, sitting tolerance, DANI 28% Short Term Goal (STG) Pt will report increased standing tolerance >15 minutes in order to perform standing ADLs and volunteer work with less pain STG Duration 06/10/24 Senior Care Goal (LTG) Pt will report increased standing tolerance >30 minutes in order to perform standing ADLs and volunteer work with less pain LTG Duration 07/01/24 Assessment Summary Assessment Pt reports 7/10 pain post session, reports that did not have pain until seated hip abduction following other exercises. Pt denies pain during supine exercise. Trialed gentle hip isometrics and spinal mobility for retraining mechanics. Trialed gentle nerve mobilization and stretching; no increase in pain levels. Pt has several trigger points including at TFL, glutes, QL and paraspinals. Superficial soft tissue mobilization only due to tenderness, educated pt on gentle performance at home especially at TFLs. Physical Therapy Plan Frequency and Duration Frequency of Treatment 2x/Week Duration of treatment (weeks) 8 Plan of Care Start Date 05/05/24 Plan of Care End Date 07/01/24 Therapeutic Interventions Therapeutic Interventions Balance Training,Gait Training ,Home Exercise Program,Joint Mobilizations,Manual Therapy, Neuromuscular Re-education, Orthotic/Prosthetic Management ,Patient/Caregiver Education, Self-Care/Home Management, Sensory Integration,Soft Tissue Mobilization,Taping, Therapeutic Activities, Therapeutic Exercises, Vestibular Rehabilitation Modalities Cold Pack/Ice Massage,Electric Stimulation,Hot Packs Other Therapeutic Interventions MET Next Visit Focus/Plan Next Note Type Treatment Note Next Visit Plan heart stent, blood thinners, osteopenia, poor tolerance for sidelying, previous discectomy Trial hip stretching in supine , possible knee to chest stretch or on ball, traction. pelvic tilts, core bracing supine vs seated, possible. reassess tolerance for seated hip abd vs d/c from HEP if painful. once appropriate, progress to seated and standing hip ROM and strengthening exercises including STS and leg press. Manual tx: soft tissue mobilization in sitting with flexion over support vs prone over pillows- superficial, hip mobilizations
--- NOTE | 2024-05-13 09:49 | PT.OTN ---
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 Pt reports that pain began at least 1 month ago; unable to stand at that time, had to bend over and ambulate (hold thighs) for about 3 days. Ambulates with lateral lean. Worse with extension, sitting in car, car transfers, ambulation, sleeping. No known EJ but states likely occurred over night as was fine going to bed but reports that woke up with pain. Pt states that unable to sleep on either side due to pain, unable to get up in morning if that happens. Sleeps on back with 2 pillows under trunk. Pt reports that she had a discectomy in 2016, states that she had a hematoma following surgery that had to be surgically drained. Increased pain with ambulation . Hx of stent placement 3-4 months ago, influenza A last month, high blood pressure, R reverse TSA in Jan 2023, osteopenia. Hx of falls previously. Pt reports weakness in her RLE compared to before pain onset, with lifting her leg. Symptoms do not travel down RLE, no numbness/tingling. Remain in same spot. Pt has received injections before in her lumbar spine for pain. Feels in quad area, front of thigh. Pt reports changes to balance since onset of pain. Has been referred to neurosurgeon but wants to try PT first. No saddle anesthesia. Reports bladder incontinence (urgency, beginning 3 years ago) and bowel incontinence (unable to feel urge or control, beginning several years ago). 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 The degenerative changes overall have progressed compared to 2021. 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 Is compliant with HEP but not peformed today. Last week did alot activities: defrost freezer, clean fireplace and rotation movements. PT-OP-E Functional Tests Start: 05/04/24 10:29 Freq: Status: Active Protocol: Document 05/05/24 10:45 NM (Rec: 05/05/24 12:28 NM [id number]) Functional Tests Five Times Sit to Stand Test Score 13.7 Comments no back pain PT-OP-F Manual Assessment Start: 05/04/24 10:29 Freq: Status: Active Protocol: Document 05/05/24 10:45 NM (Rec: 05/05/24 12:28 NM [id number]) Manual Assessments Soft Tissue Assessment Soft Tissue Mobility Assessment Tightness of B hamstrings, glutes, hip flexors. Tenderness at R and L glutes and paraspinals. Joint Mobility Assessment Joint Mobility Assessment Hypomobility of B SIJ, lumbopelvic motion during standing assessment and gait. Hypermobility of lumbar spine with PA springing R hip mobility limited into IR PT-OP-G Mobility & Gait Start: 05/04/24 10:29 Freq: Status: Active Protocol: Document 05/05/24 10:45 NM (Rec: 05/05/24 14:49 NM [id number]) OP Mobility Evaluation Bed Mobility Rolling painful in low back Supine to and from Sit able to lift RLE onto bed with increased effort and pain OP Gait Assessment Gait Gait Assistance Required: Standby Assistance Distance (Feet) 150 Assistive Devices Assistive Device None Gait Deviations General Gait Pattern Antalgic,Lateral Trunk Lean, Step-to Gait Factors Limiting Gait Function Factors Limiting Gait Function Decreased Activity Tolerance, Decreased Strength,Limited Range of Motion,Pain,Poor Balance PT-OP-H Neuro Start: 05/04/24 10:29 Freq: Status: Active Protocol: Document 05/10/24 10:43 NM (Rec: 05/10/24 11:34 NM [id number]) Sensation Evaluation Comments Summary Comments Less intense sensation on RLE to light touch, L1-3 PT-OP-J Posture/Palpation/Skin Start: 05/04/24 10:29 Freq: Status: Active Protocol: Document 05/05/24 10:45 NM (Rec: 05/05/24 12:28 NM [id number]) Posture Evaluation Position Standing Head/C-Spine Posture Forward Head T-Spine Posture Increased Kyphosis Comments Posture Comments scoliosis Palpation Assessment Location lumbar spine Palpation Details tenderness glutes PT-OP-K Range of Motion Start: 05/04/24 10:29 Freq: Status: Active Protocol: Document 05/10/24 10:43 NM (Rec: 05/10/24 11:34 NM [id number]) Hip Goniometric Range of Motion Hip Right Internal Rotation 20 External Rotation 20 Comments pain in posterior hip Left Internal Rotation 25 External Rotation 25 PT-OP-L Special Tests Start: 05/04/24 10:29 Freq: Status: Active Protocol: Document 05/05/24 10:45 NM (Rec: 05/05/24 12:28 NM [id number]) Special Tests Lumbar Spine Special Tests traction Test Results + Straight Leg Raise Test Results + machuca/quadrant Test Results + Comments R PT-OP-M Strength Start: 02/19/25 10:29 Freq: Status: Active Protocol: Document 05/05/24 10:45 NM (Rec: 05/05/24 12:28 NM [id number]) Trunk Strength Trunk Manual Muscle Testing Flexion 4- Good- Extension 4- Good- Rotation Left 4- Good- Rotation Right 4- Good- Lateral Flexion Left 4- Good- Lateral Flexion Right 4- Good- Comments pain with resisted lateral flexion Hip Strength Hip Manual Muscle Testing Right Flexion (L2) 3+ Fair+ Extension (S1) 4- Good- Abduction 3+ Fair+ Adduction 4- Good- External Rotation 4- Good- Internal Rotation 4- Good- Left Flexion (L2) 4- Good- Extension (S1) 3+ Fair+ Abduction 3+ Fair+ Adduction 4- Good- External Rotation 4- Good- Internal Rotation 4- Good- Knee Strength Knee Manual Muscle Testing Right Flexion (S2) 4 Good Extension (L3) 4- Good- Left Flexion (S2) 4 Good Extension (L3) 4 Good Ankle/Foot Strength Ankle and Foot Manual Muscle Testing Right Dorsiflexion (L4) 4 Good Plantarflexion (S1) 4 Good Comments tested in sitting Left Dorsiflexion (L4) 4 Good Plantarflexion (S1) 4 Good Comments tested in sitting PT-OP-Q Treatments Start: 05/04/24 10:29 Freq: Status: Active Protocol: Document 05/13/24 09:09 SP (Rec: 05/13/24 10:19 SP [id number]) Therapeutic Exercises Supine Exercises pelvic tilts Supine Exercise Name neutral <> post tilt Reps/Minutes 15 Comments min cues for slow performance; no inc in pain hamstring stretch Supine Exercise Name Reviewed 05/13/24 Side bilateral Equipment Used towel assist behind lower thigh/ opp LE straight Reps/Minutes 2x30 ea Comments cued not knee ext into pain, want gentle str, R knee slight bent during L LTR Supine Exercise Name Review: 1. stretching end feel hold 2. trialed today TA LTR LEs 55cm tball Side bilateral Equipment Used 2. hands under pelvis not let lift off hands Reps/Minutes 1. [id number] 2. 20 alternating Comments good painfree range, slow pacing improved TA work, no LB pain Therapeutic Activity Therapeutic Activity TA STS Name mirror front Reps/Minutes 3 reps x2 sets Comments Ed and cues scoot front seat, hip hinge with knees apart little wider full stand and slower controlled sit, arms across chest with upright chest lift improved back straighter. Improved performance with reps and demonstrated less momentum. Low reps performed due to tip knee crepitus irritation. I am suprised that keeping knees out makes it easier to get up and sit. body mechanics Name vacuuming activity Reps/Minutes 3 min Comments Cued chest lift/ straighter back, TA draw in, split stance , wt shift f/b/lateral between BLEs pushing trek pole ( assimulate vacuum), reminders be sure to use both sides not just 1 UE sided push/pull /c wt shift. I forgot moving with my legs doesn't hurt my back, learned a while ago and forgot. PT-OP-T Assessment and Plan Start: 05/04/24 10:29 Freq: Status: Active Protocol: Document 05/13/24 09:09 SP (Rec: 05/13/24 10:19 SP [id number]) Physical Therapy Assessment Goals Three Impairment pain with ADLs, housework Short Term Goal (STG) Pt will be educated on body mechanics during various ADLs (e.g. vacuuming) and activity modification in order to improve symptom management 05/13/24: instruction on chest lift, split stance, wt shift between BLEs pushing vacuum, with TA draw in needed support back. STG Duration 06/03/24 progressing 05/13/24 Intermediate Goal (LTG) Pt will report <3/10 back and hip pain with most household ADLs (e.g. vacuuming) in order to demonstrate improved symptom management, activity tolerance, and body mechanics LTG Duration 07/01/24 Two Impairment pain with car transfers, sitting tolerance, bed mobility Short Term Goal (STG) Pt will report <3/10 pain with car transfers and bed mobility in order to demonstrate improved pain management and functional mobility STG Duration 06/10/24 Intermediate Goal (LTG) Pt will be able to sit in car or chair other than favorite chair >30 minutes in order to demonstrate improved sitting tolerance for driving/[place] ferry LTG Duration 07/01/24 One Impairment impairments in standing tolerance, sitting tolerance, DANI 28% Short Term Goal (STG) Pt will report increased standing tolerance >15 minutes in order to perform standing ADLs and volunteer work with less pain STG Duration 06/10/24 Life Agent Goal (LTG) Pt will report increased standing tolerance >30 minutes in order to perform standing ADLs and volunteer work with less pain LTG Duration 07/01/24 Assessment Summary Assessment Tx focused on HEP review with educational instruction TA draw in, neutral pelvis and range anterior/posterior/ obique during HEP for back health support, better performance and felt lower abdominals after trialed slow R<>L LTRs after stretch each side. REviewed incorporation of hip stretching for decreased tension on LB before get out of bed. Good feedback response after supine activity today. Initiated body mechanics attention to TA and hip abd during STS and TA with chest lift posture back alignment while weight shifting between BLEs during vacuuming activity, good response I forgot moving with my legs doesn't hurt my back, learned a while ago and forgot. Pt reports back feels alot better leaving, no scale rating given. Physical Therapy Plan Frequency and Duration Frequency of Treatment 2x/Week Duration of treatment (weeks) 8 Plan of Care Start Date 05/05/24 Plan of Care End Date 07/01/24 Therapeutic Interventions Therapeutic Interventions Balance Training,Gait Training ,Home Exercise Program,Joint Mobilizations,Manual Therapy, Neuromuscular Re-education, Orthotic/Prosthetic Management ,Patient/Caregiver Education, Self-Care/Home Management, Sensory Integration,Soft Tissue Mobilization,Taping, Therapeutic Activities, Therapeutic Exercises, Vestibular Rehabilitation Modalities Cold Pack/Ice Massage,Electric Stimulation,Hot Packs Other Therapeutic Interventions MET Next Visit Focus/Plan Next Note Type Treatment Note Next Visit Plan heart stent, blood thinners, osteopenia, poor tolerance for sidelying, previous discectomy Continue hip stretching in supine with TA draw in awareness, recheck LTR TA hold stretch and abdominal rotation level pelvis. Next trial possible knee to chest stretch or on ball, traction, pelvic tilts, core bracing supine vs seated, possible. reassess tolerance for seated hip abd vs d/c from HEP if painful. once appropriate, progress to seated and standing hip ROM and strengthening exercises including STS and leg press. Manual tx: soft tissue mobilization in sitting with flexion over support vs prone over pillows- superficial, hip mobilizations
--- NOTE | 2024-05-18 10:33 | PT.OTN ---
Current Diagnoses Stiffness of right hip, not elsewhere classified (05/18/24) Low back pain, unspecified (05/18/24) Unsteadiness on feet (05/18/24) Other abnormalities of gait and mobility (05/18/24) Weakness (05/18/24) Physical Therapy Treatment Note PT-OP-A Visit Information Start: 05/04/24 10:29 Freq: Status: Active Protocol: Document 05/18/24 09:48 SP (Rec: 05/18/24 10:46 SP [id number]) Out-Patient Physical Therapy Visit Information Visit Information Visit Type Treatment Note Visit Note KX after 19 visits Visit Start Time 09:48 Visit Stop Time 10:33 Visit Number 4 Number of FULL [employer] ENGINEER Visits 2 Evaluation Information Evaluation Date 05/05/24 Precautions Precautions heart stents, blood thinner, hx of discectomy, bowel/ bladder incontinence, retrolisthesis L1-2 and L3-4, anterolisthesis L5-S1 PT-OP-B Current Condition Start: 05/04/24 10:29 Freq: Status: Active Protocol: Document 05/05/24 10:45 NM (Rec: 05/05/24 12:28 NM [id number]) Current Condition History of Current Condition Onset Date chronic, ongoing; exacerbation 1 month ago History of Current Condition Pt presents with chronic back and hip pain, R sided. Pt reports that pain began at least 1 month ago; unable to stand at that time, had to bend over and ambulate (hold thighs) for about 3 days. Ambulates with lateral lean. Worse with extension, sitting in car, car transfers, ambulation, sleeping. No known EJ but states likely occurred over night as was fine going to bed but reports that woke up with pain. Pt states that unable to sleep on either side due to pain, unable to get up in morning if that happens. Sleeps on back with 2 pillows under trunk. Pt reports that she had a discectomy in 2016, states that she had a hematoma following surgery that had to be surgically drained. Increased pain with ambulation . Hx of stent placement 3-4 months ago, influenza A last month, high blood pressure, R reverse TSA in Jan 2023, osteopenia. Hx of falls previously. Pt reports weakness in her RLE compared to before pain onset, with lifting her leg. Symptoms do not travel down RLE, no numbness/tingling. Remain in same spot. Pt has received injections before in her lumbar spine for pain. Feels in quad area, front of thigh. Pt reports changes to balance since onset of pain. Has been referred to neurosurgeon but wants to try PT first. No saddle anesthesia. Reports bladder incontinence (urgency, beginning 3 years ago) and bowel incontinence (unable to feel urge or control, beginning several years ago). 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 The degenerative changes overall have progressed compared to 2021. 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 Has been more mindful in increased knees apart then able STS without UE support and easier, telling friends for pay forward. PT-OP-E Functional Tests Start: 05/04/24 10:29 Freq: Status: Active Protocol: Document 05/05/24 10:45 NM (Rec: 05/05/24 12:28 NM [id number]) Functional Tests Five Times Sit to Stand Test Score 13.7 Comments no back pain PT-OP-F Manual Assessment Start: 05/04/24 10:29 Freq: Status: Active Protocol: Document 05/05/24 10:45 NM (Rec: 05/05/24 12:28 NM [id number]) Manual Assessments Soft Tissue Assessment Soft Tissue Mobility Assessment Tightness of B hamstrings, glutes, hip flexors. Tenderness at R and L glutes and paraspinals. Joint Mobility Assessment Joint Mobility Assessment Hypomobility of B SIJ, lumbopelvic motion during standing assessment and gait. Hypermobility of lumbar spine with PA springing R hip mobility limited into IR PT-OP-G Mobility & Gait Start: 05/04/24 10:29 Freq: Status: Active Protocol: Document 05/05/24 10:45 NM (Rec: 05/05/24 14:49 NM [id number]) OP Mobility Evaluation Bed Mobility Rolling painful in low back Supine to and from Sit able to lift RLE onto bed with increased effort and pain OP Gait Assessment Gait Gait Assistance Required: Standby Assistance Distance (Feet) 150 Assistive Devices Assistive Device None Gait Deviations General Gait Pattern Antalgic,Lateral Trunk Lean, Step-to Gait Factors Limiting Gait Function Factors Limiting Gait Function Decreased Activity Tolerance, Decreased Strength,Limited Range of Motion,Pain,Poor Balance PT-OP-H Neuro Start: 05/04/24 10:29 Freq: Status: Active Protocol: Document 05/10/24 10:43 NM (Rec: 05/10/24 11:34 NM [id number]) Sensation Evaluation Comments Summary Comments Less intense sensation on RLE to light touch, L1-3 PT-OP-J Posture/Palpation/Skin Start: 05/04/24 10:29 Freq: Status: Active Protocol: Document 05/05/24 10:45 NM (Rec: 05/05/24 12:28 NM [id number]) Posture Evaluation Position Standing Head/C-Spine Posture Forward Head T-Spine Posture Increased Kyphosis Comments Posture Comments scoliosis Palpation Assessment Location lumbar spine Palpation Details tenderness glutes PT-OP-K Range of Motion Start: 05/04/24 10:29 Freq: Status: Active Protocol: Document 05/10/24 10:43 NM (Rec: 05/10/24 11:34 NM [id number]) Hip Goniometric Range of Motion Hip Right Internal Rotation 20 External Rotation 20 Comments pain in posterior hip Left Internal Rotation 25 External Rotation 25 PT-OP-L Special Tests Start: 05/04/24 10:29 Freq: Status: Active Protocol: Document 05/05/24 10:45 NM (Rec: 05/05/24 12:28 NM [id number]) Special Tests Lumbar Spine Special Tests traction Test Results + Straight Leg Raise Test Results + machuca/quadrant Test Results + Comments R PT-OP-M Strength Start: 05/04/24 10:29 Freq: Status: Active Protocol: Document 05/05/24 10:45 NM (Rec: 05/05/24 12:28 NM [id number]) Trunk Strength Trunk Manual Muscle Testing Flexion 4- Good- Extension 4- Good- Rotation Left 4- Good- Rotation Right 4- Good- Lateral Flexion Left 4- Good- Lateral Flexion Right 4- Good- Comments pain with resisted lateral flexion Hip Strength Hip Manual Muscle Testing Right Flexion (L2) 3+ Fair+ Extension (S1) 4- Good- Abduction 3+ Fair+ Adduction 4- Good- External Rotation 4- Good- Internal Rotation 4- Good- Left Flexion (L2) 4- Good- Extension (S1) 3+ Fair+ Abduction 3+ Fair+ Adduction 4- Good- External Rotation 4- Good- Internal Rotation 4- Good- Knee Strength Knee Manual Muscle Testing Right Flexion (S2) 4 Good Extension (L3) 4- Good- Left Flexion (S2) 4 Good Extension (L3) 4 Good Ankle/Foot Strength Ankle and Foot Manual Muscle Testing Right Dorsiflexion (L4) 4 Good Plantarflexion (S1) 4 Good Comments tested in sitting Left Dorsiflexion (L4) 4 Good Plantarflexion (S1) 4 Good Comments tested in sitting PT-OP-Q Treatments Start: 05/04/24 10:29 Freq: Status: Active Protocol: Document 05/18/24 09:48 SP (Rec: 05/18/24 10:46 SP [id number]) Therapeutic Exercises Supine Exercises TA marching Supine Exercise Name trialed in PT, added to HEP Reps/Minutes 10 alternating Comments cued TA /c PPT good no pain TA heel slides Supine Exercise Name trialed in PT, added to HEP Side bilateral Reps/Minutes 20 alternating Comments cued TA /c PPT good no pain SKTC Supine Exercise Name trialed in PT- DC for now Side bilateral Resistance L posterior and anterior hip/ SI pain Comments didn't improved pre to post manual L hip hamstring stretch Supine Exercise Name Reviewed Side bilateral Equipment Used able graps behind thigh vs towel Reps/Minutes 60 ea LE- cued breath Comments good form, reported light pressure post L hip maybe wrinkle shrinkle shirt LTR Supine Exercise Name Review: 1. stretching end feel hold 2. TA LTR LEs 55cm tball Side bilateral Equipment Used 2. hands under pelvis not let lift off hands Reps/Minutes 1. [id number] 2. 20 alternating Comments good painfree range, slow pacing improved TA work, no LB pain Sitting Exercises Stretching Sitting Exercise Name added to HEP /c HO: HS & medial Add Side left Reps/Minutes hip flex 8 reps- no hold at this time. Comments cued ft ceiling and hip IR - good response lessen cramp tightness Standing Exercises Adductor stretch Standing Exercise Name added to HEP /c HO written Side left Equipment Used contact table Reps/Minutes 30 sec Comments cued gentle stretch Manual Therapy Treatment Consent Patient gave verbal consent for manual Yes treatment Soft Tissue Mobilization hips Body Location L glut max, Pirif: near SI points to pain, adductor Mobilization Type Rolling,Strumming,Sustained Pressure Intensity/Depth Superficial Body Position Hooklying Comments MWM glut max, distal PF hip IR / ER- decreased tightness. Tried adductor due to reports pain very sensitive STMs and trial gentle broad pressure MWM hip long axis IR/ER- stopped due to adductor and medial HS cramp. Joint Mobilizations Hip Joint L Grade II Comments inferior, lateral, anteromedial glide /c Strap & towel- good response gentle stretch PT-OP-T Assessment and Plan Start: 05/04/24 10:29 Freq: Status: Active Protocol: Document 05/18/24 09:48 SP (Rec: 05/18/24 10:46 SP [id number]) Physical Therapy Assessment Goals Three Impairment pain with ADLs, housework Short Term Goal (STG) Pt will be educated on body mechanics during various ADLs (e.g. vacuuming) and activity modification in order to improve symptom management 05/13/24: instruction on chest lift, split stance, wt shift between BLEs pushing vacuum, with TA draw in needed support back. STG Duration 06/03/24 progressing 05/13/24 Veneer Stacker Goal (LTG) Pt will report <3/10 back and hip pain with most household ADLs (e.g. 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 Tried manual mobs were ok but attempt to stretch adductor causes pain. Pt responds better to seated hip hinge trunk flex/ext HS stretch and standing Adductor stretch. Discussed speak with physician about cramping in L adductor, calf and at times HS at night. Had some relief by end tx but feels like L leg more worked out than R today. Physical Therapy Plan Frequency and Duration Frequency of Treatment 2x/Week Duration of treatment (weeks) 8 Plan of Care Start Date 05/05/24 Plan of Care End Date 07/01/24 Therapeutic Interventions Therapeutic Interventions Balance Training,Gait Training ,Home Exercise Program,Joint Mobilizations,Manual Therapy, Neuromuscular Re-education, Orthotic/Prosthetic Management ,Patient/Caregiver Education, Self-Care/Home Management, Sensory Integration,Soft Tissue Mobilization,Taping, Therapeutic Activities, Therapeutic Exercises, Vestibular Rehabilitation Modalities Cold Pack/Ice Massage,Electric Stimulation,Hot Packs Other Therapeutic Interventions MET Next Visit Focus/Plan Next Note Type Treatment Note Next Visit Plan heart stent, blood thinners, osteopenia, poor tolerance for sidelying, previous discectomy Recheck response to seated stretching vs supine today, no cramp response. PT POC: Continue TA heel slide and marching for core support to allow PT recommendation hip stretching as marci in supine with TA draw in awareness, recheck LTR TA hold stretch and abdominal rotation level pelvis. Does not marci KTC, traction, pelvic tilts, core bracing supine vs seated, possible. reassess tolerance for seated hip abd vs d/c from HEP if painful. once appropriate, progress to seated and standing hip ROM and strengthening exercises including STS and leg press. Manual tx: soft tissue mobilization in sitting with flexion over support vs prone over pillows- superficial, hip mobilizations
--- NOTE | 2024-05-25 13:46 | PT.OTN ---
Current Diagnoses Stiffness of right hip, not elsewhere classified (05/25/24) Low back pain, unspecified (05/25/24) Unsteadiness on feet (05/25/24) Other abnormalities of gait and mobility (05/25/24) Weakness (05/25/24) Physical Therapy Treatment Note PT-OP-A Visit Information Start: 05/04/24 10:29 Freq: Status: Active Protocol: Document 05/25/24 13:03 SP (Rec: 05/25/24 13:46 SP [id number]) Out-Patient Physical Therapy Visit Information Visit Information Visit Type Treatment Note Visit Note KX after 19 visits Visit Start Time 13:03 Visit Stop Time 13:46 Visit Number 5 Number of ADV[employer]ACTICE PROFESSIONAL Visits 3 Evaluation Information Evaluation Date 05/05/24 Precautions Precautions heart stents, blood thinner, hx of discectomy, bowel/ bladder incontinence, retrolisthesis L1-2 and L3-4, anterolisthesis L5-S1 PT-OP-B Current Condition Start: 05/04/24 10:29 Freq: Status: Active Protocol: Document 05/05/24 10:45 NM (Rec: 05/05/24 12:28 NM [id number]) Current Condition History of Current Condition Onset Date chronic, ongoing; exacerbation 1 month ago History of Current Condition Pt presents with chronic back and hip pain, R sided. Pt reports that pain began at least 1 month ago; unable to stand at that time, had to bend over and ambulate (hold thighs) for about 3 days. Ambulates with lateral lean. Worse with extension, sitting in car, car transfers, ambulation, sleeping. No known EJ but states likely occurred over night as was fine going to bed but reports that woke up with pain. Pt states that unable to sleep on either side due to pain, unable to get up in morning if that happens. Sleeps on back with 2 pillows under trunk. Pt reports that she had a discectomy in 2016, states that she had a hematoma following surgery that had to be surgically drained. Increased pain with ambulation . Hx of stent placement 3-4 months ago, influenza A last month, high blood pressure, R reverse TSA in Jan 2023, osteopenia. Hx of falls previously. Pt reports weakness in her RLE compared to before pain onset, with lifting her leg. Symptoms do not travel down RLE, no numbness/tingling. Remain in same spot. Pt has received injections before in her lumbar spine for pain. Feels in quad area, front of thigh. Pt reports changes to balance since onset of pain. Has been referred to neurosurgeon but wants to try PT first. No saddle anesthesia. Reports bladder incontinence (urgency, beginning 3 years ago) and bowel incontinence (unable to feel urge or control, beginning several years ago). 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 The degenerative changes overall have progressed compared to 2021. 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 She demonstrates pain laying down 1 leg up laying back. PT-OP-E Functional Tests Start: 05/04/24 10:29 Freq: Status: Active Protocol: Document 05/05/24 10:45 NM (Rec: 05/05/24 12:28 NM [id number]) Functional Tests Five Times Sit to Stand Test Score 13.7 Comments no back pain PT-OP-F Manual Assessment Start: 05/04/24 10:29 Freq: Status: Active Protocol: Document 05/05/24 10:45 NM (Rec: 05/05/24 12:28 NM [id number]) Manual Assessments Soft Tissue Assessment Soft Tissue Mobility Assessment Tightness of B hamstrings, glutes, hip flexors. Tenderness at R and L glutes and paraspinals. Joint Mobility Assessment Joint Mobility Assessment Hypomobility of B SIJ, lumbopelvic motion during standing assessment and gait. Hypermobility of lumbar spine with PA springing R hip mobility limited into IR PT-OP-G Mobility & Gait Start: 05/04/24 10:29 Freq: Status: Active Protocol: Document 05/05/24 10:45 NM (Rec: 05/05/24 14:49 NM [id number]) OP Mobility Evaluation Bed Mobility Rolling painful in low back Supine to and from Sit able to lift RLE onto bed with increased effort and pain OP Gait Assessment Gait Gait Assistance Required: Standby Assistance Distance (Feet) 150 Assistive Devices Assistive Device None Gait Deviations General Gait Pattern Antalgic,Lateral Trunk Lean, Step-to Gait Factors Limiting Gait Function Factors Limiting Gait Function Decreased Activity Tolerance, Decreased Strength,Limited Range of Motion,Pain,Poor Balance PT-OP-H Neuro Start: 05/04/24 10:29 Freq: Status: Active Protocol: Document 05/10/24 10:43 NM (Rec: 05/10/24 11:34 NM [id number]) Sensation Evaluation Comments Summary Comments Less intense sensation on RLE to light touch, L1-3 PT-OP-J Posture/Palpation/Skin Start: 05/04/24 10:29 Freq: Status: Active Protocol: Document 05/05/24 10:45 NM (Rec: 05/05/24 12:28 NM [id number]) Posture Evaluation Position Standing Head/C-Spine Posture Forward Head T-Spine Posture Increased Kyphosis Comments Posture Comments scoliosis Palpation Assessment Location lumbar spine Palpation Details tenderness glutes PT-OP-K Range of Motion Start: 05/04/24 10:29 Freq: Status: Active Protocol: Document 05/10/24 10:43 NM (Rec: 05/10/24 11:34 NM [id number]) Hip Goniometric Range of Motion Hip Right Internal Rotation 20 External Rotation 20 Comments pain in posterior hip Left Internal Rotation 25 External Rotation 25 PT-OP-L Special Tests Start: 05/04/24 10:29 Freq: Status: Active Protocol: Document 05/05/24 10:45 NM (Rec: 05/05/24 12:28 NM [id number]) Special Tests Lumbar Spine Special Tests traction Test Results + Straight Leg Raise Test Results + machuca/quadrant Test Results + Comments R PT-OP-M Strength Start: 05/04/24 10:29 Freq: Status: Active Protocol: Document 05/05/24 10:45 NM (Rec: 05/05/24 12:28 NM [id number]) Trunk Strength Trunk Manual Muscle Testing Flexion 4- Good- Extension 4- Good- Rotation Left 4- Good- Rotation Right 4- Good- Lateral Flexion Left 4- Good- Lateral Flexion Right 4- Good- Comments pain with resisted lateral flexion Hip Strength Hip Manual Muscle Testing Right Flexion (L2) 3+ Fair+ Extension (S1) 4- Good- Abduction 3+ Fair+ Adduction 4- Good- External Rotation 4- Good- Internal Rotation 4- Good- Left Flexion (L2) 4- Good- Extension (S1) 3+ Fair+ Abduction 3+ Fair+ Adduction 4- Good- External Rotation 4- Good- Internal Rotation 4- Good- Knee Strength Knee Manual Muscle Testing Right Flexion (S2) 4 Good Extension (L3) 4- Good- Left Flexion (S2) 4 Good Extension (L3) 4 Good Ankle/Foot Strength Ankle and Foot Manual Muscle Testing Right Dorsiflexion (L4) 4 Good Plantarflexion (S1) 4 Good Comments tested in sitting Left Dorsiflexion (L4) 4 Good Plantarflexion (S1) 4 Good Comments tested in sitting PT-OP-Q Treatments Start: 05/04/24 10:29 Freq: Status: Active Protocol: Document 05/25/24 13:03 SP (Rec: 05/25/24 13:46 SP [id number]) Therapeutic Exercises Supine Exercises Venkatesh Stretch Supine Exercise Name Reviewed a self stretch Side bilateral Equipment Used opp knee bent Reps/Minutes 30 SH- feels better not as tight on L>R Comments cued breath for ribcage & LS mobility TA heel slides Supine Exercise Name reviewed Side bilateral Reps/Minutes 20 alternating Comments cued TA /c PPT good no pain at home bridge Supine Exercise Name lateral scoot, moving to other side table Resistance B Reps/Minutes few reps Comments no pain, cued TA slow mobility Sitting Exercises TS rotation Sitting Exercise Name added to HEP /c breath- declined HO Side bilateral Reps/Minutes 3 breath x2 each side Comments cued tolerant range with breath, good response rib mob& breath. hip abduction Sitting Exercise Name HEP review- isometric hold with band Side bilateral Resistance level 1 band at thighs Reps/Minutes 3x20 Comments good form, no pain, performs bid. Standing Exercises resisted side stepping Standing Exercise Name added to HEP, declined HO Side bilateral Resistance TB #1 at thighs Reps/Minutes 10 ft x2 laps Comments cued posture, neutral pelvis, TA draw in, DF foot clearance Therapeutic Activity Therapeutic Activity TA log roll Name cued TA fac Reps/Minutes 1 Comments cued sit>SL>sup onto side UE support with TA draw in then BLEs up together for support symetry then log rolled better onto back and good performance reverse sup>SL>sit . Manual Therapy Treatment Consent Patient gave verbal consent for manual Yes treatment Soft Tissue Mobilization hips Body Location R glut max, Pirif: near SI points to pain, adductor Mobilization Type Rolling,Strumming,Sustained Pressure Intensity/Depth Superficial Body Position prone and L SL Comments STMs, Tried PROM hip IR/ER prone sensitive to distal femural attachment on R lumbar spine Body Location R>L paraspinals, QL at inferior ribs Mobilization Type Rolling,Strumming Intensity/Depth Superficial Body Position prone, L SL, seated Comments STMs And caudal pelvic traction glide prone with cues breath STMs and MWM breath R 10-12 R seated improved Rotation PT-OP-T Assessment and Plan Start: 05/04/24 10:29 Freq: Status: Active Protocol: Document 05/25/24 13:03 SP (Rec: 05/25/24 13:46 SP [id number]) Physical Therapy Assessment Goals Three Impairment pain with ADLs, housework Short Term Goal (STG) Pt will be educated on body mechanics during various ADLs (e.g. vacuuming) and activity modification in order to improve symptom management 05/13/24: instruction on chest lift, split stance, wt shift between BLEs pushing vacuum, with TA draw in needed support back. STG Duration 06/03/24 progressing 05/13/24 Boring Machine Operator Production Goal (LTG) Pt will report <3/10 back and hip pain with most household ADLs (e.g. vacuuming) in order to demonstrate improved symptom management, activity tolerance, and body mechanics LTG Duration 07/01/24 Two Impairment pain with car transfers, sitting tolerance, bed mobility Short Term Goal (STG) Pt will report <3/10 pain with car transfers and bed mobility in order to demonstrate improved pain management and functional mobility STG Duration 06/10/24 Boring Machine Operator Production Goal (LTG) Pt will be able to sit in car or chair other than favorite chair >30 minutes in order to demonstrate improved sitting tolerance for driving[place] ferry LTG Duration 07/01/24 One Impairment impairments in standing tolerance, sitting tolerance, DANI 28% Short Term Goal (STG) Pt will report increased standing tolerance >15 minutes in order to perform standing ADLs and volunteer work with less pain STG Duration 06/10/24 Half-Way Goal (LTG) Pt will report increased standing tolerance >30 minutes in order to perform standing ADLs and volunteer work with less pain LTG Duration 07/01/24 Assessment Summary Assessment Pt improved decreased adductor tightness today, tolerated increased hip abd against resistance and TA heel slides no pain in LB or hip. Continued small range bridge during funcitonal lateral scoot on table today, cued TA support. Instructed and education use of TA and back alignment support keeping hips /shld together sup<>sit, with use of log roll technique during bed mobility for decreased back pain at this time, better response with performance today. Sensitive to pressure over distal posterior hip ERs and gluts today during manual, good response to caudal LS manual traction in prone today with cues breath. Good response to resisted side stepping today end tx, cues for proper form and hip/back alginment cuing added support. Physical Therapy Plan Frequency and Duration Frequency of Treatment 2x/Week Duration of treatment (weeks) 8 Plan of Care Start Date 05/05/24 Plan of Care End Date 07/01/24 Therapeutic Interventions Therapeutic Interventions Balance Training,Gait Training ,Home Exercise Program,Joint Mobilizations,Manual Therapy, Neuromuscular Re-education, Orthotic/Prosthetic Management ,Patient/Caregiver Education, Self-Care/Home Management, Sensory Integration,Soft Tissue Mobilization,Taping, Therapeutic Activities, Therapeutic Exercises, Vestibular Rehabilitation Modalities Cold Pack/Ice Massage,Electric Stimulation,Hot Packs Other Therapeutic Interventions MET Next Visit Focus/Plan Next Note Type Treatment Note Next Visit Plan heart stent, blood thinners, osteopenia, poor tolerance for sidelying, previous discectomy Next tx: Recheck TS rotation seated for back and ribcage mobility end last tx, then response to seated stretching vs supine today, no cramp response. PT POC: Assess if back/hip still good response to core TA heel slide and marching for core support to allow PT recommendation hip stretching as marci in supine with TA draw in awareness, recheck LTR TA hold stretch and abdominal rotation level pelvis. Does not marci KTC, better with traction, pelvic tilts, core bracing supine vs seated, possible. reassess tolerance for seated hip abd vs d/c from HEP if painful. once appropriate, progress to seated and standing hip ROM and strengthening exercises including STS and leg press. Manual tx: soft tissue mobilization in sitting with flexion over support vs prone over pillows- superficial, hip mobilizations
--- NOTE | 2024-05-27 13:07 | PT.OTN ---
Current Diagnoses Stiffness of right hip, not elsewhere classified (05/27/24) Low back pain, unspecified (05/27/24) Unsteadiness on feet (05/27/24) Other abnormalities of gait and mobility (05/27/24) Weakness (05/27/24) Physical Therapy Treatment Note PT-OP-A Visit Information Start: 05/04/24 10:29 Freq: Status: Active Protocol: Document 05/27/24 11:33 NM (Rec: 05/27/24 12:24 NM [id number]) Out-Patient Physical Therapy Visit Information Visit Information Visit Type Progress Note Visit Note KX after 19 visits Visit Start Time 11:34 Visit Stop Time 12:15 Visit Number 6 Evaluation Information Evaluation Date 05/05/24 Precautions Precautions heart stents, blood thinner, hx of discectomy, bowel/ bladder incontinence, retrolisthesis L1-2 and L3-4, anterolisthesis L5-S1 PT-OP-B Current Condition Start: 05/04/24 10:29 Freq: Status: Active Protocol: Document 05/05/24 10:45 NM (Rec: 05/05/24 12:28 NM [id number]) Current Condition History of Current Condition Onset Date chronic, ongoing; exacerbation 1 month ago History of Current Condition Pt presents with chronic back and hip pain, R sided. Pt reports that pain began at least 1 month ago; unable to stand at that time, had to bend over and ambulate (hold thighs) for about 3 days. Ambulates with lateral lean. Worse with extension, sitting in car, car transfers, ambulation, sleeping. No known EJ but states likely occurred over night as was fine going to bed but reports that woke up with pain. Pt states that unable to sleep on either side due to pain, unable to get up in morning if that happens. Sleeps on back with 2 pillows under trunk. Pt reports that she had a discectomy in 2016, states that she had a hematoma following surgery that had to be surgically drained. Increased pain with ambulation . Hx of stent placement 3-4 months ago, influenza A last month, high blood pressure, R reverse TSA in Jan 2023, osteopenia. Hx of falls previously. Pt reports weakness in her RLE compared to before pain onset, with lifting her leg. Symptoms do not travel down RLE, no numbness/tingling. Remain in same spot. Pt has received injections before in her lumbar spine for pain. Feels in quad area, front of thigh. Pt reports changes to balance since onset of pain. Has been referred to neurosurgeon but wants to try PT first. No saddle anesthesia. Reports bladder incontinence (urgency, beginning 3 years ago) and bowel incontinence (unable to feel urge or control, beginning several years ago). 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 The degenerative changes overall have progressed compared to 2021. 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 She states that she felt good after last session. However, since starting PT, she states that her back feels like it is getting worse. She states that she now has back spasms which she did not have before; states that started before last PT appt; states that occurring on R side, does not know what triggers. Has had R eye watering for a month, states on prednisonye drops and special eye. Reports worse with turning L, states under ribs. States that she is walking better, limping less since starting PT. Reports pain with vacuuming, picking up objects jon if twisting. Only occurs during day, getting out of bed. PT-OP-E Functional Tests Start: 05/04/24 10:29 Freq: Status: Active Protocol: Document 05/05/24 10:45 NM (Rec: 05/05/24 12:28 NM [id number]) Functional Tests Five Times Sit to Stand Test Score 13.7 Comments no back pain PT-OP-F Manual Assessment Start: 05/04/24 10:29 Freq: Status: Active Protocol: Document 05/05/24 10:45 NM (Rec: 05/05/24 12:28 NM [id number]) Manual Assessments Soft Tissue Assessment Soft Tissue Mobility Assessment Tightness of B hamstrings, glutes, hip flexors. Tenderness at R and L glutes and paraspinals. Joint Mobility Assessment Joint Mobility Assessment Hypomobility of B SIJ, lumbopelvic motion during standing assessment and gait. Hypermobility of lumbar spine with PA springing R hip mobility limited into IR PT-OP-G Mobility & Gait Start: 05/04/24 10:29 Freq: Status: Active Protocol: Document 05/05/24 10:45 NM (Rec: 05/05/24 14:49 NM [id number]) OP Mobility Evaluation Bed Mobility Rolling painful in low back Supine to and from Sit able to lift RLE onto bed with increased effort and pain OP Gait Assessment Gait Gait Assistance Required: Standby Assistance Distance (Feet) 150 Assistive Devices Assistive Device None Gait Deviations General Gait Pattern Antalgic,Lateral Trunk Lean, Step-to Gait Factors Limiting Gait Function Factors Limiting Gait Function Decreased Activity Tolerance, Decreased Strength,Limited Range of Motion,Pain,Poor Balance PT-OP-H Neuro Start: 05/04/24 10:29 Freq: Status: Active Protocol: Document 05/10/24 10:43 NM (Rec: 05/10/24 11:34 NM [id number]) Sensation Evaluation Comments Summary Comments Less intense sensation on RLE to light touch, L1-3 PT-OP-J Posture/Palpation/Skin Start: 05/04/24 10:29 Freq: Status: Active Protocol: Document 05/05/24 10:45 NM (Rec: 05/05/24 12:28 NM [id number]) Posture Evaluation Position Standing Head/C-Spine Posture Forward Head T-Spine Posture Increased Kyphosis Comments Posture Comments scoliosis Palpation Assessment Location lumbar spine Palpation Details tenderness glutes PT-OP-K Range of Motion Start: 05/04/24 10:29 Freq: Status: Active Protocol: Document 05/27/24 11:33 NM (Rec: 05/27/24 12:24 NM [id number]) Lumbar Spine Range of Motion Lumbar Spine Active Percentage Flexion 90 Extension 50 Rotation Left 75 Rotation Right 75 Lateral Flexion Left 50 Lateral Flexion Right 25 Comments pain with ext from flexion, R> L LF 05/27/24: pain c/ L LF and R LF (R>L) PT-OP-L Special Tests Start: 05/04/24 10:29 Freq: Status: Active Protocol: Document 05/05/24 10:45 NM (Rec: 05/05/24 12:28 NM [id number]) Special Tests Lumbar Spine Special Tests traction Test Results + Straight Leg Raise Test Results + machuca/quadrant Test Results + Comments R PT-OP-M Strength Start: 05/04/24 10:29 Freq: Status: Active Protocol: Document 05/27/24 11:33 NM (Rec: 05/27/24 12:24 NM [id number]) Trunk Strength Trunk Manual Muscle Testing Flexion 4- Good- Extension 4- Good- Rotation Left 4- Good- Rotation Right 4- Good- Lateral Flexion Left 4- Good- Lateral Flexion Right 4- Good- Comments pain with resisted lateral flexion 05/27/24: no pain with resisted testing PT-OP-Q Treatments Start: 05/04/24 10:29 Freq: Status: Active Protocol: Document 05/27/24 11:33 NM (Rec: 05/27/24 12:24 NM [id number]) Therapeutic Exercises Supine Exercises hip adductor stretch Supine Exercise Name supine instead of standing c/ lunge Side bilateral Equipment Used unilateral butterfly stretch Reps/Minutes 60 ea Comments L side more restricted than R; edu add HEP (no HO) over standing Sitting Exercises tail wags Sitting Exercise Name pelvic tilts small ROM Side bilateral Reps/Minutes 5 Comments no pain in back cat camel Sitting Exercise Name pelvic tilts small ROM c/i neutral spine Side bilateral Reps/Minutes 5 TS rotation Sitting Exercise Name edu to avoid painful rotation Standing Exercises bird dog Standing Exercise Name modified- at plinth-1. UE, 2. LE, 3. opp arm leg (non-alt) Reps/Minutes 8 ea position Comments added HEP; cued stand closer, reports no discomfort Manual Therapy Treatment Consent Patient gave verbal consent for manual Yes treatment Soft Tissue Mobilization lumbar spine Body Location R>L paraspinals, QL at inferior ribs Mobilization Type Rolling,Strumming Intensity/Depth Superficial Body Position Sidelying Comments L sidelying with pillow between legs. Tenderness at specifically just lateral to L1-2 along paraspinals, QL, distal ribs. Restrictions of soft tissue, mild radiation along trunk posterior > anterior. No rash present. Reports pain reduction with manual treatment. Educated to avoid using massage gun on spine/ribs but can use on surrounding tissue as long as pain free. Self-Care/Home Management Treatment Education Patient Education Body Mechanics,Joint Protection,Pain Management Other Education 8 min- Educated on body mechanics and positioning to avoid aggravating twisting motion especially while bending. Education and demonstration by PT and pt on turning entire body vs twisting from spine especially while in motion. Recommended adjustment of schedule to allow for time, set timers, etc to assist pt with managing activities so she does not feel rushed (e.g. feeding cat) PT-OP-T Assessment and Plan Start: 05/04/24 10:29 Freq: Status: Active Protocol: Document 05/27/24 11:33 NM (Rec: 05/27/24 12:24 NM [id number]) Physical Therapy Assessment Goals Three Impairment pain with ADLs, housework Short Term Goal (STG) Pt will be educated on body mechanics during various ADLs (e.g. vacuuming) and activity modification in order to improve symptom management 05/13/24: instruction on chest lift, split stance, wt shift between BLEs pushing vacuum, with TA draw in needed support back. 05/27/24: education about body mechanics and activity modification provided STG Duration 06/03/24 progressing 05/27 Residential Goal (LTG) Pt will report <3/10 back and hip pain with most household ADLs (e.g. vacuuming) in order to demonstrate improved symptom management, activity tolerance, and body mechanics 05/27/24: pt reports 3/10 pain with all ADLs, vacuuming 8-9 10, dropping or placing cat food on floor LTG Duration 07/01/24 Two Impairment pain with car transfers, sitting tolerance, bed mobility Short Term Goal (STG) Pt will report <3/10 pain with car transfers and bed mobility in order to demonstrate improved pain management and functional mobility 05/27/24: reports 4-5/10 car transfers, 9/10 STG Duration 06/10/24 PROGRESSING 05/27 Internal Controls Manager Goal (LTG) Pt will be able to sit in car or chair other than favorite chair >30 minutes in order to demonstrate improved sitting tolerance for driving/[place] ferry LTG Duration 07/01/24 One Impairment impairments in standing tolerance, sitting tolerance, DANI 28% Short Term Goal (STG) Pt will report increased standing tolerance >15 minutes in order to perform standing ADLs and volunteer work with less pain 05/27/24: 20 min before needing to take a seated break STG Duration 06/10/24 MET 05/27 Residential Goal (LTG) Pt will report increased standing tolerance >30 minutes in order to perform standing ADLs and volunteer work with less pain LTG Duration 07/01/24 Progress Towards Goals Progress Towards Goals Progressing Toward Goals,Slow Progress due to Activity Tolerance,Slow Progress due to Noncompliance Assessment Summary Assessment Pt reports that she has mild increase in pain at end of session following body mechanics education. Reviewed parts of past HEP and adjusted exercises to improve pain management especially with adductor stretching. Trialed posterior chain and spinal stabilization training for improved strengthening and for pain management. Moderate cueing needed initially for form but tolerates well. Education provided to patient regarding body mechanics and activity modification due to pt admitting that feels good during session but consistently perform aggravating activities or movements despite knowing that they will aggravate her symptoms. Physical Therapy Plan Frequency and Duration Frequency of Treatment 2x/Week Duration of treatment (weeks) 8 Plan of Care Start Date 05/05/24 Plan of Care End Date 07/01/24 Therapeutic Interventions Therapeutic Interventions Balance Training,Gait Training ,Home Exercise Program,Joint Mobilizations,Manual Therapy, Neuromuscular Re-education, Orthotic/Prosthetic Management ,Patient/Caregiver Education, Self-Care/Home Management, Sensory Integration,Soft Tissue Mobilization,Taping, Therapeutic Activities, Therapeutic Exercises, Vestibular Rehabilitation Modalities Cold Pack/Ice Massage,Electric Stimulation,Hot Packs Other Therapeutic Interventions MET Next Visit Focus/Plan Next Note Type Treatment Note Next Visit Plan heart stent, blood thinners, osteopenia, poor tolerance for sidelying, previous discectomy No rotation. Assess bird dog. Cont with hip/glute trunk strength and core strength. Needs to focus on spinal stabilization, add lat/row. Limit twisting. Body mechanics training jon vacumming. PT POC: Assess if back/hip still good response to core TA heel slide and marching for core support to allow PT recommendation hip stretching as marci in supine with TA draw in awareness, recheck LTR TA hold stretch and abdominal rotation level pelvis. Does not marci KTC, better with traction, pelvic tilts, core bracing supine vs seated, possible. reassess tolerance for seated hip abd vs d/c from HEP if painful. once appropriate, progress to seated and standing hip ROM and strengthening exercises including STS and leg press. Manual tx: soft tissue mobilization in sitting with flexion over support vs prone over pillows- superficial, hip mobilizations
--- NOTE | 2024-05-31 10:34 | PT.OTN ---
Current Diagnoses Stiffness of right hip, not elsewhere classified (05/31/24) Low back pain, unspecified (05/31/24) Unsteadiness on feet (05/31/24) Other abnormalities of gait and mobility (05/31/24) Weakness (05/31/24) Physical Therapy Treatment Note PT-OP-A Visit Information Start: 05/04/24 10:29 Freq: Status: Active Protocol: Document 05/31/24 09:47 DCW (Rec: 05/31/24 10:33 DCW [id number]) Out-Patient Physical Therapy Visit Information Visit Information Visit Type Treatment Note Visit Note KX after 19 visits Visit Start Time 09:47 Visit Stop Time 10:30 Visit Number 7 Number of VOCATIONAL TEACHER Visits 0 Evaluation Information Evaluation Date 05/05/24 Precautions Precautions heart stents, blood thinner, hx of discectomy, bowel/ bladder incontinence, retrolisthesis L1-2 and L3-4, anterolisthesis L5-S1 PT-OP-B Current Condition Start: 05/04/24 10:29 Freq: Status: Active Protocol: Document 05/05/24 10:45 NM (Rec: 05/05/24 12:28 NM [id number]) Current Condition History of Current Condition Onset Date chronic, ongoing; exacerbation 1 month ago History of Current Condition Pt presents with chronic back and hip pain, R sided. Pt reports that pain began at least 1 month ago; unable to stand at that time, had to bend over and ambulate (hold thighs) for about 3 days. Ambulates with lateral lean. Worse with extension, sitting in car, car transfers, ambulation, sleeping. No known EJ but states likely occurred over night as was fine going to bed but reports that woke up with pain. Pt states that unable to sleep on either side due to pain, unable to get up in morning if that happens. Sleeps on back with 2 pillows under trunk. Pt reports that she had a discectomy in 2016, states that she had a hematoma following surgery that had to be surgically drained. Increased pain with ambulation . Hx of stent placement 3-4 months ago, influenza A last month, high blood pressure, R reverse TSA in Jan 2023, osteopenia. Hx of falls previously. Pt reports weakness in her RLE compared to before pain onset, with lifting her leg. Symptoms do not travel down RLE, no numbness/tingling. Remain in same spot. Pt has received injections before in her lumbar spine for pain. Feels in quad area, front of thigh. Pt reports changes to balance since onset of pain. Has been referred to neurosurgeon but wants to try PT first. No saddle anesthesia. Reports bladder incontinence (urgency, beginning 3 years ago) and bowel incontinence (unable to feel urge or control, beginning several years ago). 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 The degenerative changes overall have progressed compared to 2021. 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 Does feel like she's improving, and PT is helping in its own way, but still gets quite sore through her low back, I can't find any common denominator. No longer getting cramping in her legs PT-OP-E Functional Tests Start: 05/04/24 10:29 Freq: Status: Active Protocol: Document 05/05/24 10:45 NM (Rec: 05/05/24 12:28 NM [id number]) Functional Tests Five Times Sit to Stand Test Score 13.7 Comments no back pain PT-OP-F Manual Assessment Start: 05/04/24 10:29 Freq: Status: Active Protocol: Document 05/05/24 10:45 NM (Rec: 05/05/24 12:28 NM [id number]) Manual Assessments Soft Tissue Assessment Soft Tissue Mobility Assessment Tightness of B hamstrings, glutes, hip flexors. Tenderness at R and L glutes and paraspinals. Joint Mobility Assessment Joint Mobility Assessment Hypomobility of B SIJ, lumbopelvic motion during standing assessment and gait. Hypermobility of lumbar spine with PA springing R hip mobility limited into IR PT-OP-G Mobility & Gait Start: 05/04/24 10:29 Freq: Status: Active Protocol: Document 05/05/24 10:45 NM (Rec: 05/05/24 14:49 NM [id number]) OP Mobility Evaluation Bed Mobility Rolling painful in low back Supine to and from Sit able to lift RLE onto bed with increased effort and pain OP Gait Assessment Gait Gait Assistance Required: Standby Assistance Distance (Feet) 150 Assistive Devices Assistive Device None Gait Deviations General Gait Pattern Antalgic,Lateral Trunk Lean, Step-to Gait Factors Limiting Gait Function Factors Limiting Gait Function Decreased Activity Tolerance, Decreased Strength,Limited Range of Motion,Pain,Poor Balance PT-OP-H Neuro Start: 05/04/24 10:29 Freq: Status: Active Protocol: Document 05/10/24 10:43 NM (Rec: 05/10/24 11:34 NM [id number]) Sensation Evaluation Comments Summary Comments Less intense sensation on RLE to light touch, L1-3 PT-OP-J Posture/Palpation/Skin Start: 05/04/24 10:29 Freq: Status: Active Protocol: Document 05/05/24 10:45 NM (Rec: 05/05/24 12:28 NM [id number]) Posture Evaluation Position Standing Head/C-Spine Posture Forward Head T-Spine Posture Increased Kyphosis Comments Posture Comments scoliosis Palpation Assessment Location lumbar spine Palpation Details tenderness glutes PT-OP-K Range of Motion Start: 05/04/24 10:29 Freq: Status: Active Protocol: Document 05/27/24 11:33 NM (Rec: 05/27/24 12:24 NM [id number]) Lumbar Spine Range of Motion Lumbar Spine Active Percentage Flexion 90 Extension 50 Rotation Left 75 Rotation Right 75 Lateral Flexion Left 50 Lateral Flexion Right 25 Comments pain with ext from flexion, R> L LF 05/27/24: pain c/ L LF and R LF (R>L) PT-OP-L Special Tests Start: 05/04/24 10:29 Freq: Status: Active Protocol: Document 05/05/24 10:45 NM (Rec: 05/05/24 12:28 NM [id number]) Special Tests Lumbar Spine Special Tests traction Test Results + Straight Leg Raise Test Results + machuca/quadrant Test Results + Comments R PT-OP-M Strength Start: 05/04/24 10:29 Freq: Status: Active Protocol: Document 05/27/24 11:33 NM (Rec: 05/27/24 12:24 NM [id number]) Trunk Strength Trunk Manual Muscle Testing Flexion 4- Good- Extension 4- Good- Rotation Left 4- Good- Rotation Right 4- Good- Lateral Flexion Left 4- Good- Lateral Flexion Right 4- Good- Comments pain with resisted lateral flexion 05/27/24: no pain with resisted testing PT-OP-Q Treatments Start: 05/04/24 10:29 Freq: Status: Active Protocol: Document 05/31/24 09:47 DCW (Rec: 05/31/24 10:33 DCW [id number]) Gym Equipment Therapeutic Ball Pelvic Tilts Exercise Details Pelvic Tilts/Circles Ball Size/Color Green - 55 cm Body Position Sitting Comments c/o ipsilateral ache in posterior hips with lateral movement, circles feel good. Therapeutic Exercises Supine Exercises pelvic tilts Supine Exercise Name Practice with TrA bracing Sitting Exercises Trunk Extension Sitting Exercise Name Resisted trunk extension Resistance Lv 3 Standing Exercises Pallof Press Standing Exercise Name Pallof Press Side bilateral Resistance Green resisted side stepping Standing Exercise Name Resisted side-stepping Side bilateral Resistance Green loop Reps/Minutes 10 ft x2 laps Manual Therapy Treatment Consent Patient gave verbal consent for manual Yes treatment Soft Tissue Mobilization lumbar spine Body Location R>L paraspinals, QL at inferior ribs Mobilization Type Rolling,Strumming Intensity/Depth Superficial Body Position Sidelying Comments Tenderness at specifically just lateral to L1-2 along paraspinals, QL, distal ribs. Restrictions of soft tissue, mild radiation along trunk posterior > anterior. No rash present. Reports pain reduction with manual treatment PT-OP-T Assessment and Plan Start: 05/04/24 10:29 Freq: Status: Active Protocol: Document 05/31/24 09:47 DCW (Rec: 05/31/24 10:33 DCW [id number]) Physical Therapy Assessment Impairments Impairments Activity Tolerance,Balance, Functional Activities, Functional Mobility,Gait, Integument,Pain,Posture,ROM, Sensation,Soft Tissue Mobility ,Strength,Transfers Goals Three Impairment pain with ADLs, housework Short Term Goal (STG) Pt will be educated on body mechanics during various ADLs (e.g. vacuuming) and activity modification in order to improve symptom management 05/13/24: instruction on chest lift, split stance, wt shift between BLEs pushing vacuum, with TA draw in needed support back. 05/27/24: education about body mechanics and activity modification provided STG Duration 06/03/24 progressing 05/27 Environmental Services Supervisor Goal (LTG) Pt will report <3/10 back and hip pain with most household ADLs (e.g. vacuuming) in order to demonstrate improved symptom management, activity tolerance, and body mechanics 05/27/24: pt reports 3/10 pain with all ADLs, vacuuming 8-9 10, dropping or placing cat food on floor LTG Duration 07/01/24 Two Impairment pain with car transfers, sitting tolerance, bed mobility Short Term Goal (STG) Pt will report <3/10 pain with car transfers and bed mobility in order to demonstrate improved pain management and functional mobility 05/27/24: reports 4-5/10 car transfers, 9/10 STG Duration 06/10/24 PROGRESSING 05/27 [facility] Goal (LTG) Pt will be able to sit in car or chair other than favorite chair >30 minutes in order to demonstrate improved sitting tolerance for driving/[place] ferry LTG Duration 07/01/24 One Impairment impairments in standing tolerance, sitting tolerance, DANI 28% Short Term Goal (STG) Pt will report increased standing tolerance >15 minutes in order to perform standing ADLs and volunteer work with less pain 05/27/24: 20 min before needing to take a seated break STG Duration 06/10/24 MET 05/27 Environmental Services Supervisor Goal (LTG) Pt will report increased standing tolerance >30 minutes in order to perform standing ADLs and volunteer work with less pain LTG Duration 07/01/24 Assessment Summary Assessment Good response to activities today, did notes some low back discomfort with pelvic tilts and pallof press, however quickly resolved, noting more an ache than anything. Pt feeling good by end of session . Physical Therapy Plan Frequency and Duration Frequency of Treatment 2x/Week Duration of treatment (weeks) 8 Plan of Care Start Date 05/05/24 Plan of Care End Date 07/01/24 Therapeutic Interventions Therapeutic Interventions Balance Training,Gait Training ,Home Exercise Program,Joint Mobilizations,Manual Therapy, Neuromuscular Re-education, Orthotic/Prosthetic Management ,Patient/Caregiver Education, Self-Care/Home Management, Sensory Integration,Soft Tissue Mobilization,Taping, Therapeutic Activities, Therapeutic Exercises, Vestibular Rehabilitation Modalities Cold Pack/Ice Massage,Electric Stimulation,Hot Packs Other Therapeutic Interventions MET Next Visit Focus/Plan Next Note Type Treatment Note Next Visit Plan heart stent, blood thinners, osteopenia, poor tolerance for sidelying, previous discectomy No rotation. Assess bird dog. Cont with hip/glute trunk strength and core strength. Needs to focus on spinal stabilization, add lat/row. Limit twisting. Body mechanics training jon vacumming. PT POC: Once appropriate, progress to seated and standing hip ROM and strengthening exercises including STS and leg press. Manual tx: soft tissue mobilization in sitting with flexion over support vs prone over pillows- superficial, hip mobilizations
--- NOTE | 2024-06-03 10:32 | PT.OTN ---
Current Diagnoses Stiffness of right hip, not elsewhere classified (06/03/24) Low back pain, unspecified (06/03/24) Unsteadiness on feet (06/03/24) Other abnormalities of gait and mobility (06/03/24) Weakness (06/03/24) Physical Therapy Treatment Note PT-OP-A Visit Information Start: 05/04/24 10:29 Freq: Status: Active Protocol: Document 06/03/24 09:52 SP (Rec: 06/03/24 10:38 SP [id number]) Out-Patient Physical Therapy Visit Information Visit Information Visit Type Treatment Note Visit Note KX after 19 visits Visit Start Time 09:52 Visit Stop Time 10:32 Visit Number 8 Number of MERCHANDISING INTERNSHIP Visits 1 Evaluation Information Evaluation Date 05/05/24 Precautions Precautions heart stents, blood thinner, hx of discectomy, bowel/ bladder incontinence, retrolisthesis L1-2 and L3-4, anterolisthesis L5-S1 PT-OP-B Current Condition Start: 05/04/24 10:29 Freq: Status: Active Protocol: Document 05/05/24 10:45 NM (Rec: 05/05/24 12:28 NM [id number]) Current Condition History of Current Condition Onset Date chronic, ongoing; exacerbation 1 month ago History of Current Condition Pt presents with chronic back and hip pain, R sided. Pt reports that pain began at least 1 month ago; unable to stand at that time, had to bend over and ambulate (hold thighs) for about 3 days. Ambulates with lateral lean. Worse with extension, sitting in car, car transfers, ambulation, sleeping. No known EJ but states likely occurred over night as was fine going to bed but reports that woke up with pain. Pt states that unable to sleep on either side due to pain, unable to get up in morning if that happens. Sleeps on back with 2 pillows under trunk. Pt reports that she had a discectomy in 2016, states that she had a hematoma following surgery that had to be surgically drained. Increased pain with ambulation . Hx of stent placement 3-4 months ago, influenza A last month, high blood pressure, R reverse TSA in Jan 2023, osteopenia. Hx of falls previously. Pt reports weakness in her RLE compared to before pain onset, with lifting her leg. Symptoms do not travel down RLE, no numbness/tingling. Remain in same spot. Pt has received injections before in her lumbar spine for pain. Feels in quad area, front of thigh. Pt reports changes to balance since onset of pain. Has been referred to neurosurgeon but wants to try PT first. No saddle anesthesia. Reports bladder incontinence (urgency, beginning 3 years ago) and bowel incontinence (unable to feel urge or control, beginning several years ago). 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 The degenerative changes overall have progressed compared to 2021. 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 PT-OP-E Functional Tests Start: 05/04/24 10:29 Freq: Status: Active Protocol: Document 05/05/24 10:45 NM (Rec: 05/05/24 12:28 NM [id number]) Functional Tests Five Times Sit to Stand Test Score 13.7 Comments no back pain PT-OP-F Manual Assessment Start: 05/04/24 10:29 Freq: Status: Active Protocol: Document 05/05/24 10:45 NM (Rec: 05/05/24 12:28 NM [id number]) Manual Assessments Soft Tissue Assessment Soft Tissue Mobility Assessment Tightness of B hamstrings, glutes, hip flexors. Tenderness at R and L glutes and paraspinals. Joint Mobility Assessment Joint Mobility Assessment Hypomobility of B SIJ, lumbopelvic motion during standing assessment and gait. Hypermobility of lumbar spine with PA springing R hip mobility limited into IR PT-OP-G Mobility & Gait Start: 05/04/24 10:29 Freq: Status: Active Protocol: Document 05/05/24 10:45 NM (Rec: 05/05/24 14:49 NM [id number]) OP Mobility Evaluation Bed Mobility Rolling painful in low back Supine to and from Sit able to lift RLE onto bed with increased effort and pain OP Gait Assessment Gait Gait Assistance Required: Standby Assistance Distance (Feet) 150 Assistive Devices Assistive Device None Gait Deviations General Gait Pattern Antalgic,Lateral Trunk Lean, Step-to Gait Factors Limiting Gait Function Factors Limiting Gait Function Decreased Activity Tolerance, Decreased Strength,Limited Range of Motion,Pain,Poor Balance PT-OP-H Neuro Start: 05/04/24 10:29 Freq: Status: Active Protocol: Document 05/10/24 10:43 NM (Rec: 05/10/24 11:34 NM [id number]) Sensation Evaluation Comments Summary Comments Less intense sensation on RLE to light touch, L1-3 PT-OP-J Posture/Palpation/Skin Start: 05/04/24 10:29 Freq: Status: Active Protocol: Document 05/05/24 10:45 NM (Rec: 05/05/24 12:28 NM [id number]) Posture Evaluation Position Standing Head/C-Spine Posture Forward Head T-Spine Posture Increased Kyphosis Comments Posture Comments scoliosis Palpation Assessment Location lumbar spine Palpation Details tenderness glutes PT-OP-K Range of Motion Start: 05/04/24 10:29 Freq: Status: Active Protocol: Document 05/27/24 11:33 NM (Rec: 05/27/24 12:24 NM [id number]) Lumbar Spine Range of Motion Lumbar Spine Active Percentage Flexion 90 Extension 50 Rotation Left 75 Rotation Right 75 Lateral Flexion Left 50 Lateral Flexion Right 25 Comments pain with ext from flexion, R> L LF 05/27/24: pain c/ L LF and R LF (R>L) PT-OP-L Special Tests Start: 05/04/24 10:29 Freq: Status: Active Protocol: Document 05/05/24 10:45 NM (Rec: 05/05/24 12:28 NM [id number]) Special Tests Lumbar Spine Special Tests traction Test Results + Straight Leg Raise Test Results + machuca/quadrant Test Results + Comments R PT-OP-M Strength Start: 05/04/24 10:29 Freq: Status: Active Protocol: Document 05/27/24 11:33 NM (Rec: 05/27/24 12:24 NM [id number]) Trunk Strength Trunk Manual Muscle Testing Flexion 4- Good- Extension 4- Good- Rotation Left 4- Good- Rotation Right 4- Good- Lateral Flexion Left 4- Good- Lateral Flexion Right 4- Good- Comments pain with resisted lateral flexion 05/27/24: no pain with resisted testing PT-OP-Q Treatments Start: 05/04/24 10:29 Freq: Status: Active Protocol: Document 06/03/24 09:52 SP (Rec: 06/03/24 10:38 SP [id number]) Gym Equipment Shuttle Balance Red Details add next tx for core/bal progression Therapeutic Ball Pelvic Tilts Exercise Details Pelvic Tilts/Circles, marching , LAQ Ball Size/Color Green - 55 cm Body Position Sitting Reps/Duration 10 each Comments Circles feels good, cued level pelvis, TA little challenge march, LAQ caused clickign inR knee so stopped Therapeutic Exercises Supine Exercises clamshells Supine Exercise Name single Side bilateral Resistance Tb #3 [place] at thighs Reps/Minutes 20 alternating (both knees bent) vs (opp leg straight) 10 reps each side) Comments good form no pain, more hip tiring Sitting Exercises Trunk Extension Sitting Exercise Name Resisted trunk extension (sit backs)- gave HO Resistance Lv 3 under 1-2 feet Equipment Used sit edge chair Reps/Minutes 2x10 Comments cued pull close to trunk/waist then sit back Standing Exercises Pallof Press Standing Exercise Name Pallof Press- gave HO Side bilateral Resistance Green Tb anchored waist height in door Reps/Minutes x10 each side Comments PPT, //feet, soft knee, side step out to light resistance, press out navel bird dog Standing Exercise Name modified- at side Shuttle Bal: opp arm & leg alt Resistance Plinth> side shuttle bal ( assimulat her counter height) Reps/Minutes 2x10 Comments reviewed HEP; cued TA and not LB arch, slow pacing resisted side stepping Standing Exercise Name Resisted side, forward and backward-stepping Side bilateral Resistance Green band tied at ankles Equipment Used open area Reps/Minutes 10 ft x2 laps each direction Comments cued trail LE clearance with slower pacing safety return, arms more relaxed PT-OP-T Assessment and Plan Start: 05/04/24 10:29 Freq: Status: Active Protocol: Document 06/03/24 09:52 SP (Rec: 06/03/24 10:38 SP [id number]) Physical Therapy Assessment Goals Three Impairment pain with ADLs, housework Short Term Goal (STG) Pt will be educated on body mechanics during various ADLs (e.g. vacuuming) and activity modification in order to improve symptom management 05/13/24: instruction on chest lift, split stance, wt shift between BLEs pushing vacuum, with TA draw in needed support back. 05/27/24: education about body mechanics and activity modification provided STG Duration 06/03/24 progressing 05/27 [facility] Goal (LTG) Pt will report <3/10 back and hip pain with most household ADLs (e.g. vacuuming) in order to demonstrate improved symptom management, activity tolerance, and body mechanics 05/27/24: pt reports 3/10 pain with all ADLs, vacuuming 8-9/ 10, dropping or placing cat food on floor LTG Duration 07/01/24 Two Impairment pain with car transfers, sitting tolerance, bed mobility Short Term Goal (STG) Pt will report <3/10 pain with car transfers and bed mobility in order to demonstrate improved pain management and functional mobility 05/27/24: reports 4-5/10 car transfers, 9/10 STG Duration 06/10/24 PROGRESSING 05/27 Transition Rn Goal (LTG) Pt will be able to sit in car or chair other than favorite chair >30 minutes in order to demonstrate improved sitting tolerance for driving[place] LTG Duration 07/01/24 One Impairment impairments in standing tolerance, sitting tolerance, DANI 28% Short Term Goal (STG) Pt will report increased standing tolerance >15 minutes in order to perform standing ADLs and volunteer work with less pain 05/27/24: 20 min before needing to take a seated break STG Duration 06/10/24 MET 05/27 [facility] Goal (LTG) Pt will report increased standing tolerance >30 minutes in order to perform standing ADLs and volunteer work with less pain LTG Duration 07/01/24 Assessment Summary Assessment Improved core engagement throughout ther ex reported. Cues for PPT and TA to support no LB soreness recruitment with good response. Added paloff and sit back to HEP with HOs with G TB, better performance today. Physical Therapy Plan Frequency and Duration Frequency of Treatment 2x/Week Duration of treatment (weeks) 8 Plan of Care Start Date 05/05/24 Plan of Care End Date 07/01/24 Therapeutic Interventions Therapeutic Interventions Balance Training,Gait Training ,Home Exercise Program,Joint Mobilizations,Manual Therapy, Neuromuscular Re-education, Orthotic/Prosthetic Management ,Patient/Caregiver Education, Self-Care/Home Management, Sensory Integration,Soft Tissue Mobilization,Taping, Therapeutic Activities, Therapeutic Exercises, Vestibular Rehabilitation Modalities Cold Pack/Ice Massage,Electric Stimulation,Hot Packs Other Therapeutic Interventions MET Next Visit Focus/Plan Next Note Type Treatment Note Next Visit Plan heart stent, blood thinners, osteopenia, poor tolerance for sidelying, previous discectomy Next: add lat/row. Body mechanics training jon vacumming. No rotation. Assess bird dog. Cont with hip/glute trunk strength and core strength. Needs to focus on spinal stabilization,Limit twisting. PT POC: Once appropriate, progress to seated and standing hip ROM and strengthening exercises including STS and leg press. Manual tx: soft tissue mobilization in sitting with flexion over support vs prone over pillows- superficial, hip mobilizations
--- NOTE | 2024-06-07 10:26 | PT.OTN ---
Current Diagnoses Stiffness of right hip, not elsewhere classified (06/07/24) Low back pain, unspecified (06/07/24) Unsteadiness on feet (06/07/24) Other abnormalities of gait and mobility (06/07/24) Weakness (06/07/24) Physical Therapy Treatment Note PT-OP-A Visit Information Start: 05/04/24 10:29 Freq: Status: Active Protocol: Document 06/07/24 09:51 SP (Rec: 06/07/24 10:30 SP [id number]) Out-Patient Physical Therapy Visit Information Visit Information Visit Type Treatment Note Visit Note KX after 19 visits Visit Start Time 09:51 Visit Stop Time 10:26 Visit Number 9 Number of DRYLAND FARMER Visits 2 Evaluation Information Evaluation Date 05/05/24 Precautions Precautions heart stents, blood thinner, hx of discectomy, bowel/ bladder incontinence, retrolisthesis L1-2 and L3-4, anterolisthesis L5-S1 PT-OP-B Current Condition Start: 05/04/24 10:29 Freq: Status: Active Protocol: Document 05/05/24 10:45 NM (Rec: 05/05/24 12:28 NM [id number]) Current Condition History of Current Condition Onset Date chronic, ongoing; exacerbation 1 month ago History of Current Condition Pt presents with chronic back and hip pain, R sided. Pt reports that pain began at least 1 month ago; unable to stand at that time, had to bend over and ambulate (hold thighs) for about 3 days. Ambulates with lateral lean. Worse with extension, sitting in car, car transfers, ambulation, sleeping. No known EJ but states likely occurred over night as was fine going to bed but reports that woke up with pain. Pt states that unable to sleep on either side due to pain, unable to get up in morning if that happens. Sleeps on back with 2 pillows under trunk. Pt reports that she had a discectomy in 2016, states that she had a hematoma following surgery that had to be surgically drained. Increased pain with ambulation . Hx of stent placement 3-4 months ago, influenza A last month, high blood pressure, R reverse TSA in Jan 2023, osteopenia. Hx of falls previously. Pt reports weakness in her RLE compared to before pain onset, with lifting her leg. Symptoms do not travel down RLE, no numbness/tingling. Remain in same spot. Pt has received injections before in her lumbar spine for pain. Feels in quad area, front of thigh. Pt reports changes to balance since onset of pain. Has been referred to neurosurgeon but wants to try PT first. No saddle anesthesia. Reports bladder incontinence (urgency, beginning 3 years ago) and bowel incontinence (unable to feel urge or control, beginning several years ago). 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 The degenerative changes overall have progressed compared to 2021. 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 She feels doing well with HEP and wonders if need to continue appts into Apr. She lives on [facility] and has level and inclines can try and [facility] food event helps so will check her tolerance back to her normal activities. PT-OP-E Functional Tests Start: 05/04/24 10:29 Freq: Status: Active Protocol: Document 05/05/24 10:45 NM (Rec: 05/05/24 12:28 NM [id number]) Functional Tests Five Times Sit to Stand Test Score 13.7 Comments no back pain PT-OP-F Manual Assessment Start: 05/04/24 10:29 Freq: Status: Active Protocol: Document 05/05/24 10:45 NM (Rec: 05/05/24 12:28 NM [id number]) Manual Assessments Soft Tissue Assessment Soft Tissue Mobility Assessment Tightness of B hamstrings, glutes, hip flexors. Tenderness at R and L glutes and paraspinals. Joint Mobility Assessment Joint Mobility Assessment Hypomobility of B SIJ, lumbopelvic motion during standing assessment and gait. Hypermobility of lumbar spine with PA springing R hip mobility limited into IR PT-OP-G Mobility & Gait Start: 05/04/24 10:29 Freq: Status: Active Protocol: Document 05/05/24 10:45 NM (Rec: 05/05/24 14:49 NM [id number]) OP Mobility Evaluation Bed Mobility Rolling painful in low back Supine to and from Sit able to lift RLE onto bed with increased effort and pain OP Gait Assessment Gait Gait Assistance Required: Standby Assistance Distance (Feet) 150 Assistive Devices Assistive Device None Gait Deviations General Gait Pattern Antalgic,Lateral Trunk Lean, Step-to Gait Factors Limiting Gait Function Factors Limiting Gait Function Decreased Activity Tolerance, Decreased Strength,Limited Range of Motion,Pain,Poor Balance PT-OP-H Neuro Start: 05/04/24 10:29 Freq: Status: Active Protocol: Document 05/10/24 10:43 NM (Rec: 05/10/24 11:34 NM [id number]) Sensation Evaluation Comments Summary Comments Less intense sensation on RLE to light touch, L1-3 PT-OP-J Posture/Palpation/Skin Start: 05/04/24 10:29 Freq: Status: Active Protocol: Document 05/05/24 10:45 NM (Rec: 05/05/24 12:28 NM [id number]) Posture Evaluation Position Standing Head/C-Spine Posture Forward Head T-Spine Posture Increased Kyphosis Comments Posture Comments scoliosis Palpation Assessment Location lumbar spine Palpation Details tenderness glutes PT-OP-K Range of Motion Start: 05/04/24 10:29 Freq: Status: Active Protocol: Document 05/27/24 11:33 NM (Rec: 05/27/24 12:24 NM [id number]) Lumbar Spine Range of Motion Lumbar Spine Active Percentage Flexion 90 Extension 50 Rotation Left 75 Rotation Right 75 Lateral Flexion Left 50 Lateral Flexion Right 25 Comments pain with ext from flexion, R> L LF 05/27/24: pain c/ L LF and R LF (R>L) PT-OP-L Special Tests Start: 05/04/24 10:29 Freq: Status: Active Protocol: Document 05/05/24 10:45 NM (Rec: 05/05/24 12:28 NM [id number]) Special Tests Lumbar Spine Special Tests traction Test Results + Straight Leg Raise Test Results + machuca/quadrant Test Results + Comments R PT-OP-M Strength Start: 05/04/24 10:29 Freq: Status: Active Protocol: Document 05/27/24 11:33 NM (Rec: 05/27/24 12:24 NM [id number]) Trunk Strength Trunk Manual Muscle Testing Flexion 4- Good- Extension 4- Good- Rotation Left 4- Good- Rotation Right 4- Good- Lateral Flexion Left 4- Good- Lateral Flexion Right 4- Good- Comments pain with resisted lateral flexion 05/27/24: no pain with resisted testing PT-OP-Q Treatments Start: 05/04/24 10:29 Freq: Status: Active Protocol: Document 06/07/24 09:51 SP (Rec: 06/07/24 10:30 SP [id number]) Cardio Equipment Recumbent Stepper (Sci-Fit) Duration (Minutes) 6 Resistance 2.5 Seat Position 9 Other BUEs & BLEs 50 RPMs Gym Equipment Shuttle Balance Red Details WBOS f/b/lateral, Stride Stance Comments wt shift HTs EC- WBOS F/B 10 sec no UE support cc cue direction wt shift and relax shlds, TA and glut as needed for level board Therapeutic Exercises Standing Exercises resisted side stepping Standing Exercise Name Resisted side, forward and backward-stepping Side bilateral Resistance Green band tied at ankles Equipment Used open area Reps/Minutes 10 ft x2 laps each direction Comments cued trail LE clearance with slower pacing safety return, slower pace, arm Neuro Re-Education Treatment Balance Activities dynamic stepping Details fwd, backward carrying water Equipment 50 ft hallway, 20 ft hallway backward Comments head turns, improved increase GLENNA, slows when carrying water or HTs and at times viers toward head turned direction but no LOB, self correction. uneven surface Details fwd, lateral Equipment pods, foam, hurdles Comments fwd receiprocal stepping, lateral step to PT-OP-T Assessment and Plan Start: 05/04/24 10:29 Freq: Status: Active Protocol: Document 06/07/24 09:51 SP (Rec: 06/07/24 10:30 SP [id number]) Physical Therapy Assessment Goals Three Impairment pain with ADLs, housework Short Term Goal (STG) Pt will be educated on body mechanics during various ADLs (e.g. vacuuming) and activity modification in order to improve symptom management 05/13/24: instruction on chest lift, split stance, wt shift between BLEs pushing vacuum, with TA draw in needed support back. 05/27/24: education about body mechanics and activity modification provided STG Duration 06/03/24 progressing 05/27 Dye House Worker Goal (LTG) Pt will report <3/10 back and hip pain with most household ADLs (e.g. vacuuming) in order to demonstrate improved symptom management, activity tolerance, and body mechanics 05/27/24: pt reports 3/10 pain with all ADLs, vacuuming 8-9/ 10, dropping or placing cat food on floor LTG Duration 07/01/24 Two Impairment pain with car transfers, sitting tolerance, bed mobility Short Term Goal (STG) Pt will report <3/10 pain with car transfers and bed mobility in order to demonstrate improved pain management and functional mobility 05/27/24: reports 4-5/10 car transfers, 9/10 STG Duration 06/10/24 PROGRESSING 05/27 Jail Goal (LTG) Pt will be able to sit in car or chair other than favorite chair >30 minutes in order to demonstrate improved sitting tolerance for driving[place] ferry LTG Duration 07/01/24 One Impairment impairments in standing tolerance, sitting tolerance, DANI 28% Short Term Goal (STG) Pt will report increased standing tolerance >15 minutes in order to perform standing ADLs and volunteer work with less pain 05/27/24: 20 min before needing to take a seated break STG Duration 06/10/24 MET 05/27 Dye House Worker Goal (LTG) Pt will report increased standing tolerance >30 minutes in order to perform standing ADLs and volunteer work with less pain LTG Duration 07/01/24 Assessment Summary Assessment Pt tolerated ther ex and progressed balance today with cues for TA and midline and upright posture for stabiltiy. She is incorporating this in ADLs and feel HEP doing well. Noted viering of to side head turn but self righting and stabiltiy over uneven surface stepping for return to out door activities. Next tx recheck response to walking and standing [facility] event tolerance before decide if DC next tx. Physical Therapy Plan Frequency and Duration Frequency of Treatment 2x/Week Duration of treatment (weeks) 8 Plan of Care Start Date 05/05/24 Plan of Care End Date 07/01/24 Therapeutic Interventions Therapeutic Interventions Balance Training,Gait Training ,Home Exercise Program,Joint Mobilizations,Manual Therapy, Neuromuscular Re-education, Orthotic/Prosthetic Management ,Patient/Caregiver Education, Self-Care/Home Management, Sensory Integration,Soft Tissue Mobilization,Taping, Therapeutic Activities, Therapeutic Exercises, Vestibular Rehabilitation Modalities Cold Pack/Ice Massage,Electric Stimulation,Hot Packs Other Therapeutic Interventions MET Next Visit Focus/Plan Next Note Type Treatment Note Next Visit Plan heart stent, blood thinners, osteopenia, poor tolerance for sidelying, previous discectomy *possible Dc next tx. Next: add lat/row for gym use, look at body mechanics training jon vacumming. Cont with hip/glute trunk strength and core strength. Needs to focus on spinal stabilization, Limit twisting. PT POC: Once appropriate, progress to seated and standing hip ROM and strengthening exercises including STS and leg press. Manual tx: soft tissue mobilization in sitting with flexion over support vs prone over pillows- superficial, hip mobilizations
--- NOTE | 2024-06-10 10:38 | PT.OTN ---
Current Diagnoses Stiffness of right hip, not elsewhere classified (06/10/24) Low back pain, unspecified (06/10/24) Unsteadiness on feet (06/10/24) Other abnormalities of gait and mobility (06/10/24) Weakness (06/10/24) Physical Therapy Treatment Note PT-OP-A Visit Information Start: 05/04/24 10:29 Freq: Status: Active Protocol: Document 06/10/24 09:48 DCW (Rec: 06/10/24 10:38 DCW [id number]) Out-Patient Physical Therapy Visit Information Visit Information Visit Type Discharge Summary Visit Note KX after 19 visits Visit Start Time 09:48 Visit Stop Time 10:30 Visit Number 10 Number of FIRE SPRINKLER FITTER Visits 0 Evaluation Information Evaluation Date 05/05/24 Precautions Precautions heart stents, blood thinner, hx of discectomy, bowel/ bladder incontinence, retrolisthesis L1-2 and L3-4, anterolisthesis L5-S1 PT-OP-B Current Condition Start: 05/04/24 10:29 Freq: Status: Active Protocol: Document 05/05/24 10:45 NM (Rec: 05/05/24 12:28 NM [id number]) Current Condition History of Current Condition Onset Date chronic, ongoing; exacerbation 1 month ago History of Current Condition Pt presents with chronic back and hip pain, R sided. Pt reports that pain began at least 1 month ago; unable to stand at that time, had to bend over and ambulate (hold thighs) for about 3 days. Ambulates with lateral lean. Worse with extension, sitting in car, car transfers, ambulation, sleeping. No known EJ but states likely occurred over night as was fine going to bed but reports that woke up with pain. Pt states that unable to sleep on either side due to pain, unable to get up in morning if that happens. Sleeps on back with 2 pillows under trunk. Pt reports that she had a discectomy in 2016, states that she had a hematoma following surgery that had to be surgically drained. Increased pain with ambulation . Hx of stent placement 3-4 months ago, influenza A last month, high blood pressure, R reverse TSA in Jan 2023, osteopenia. Hx of falls previously. Pt reports weakness in her RLE compared to before pain onset, with lifting her leg. Symptoms do not travel down RLE, no numbness/tingling. Remain in same spot. Pt has received injections before in her lumbar spine for pain. Feels in quad area, front of thigh. Pt reports changes to balance since onset of pain. Has been referred to neurosurgeon but wants to try PT first. No saddle anesthesia. Reports bladder incontinence (urgency, beginning 3 years ago) and bowel incontinence (unable to feel urge or control, beginning several years ago). 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 The degenerative changes overall have progressed compared to 2021. 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 But overall I feel better. I'm standing and walking a lot straighter. PT-OP-E Functional Tests Start: 05/04/24 10:29 Freq: Status: Active Protocol: Document 06/10/24 09:48 DCW (Rec: 06/10/24 09:59 DCW [id number]) Functional Tests Five Times Sit to Stand Test Score 7.9 Comments No UE use PT-OP-F Manual Assessment Start: 05/04/24 10:29 Freq: Status: Active Protocol: Document 06/10/24 09:48 DCW (Rec: 06/10/24 09:59 DCW [id number]) Manual Assessments Joint Mobility Assessment Joint Mobility Assessment Moderate tone/tenderness in right periscapular musculature PT-OP-G Mobility & Gait Start: 05/04/24 10:29 Freq: Status: Active Protocol: Document 06/10/24 09:48 DCW (Rec: 06/10/24 09:59 DCW [id number]) OP Mobility Evaluation Bed Mobility Rolling WNL, no further pain OP Gait Assessment Gait Gait Assistance Required: Independent Assistive Devices Assistive Device None Gait Deviations General Gait Pattern Lateral Trunk Lean Factors Limiting Gait Function Factors Limiting Gait Function Limited Range of Motion PT-OP-H Neuro Start: 05/04/24 10:29 Freq: Status: Active Protocol: Document 06/10/24 09:48 DCW (Rec: 06/10/24 09:59 DCW [id number]) Sensation Evaluation Comments Summary Comments Less intense sensation on RLE to light touch, L1-3 PT-OP-J Posture/Palpation/Skin Start: 05/04/24 10:29 Freq: Status: Active Protocol: Document 06/10/24 09:48 DCW (Rec: 06/10/24 09:59 DCW [id number]) Posture Evaluation Position Standing Head/C-Spine Posture Neutral Position Comments Posture Comments scoliosis PT-OP-K Range of Motion Start: 05/04/24 10:29 Freq: Status: Active Protocol: Document 06/10/24 09:48 DCW (Rec: 06/10/24 09:59 DCW [id number]) Lumbar Spine Range of Motion Lumbar Spine Active Percentage Flexion 90 Extension 45 Hip Goniometric Range of Motion Hip Right Testing Position Supine Internal Rotation 28 External Rotation 40 Left Testing Position Supine Internal Rotation 30 External Rotation 45 PT-OP-L Special Tests Start: 05/04/24 10:29 Freq: Status: Active Protocol: Document 06/10/24 09:48 DCW (Rec: 06/10/24 09:59 DCW [id number]) Special Tests Lumbar Spine Special Tests Straight Leg Raise Test Results Negative PT-OP-M Strength Start: 05/04/24 10:29 Freq: Status: Active Protocol: Document 05/27/24 11:33 NM (Rec: 05/27/24 12:24 NM [id number]) Trunk Strength Trunk Manual Muscle Testing Flexion 4- Good- Extension 4- Good- Rotation Left 4- Good- Rotation Right 4- Good- Lateral Flexion Left 4- Good- Lateral Flexion Right 4- Good- Comments pain with resisted lateral flexion 05/27/24: no pain with resisted testing PT-OP-Q Treatments Start: 05/04/24 10:29 Freq: Status: Active Protocol: Document 06/10/24 09:48 DCW (Rec: 06/10/24 10:38 DCW [id number]) Gym Equipment Shuttle Balance Red Details WBOS, Staggered, Lateral weight shift Therapeutic Exercises Sitting Exercises Stretching Sitting Exercise Name Hamstring Stretch - Seated Standing Exercises Calf Stretch Standing Exercise Name Gastroc/Soleus Side bilateral Equipment Used FADI PT-OP-T Assessment and Plan Start: 05/04/24 10:29 Freq: Status: Active Protocol: Document 06/10/24 09:48 DCW (Rec: 06/10/24 10:38 DCW [id number]) Physical Therapy Assessment Goals Three Impairment pain with ADLs, housework Short Term Goal (STG) Pt will be educated on body mechanics during various ADLs (e.g. vacuuming) and activity modification in order to improve symptom management 05/13/24: instruction on chest lift, split stance, wt shift between BLEs pushing vacuum, with TA draw in needed support back. STG Duration Met Mold Finisher Goal (LTG) Pt will report <3/10 back and hip pain with most household ADLs (e.g. vacuuming) in order to demonstrate improved symptom management, activity tolerance, and body mechanics 05/27/24: pt reports 3/10 pain with all ADLs, vacuuming 8-9/ 10, dropping or placing cat food on floor LTG Duration Met Two Impairment pain with car transfers, sitting tolerance, bed mobility Short Term Goal (STG) Pt will report <3/10 pain with car transfers and bed mobility in order to demonstrate improved pain management and functional mobility 05/27/24: reports 4-5/10 car transfers, 9/10 STG Duration Met Mold Finisher Goal (LTG) Pt will be able to sit in car or chair other than favorite chair >30 minutes in order to demonstrate improved sitting tolerance for driving[place] ferry LTG Duration Met One Impairment impairments in standing tolerance, sitting tolerance, DANI 28% Short Term Goal (STG) Pt will report increased standing tolerance >15 minutes in order to perform standing ADLs and volunteer work with less pain 05/27/24: 20 min before needing to take a seated break STG Duration Met 05/27 Assisted Goal (LTG) Pt will report increased standing tolerance >30 minutes in order to perform standing ADLs and volunteer work with less pain LTG Duration Met Assessment Summary Assessment Pt feeling much better overall . happy with her current level of function, feels like she has made very good progress. Has met all her goals, feels comfortable with her HEP. Pt appropriate for discharge at this time. Physical Therapy Plan Frequency and Duration Frequency of Treatment 2x/Week Duration of treatment (weeks) 8 Plan of Care Start Date 05/05/24 Plan of Care End Date 07/01/24 Therapeutic Interventions Therapeutic Interventions Balance Training,Gait Training ,Home Exercise Program,Joint Mobilizations,Manual Therapy, Neuromuscular Re-education, Orthotic/Prosthetic Management ,Patient/Caregiver Education, Self-Care/Home Management, Sensory Integration,Soft Tissue Mobilization,Taping, Therapeutic Activities, Therapeutic Exercises, Vestibular Rehabilitation Modalities Cold Pack/Ice Massage,Electric Stimulation,Hot Packs Next Visit Focus/Plan Next Note Type Treatment Note Next Visit Plan heart stent, blood thinners, osteopenia, poor tolerance for sidelying, previous discectomy *possible Dc next tx. Next: add lat/row for gym use, look at body mechanics training jon vacumming. Cont with hip/glute trunk strength and core strength. Needs to focus on spinal stabilization, Limit twisting. PT POC: Once appropriate, progress to seated and standing hip ROM and strengthening exercises including STS and leg press. Manual tx: soft tissue mobilization in sitting with flexion over support vs prone over pillows- superficial, hip mobilizations
== END 2024-06-13 10:20 | disposition home or self-care (01) ==
LOC: PHYS 09:45
PROVIDERS: Family Provider Family Medicine; PCP Family Medicine; Referring Provider Family Medicine; Visit Provider Family Medicine
DX: M54.50 Low back pain, unspecified (principal); R53.1 Weakness; M25.651 Stiffness of right hip, not elsewhere classified; R26.81 Unsteadiness on feet; R26.89 Other abnormalities of gait and mobility
CPT/HCPCS: 97110; 97112; 97140; 97161; 97530; 97535

== ENCOUNTER 2024-09-13 08:49 | Emergency (ER) | payer MEDICARE, OTHER, SELFPAY ==
[2024-03-14 08:52] VITALS: BMI 22.3
--- NOTE | 2024-09-13 08:58 | EKG_ITS ---
[address] [address] Test Date: 2024-09-13 Pat Name: Kaylee Bunn Department: Room: Gender: Female Theater Projectionist: NICHOLAS : 1940 Requested By: Order Number: [id number] Reading MD: Harvinder Jones MD Measurements Intervals [place] Rate: 73 P: 76 [place]: 114 QRS: 72 QRSD: 78 T: 57 QT: 386 QTc: 425 Interpretive Statements Normal sinus rhythm with sinus arrhythmia Electronically Signed On 09-13-2024 10:36:10 PDT by Harvinder Jones MD
--- NOTE | 2024-09-13 08:59 | DI.RAD.S_ITS ---
PROCEDURE: XR CHEST 1V INDICATIONS: Chest Pain TECHNIQUE: One view of the chest was acquired. COMPARISON: [facility], CR, XR CHEST 2V, 04/13/2024, 15:24. FINDINGS: Surgical changes and devices: Reverse total right shoulder arthroplasty Lungs and pleura: Lungs are clear. No pleural effusions or pneumothorax. Mediastinum: Mediastinal contours appear normal. Heart size is normal. Bones and chest wall: No suspicious bony lesions. Overlying soft tissues appear unremarkable. IMPRESSION: No acute cardiopulmonary abnormality is seen. Dictated by: Leon Menjivar M.D. on 09/13/2024 at 9:32 Approved by: Leon Menjivar M.D. on 09/13/2024 at 9:33
--- NOTE | 2024-09-13 08:59 | ED.SOB ---
HPI - SOB/Dyspnea General Chief Complaint: Weakness Stated Complaint: Weak,SOB Time Seen by Provider: 09/13/24 08:59 Source: patient, EMS, RN notes reviewed and old records reviewed Mode of arrival: EMS Limitations: no limitations History of Present Illness HPI Narrative: 84-year-old female history of coronary artery disease with prior cardiac stent on Plavix and aspirin, dyslipidemia, hypertension, SVT presents complaint of feeling lightheaded for the past 2 days. Patient states she has not had any syncope but felt like she might pass out. She states yesterday she had episodes on and off throughout the day went to get very sweaty with these episodes. States that overnight she was very sweaty as well she was not aware of any fevers. She denies any cough cold or congestion symptoms. She was has a little bit of a mild headache. Denies any chest pain or pressure. Notes she has not feel short of breath but states like there was not space to take a breath. She denies any nausea or vomiting. Denies any sudden vision changes or difficulty with speech, no new numbness or tingling. States she was weak but describes as being in both legs. She notes she would have diarrhea this morning twice but states she also has a large amount of cherries yesterday she was describes it as dark but not black. She does note that she was has a sense of urgency and incomplete emptying with urination recently. She denies any new swelling of her extremities. She notes she had COVID about 2 months ago. Patient states she has a history of diverticulitis states this does not feel similar takes medication for hypertension, dyslipidemia as well as aspirin and Plavix states she was had a cardiac stent proximally a year ago, had right shoulder surgery, hysterectomy with appendectomy. States she reviewed her allergies with nursing. No tobacco, occasional alcohol, no recreational drugs. Dr. Fraser is her primary care physician, Dr. 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 Patient states she presents today rather than yesterday as she was working at the [employer] on was prompted to come here by her coworkers. Related Data Home Medications ?Medication ?Instructions ?Recorded ?Confirmed polyethylene glycol 3350 17 17 gram PO PRN PRN Constipation 11/02/17 04/13/24 gram/dose oral powder (Miralax) diltiazem HCl 180 mg 180 mg PO DAILY 01/22/22 04/13/24 capsule,extended release 24 hr vit C 250 mg-vit E 90 mg-zinc 40 1 tab PO BID Macular degeneration 01/22/22 04/13/24 mg-copper 1 at-oylthn-domlad (Dry) capsule (PreserVision AREDS-2) aspirin 81 mg chewable tablet 1 tab PO DAILY 03/11/24 04/13/24 clopidogrel 75 mg tablet 75 mg PO DAILY 03/11/24 04/13/24 ezetimibe 10 mg tablet 10 mg PO DAILY 03/11/24 04/13/24 lisinopril 20 mg tablet 20 mg PO DAILY 03/11/24 04/13/24 nitroglycerin 0.4 mg sublingual mg sublingual 03/11/24 04/13/24 tablet rosuvastatin 5 mg tablet mg PO 03/11/24 04/13/24 prednisone 20 mg tablet 40 mg PO DAILY 03/30/24 04/13/24 Previous Rx's ?Medication ?Instructions ?Recorded Disabled Parking Permit #1 ea 01/07/22 gabapentin 300 mg capsule 300 mg PO TID neuropathy 10 days 04/30/23 #30 caps benzonatate 200 mg capsule 200 mg PO BID PRN cough #28 caps 04/13/24 fluticasone propionate 50 1 spray intranasal Q12H #16 grams 04/13/24 mcg/actuation nasal spray,suspension (Flonase Allergy Relief) Allergies Allergy/AdvReac Type Severity Reaction Status Date / Time ciprofloxacin (From CIPRO) Allergy Severe swelling Verified 09/13/24 09:00 levofloxacin (LEVOFLOXACIN) Allergy Severe severe Verified 09/13/24 09:00 mouth and eye swelling indomethacin (INDOMETHACIN) AdvReac Severe Headaches Verified 09/13/24 09:00 meloxicam (MELOXICAM) AdvReac Severe Headaches Verified 09/13/24 09:00 trandolapril (TRANDOLAPRIL) AdvReac Severe Headaches Verified 09/13/24 09:00 Zcrsscd-ONU-XmR Reductase AdvReac Muscle Pain Verified 09/13/24 09:00 Inhibitor Review of Systems Review of Systems ROS Unobtainable: All systems reviewed & are unremarkable except as noted in HPI and below Patient History Medical History Osteopenia Rheumatic fever IBS (irritable bowel syndrome) Osteoarthritis HTN (hypertension) Anesthesia complication Depression History of COVID-19 (02/2022) Scoliosis (and kyphoscoliosis), idiopathic SVT (supraventricular tachycardia) 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 Cervical facet joint syndrome Diverticular disease Spinal stenosis PVCs (premature ventricular contractions) Surgical History Hx of tonsillectomy Hx of bilateral cataract extraction Hx of hemorrhoidectomy Hx of decompressive lumbar laminectomy (08/01/15) Status post hysterectomy with oophorectomy Family History Mother Pancreatic cancer Social History marital status: number of children: 0 household members: none lives independently: Yes caregiver/support person: No housing: house Smoking Status: Unknown if ever smoked second hand exposure: No alcohol intake: current substance use type: does not use alcohol intake frequency: holidays/special occasions only Exam Narrative Exam Narrative: GEN: well nourished, well appearing female, alert and oriented x 3, patient appears to be in mild distress. HEENT: Atraumatic, pupils are equal round reactive to light, extraocular movements are intact, nares are clear, there is no conjunctival pallor. Throat is clear without any exudates, erythema, tonsillar enlargement or uvular deviation HEART: Regular rate and rhythm without murmur, clicks, rubs. pulses are equal in upper and lower extremities. No edema bilateral upper and lower extremities. LUNGS:Lungs clear to auscultation, no wheezes, rales, crackles, chest moves symmetrically, no tachypnea accessory muscle use. ABD:bowel sounds normal, soft, non-tender, no guarding, rebound, rigidity, no masses noted, no hepatosplenomegaly :No CVA tenderness MSCL: Non-tender, no muscle atrophy, muscles strength 5/5 upper and lower extremities, full range of motion. NEURO:CN 2-12 intact, sensation normal. Initial Vital Signs Initial Vital Signs: Vital Signs Temperature 97.7 F 09/13/24 09:00 Pulse Rate 80 09/13/24 09:00 Respiratory Rate 14 09/13/24 09:00 Blood Pressure 171/70 H 09/13/24 09:00 Pulse Oximetry 100 07/01/25 09:00 Oxygen Delivery Method Room Air 09/13/24 09:00 Course Orders Ordered: ED Orders 09/13/24 10:48 Trop I [Troponin I] Stat Discontinued Medications Sodium Chloride (Normal Saline 0.9%) 500 mls @ 1,000 mls/hr IV BOLUS ONE Stop: 09/13/24 09:44 Last Infusion: 09/13/24 11:18 Dose: Infused Documented By: Admin: 09/13/24 09:20 Dose: 1,000 mls/hr Documented By: Vital Signs Vital signs: Vital Signs - 8 hr 09/13/24 11:43 Temperature 98.4 F Pulse Rate 69 Respiratory Rate 19 Blood Pressure 138/78 Pulse Oximetry 98 Oxygen Delivery Method Room Air MDM - SOB/Dyspnea Lab Data 09/13/24 08:50 09/13/24 08:50 Labs: Lab Results 09/13/24 09/13/24 09/13/24 Range/Units 08:50 09:21 09:22 WBC 8.6 (4.5-11.0) X10^3/uL RBC 3.14 L (4.0-5.2) X10^6/uL Hgb 10.0 L (12.0-16.0) g/dL Hct 29.5 L (36-46) % MCV 93.8 (80-100) fL MCH 31.9 (26-34) PG MCHC 34.0 (30-36) % RDW 14.5 (11.6-14.8) % Plt Count 252 (150-400) X10^3/uL Neut % (Auto) 76.0 H (50-75) % Lymph % (Auto) 17.2 L (25-40) % [place] % (Auto) 5.8 (3-14) % Eos % (Auto) 0.4 L (2-4) % Baso % (Auto) 0.6 (0-2) % Neut # (Auto) 6500 (9366-4407) /uL Lymph # (Auto) 1500 (2810-9287) /uL [place] # (Auto) 500 (0-900) /uL Eos # (Auto) 0 (0-450) /uL Baso # (Auto) 0 (0-100) /uL PT 11.7 (9.4-12.5) SECONDS INR 1.0 (0.9-1.3) APTT 23 L (25.1-36.5) SECONDS Sodium 134 L (137-145) mmol/L Potassium 4.4 (3.4-5.1) mmol/L Chloride 104 (98-107) mmol/L Carbon Dioxide 21 L (22-32) mmol/L BUN 65 H (7-17) mg/dL Creatinine 0.71 (0.52-1.04) mg/dL Estimated GFR > 60 (>60) mL/min BUN/Creatinine Ratio 91.5 H (6-22) Glucose 95 (70-99) mg/dL Calcium 8.9 (8.4-10.2) mg/dL Magnesium 1.9 (1.6-2.3) mg/dL Total Bilirubin 0.4 (0.2-1.3) mg/dL AST 27 (14-36) IU/L ALT 16 (<35) IU/L Alkaline Phosphatase 54 (38-126) U/L Total Creatine Kinase 94 (30-135) U/L Troponin I < 0.012 (0.01-0.034) ng/mL NT-Pro-B Natriuret Pep 89 (<450) pg/mL Total Protein 6.6 (6.3-8.2) g/dL Albumin 4.0 (3.5-5.0) g/dL Globulin 2.6 (1.7-4.1) g/dL Albumin/Globulin Ratio 1.5 (1.0-2.8) Lipase 167 (23-300) U/L Urine RBC None seen (0-5/HPF) Urine WBC 1-5/hpf (0-5/HPF) Ur Squamous Epith Cells 1-5 /hpf (0-5/HPF) Urine Bacteria Occasional (0-1) (None) Ur Culture Indicated? Cult not indicated Vol Urine Centrifuged 10ml (spun) SARS-CoV-2 (PCR) Negative (Negative) Influenza A (RT-PCR) Flu a negative (NEGATIVE) Influenza B (RT-PCR) Flu b negative (NEGATIVE) RSV (PCR) Negative (Negative) 09/13/24 Range/Units 10:48 WBC (4.5-11.0) X10^3/uL RBC (4.0-5.2) X10^6/uL Hgb (12.0-16.0) g/dL Hct (36-46) % MCV (80-100) fL MCH (26-34) PG MCHC (30-36) % RDW (11.6-14.8) % Plt Count (150-400) X10^3/uL Neut % (Auto) (50-75) % Lymph % (Auto) (25-40) % [place] % (Auto) (3-14) % Eos % (Auto) (2-4) % Baso % (Auto) (0-2) % Neut # (Auto) (0108-9531) /uL Lymph # (Auto) (8818-0277) /uL [place] # (Auto) (0-900) /uL Eos # (Auto) (0-450) /uL Baso # (Auto) (0-100) /uL PT (9.4-12.5) SECONDS INR (0.9-1.3) APTT (25.1-36.5) SECONDS Sodium (137-145) mmol/L Potassium (3.4-5.1) mmol/L Chloride (98-107) mmol/L Carbon Dioxide (22-32) mmol/L BUN (7-17) mg/dL Creatinine (0.52-1.04) mg/dL Estimated GFR (>60) mL/min BUN/Creatinine Ratio (6-22) Glucose (70-99) mg/dL Calcium (8.4-10.2) mg/dL Magnesium (1.6-2.3) mg/dL Total Bilirubin (0.2-1.3) mg/dL AST (14-36) IU/L ALT (<35) IU/L Alkaline Phosphatase (38-126) U/L Total Creatine Kinase (30-135) U/L Troponin I < 0.012 (0.01-0.034) ng/mL NT-Pro-B Natriuret Pep (<450) pg/mL Total Protein (6.3-8.2) g/dL Albumin (3.5-5.0) g/dL Globulin (1.7-4.1) g/dL Albumin/Globulin Ratio (1.0-2.8) Lipase (23-300) U/L Urine RBC (0-5/HPF) Urine WBC (0-5/HPF) Ur Squamous Epith Cells (0-5/HPF) Urine Bacteria (None) Ur Culture Indicated? Vol Urine Centrifuged SARS-CoV-2 (PCR) (Negative) Influenza A (RT-PCR) (NEGATIVE) Influenza B (RT-PCR) (NEGATIVE) RSV (PCR) (Negative) Urine Dip Bedside Urine Glucose Negative Bedside Urine Bilirubin - Negative Bedside Urine Ketone - Negative Urine Specific [place] 1.015 Bedside Urine Occult Blood ++ Bedside Urine pH 6.0 Bedside Urine Protein - Negative Bedside Urine Urobilinogen - Negative Bedside Urine Nitrite - Negative Bedside Urine Leukocytes - Negative Esterase ECG Data Attestation: I personally reviewed and interpreted this ECG as follows: Prior ECG tracings: available for review Interpretation: Sinus rhythm with sinus arrhythmia rate of 73 P 114 QRS 78 QTC of [address] elevation or depression noted, patient was prior from 04/30/2023 which appears similar to today's. MDM Narrative Medical decision making narrative: EKG shows sinus rhythm with sinus arrhythmia, no acute ST changes comparison to prior from April 2023. Labs normal white count hemoglobin of 10 appears consistent with priors through April 2023, platelets are 252. Coags are negative, sodium is 134 CO2 is 21 BUN 65 quite a bit elevated from prior in December 2023 creatinine 0.71, electrolytes are otherwise appropriate LFTs are negative, troponins less than 0.012 with a BNP of 89. Lipase is 167. Repeat troponin is less than 0.012. Chest x-ray shows no acute change urine shows blood, no nitrates no leuks urine microscopy no RBCs 1-5 white cells 1-5 squamous 1 bacteria. COVID/influenza/RSV is negative. Patient received fluids. She has been ambulated in the department without issue Discharge Plan Departure Patient Disposition: Home Clinical Impression: Dehydration Activity Restrictions/Additional Instructions: Your workup today does show labs show consistent with some dehydration continue to hydrate regularly. Your urine shows questionable infection was sent for culture. This takes 2-3 days result if positive we would contact you to start antibiotics. We do not call to contact if negative. Please return if you have new or worsening symptoms, fevers, new chest pain or shortness of breath, lightheadedness or passing out, new swelling of your extremities, persistent vomiting, new abdominal back or flank pain or other new or concerning changes. Prescriptions: No Action prednisone 20 mg tablet 40 mg PO DAILY benzonatate 200 mg capsule 200 mg PO BID PRN (Reason: cough) Qty: 28 0RF fluticasone propionate [Flonase Allergy Relief] 50 mcg/actuation spray,suspension 1 spray intranasal Q12H Qty: 16 0RF Rx Instructions: administer into each nostril rosuvastatin 5 mg tablet PO ezetimibe 10 mg tablet 10 mg PO DAILY lisinopril 20 mg tablet 20 mg PO DAILY clopidogrel 75 mg tablet 75 mg PO DAILY nitroglycerin 0.4 mg tablet, sublingual sublingual aspirin 81 mg tablet,chewable 1 tab PO DAILY (DME) Disabled Parking Permit See Rx Instructions .ROUTE .MEDSUPPLY Qty: 1 0RF Rx Instructions: Patient qualifies for disabled parking as per the attached form. polyethylene glycol 3350 [Miralax] 17 gram/dose powder 17 gram PO PRN PRN (Reason: Constipation) gabapentin 300 mg capsule 300 mg PO TID 10 Days Qty: 30 1RF PreserVision AREDS-2 250-90-40-1 mg capsule 1 tab PO BID diltiazem HCl 180 mg capsule,extended release 24hr 180 mg PO DAILY Referrals: Meli Fraser MD [Primary Care Provider, Family Practice] Stand Alone Forms: Patient Portal/API
[2024-09-13 09:00] VITALS: BP 171/70; PULSE 80; RESP 14; TEMP 36.5; O2SAT 100; BMI 22.3
[2024-09-13 09:02] VITALS: PULSE 72; RESP 15; O2SAT 100
[2024-09-13 09:15] LABS: Add Manual Diff / Slide Review NO; Hematocrit 29.5 % (36-46); Hemoglobin 10.0 g/dL (12.0-16.0); Lymphocytes Absolute Auto 1500 /uL (1100-4500); Mean Corpuscular HGB Conc 34.0 % (30-36); Mean Corpuscular Hemoglobin 31.9 PG (26-34); Mean Corpuscular Volume 93.8 fL (80-100); Platelet Count 252 X10^3/uL (150-400)
[2024-09-13 09:16] LABS: INR 1.0 (0.9-1.3); Prothrombin Time 11.7 SECONDS (9.4-12.5)
[2024-09-13 09:19] LABS: PTT Partial Thromboplastin Tim 23 SECONDS (25.1-36.5)
[2024-09-13] MEDS: SODIUM CHLORIDE 0.9% 500 ML 1000 ML IV (09:20)
[2024-09-13 09:21] LABS: Alanine Aminotransferase 16 IU/L (<35); Albumin 4.0 g/dL (3.5-5.0); Albumin Globulin Ratio 1.5 (1.0-2.8); Alkaline Phosphatase 54 U/L (38-126); Blood Urea Nitrogen 65 mg/dL (7-17); Calcium 8.9 mg/dL (8.4-10.2); Carbon Dioxide 21 mmol/L (22-32); Chloride 104 mmol/L (98-107); Creatine Kinase 94 U/L (30-135); Estimated Glomerular Filt Rate > 60 mL/min (>60); Globulin 2.6 g/dL (1.7-4.1); Glucose 95 mg/dL (70-99); HEMOLYSIS < 15 (0-50); Lipase 167 U/L (23-300); Magnesium 1.9 mg/dL (1.6-2.3); Potassium 4.4 mmol/L (3.4-5.1); Sodium 134 mmol/L (137-145); Total Protein 6.6 g/dL (6.3-8.2)
[2024-09-13 09:30] VITALS: BP 131/63; PULSE 74; RESP 22; O2SAT 100
[2024-09-13 09:32] LABS: NT-proBNP (BNP-Adult 18+) 89 pg/mL (<450); Troponin I < 0.012 ng/mL (0.01-0.034)
--- NOTE | 2024-09-13 09:32 | PC.NURSE ---
Pt up to BR with SBA. Unsteady at first, able to ambulate to BR. UA collected.
[2024-09-13 09:45] LABS: Culture Indicated Urine Cult Not Indicated
[2024-09-13 10:07] LABS: Influenza A - CEPHEID Flu A NEGATIVE (NEGATIVE); Influenza B - CEPHEID Flu B NEGATIVE (NEGATIVE)
[2024-09-13 10:08] LABS: COVID-19 CEPHEID 4-PLEX PCR Negative (Negative)
[2024-09-13 10:16] VITALS: BP 137/64; PULSE 76; RESP 19; O2SAT 100
[2024-09-13 10:32] VITALS: PULSE 70; RESP 14; O2SAT 99
[2024-09-13 11:23] LABS: Troponin I < 0.012 ng/mL (0.01-0.034)
[2024-09-13 11:43] VITALS: BP 138/78; PULSE 69; RESP 19; TEMP 36.9; O2SAT 98
== END 2024-09-13 11:50 | disposition home or self-care (01) ==
PROVIDERS: Emergency Provider Emergency Medicine; Family Provider Family Medicine; PCP Family Medicine
DX: E86.0 Dehydration (principal); R53.1 Weakness; R51.9 Headache, unspecified
CPT/HCPCS: 0241U; 36415; 71045; 80053; 81003; 81015; 82550; 83690; 83735; 83880; 84484; 85025; 85610; 85730; 87086; 93005; 93010; 96360; 96361; 99284

== ENCOUNTER 2024-09-15 15:10 | Emergency (ER) | payer MEDICARE, OTHER, SELFPAY ==
[2024-03-14 08:52] VITALS: BMI 22.3
[2024-09-15 15:26] VITALS: BP 149/66; PULSE 84; RESP 20; TEMP 36.9; O2SAT 100; BMI 22.3
--- NOTE | 2024-09-15 15:32 | DI.RAD.S_ITS ---
PROCEDURE: XR CHEST 1V INDICATIONS: Shortness of breath TECHNIQUE: One view of the chest was acquired. COMPARISON: [facility], CR, XR CHEST 1V, 09/13/2024, 9:07. FINDINGS: Surgical changes and devices: Right shoulder arthroplasty. Lungs and pleura: Lungs are clear. No pleural effusions or pneumothorax. Mediastinum: Mediastinal contours appear normal. Heart size is normal. Bones and chest wall: No suspicious bony lesions. Overlying soft tissues appear unremarkable. IMPRESSION: No acute pulmonary process. Dictated by: Randee Reyez M.D. on 09/15/2024 at 16:37 Approved by: Randee Reyez M.D. on 09/15/2024 at 16:37
--- NOTE | 2024-09-15 15:37 | EKG_ITS ---
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
[2024-09-15 16:07] LABS: Culture Indicated Urine Specimen Cultured
--- NOTE | 2024-09-15 16:27 | PC.WOUNDPHOT ---
Went to start IV on patient and she stated she wanted to go. Did extensive education on reasons and purpose of staying, patient acknowledged but continued to assert desire to go. Educated her on when to come back, signs and symptoms to be concerned for, to follow up with primary appt when has on Thursday, and reach out to tax services specialist. Patient acknowledged education. Signed [facility] paperwork and left ED under own power.
== END 2024-09-15 16:30 | disposition left against medical advice (07) ==
PROVIDERS: Emergency Provider Emergency Medicine; Family Provider Family Medicine; PCP Family Medicine
DX: R06.02 Shortness of breath (principal); R42 Dizziness and giddiness; R53.1 Weakness
CPT/HCPCS: 71045; 81015; 87077; 87086; 87186; 93005; 93010; 99281

== ENCOUNTER → 2024-09-28 11:09 | Outpatient (CLI) | payer MEDICARE, OTHER, SELFPAY ==
[2024-03-14 08:52] VITALS: BMI 22.3
[2024-09-28 12:10] LABS: Add Manual Diff / Slide Review NO; Hematocrit 27.7 % (36-46); Hemoglobin 9.4 g/dL (12.0-16.0); Lymphocytes Absolute Auto 1300 /uL (1100-4500); Mean Corpuscular HGB Conc 33.9 % (30-36); Mean Corpuscular Hemoglobin 30.9 PG (26-34); Mean Corpuscular Volume 91.1 fL (80-100); Platelet Count 330 X10^3/uL (150-400)
[2024-09-28 12:20] LABS: Hemoglobin A1C% w Est Avg Glu 4.8 % (4.0-6.0)
[2024-09-28 12:23] LABS: Blood Urea Nitrogen 20 mg/dL (7-17); Calcium 8.9 mg/dL (8.4-10.2); Carbon Dioxide 24 mmol/L (22-32); Chloride 107 mmol/L (98-107); Estimated Glomerular Filt Rate > 60 mL/min (>60); Glucose 88 mg/dL (70-99); HEMOLYSIS < 15 (0-50); Potassium 4.1 mmol/L (3.4-5.1); Sodium 137 mmol/L (137-145)
[2024-09-28 13:06] LABS: Thyroid Stimulating Hormone 2.51 uIU/mL (0.47-4.68)
== END ==
PROVIDERS: Family Provider Family Medicine; PCP Family Medicine; Referring Provider Family Medicine; Visit Provider Family Medicine
DX: R35.89 Other polyuria (principal); R00.2 Palpitations; R39.9 Unspecified symptoms and signs involving the genitourinary system; Z79.899 Other long term (current) drug therapy; R73.9 Hyperglycemia, unspecified
CPT/HCPCS: 36415; 80048; 83036; 84443; 85025; 87086

== ENCOUNTER → 2024-09-30 13:47 | Outpatient (CLI) | payer MEDICARE, OTHER, SELFPAY ==
[2024-03-14 08:52] VITALS: BMI 22.3
[2024-09-30 15:18] LABS: Iron 30 ug/dL (37-170)
[2024-09-30 15:55] LABS: Ferritin 11 ng/mL (11-264)
== END ==
PROVIDERS: Family Provider Family Medicine; PCP Family Medicine; Visit Provider Family Medicine
DX: D64.9 Anemia, unspecified (principal)
CPT/HCPCS: 82728; 83540

== ENCOUNTER → 2024-10-24 11:04 | Outpatient (CLI) | payer MEDICARE, OTHER, SELFPAY ==
[2024-03-14 08:52] VITALS: BMI 22.3
[2024-10-24 11:56] LABS: Add Manual Diff / Slide Review NO; Hematocrit 34.0 % (36-46); Hemoglobin 11.0 g/dL (12.0-16.0); Lymphocytes Absolute Auto 1400 /uL (1100-4500); Mean Corpuscular HGB Conc 32.2 % (30-36); Mean Corpuscular Hemoglobin 27.7 PG (26-34); Mean Corpuscular Volume 85.9 fL (80-100); Platelet Count 400 X10^3/uL (150-400)
== END ==
PROVIDERS: Family Provider Family Medicine; PCP Family Medicine; Referring Provider Family Medicine; Visit Provider Family Medicine
DX: D64.9 Anemia, unspecified (principal)
CPT/HCPCS: 36415; 85025

== ENCOUNTER → 2024-12-07 08:11 | Outpatient (CLI) | payer MEDICARE, OTHER, SELFPAY ==
[2024-03-14 08:52] VITALS: BMI 22.3
[2024-12-07 09:05] LABS: Hematocrit 37.8 % (36-46); Hemoglobin 12.5 g/dL (12.0-16.0); Mean Corpuscular HGB Conc 33.1 % (30-36); Mean Corpuscular Hemoglobin 27.8 PG (26-34); Mean Corpuscular Volume 84.0 fL (80-100); Platelet Count 258 X10^3/uL (150-400)
[2024-12-07 09:30] LABS: Blood Urea Nitrogen 23 mg/dL (7-17); Calcium 9.8 mg/dL (8.4-10.2); Carbon Dioxide 24 mmol/L (22-32); Chloride 106 mmol/L (98-107); Cholesterol 222 mg/dL (140-199); Estimated Glomerular Filt Rate > 60 mL/min (>60); Glucose 89 mg/dL (70-99); HEMOLYSIS 23 (0-50); Sodium 138 mmol/L (137-145); Triglycerides 68 mg/dL (35-150)
[2024-12-07 09:45] LABS: Potassium 5.5 mmol/L (3.4-5.1)
[2024-12-07 09:46] LABS: HDL Cholesterol 121 mg/dL (40-60)
== END ==
PROVIDERS: Family Provider Family Medicine; PCP Family Medicine; Referring Provider Family Medicine; Visit Provider Internal Medicine Cardiovascular Disease
DX: I25.10 Atherosclerotic heart disease of native coronary artery without angina pectoris (principal)
CPT/HCPCS: 36415; 80048; 80061; 85027

== ENCOUNTER → 2024-12-07 15:51 | Outpatient (CLI) | payer MEDICARE, OTHER, SELFPAY ==
[2024-03-14 08:52] VITALS: BMI 22.3
[2024-12-07 17:19] LABS: Blood Urea Nitrogen 23 mg/dL (7-17); Calcium 9.2 mg/dL (8.4-10.2); Carbon Dioxide 25 mmol/L (22-32); Chloride 103 mmol/L (98-107); Estimated Glomerular Filt Rate > 60 mL/min (>60); Glucose 119 mg/dL (70-99); HEMOLYSIS < 15 (0-50); Potassium 4.4 mmol/L (3.4-5.1); Sodium 137 mmol/L (137-145)
== END ==
PROVIDERS: Family Provider Family Medicine; PCP Family Medicine; Referring Provider Internal Medicine Cardiovascular Disease; Visit Provider Internal Medicine Cardiovascular Disease
DX: I10 Essential (primary) hypertension (principal)
CPT/HCPCS: 36415; 80048

== ENCOUNTER → 2025-01-02 07:55 | Outpatient (CLI) | payer MEDICARE, OTHER, SELFPAY ==
[2024-03-14 08:52] VITALS: BMI 22.3
[2025-01-02 08:17] LABS: Add Manual Diff / Slide Review NO; Hematocrit 38.4 % (36-46); Hemoglobin 12.6 g/dL (12.0-16.0); Lymphocytes Absolute Auto 1400 /uL (1100-4500); Mean Corpuscular HGB Conc 32.9 % (30-36); Mean Corpuscular Hemoglobin 27.7 PG (26-34); Mean Corpuscular Volume 84.2 fL (80-100); Platelet Count 295 X10^3/uL (150-400)
[2025-01-02 09:50] LABS: Folate 13.3 ng/mL (2.76-20.0); Vitamin B12 286 pg/mL (239-931)
[2025-01-02 10:05] LABS: HEMOLYSIS 48 (0-50); Iron 120 ug/dL (37-170)
[2025-01-02 10:18] LABS: Percent Iron Saturation 33 % (15-50); Total Iron Binding Capacity 361 ug/dL (265-497); Transferrin 342 mg/dL (206-381)
== END ==
PROVIDERS: Family Provider Family Medicine; PCP Family Medicine; Referring Provider Family Medicine; Visit Provider Internal Medicine Gastroenterology
DX: D64.9 Anemia, unspecified (principal); Z87.19 Personal history of other diseases of the digestive system
CPT/HCPCS: 36415; 82607; 82746; 83540; 83550; 85025